=== PATIENT | male | born 1960 | race Caucasian/White ===

== ENCOUNTER → 2016-12-11 | Outpatient (CLI) | payer BC ==
[2013-12-02 11:20] VITALS: BP 122/79
[~2016-12-11] MED LIST: AMLO10TA2 PO; ASPI325T8 PO; CHOL100013 PO; CYCL10TA2 PO; DIAZ5TAB PO; FLUO20CA16 PO; FLUO40CA2 PO; LISI-334 PO; LISI40TA PO; MELO15TA23 PO; METO-239 PO; METO-269 PO; METO10TA PO; METO50TA29 PO; OMEP20CA5 PO; OMEP20TA63 PO; OXYC1TAB7 PO; SIMV40TA3 PO; TRIA1TAB5 PO
== END | disposition home or self-care (01) ==
LOC: ECHO 09:15
PROVIDERS: ATTEND Internal Medicine Cardiovascular Disease

== ENCOUNTER 2016-12-30 09:51 | Inpatient (IN) | payer BC ==
[~2016-12-30] VITALS: Ht 180.3 cm; Wt 164.7 kg
[~2016-12-30 09:51] MED LIST changes: -CHOL100013 PO; -CYCL10TA2 PO; -FLUO40CA2 PO; -LISI40TA PO; -MELO15TA23 PO; -METO10TA PO; -METO50TA29 PO; -OMEP20TA63 PO; -OXYC1TAB7 PO; -TRIA1TAB5 PO
[2016-12-30] MEDS ORDERED: ONDANSETRON PF 4 MG/2 ML VIAL. IV ONE (10:15)
--- NOTE | 2016-12-30 10:18 | EKG ---
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
--- NOTE | 2016-12-30 10:18 | RAD ---
Chest radiograph 12/30/2016 12:02 PM Indication: Chest pain Comparison: Chest radiograph 12/01/2013 Technique: Single portable upright frontal view of the chest is provided. Findings: Cardiomediastinal silhouette is within normal limits. No pleural effusions, pulmonary vascular congestion or pneumothorax. The lungs are clear. Osseous structures are normal. Impression: No acute cardiopulmonary process.
[2016-12-30] MEDS: fentaNYL PF VIAL 100 MCG/2 ML VIAL IV PRN ×4 (10:29→14:25)
[2016-12-30] MEDS: NITROGLYCERIN SUBLINGUAL 0.4 MG BOTTLE OF 25. SL PRN ×3 (10:30→10:53)
[2016-12-30 10:41] LABS: BASO # 0.1 x10^3/uL (0.0-0.2); BASO % 1 % (0-3); EOS % 4 % (0-3); HEMATOCRIT 45.9 % (39.0-53.0); HEMOGLOBIN 15.4 g/dL (13.0-17.5); LYMPH # 1.9 x10^3/uL (1.0-4.8); LYMPH % 16 % (24-48); MEAN CORPUSCULAR HEMOGLOBIN 30 pg (25-35); MEAN CORPUSCULAR HGB CONC 34 g/dL (31-37); MEAN CORPUSCULAR VOLUME 89 fL (79-100); MONO % 6 % (0-9); NEUT % 73 % (31-73); PLATELET COUNT 240 x10^3/uL (140-400); RED BLOOD COUNT 5.15 x10^6/uL (4.30-5.70); RED CELL DISTRIBUTION WIDTH 13.9 % (11.5-14.5); WHITE BLOOD COUNT 11.9 x10^3/uL (4.0-11.0)
[2016-12-30 10:45] LABS: CALCIUM 9.8 mg/dL (8.5-10.1); CREATININE 0.8 mg/dL (0.7-1.3); GFR 100.4; POTASSIUM 4.4 mmol/L (3.5-5.1)
[2016-12-30 10:53] LABS: ALBUMIN 3.7 g/dL (3.4-5.0); DIRECT BILIRUBIN 0.1 mg/dL (0.0-0.2); TOTAL BILIRUBIN 0.4 mg/dL (0.2-1.0); TOTAL PROTEIN 7.1 g/dL (6.4-8.2)
[2016-12-30] MEDS ORDERED: fentaNYL PF VIAL 100 MCG/2 ML VIAL IV PRN ×2 (11:30→21:45)
[2016-12-30 12:12] LABS: BILIRUBIN,URINE NEGATIVE (NEG); GLUCOSE,URINE NEGATIVE (NEG); NITRITE,URINE NEGATIVE (NEG); PROTEIN,URINE NEGATIVE (NEG-TRACE)
[2016-12-30 12:24] LABS: BARBITURATES NEG (NEG); BENZODIAZEPINES NEG (NEG); CANNABINOIDS POS (NEG); COCAINE NEG (NEG); METHADONE NEG (NEG); OPIATES NEG (NEG); PHENCYCLIDINE NEG (NEG)
[2016-12-30 12:41] LABS: INR 0.9 (0.8-1.1)
[2016-12-30 12:41] LABS: BACTERIA,URINE 0 /HPF (0-FEW); RBC,URINE 0 /HPF (0-2); SQUAMOUS EPITHELIAL CELL,UR FEW /LPF; WBC,URINE 0 /HPF (0-4)
[2016-12-30] MEDS ORDERED: IOHEXOL 300 MG/ML 75 ML VIAL IV ONE (13:00)
[2016-12-30] MEDS ORDERED: CONTRAST GIVEN MC PRN (13:15)
[2016-12-30] MEDS ORDERED: IOHEXOL 300 MG/ML 75 ML VIAL ONE (13:41)
--- NOTE | 2016-12-30 14:06 | RAD ---
CT angiography chest 12/30/2016 at 1322 hours Indication: Chest pain, shortness of breath with history of shoulder surgery. Comparison: CT chest 05/06/2010 Technique: Multiple axial CT images of the chest were obtained after the administration of 75 mL Omnipaque 300. Coronal and sagittal reformats are provided. Maximum intensity projection images are provided for evaluation the pulmonary arterial system. Findings: The thyroid gland is normal in appearance. There are no pathologically enlarged lymph nodes in the axillary, mediastinal or hilar regions. Heart size is within normal limits. Thoracic aorta is normal in course and caliber. There is no pericardial effusion. There is adequate preservation of the pulmonary arterial system. No filling defects are identified to suggest a pulmonary embolism. There are no suspicious pulmonary nodules. No pulmonary infiltrates. No pulmonary vascular congestion, pleural effusions or pneumothorax. Simple appearing right renal cyst is partially profiled. Otherwise, visualized portions of the upper abdomen are within normal limits. No suspicious osseous lesions are identified. Impression: 1. No acute pulmonary embolism is identified. 2. No pulmonary infiltrate or suspicious pulmonary nodule. PQRS Compliance Statement: One or more of the following individualized dose reduction techniques were utilized for this examination: 1. Automated exposure control 2. Adjustment of the mA and/or kV according to patient size 3. Use of iterative reconstruction technique
[2016-12-30] MEDS ORDERED: LIDO:MAALOX:DONNATAL 1:1:1 15 ML SINGLE DOSE SWSW ONE (14:15)
[2016-12-30] MEDS ORDERED: NITROGLYCERIN SUBLINGUAL 0.4 MG BOTTLE OF 25. SL PRN (15:00)
[2016-12-30] MEDS ORDERED: ONDANSETRON PF 4 MG/2 ML VIAL. IV PRN (15:00)
[2016-12-30] MEDS ORDERED: ACETAMINOPHEN 325 MG TABLET. PO PRN (15:00)
[2016-12-30 16:03] VITALS: BP 136/77
[2016-12-30] MEDS: MORPHINE SULFATE 4 MG/ML DISP.SYRIN. IV PRN ×3 (16:10→20:52)
--- NOTE | 2016-12-30 16:50 | ED.ADGEN ---
Past Medical History Past Medical History: Depression, High Cholesterol, Hypertension, Other Additional Past Medical Histor: HIGH CHOLESTEROL, Past Surgical History: Other Additional Past Surgical Histo: STENTS, LEFT SHOUDLER Additional Information: 1 CIGARETTE DAILY Alcohol Use: Occasionally Additional Information: 4 OR 5 MIXED DRINKS Drug Use: Marijuana Adult General Chief Complaint Chief Complaint: CHEST PAIN HPI HPI Patient is a 56 year old man, history of CAD status post CA, obesity, hypertension, hyperlipidemia, several weeks postop from left shoulder rotator cuff repair, who presents to the emergency department with complaint of chest pain. Patient states that he began experiencing chest pain across anterior portion of his chest that feels a pressure, and is an 8 out of 10, around 8:00 this morning. He states that he was already awake when experiencing the pain. States that it hurts to take a deep breath, and is have some shortness of breath with this pain. He states that it does feel something like the pain he experienced when he had an CA "this is worse". He denies any swelling of the extremities, any swelling of the upper extremity, where he had recent surgery, any nausea or vomiting, any focal weakness, numbness, tingling, headache, injuries. States he's been compliant with all medications. Patient's is at bedside. Review of Systems Review of Systems Constitutional: Denies fever or chills. [] Eyes: Denies change in visual acuity. [] HENT: Denies nasal congestion or sore throat. [] Respiratory: Denies cough, pain with deep inspiration, shortness breath, and anterior chest pain. Cardiovascular: Anterior chest pain. GI: Denies abdominal pain, nausea, vomiting, bloody stools or diarrhea. [] : Denies dysuria. [] Musculoskeletal: Denies back pain, pain in the left upper extremity status post rotator cuff repair surgery several weeks ago.] Integument: Denies rash. [] Neurologic: Denies headache, focal weakness or sensory changes. [] Endocrine: Denies polyuria or polydipsia. [] Lymphatic: Denies swollen glands. [] Psychiatric: Denies depression or anxiety. [] Current Medications Current Medications Current Medications Medications (Trade) Dose Ordered Sig/Allie Start Time Stop Time Status Last Admin Dose Admin Fentanyl Citrate (Fentanyl 2ml Vial) 50 mcg PRN Q15MIN PRN 12/30/16 11:30 12/31/16 11:29 Info (Do NOT chart on this entry -- for MONITORING) 1 each PRN DAILY PRN 12/30/16 13:15 01/01/17 13:14 Iohexol (Omnipaque 300 Mg/ml) 75 ml STK-MED ONCE 12/30/16 13:41 12/30/16 13:42 DC Multi-Ingredient Mouthwash/Gargle (Gi Cocktail Single Dose) 15 ml 1X ONCE 12/30/16 14:15 12/30/16 14:17 DC 12/30/16 14:28 15 ML Nitroglycerin (Nitrostat) 0.4 mg PRN Q5MIN PRN 12/30/16 10:15 12/31/16 10:14 12/30/16 10:53 0.4 MG Ondansetron HCl (Zofran) 4 mg 1X ONCE 12/30/16 10:15 12/30/16 10:16 DC 12/30/16 10:29 4 MG Allergies Allergies Allergies Coded Allergies Type Severity Reaction Last Updated Verified naproxen Allergy Unknown 12/01/13 No Physical Exam Physical Exam Constitutional: Well developed, well nourished, no acute distress, non-toxic appearance. [] HENT: Normocephalic, atraumatic, bilateral external ears normal, oropharynx moist, no oral exudates, nose normal. [] Eyes: PERRLA, EOMI, conjunctiva normal, no discharge. [] Neck: Normal range of motion, no tenderness, supple, no stridor. [] Cardiovascular:Heart rate regular rhythm, no murmur , S1, S2, rubs or gallops. Patient with chest wall tenderness across the anterior portion of his chest, but palpation does not reveal any symptoms. No lesions or other maladies identified. No crepitus.[] Lungs & Thorax: Bilateral breath sounds clear to auscultation , no wheezing, rhonchi, rales.[] Abdomen: Bowel sounds normal, obese, soft, no tenderness, no masses, no pulsatile masses. [] Skin: Warm, dry, no erythema, no rash. [] Back: No tenderness, no CVA tenderness. [] Extremities: No tenderness, no cyanosis, no clubbing, ROM intact, no edema. Patient with well-healed surgical incisions noted in the left shoulder consistent with patient's recent rotator cuff repair, patient with tenderness in this region and diminished range of motion, but no swelling other abnormalities identified, normal pulses bilaterally. Negative Homans sign.[] Neurologic: Alert and oriented X 3, normal motor function, normal sensory function, no focal deficits noted. [] Psychologic: Affect normal, judgement normal, mood normal. [] Current Patient Data Vital Signs Vital Signs Date Time Temp Pulse Resp B/P (MAP) Pulse Ox O2 Delivery O2 Flow Rate FiO2 12/30/16 14:30 82 140/80 (100) 93 Room Air 12/30/16 14:25 16 12/30/16 10:06 97.8 97.8 Lab Values Laboratory Tests Test 12/30/16 10:25 12/30/16 12:01 12/30/16 13:00 White Blood Count 11.9 x10^3/uL (4.0-11.0) H Red Blood Count 5.15 x10^6/uL (4.30-5.70) Hemoglobin 15.4 g/dL (13.0-17.5) Hematocrit 45.9 % (39.0-53.0) Mean Corpuscular Volume 89 fL (79-100) Mean Corpuscular Hemoglobin 30 pg (25-35) Mean Corpuscular Hemoglobin Concent 34 g/dL (31-37) Red Cell Distribution Width 13.9 % (11.5-14.5) Platelet Count 240 x10^3/uL (140-400) Neutrophils (%) (Auto) 73 % (31-73) Lymphocytes (%) (Auto) 16 % (24-48) L Monocytes (%) (Auto) 6 % (0-9) Eosinophils (%) (Auto) 4 % (0-3) H Basophils (%) (Auto) 1 % (0-3) Neutrophils # (Auto) 8.7 x10^3uL (1.8-7.7) H Lymphocytes # (Auto) 1.9 x10^3/uL (1.0-4.8) Monocytes # (Auto) 0.7 x10^3/uL (0.0-1.1) Eosinophils # (Auto) 0.5 x10^3/uL (0.0-0.7) Basophils # (Auto) 0.1 x10^3/uL (0.0-0.2) Prothrombin Time 12.0 SEC (11.7-14.0) Prothrombin Time INR 0.9 (0.8-1.1) PTT 33 SEC (24-38) Sodium Level 140 mmol/L (136-145) Potassium Level 4.4 mmol/L (3.5-5.1) Chloride Level 101 mmol/L (98-107) Carbon Dioxide Level 30 mmol/L (21-32) Anion Gap 9 (6-14) Blood Urea Nitrogen 14 mg/dL (8-26) Creatinine 0.8 mg/dL (0.7-1.3) Estimated GFR (Cockcroft-Gault) 100.4 Glucose Level 103 mg/dL (70-99) H Calcium Level 9.8 mg/dL (8.5-10.1) Total Bilirubin 0.4 mg/dL (0.2-1.0) Direct Bilirubin 0.1 mg/dL (0.0-0.2) Aspartate Amino Transferase (AST) 17 U/L (15-37) Alanine Aminotransferase (ALT) 18 U/L (16-63) Alkaline Phosphatase 105 U/L (46-116) Troponin I Quantitative < 0.017 ng/mL (0.000-0.055) < 0.017 ng/mL (0.000-0.055) Total Protein 7.1 g/dL (6.4-8.2) Albumin 3.7 g/dL (3.4-5.0) Lipase 171 U/L (73-393) Urine Collection Type Unknown Urine Color Yellow Urine Clarity Clear Urine pH 7.0 Urine Specific [place] 1.015 Urine Protein Negative mg/dL (NEG-TRACE) Urine Glucose (UA) Negative mg/dL (NEG) Urine Ketones (Stick) Negative mg/dL (NEG) Urine Blood Negative (NEG) Urine Nitrite Negative (NEG) Urine Bilirubin Negative (NEG) Urine Urobilinogen Dipstick 1.0 mg/dL (0.2 mg/dL) Urine Leukocyte Esterase Negative (NEG) Urine RBC 0 /HPF (0-2) Urine WBC 0 /HPF (0-4) Urine Squamous Epithelial Cells Few /LPF Urine Bacteria 0 /HPF (0-FEW) Urine Hyaline Casts Occasional /HPF Urine Mucus Slight /LPF Urine Opiates Screen Neg (NEG) Urine Methadone Screen Neg (NEG) Urine Barbiturates Neg (NEG) Urine Phencyclidine Screen Neg (NEG) Urine Amphetamine/Methamphetamine Neg (NEG) Urine Benzodiazepines Screen Neg (NEG) Urine Cocaine Screen Neg (NEG) Urine Cannabinoids Screen Pos (NEG) Urine Ethyl Alcohol Neg (NEG) Laboratory Tests 12/30/16 10:25 Laboratory Tests 12/30/16 10:25 EKG EKG EC: Sinus rhythm, heart rate 60 beats/minute, QTC of 426, QRS of 86, no ST elevations or depressions noted, moderate baseline artifact noted, patient with Q waves noted in lead 3, contour normality is noted in the anterior and septal leads, abnormal ECG, does not meet STEMI criteria. As interpreted by me.[ ] Radiology/Procedures Radiology/Procedures [][facility] [address] [place] [address] IMAGING REPORT Signed PATIENT: NADIA BARBER ACCOUNT: [id number] : 1960 LOCATION: ER AGE: 56 SEX: M EXAM STATUS: REG ER ORD. PHYSICIAN: CRISTÓBAL ARRIOLA DO REASON: CP/SOB/hx shoulder surgery PROCEDURE: CT ANGIOGRAPHY CHEST CT angiography chest 12/30/2016 at 1322 hours Indication: Chest pain, shortness of breath with history of shoulder surgery. Comparison: CT chest 05/06/2010 Technique: Multiple axial CT images of the chest were obtained after the administration of 75 mL Omnipaque 300. Coronal and sagittal reformats are provided. Maximum intensity projection images are provided for evaluation the pulmonary arterial system. Findings: The thyroid gland is normal in appearance. There are no pathologically enlarged lymph nodes in the axillary, mediastinal or hilar regions. Heart size is within normal limits. Thoracic aorta is normal in course and caliber. There is no pericardial effusion. There is adequate preservation of the pulmonary arterial system. No filling defects are identified to suggest a pulmonary embolism. There are no suspicious pulmonary nodules. No pulmonary infiltrates. No pulmonary vascular congestion, pleural effusions or pneumothorax. Simple appearing right renal cyst is partially profiled. Otherwise, visualized portions of the upper abdomen are within normal limits. No suspicious osseous lesions are identified. Impression: 1. No acute pulmonary embolism is identified. 2. No pulmonary infiltrate or suspicious pulmonary nodule. PQRS Compliance Statement: One or more of the following individualized dose reduction techniques were utilized for this examination: 1. Automated exposure control 2. Adjustment of the mA and/or kV according to patient size 3. Use of iterative reconstruction technique DICTATED and SIGNED BY: MEJIA BERGERON MD DATE: 12/30/16 1400 CC: DOROTA AGUIAR; CRISTÓBAL ARRIOLA DO ~ Course & Med Decision Making Course & Med Decision Making Pertinent Labs and Imaging studies reviewed. (See chart for details) Patient's evaluation in the ED today of the chest due to his recent surgery with chest pain, that was negative for PE, troponin was also unremarkable, ECG does not reveal evidence of acutely concerning findings. Patient received aspirin, multiple doses of nitroglycerin and fentanyl with improvement of symptoms. I did discuss findings as above with Dr. Welch, the patient's financial services intern, who requested the patient be admitted to the hospitalist service for continued monitoring, serial enzymes, and symptom management. Patient voiced understanding and agreement with this plan, concern for possible ACS with chest pain. Patient remained stable on the monitor, transfer to the floor without issue, bridge orders entered per discussion. Dragon Disclaimer Dragon Disclaimer This electronic medical record was generated, in whole or in part, using a voice recognition dictation system. Departure Impression: Primary Impression: Chest pain Disposition: ADMITTED INPATIENT Admitting Physician: Other Condition: IMPROVED CRISTÓBAL ARRIOLA DO Dec 30, 2016 16:50
--- NOTE | 2016-12-30 19:48 | EKG ---
[facility] [address] [place] [address] Test Date: 2016-12-30 Test Time: 19:38:02 Pat Name: NADIA BARBER Department: Room: 262 1 Gender: M Grey Inspector: SUZAN : 1960 Requested By: MERT HERNANDEZ Order Number: [id number] Reading MD: Marika Bernard Measurements Intervals [place] Rate: 77 P: -93 IN: 278 QRS: 14 QRSD: 74 T: 53 QT: 362 QTc: 411 Interpretive Statements SINUS RHYTHM PROLONGED IN INTERVAL ABNORMAL ECG Electronically Signed On 01-03-2017 10:56:18 CDT by Marika Bernard
[2016-12-30 19:50] VITALS: BP 125/74
[2016-12-30] MEDS ORDERED: MORPHINE SULFATE 4 MG/ML DISP.SYRIN. IV PRN (20:30)
[2016-12-30] MEDS ORDERED: LISI40TA PO (20:36)
[2016-12-30] MEDS ORDERED: FLUO40CA2 PO (20:36)
[2016-12-30] MEDS ORDERED: OMEP20TA63 PO (20:36)
[2016-12-30] MEDS ORDERED: TRIA1TAB5 PO (20:36)
[2016-12-30] MEDS ORDERED: METO50TA29 PO (20:36)
[2016-12-30] MEDS ORDERED: ASPI325T8 PO (20:36)
[2016-12-30] MEDS ORDERED: OXYC1TAB7 PO (20:36)
[2016-12-30] MEDS ORDERED: CYCL10TA2 PO (20:36)
[2016-12-30] MEDS ORDERED: METO10TA PO (20:36)
[2016-12-30] MEDS ORDERED: MELO15TA23 PO (20:36)
[2016-12-30] MEDS ORDERED: CHOL100013 PO (20:36)
[2016-12-30] MEDS ORDERED: DEXAMETHASONE SOD PHOS 4 MG/ML VIAL IV ONE (22:00)
[2016-12-30] MEDS ORDERED: SIMVASTATIN 40 MG TABLET. PO SCH (22:00)
[2016-12-30] MEDS: LISINOPRIL 40 MG TABLET. PO SCH (22:08)
[2016-12-30] MEDS: FLUoxetine HCL 20 MG CAPSULE PO SCH (22:08)
[2016-12-30] MEDS: METOPROLOL SUCC 24HR ER 50 MG TAB.ER.24H. PO SCH (22:09)
[2016-12-30] MEDS: PANTOPRAZOLE 40 MG TABLET.DR. PO SCH (22:10)
[2016-12-30] MEDS: CYCLOBENZAPRINE 10 MG TABLET. PO PRN (22:11)
[2016-12-30] MEDS: METOCLOPRAMIDE 10 MG TABLET. PO SCH (22:11)
[2016-12-30] MEDS: MELOXICAM 7.5 MG TABLET PO SCH (22:12)
--- NOTE | 2016-12-30 22:26 | HP ---
ADMIT DATE: 12/30/2016 CHIEF COMPLAINT: Chest pain. HISTORY OF PRESENT ILLNESS: The patient is a morbidly obese 56-year-old gentleman with past medical history of CAD status post cath with stents 6 years ago, who presented to the Emergency Room with complaint of chest pain upon awakening this morning. He relates that he had been sleeping in the recliner for the past 6 weeks due to rotator cuff repair. Last night was actually the first night that he went to his bed. He had difficulty sleeping all night long and was up and down from a chair to bed. He woke up this morning with severe chest pressure 8/10. It hurt him to take a deep breath and he stated it felt like he got hit with a fist in the middle of his chest. Denies any dizziness or diaphoresis. Feels like this is the same pain that he had when he had his MRI and it radiates all around in his chest and towards the back as well. Pain has been persistent ever since and currently is about 7/10, 14 hours later. In the Emergency Room CTA of the chest was obtained, did not show any pulmonary embolism, also did not see any pulmonary infiltrates or nodules. No mediastinal abnormality. Labs were essentially within normal limits and patient was admitted to the cardiac care unit for further workup and care. PAST MEDICAL HISTORY: CAD status post [place] and stent placement x 2, hypertension, hypercholesterolemia, left rotator cuff repair 6 weeks ago. SOCIAL HISTORY: He is , living with his , smokes socially about half a pack a week. Smokes pot as well, has 4-5 mixed drinks a week as well. ALLERGIES: NAPROXEN. MEDICATIONS: MAR reconciled with home meds. REVIEW OF SYSTEMS: As per HPI. He denies any stuffy or runny nose, sore throat, cough more than his baseline smoker's cough. Denies any fevers, chills, any nausea, vomiting or abdominal pain. Rest of organ system review is negative as well. PHYSICAL EXAMINATION: VITAL SIGNS: From today show a blood pressure of 125/74, heart rate of 82, respiratory rate of 20. He is afebrile. GENERAL: This is a morbidly obese 56-year-old gentleman, alert and oriented, very anxious, in no acute distress. HEENT: Shows no scleral icterus. NECK: Supple and thick, no palpable lymphadenopathy. LUNGS: Clear to auscultation anteriorly. HEART: Has regular rate and rhythm. ABDOMEN: Massively obese, positive bowel sounds. Organs could not be palpated. EXTREMITIES: Show no edema. SKIN: Warm, soft and dry without any rash. LABORATORY DATA: CBC with a WBC of 7.9, hemoglobin 15.4, platelets of 240. Chemistries with a BUN and creatinine of 14 and 0.8, normal electrolytes, normal LFTs. Troponins negative x 3. Tox screen positive for cannabinoids. Urine is negative. IMAGING: CTA shows no evidence of pulmonary embolism and no pulmonary infiltrates are suspicious pulmonary nodule. ASSESSMENT AND PLAN: The patient is a 56-year-old gentleman presenting with atypical chest pain. He is now admitted to the cardiac care unit for further evaluation. His cleaning porter, Dr. Welch will be notified of the admission. My suspicion, however, is that this is an esophageal in nature, possibly musculoskeletal. We will give him a single dose of Decadron as well as increased dose of fentanyl and a one-time dose of Ativan to help him break the pain. I reassured him that this was highly unlikely to be cardiac in etiology. He clearly was worried about that potential, will reevaluate in the morning. He may need further evaluation by GI. In the meantime, we will continue all his home medications, vital signs and labs are otherwise within normal limits. ABBEY CLARKE MD DR: RADHA/missy JOB#: [id number] / [id number] DOROTA Raymond
[2016-12-30 23:40] VITALS: BP 139/82
[2016-12-31] VITALS (8 sets, daily range): BP systolic 114–144; BP diastolic 67–100
[2016-12-31 05:02] LABS: BASO % 0 % (0-3); EOS % 0 % (0-3); HEMATOCRIT 44.8 % (39.0-53.0); LYMPH # 0.6 x10^3/uL (1.0-4.8); LYMPH % 5 % (24-48); MEAN CORPUSCULAR HEMOGLOBIN 30 pg (25-35); MEAN CORPUSCULAR HGB CONC 33 g/dL (31-37); MEAN CORPUSCULAR VOLUME 90 fL (79-100); MONO % 1 % (0-9); NEUT % 93 % (31-73); PLATELET COUNT 213 x10^3/uL (140-400); RED BLOOD COUNT 4.97 x10^6/uL (4.30-5.70); RED CELL DISTRIBUTION WIDTH 14.4 % (11.5-14.5)
[2016-12-31 05:23] LABS: CALCIUM 9.4 mg/dL (8.5-10.1); CREATININE 0.8 mg/dL (0.7-1.3); GFR 100.4
[2016-12-31 05:24] LABS: POTASSIUM 4.8 mmol/L (3.5-5.1)
[2016-12-31] MEDS: TRIAMTERENE/HCTZ 75/50MG TABLET. PO SCH (08:35)
[2016-12-31] MEDS: METOCLOPRAMIDE 10 MG TABLET. PO SCH ×4 (08:35→20:27)
[2016-12-31] MEDS: METOPROLOL SUCC 24HR ER 25 MG TAB.ER.24H. PO SCH (08:36)
[2016-12-31] MEDS: ASPIRIN 325 MG TABLET PO SCH (08:36)
[2016-12-31] MEDS: MORPHINE SULFATE 4 MG/ML DISP.SYRIN. IV PRN ×2 (08:37→14:07)
[2016-12-31 09:50] LABS: CHOLESTEROL/HDL RATIO 3.9
--- NOTE | 2016-12-31 09:58 | EKG ---
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
--- NOTE | 2016-12-31 10:12 | PDOC2 ---
CARDIAC CONSULT DATE OF CONSULT Date of Consult DATE: 12/31/16 TIME: 09:42 REASON FOR CONSULT Reason for Consult: Chest pain REFERRING PHYSICIAN Referring Physician: Viviana SOURCE Source: Chart review, Patient HISTORY OF PRESENT ILLNESS HISTORY OF PRESENT ILLNESS This is a pleasant 56 yo male admitted for complains of chest pain. Report that she had L shoulder RTC repair at [facility]. He did well with the procedure. He has not been moving around as much since then. His left arm was on a sling for the most part of his recovery weeks. His left shoulder pain has been controlled with percocet and actually has weaned himself at a lesser dose at this time. He takes ibuprofen as need and not daily. He also has been taking his cardiac meds routinely. In the last few weeks he has been feeling dizziness , nausea and sometimes vertigo. Reports that when he turns his head fast he gets vertigo. 2-3 weeks ago he fell after getting out of the bathtub. He said that he hurt his right side and knee but no traumatic injury. At that time he felt a little dizzy as well. His dizziness is intermittent and more so with positional changes. Yesterday he started having right chest pain like somebody was punching in the chest that radiated to between his shoulder blades. Also described he described at some point he felt like he was having a heart attack. Denies any jaw pain. This made him very anxious and actually it hurts even more with deep breathing. He received multiple doses of IV opioids last night and his pain is better now. In regards to his left shoulder the ice actually worked very well for him. PAST MEDICAL HISTORY Past Medical History Cardiovascular: CAD, HTN, Hyperlipidemia Pulmonary: Other (LOPEZ, intolerant to CPAP) GI: GERD Heme/Onc: No pertinent hx Hepatobiliary: No pertinent hx Psych: Depression Musculoskeletal: Osteoarthritis, Other (morbid obesity) Rheumatologic: No pertinent hx Infectious disease: No pertinent hx ENT: No pertinent hx Renal/: No pertinent hx Endocrine: No pertinent hx Dermatology: No pertinent hx PAST SURGICAL HISTORY Past Surgical History Cardiac cath withPCI/stents 3 years ago, LRTC repair 5 weeks ago FAMILY HISTORY Family History Father with massive PR in his 50s SOCIAL HISTORY Social History Smoke: <1 pack per day ALCOHOL: occasional Drugs: Marijuana Lives: with Family Domestic Violence: Neg CURRENT MEDICATIONS CURRENT MEDICATIONS Current Medications Medications (Trade) Dose Ordered Sig/Allie Route PRN Reason Start Time Stop Time Status Last Admin Dose Admin Nitroglycerin (Nitrostat) 0.4 mg PRN Q5MIN PRN SL CP RATING > 1/10 12/30/16 10:15 12/31/16 10:14 12/30/16 10:53 Fentanyl Citrate (Fentanyl 2ml Vial) 25 mcg PRN Q15MIN PRN IV PAIN GREATER THAN 3/10 12/30/16 10:15 12/30/16 21:44 DC 12/30/16 14:25 Ondansetron HCl (Zofran) 4 mg 1X ONCE IV 12/30/16 10:15 12/30/16 10:16 DC 12/30/16 10:29 Iohexol (Omnipaque 300 Mg/ml) 75 ml 1X ONCE IV 12/30/16 13:00 12/30/16 13:01 DC 12/30/16 13:21 Multi-Ingredient Mouthwash/Gargle (Gi Cocktail Single Dose) 15 ml 1X ONCE SWSW 12/30/16 14:15 12/30/16 14:17 DC 12/30/16 14:28 Morphine Sulfate 4 mg PRN Q2HR PRN IV PAIN 12/30/16 15:00 12/31/16 14:59 12/31/16 08:37 Aspirin (Rose Aspirin) 325 mg DAILY PO 12/31/16 09:00 12/31/16 08:36 Cyclobenzaprine HCl (Flexeril) 10 mg PRN TID PRN PO MUSCLE PAIN 12/30/16 21:30 12/30/16 22:11 Lisinopril (Prinivil) 40 mg HS PO 12/30/16 22:00 12/30/16 22:08 Metoclopramide HCl (Reglan) 10 mg QIDACHS PO 12/30/16 22:00 12/31/16 08:35 Metoprolol Succinate (Toprol Xl) 50 mg HS PO 12/30/16 22:00 12/30/16 22:09 Metoprolol Succinate (Toprol Xl) 25 mg DAILY PO 12/31/16 09:00 12/31/16 08:36 Simvastatin (Zocor) 40 mg QHS PO 12/30/16 22:00 12/30/16 22:09 Triamterene/HCTZ (Maxzide 75/50mg) 1 tab DAILY PO 12/31/16 09:00 12/31/16 08:35 Fluoxetine HCl (PROzac) 40 mg QHS PO 12/30/16 22:00 12/30/16 22:08 Meloxicam (Mobic) 15 mg QHS PO 12/30/16 22:00 12/30/16 22:12 Pantoprazole Sodium (Protonix) 40 mg QHS PO 12/30/16 22:00 12/30/16 22:10 Dexamethasone Sodium Phosphate (Decadron) 8 mg 1X ONCE IV 12/30/16 22:00 12/30/16 22:01 DC 12/30/16 22:13 Lorazepam (Ativan) 1 mg 1X ONCE IV 12/30/16 22:00 12/30/16 22:01 DC 12/30/16 22:12 ALLERGIES ALLERGIES: Coded Allergies: naproxen (Unverified Allergy, Intermediate, 12/30/16) ASA OK ROS Review of System 14 point ROS evaluated with pertinent positives noted per HPI PHYSICAL EXAM General: Alert, Oriented X3, Cooperative, No acute distress HEENT: Atraumatic, Mucous membr. moist/pink Lungs: Clear to auscultation, Normal air movement Heart: Regular rate (SR), Normal S1, Normal S2, Other (distant heart sounds) Abdomen: Soft, No tenderness Extremities: No cyanosis, No edema Skin: No breakdown Neuro: Normal speech, Sensation intact Psych/Mental Status: Mental status NL, Other MUSCULOSKELETAL: Osteoarthritic changes both hands VITALS VITALS Vital Signs Date Time Temp Pulse Resp B/P (MAP) Pulse Ox O2 Delivery O2 Flow Rate FiO2 12/31/16 08:37 92 Nasal Cannula 2.0 12/31/16 08:36 66 124/77 12/31/16 07:24 97.4 19 97.4 LABS Lab: Laboratory Tests Test 12/30/16 10:25 12/30/16 12:01 12/30/16 13:00 12/30/16 16:00 White Blood Count 11.9 x10^3/uL (4.0-11.0) Red Blood Count 5.15 x10^6/uL (4.30-5.70) Hemoglobin 15.4 g/dL (13.0-17.5) Hematocrit 45.9 % (39.0-53.0) Mean Corpuscular Volume 89 fL (79-100) Mean Corpuscular Hemoglobin 30 pg (25-35) Mean Corpuscular Hemoglobin Concent 34 g/dL (31-37) Red Cell Distribution Width 13.9 % (11.5-14.5) Platelet Count 240 x10^3/uL (140-400) Neutrophils (%) (Auto) 73 % (31-73) Lymphocytes (%) (Auto) 16 % (24-48) Monocytes (%) (Auto) 6 % (0-9) Eosinophils (%) (Auto) 4 % (0-3) Basophils (%) (Auto) 1 % (0-3) Neutrophils # (Auto) 8.7 x10^3uL (1.8-7.7) Lymphocytes # (Auto) 1.9 x10^3/uL (1.0-4.8) Monocytes # (Auto) 0.7 x10^3/uL (0.0-1.1) Eosinophils # (Auto) 0.5 x10^3/uL (0.0-0.7) Basophils # (Auto) 0.1 x10^3/uL (0.0-0.2) Prothrombin Time 12.0 SEC (11.7-14.0) Prothromb Time International Ratio 0.9 (0.8-1.1) Activated Partial Thromboplast Time 33 SEC (24-38) Sodium Level 140 mmol/L (136-145) Potassium Level 4.4 mmol/L (3.5-5.1) Chloride Level 101 mmol/L (98-107) Carbon Dioxide Level 30 mmol/L (21-32) Anion Gap 9 (6-14) Blood Urea Nitrogen 14 mg/dL (8-26) Creatinine 0.8 mg/dL (0.7-1.3) Estimated GFR (Cockcroft-Gault) 100.4 Glucose Level 103 mg/dL (70-99) Calcium Level 9.8 mg/dL (8.5-10.1) Total Bilirubin 0.4 mg/dL (0.2-1.0) Direct Bilirubin 0.1 mg/dL (0.0-0.2) Aspartate Amino Transf (AST/SGOT) 17 U/L (15-37) Alanine Aminotransferase (ALT/SGPT) 18 U/L (16-63) Alkaline Phosphatase 105 U/L (46-116) Troponin I Quantitative < 0.017 ng/mL (0.000-0.055) < 0.017 ng/mL (0.000-0.055) < 0.017 ng/mL (0.000-0.055) Total Protein 7.1 g/dL (6.4-8.2) Albumin 3.7 g/dL (3.4-5.0) Lipase 171 U/L (73-393) Urine Collection Type Unknown Urine Color Yellow Urine Clarity Clear Urine pH 7.0 Urine Specific [place] 1.015 Urine Protein Negative mg/dL (NEG-TRACE) Urine Glucose (UA) Negative mg/dL (NEG) Urine Ketones (Stick) Negative mg/dL (NEG) Urine Blood Negative (NEG) Urine Nitrite Negative (NEG) Urine Bilirubin Negative (NEG) Urine Urobilinogen Dipstick 1.0 mg/dL (0.2 mg/dL) Urine Leukocyte Esterase Negative (NEG) Urine RBC 0 /HPF (0-2) Urine WBC 0 /HPF (0-4) Urine Squamous Epithelial Cells Few /LPF Urine Bacteria 0 /HPF (0-FEW) Urine Hyaline Casts Occasional /HPF Urine Mucus Slight /LPF Urine Opiates Screen Neg (NEG) Urine Methadone Screen Neg (NEG) Urine Barbiturates Neg (NEG) Urine Phencyclidine Screen Neg (NEG) Urine Amphetamine/Methamphetamine Neg (NEG) Urine Benzodiazepines Screen Neg (NEG) Urine Cocaine Screen Neg (NEG) Urine Cannabinoids Screen Pos (NEG) Urine Ethyl Alcohol Neg (NEG) Test 12/31/16 03:43 White Blood Count 12.0 x10^3/uL (4.0-11.0) Red Blood Count 4.97 x10^6/uL (4.30-5.70) Hemoglobin 15.0 g/dL (13.0-17.5) Hematocrit 44.8 % (39.0-53.0) Mean Corpuscular Volume 90 fL (79-100) Mean Corpuscular Hemoglobin 30 pg (25-35) Mean Corpuscular Hemoglobin Concent 33 g/dL (31-37) Red Cell Distribution Width 14.4 % (11.5-14.5) Platelet Count 213 x10^3/uL (140-400) Neutrophils (%) (Auto) 93 % (31-73) Lymphocytes (%) (Auto) 5 % (24-48) Monocytes (%) (Auto) 1 % (0-9) Eosinophils (%) (Auto) 0 % (0-3) Basophils (%) (Auto) 0 % (0-3) Neutrophils # (Auto) 11.2 x10^3uL (1.8-7.7) Lymphocytes # (Auto) 0.6 x10^3/uL (1.0-4.8) Monocytes # (Auto) 0.2 x10^3/uL (0.0-1.1) Eosinophils # (Auto) 0.0 x10^3/uL (0.0-0.7) Basophils # (Auto) 0.0 x10^3/uL (0.0-0.2) Sodium Level 138 mmol/L (136-145) Potassium Level 4.8 mmol/L (3.5-5.1) Chloride Level 101 mmol/L (98-107) Carbon Dioxide Level 28 mmol/L (21-32) Anion Gap 9 (6-14) Blood Urea Nitrogen 17 mg/dL (8-26) Creatinine 0.8 mg/dL (0.7-1.3) Estimated GFR (Cockcroft-Gault) 100.4 Glucose Level 150 mg/dL (70-99) Calcium Level 9.4 mg/dL (8.5-10.1) Troponin I Quantitative < 0.017 ng/mL (0.000-0.055) ECHOCARDIOGRAM ECHOCARDIOGRAM <Conclusion> The left ventricle is normal size. Left ventricular systolic function is low normal. The Ejection Fraction is 50-55%. There is mild concentric left ventricular hypertrophy. There is no significant aortic valvular stenosis. Doppler and Color Flow revealed trace to mild aortic regurgitation. Doppler and Color-flow revealed mild mitral regurgitation. Doppler and Color Flow revealed trace to mild tricuspid regurgitation RVSP is 41 mmHg. There is no evidence of significant pericardial effusion. DATE: 03/16/15 1457 STRESS TEST STRESS TEST Conclusion 1. Technically difficult Lexiscan nuclear stress test. 2. No EKG evidence of stress-induced ischemia. 3. Nuclear images are suggestive but not diagnostic of inferior wall reversible ischemia on a technically difficult study. 4. Normal left ventricular systolic function with ejection fraction of 67%. 5. Borderline Lexiscan nuclear stress test suggestive but not diagnostic of inferior wall reversible ischemia. DATE: 12/02/13 1130 ASSESSMENT/PLAN ASSESSMENT/PLAN 1. Atypical CP: Troponin series normal. EKG SR with early repolarization. Doubt ACS Suspect GI with possible MSK with mechanical fall from 2 weeks ago. 2. S/P LRTC repair: 5 weeks ago at [facility] and tolerated procedure well. 3. CAD: PCI/KYLIE to RCA 2010. Last MPI 2013 4. GERD with likely exacerbation: Daily mobic with PRN ibuprofen. 5. BPPV 6. HTN 7. HLP: uncontrolled 8. Morbid obesity 9. LOPEZ: CPAP at home 10. Anxiety 11. Tobaccoism 12. Marijuana use Recommendations 1. Repeat troponin and EKG. TTE. 2. Resume PPI. 3. No recent cardiac testing will proceed with 2 day MPI given his significant risk factors. 4. Consider GI consult and GB US. 5. Continue secondary prevention. ASA, change to lipitor at high dose LDL 161. 6. Check Orthostatic readings. 7. Smoking and marijuana cessation Problems: MISAEL ESTRADA APRN Dec 31, 2016 10:12
[2016-12-31] MEDS ORDERED: REGADENOSON 0.4 MG/5 ML DISP.SYRIN. IV ONE ×2 (10:45→11:20)
--- NOTE | 2016-12-31 13:05 | CARD ---
APPROVED REPORT EXAM: Two-dimensional and M-mode echocardiogram with Doppler and color Doppler. Other Information Quality : FairHR: 70bpm Rhythm : NSR INDICATION Chest Pain RISK FACTORS Obesity 2D DIMENSIONS RVDd3.7 (2.9-3.5cm)Left Atrium(2D)4.3 (1.6-4.0cm) IVSd1.5 (0.7-1.1cm)Aortic Root(2D)2.7 (2.0-3.7cm) LVDd4.0 (3.9-5.9cm)LVOT Diameter2.4 (1.8-2.4cm) PWd1.3 (0.7-1.1cm)LVDs2.6 (2.5-4.0cm) FS (%) 34.1 %SV44.0 ml LVEF(%)63.6 (>50%) Aortic Valve AoV Peak Arsenio.193.1cm/sAoV VTI33.8cm AO Peak GR.14.9mmHgLVOT Peak Arsenio.108.0cm/s AO Mean GR.10mmHgAVA (VMAX)2.51cm2 Mitral Valve MV E Elyjjajc29.5cm/sMV E Peak Gr.3mmHg MV DECEL [id number] A Lzopzkza62.8cm/s MV E Mean Gr.1mmHgE/A Ratio0.7 MV A [id number] Pulmonary Valve PV Peak Moqxrikb484.5cm/s Pulmonary Vein S1 Gamzyepj99.7cm/sD2 Gbojxfpb51.8cm/s PVa [id number] LEFT VENTRICLE The left ventricle is normal size. There is mild to moderate asymmetric left ventricular hypertrophy. The left ventricular systolic function is normal and the ejection fraction is within normal range. T he Ejection Fraction is 60-65%. There is grossly normal LV segmental wall motion. Suboptimal images T ransmitral Doppler flow pattern is Grade I-abnormal relaxation pattern. RIGHT VENTRICLE The right ventricle is normal size. There is normal right ventricular wall thickness. The right ventr icular systolic function is normal. ATRIA The left atrium is mildly dilated. The right atrium size is normal. The interatrial septum is intact with no evidence for an atrial septal defect or patent foramen ovale as noted on 2-D or Doppler imagi ng. AORTIC VALVE The aortic valve is not well visualized but appears mildly calcified and opens adequately. Doppler an d Color Flow revealed no significant aortic regurgitation. There is no significant aortic valvular st enosis. MITRAL VALVE Mitral annular calcification is mild. The mitral valve leaflets are thickened. There is no evidence o f mitral valve prolapse. There is no mitral valve stenosis. Doppler and Color Flow revealed no mitral valve regurgitation noted. TRICUSPID VALVE Doppler and Color Flow revealed no tricuspid valve regurgitation noted. Unable to determine pulmonary artery pressure at exam time. PULMONIC VALVE Doppler and Color Flow revealed no pulmonic valvular regurgitation. There is no pulmonic valvular isatu nosis by spectral Doppler. GREAT VESSELS The aortic root is normal in size. The ascending aorta is normal in size. The pulmonary artery is nor mal. The IVC is normal in size and collapses >50% with inspiration. PERICARDIAL EFFUSION There is no evidence of significant pericardial effusion. Critical Notification Critical Value: No <Conclusion> The left ventricular systolic function is normal and the ejection fraction is within normal range. Th e Ejection Fraction is 60-65%. There is grossly normal LV segmental wall motion. Suboptimal images
[2016-12-31] MEDS: oxyCODONE/APAP 5/325 1 TAB TABLET PO PRN ×2 (14:07→21:59)
[2016-12-31 14:12] LABS: PLT ESTIMATE ADEQUATE (ADEQUATE)
[2016-12-31] MEDS ORDERED: MORPHINE SULFATE 2 MG/ML DISP.SYRIN. IV PRN (14:30)
[2016-12-31] MEDS ORDERED: DOCUSATE SODIUM 100 MG CAPSULE. PO PRN (14:30)
[2016-12-31] MEDS ORDERED: hydrALAZINE 20 MG/ML VIAL. IVP PRN (14:30)
[2016-12-31] MEDS ORDERED: ONDANSETRON PF 4 MG/2 ML VIAL. IV PRN (14:30)
--- NOTE | 2016-12-31 14:34 | PDOC ---
PROGRESS NOTES Chief Complaint Chief Complaint chest pain, atypical, 2/2 muscular chest pain vs, GERD, unstable angina less likely h/o CAD with PCI 2010 htn HLD morbid Obesity marijuana use leukocytosis, no SIRS depression recent left shoulder sx with pain recent fall with likely post concussion syndrome GERD plan: fu with Card, EKG ok, CE neg. Echo normal MPI as per Card cont home meds dvt ppx hopefully dc tmr in the AM so can see PCP in the office in the afternoon. History of Present Illness History of Present Illness ROS: no fever, chills, sob, chest pain chest pain gone today, wo tenderness Vitals Vitals Vital Signs Date Time Temp Pulse Resp B/P (MAP) Pulse Ox O2 Delivery O2 Flow Rate FiO2 12/31/16 14:07 92 Nasal Cannula 2.0 12/31/16 11:04 98.5 66 20 122/68 (86) 98.5 Physical Exam General: Alert, Oriented X3, Cooperative, No acute distress Heart: Regular rate (SR), Normal S1, Normal S2, Other (distant heart sounds) Lungs: Clear Abdomen: Soft, No tenderness Extremities: No cyanosis, No edema Skin: No breakdown Labs LABS Laboratory Tests Test 12/30/16 16:00 12/31/16 03:43 12/31/16 09:50 Troponin I Quantitative < 0.017 ng/mL (0.000-0.055) < 0.017 ng/mL (0.000-0.055) < 0.017 ng/mL (0.000-0.055) White Blood Count 12.0 x10^3/uL (4.0-11.0) Red Blood Count 4.97 x10^6/uL (4.30-5.70) Hemoglobin 15.0 g/dL (13.0-17.5) Hematocrit 44.8 % (39.0-53.0) Mean Corpuscular Volume 90 fL (79-100) Mean Corpuscular Hemoglobin 30 pg (25-35) Mean Corpuscular Hemoglobin Concent 33 g/dL (31-37) Red Cell Distribution Width 14.4 % (11.5-14.5) Platelet Count 213 x10^3/uL (140-400) Neutrophils (%) (Auto) 93 % (31-73) Lymphocytes (%) (Auto) 5 % (24-48) Monocytes (%) (Auto) 1 % (0-9) Eosinophils (%) (Auto) 0 % (0-3) Basophils (%) (Auto) 0 % (0-3) Neutrophils # (Auto) 11.2 x10^3uL (1.8-7.7) Lymphocytes # (Auto) 0.6 x10^3/uL (1.0-4.8) Monocytes # (Auto) 0.2 x10^3/uL (0.0-1.1) Eosinophils # (Auto) 0.0 x10^3/uL (0.0-0.7) Basophils # (Auto) 0.0 x10^3/uL (0.0-0.2) Segmented Neutrophils % 97 % (35-66) Lymphocytes % 2 % (24-48) Monocytes % 1 % (0-10) Platelet Estimate Adequate (ADEQUATE) Sodium Level 138 mmol/L (136-145) Potassium Level 4.8 mmol/L (3.5-5.1) Chloride Level 101 mmol/L (98-107) Carbon Dioxide Level 28 mmol/L (21-32) Anion Gap 9 (6-14) Blood Urea Nitrogen 17 mg/dL (8-26) Creatinine 0.8 mg/dL (0.7-1.3) Estimated GFR (Cockcroft-Gault) 100.4 Glucose Level 150 mg/dL (70-99) Calcium Level 9.4 mg/dL (8.5-10.1) Triglycerides Level 75 mg/dL (0-150) Cholesterol Level 236 mg/dL (0-200) LDL Cholesterol, Calculated 161 mg/dL (0-100) VLDL Cholesterol, Calculated 15 mg/dL (0-40) Non-HDL Cholesterol Calculated 176 mg/dL (0-129) HDL Cholesterol 60 mg/dL (40-60) Cholesterol/HDL Ratio 3.9 Assessment and Plan Assessmemt and Plan Problems Medical Problems: (1) Chest pain Status: Acute Problems: Comment Review of Relevant I have reviewed the following items josé (where applicable) has been applied. Labs Laboratory Tests Test 12/30/16 10:25 12/30/16 12:01 12/30/16 13:00 12/30/16 16:00 White Blood Count 11.9 x10^3/uL (4.0-11.0) Red Blood Count 5.15 x10^6/uL (4.30-5.70) Hemoglobin 15.4 g/dL (13.0-17.5) Hematocrit 45.9 % (39.0-53.0) Mean Corpuscular Volume 89 fL (79-100) Mean Corpuscular Hemoglobin 30 pg (25-35) Mean Corpuscular Hemoglobin Concent 34 g/dL (31-37) Red Cell Distribution Width 13.9 % (11.5-14.5) Platelet Count 240 x10^3/uL (140-400) Neutrophils (%) (Auto) 73 % (31-73) Lymphocytes (%) (Auto) 16 % (24-48) Monocytes (%) (Auto) 6 % (0-9) Eosinophils (%) (Auto) 4 % (0-3) Basophils (%) (Auto) 1 % (0-3) Neutrophils # (Auto) 8.7 x10^3uL (1.8-7.7) Lymphocytes # (Auto) 1.9 x10^3/uL (1.0-4.8) Monocytes # (Auto) 0.7 x10^3/uL (0.0-1.1) Eosinophils # (Auto) 0.5 x10^3/uL (0.0-0.7) Basophils # (Auto) 0.1 x10^3/uL (0.0-0.2) Prothrombin Time 12.0 SEC (11.7-14.0) Prothromb Time International Ratio 0.9 (0.8-1.1) Activated Partial Thromboplast Time 33 SEC (24-38) Sodium Level 140 mmol/L (136-145) Potassium Level 4.4 mmol/L (3.5-5.1) Chloride Level 101 mmol/L (98-107) Carbon Dioxide Level 30 mmol/L (21-32) Anion Gap 9 (6-14) Blood Urea Nitrogen 14 mg/dL (8-26) Creatinine 0.8 mg/dL (0.7-1.3) Estimated GFR (Cockcroft-Gault) 100.4 Glucose Level 103 mg/dL (70-99) Calcium Level 9.8 mg/dL (8.5-10.1) Total Bilirubin 0.4 mg/dL (0.2-1.0) Direct Bilirubin 0.1 mg/dL (0.0-0.2) Aspartate Amino Transf (AST/SGOT) 17 U/L (15-37) Alanine Aminotransferase (ALT/SGPT) 18 U/L (16-63) Alkaline Phosphatase 105 U/L (46-116) Troponin I Quantitative < 0.017 ng/mL (0.000-0.055) < 0.017 ng/mL (0.000-0.055) < 0.017 ng/mL (0.000-0.055) Total Protein 7.1 g/dL (6.4-8.2) Albumin 3.7 g/dL (3.4-5.0) Lipase 171 U/L (73-393) Urine Collection Type Unknown Urine Color Yellow Urine Clarity Clear Urine pH 7.0 Urine Specific Ceres 1.015 Urine Protein Negative mg/dL (NEG-TRACE) Urine Glucose (UA) Negative mg/dL (NEG) Urine Ketones (Stick) Negative mg/dL (NEG) Urine Blood Negative (NEG) Urine Nitrite Negative (NEG) Urine Bilirubin Negative (NEG) Urine Urobilinogen Dipstick 1.0 mg/dL (0.2 mg/dL) Urine Leukocyte Esterase Negative (NEG) Urine RBC 0 /HPF (0-2) Urine WBC 0 /HPF (0-4) Urine Squamous Epithelial Cells Few /LPF Urine Bacteria 0 /HPF (0-FEW) Urine Hyaline Casts Occasional /HPF Urine Mucus Slight /LPF Urine Opiates Screen Neg (NEG) Urine Methadone Screen Neg (NEG) Urine Barbiturates Neg (NEG) Urine Phencyclidine Screen Neg (NEG) Urine Amphetamine/Methamphetamine Neg (NEG) Urine Benzodiazepines Screen Neg (NEG) Urine Cocaine Screen Neg (NEG) Urine Cannabinoids Screen Pos (NEG) Urine Ethyl Alcohol Neg (NEG) Test 12/31/16 03:43 12/31/16 09:50 White Blood Count 12.0 x10^3/uL (4.0-11.0) Red Blood Count 4.97 x10^6/uL (4.30-5.70) Hemoglobin 15.0 g/dL (13.0-17.5) Hematocrit 44.8 % (39.0-53.0) Mean Corpuscular Volume 90 fL (79-100) Mean Corpuscular Hemoglobin 30 pg (25-35) Mean Corpuscular Hemoglobin Concent 33 g/dL (31-37) Red Cell Distribution Width 14.4 % (11.5-14.5) Platelet Count 213 x10^3/uL (140-400) Neutrophils (%) (Auto) 93 % (31-73) Lymphocytes (%) (Auto) 5 % (24-48) Monocytes (%) (Auto) 1 % (0-9) Eosinophils (%) (Auto) 0 % (0-3) Basophils (%) (Auto) 0 % (0-3) Neutrophils # (Auto) 11.2 x10^3uL (1.8-7.7) Lymphocytes # (Auto) 0.6 x10^3/uL (1.0-4.8) Monocytes # (Auto) 0.2 x10^3/uL (0.0-1.1) Eosinophils # (Auto) 0.0 x10^3/uL (0.0-0.7) Basophils # (Auto) 0.0 x10^3/uL (0.0-0.2) Segmented Neutrophils % 97 % (35-66) Lymphocytes % 2 % (24-48) Monocytes % 1 % (0-10) Platelet Estimate Adequate (ADEQUATE) Sodium Level 138 mmol/L (136-145) Potassium Level 4.8 mmol/L (3.5-5.1) Chloride Level 101 mmol/L (98-107) Carbon Dioxide Level 28 mmol/L (21-32) Anion Gap 9 (6-14) Blood Urea Nitrogen 17 mg/dL (8-26) Creatinine 0.8 mg/dL (0.7-1.3) Estimated GFR (Cockcroft-Gault) 100.4 Glucose Level 150 mg/dL (70-99) Calcium Level 9.4 mg/dL (8.5-10.1) Troponin I Quantitative < 0.017 ng/mL (0.000-0.055) < 0.017 ng/mL (0.000-0.055) Triglycerides Level 75 mg/dL (0-150) Cholesterol Level 236 mg/dL (0-200) LDL Cholesterol, Calculated 161 mg/dL (0-100) VLDL Cholesterol, Calculated 15 mg/dL (0-40) Non-HDL Cholesterol Calculated 176 mg/dL (0-129) HDL Cholesterol 60 mg/dL (40-60) Cholesterol/HDL Ratio 3.9 Laboratory Tests Test 12/30/16 16:00 12/31/16 03:43 12/31/16 09:50 Troponin I Quantitative < 0.017 ng/mL (0.000-0.055) < 0.017 ng/mL (0.000-0.055) < 0.017 ng/mL (0.000-0.055) White Blood Count 12.0 x10^3/uL (4.0-11.0) Red Blood Count 4.97 x10^6/uL (4.30-5.70) Hemoglobin 15.0 g/dL (13.0-17.5) Hematocrit 44.8 % (39.0-53.0) Mean Corpuscular Volume 90 fL (79-100) Mean Corpuscular Hemoglobin 30 pg (25-35) Mean Corpuscular Hemoglobin Concent 33 g/dL (31-37) Red Cell Distribution Width 14.4 % (11.5-14.5) Platelet Count 213 x10^3/uL (140-400) Neutrophils (%) (Auto) 93 % (31-73) Lymphocytes (%) (Auto) 5 % (24-48) Monocytes (%) (Auto) 1 % (0-9) Eosinophils (%) (Auto) 0 % (0-3) Basophils (%) (Auto) 0 % (0-3) Neutrophils # (Auto) 11.2 x10^3uL (1.8-7.7) Lymphocytes # (Auto) 0.6 x10^3/uL (1.0-4.8) Monocytes # (Auto) 0.2 x10^3/uL (0.0-1.1) Eosinophils # (Auto) 0.0 x10^3/uL (0.0-0.7) Basophils # (Auto) 0.0 x10^3/uL (0.0-0.2) Segmented Neutrophils % 97 % (35-66) Lymphocytes % 2 % (24-48) Monocytes % 1 % (0-10) Platelet Estimate Adequate (ADEQUATE) Sodium Level 138 mmol/L (136-145) Potassium Level 4.8 mmol/L (3.5-5.1) Chloride Level 101 mmol/L (98-107) Carbon Dioxide Level 28 mmol/L (21-32) Anion Gap 9 (6-14) Blood Urea Nitrogen 17 mg/dL (8-26) Creatinine 0.8 mg/dL (0.7-1.3) Estimated GFR (Cockcroft-Gault) 100.4 Glucose Level 150 mg/dL (70-99) Calcium Level 9.4 mg/dL (8.5-10.1) Triglycerides Level 75 mg/dL (0-150) Cholesterol Level 236 mg/dL (0-200) LDL Cholesterol, Calculated 161 mg/dL (0-100) VLDL Cholesterol, Calculated 15 mg/dL (0-40) Non-HDL Cholesterol Calculated 176 mg/dL (0-129) HDL Cholesterol 60 mg/dL (40-60) Cholesterol/HDL Ratio 3.9 Medications Current Medications Nitroglycerin (Nitrostat) 0.4 mg PRN Q5MIN PRN SL CP RATING > 1/10 Last administered on 12/30/16 10:53; Start 12/30/16 at 10:15; Stop 12/31/16 at 10:14 ; Status DC Fentanyl Citrate (Fentanyl 2ml Vial) 25 mcg PRN Q15MIN PRN IV PAIN GREATER THAN 3/10 Last administered on 12/30/16 14:25; Start 12/30/16 at 10:15; Stop at 21:44; Status DC Ondansetron HCl (Zofran) 4 mg 1X ONCE IV Last administered on 12/30/16 10:29 ; Start 12/30/16 at 10:15; Stop 12/30/16 at 10:16; Status DC Fentanyl Citrate (Fentanyl 2ml Vial) 50 mcg PRN Q15MIN PRN IV PAIN GREATER THAN 3/10; Start 12/30/16 at 11:30; Stop 12/30/16 at 21:44; Status DC Iohexol (Omnipaque 300 Mg/ml) 75 ml 1X ONCE IV Last administered on 12/30/16 13:21; Start 12/30/16 at 13:00; Stop 12/30/16 at 13:01; Status DC Info (Do NOT chart on this entry -- for MONITORING) 1 each PRN DAILY PRN MC SEE COMMENTS; Start 12/30/16 at 13:15; Stop 01/01/17 at 13:14 Iohexol (Omnipaque 300 Mg/ml) 75 ml STK-MED ONCE .ROUTE ; Start 12/30/16 at 13: 41; Stop 12/30/16 at 13:42; Status DC Multi-Ingredient Mouthwash/Gargle (Gi Cocktail Single Dose) 15 ml 1X ONCE SWSW Last administered on 12/30/16 14:28; Start 12/30/16 at 14:15; Stop 12/30/16 at 14:17; Status DC Ondansetron HCl (Zofran) 4 mg PRN Q8HRS PRN IV NAUSEA/VOMITING; Start 12/30/16 at 15:00; Stop 12/31/16 at 14:59 Morphine Sulfate 4 mg PRN Q2HR PRN IV PAIN Last administered on 12/31/16 14:07 ; Start 12/30/16 at 15:00; Stop 12/31/16 at 14:59 Acetaminophen (Tylenol) 650 mg PRN Q4HRS PRN PO FEVER; Start 12/30/16 at 15:00 ; Stop 12/31/16 at 14:59 Nitroglycerin (Nitrostat) 0.4 mg PRN Q5MIN PRN SL CHEST PAIN; Start 12/30/16 at 15:00; Stop 12/31/16 at 14:59 Morphine Sulfate 3 mg PRN Q3HRS PRN IV PAIN; Start 12/30/16 at 20:30 Aspirin (Rose Aspirin) 325 mg DAILY PO Last administered on 12/31/16 08:36; Start 12/31/16 at 09:00 Cyclobenzaprine HCl (Flexeril) 10 mg PRN TID PRN PO MUSCLE PAIN Last administered on 12/30/16 22:11; Start 12/30/16 at 21:30 Lisinopril (Prinivil) 40 mg HS PO Last administered on 12/30/16 22:08; Start 12/30/16 at 22:00 Metoclopramide HCl (Reglan) 10 mg QIDACHS PO Last administered on 12/31/16 08: 35; Start 12/30/16 at 22:00 Metoprolol Succinate (Toprol Xl) 50 mg HS PO Last administered on 12/30/16 22: 09; Start 12/30/16 at 22:00 Metoprolol Succinate (Toprol Xl) 25 mg DAILY PO Last administered on 12/31/16 08:36; Start 12/31/16 at 09:00 Oxycodone/ Acetaminophen (Percocet 5/325) 1 tab PRN Q6HRS PRN PO SEVERE PAIN Last administered on 12/31/16 14:07; Start 12/30/16 at 21:30 Simvastatin (Zocor) 40 mg QHS PO Last administered on 12/30/16 22:09; Start at 22:00; Stop 12/31/16 at 10:12; Status DC Triamterene/HCTZ (Maxzide 75/50mg) 1 tab DAILY PO Last administered on 08:35; Start 12/31/16 at 09:00 Fluoxetine HCl (PROzac) 40 mg QHS PO Last administered on 12/30/16 22:08; Start 12/30/16 at 22:00 Meloxicam (Mobic) 15 mg QHS PO Last administered on 12/30/16 22:12; Start at 22:00 Pantoprazole Sodium (Protonix) 40 mg QHS PO Last administered on 12/30/16 22: 10; Start 12/30/16 at 22:00 Dexamethasone Sodium Phosphate (Decadron) 8 mg 1X ONCE IV Last administered on 12/30/16 22:13; Start 12/30/16 at 22:00; Stop 12/30/16 at 22:01; Status DC Fentanyl Citrate (Fentanyl 2ml Vial) 100 mcg PRN Q2HR PRN IV SEVERE PAIN; Start 12/30/16 at 21:45 Lorazepam (Ativan) 1 mg 1X ONCE IV Last administered on 12/30/16 22:12; Start 12/30/16 at 22:00; Stop 12/30/16 at 22:01; Status DC Atorvastatin Calcium (Lipitor) 80 mg QHS PO ; Start 12/31/16 at 21:00 Regadenoson (Lexiscan) 0.4 mg 1X ONCE IV Last administered on 12/31/16 11:36 ; Start 12/31/16 at 10:45; Stop 12/31/16 at 10:47; Status DC Regadenoson (Lexiscan) 0.4 mg STK-MED ONCE IV ; Start 12/31/16 at 11:20; Stop at 11:21; Status DC Active Scripts Active Reported Aspirin 325 Mg Tablet 1 Tab PO DAILY Vitamin D (Cholecalciferol (Vitamin D3)) 1,000 Unit Capsule 2 Cap PO DAILY Prilosec Otc (Omeprazole Magnesium) 20 Mg Tablet.dr 1 Tab PO HS Lisinopril 40 Mg Tablet 40 Mg PO HS Cyclobenzaprine Hcl 10 Mg Tablet 10 Mg PO PRN TID PRN Triamterene-Hctz 75-50 Mg Tab (Triamterene/Hydrochlorothiazid) 1 Each Tablet 1 Tab PO DAILY Fluoxetine Hcl 40 Mg Capsule 40 Mg PO HS Meloxicam 15 Mg Tablet 1 Tab PO HS Metoclopramide Hcl 10 Mg Tablet 1 Tab PO QIDACHS Metoprolol Succinate 50 Mg Tab.er.24h 1 Tab PO HS Oxycodone-Acetaminophen 5-325 (Oxycodone Hcl/Acetaminophen) 1 Each Tablet 2 Tab PO PRN Q6HRS PRN Metoprolol Succinate ( Xl ) (Metoprolol Succinate) 25 Mg Tab.er.24h 1 Tab PO DAILY Simvastatin 40 Mg Tablet 1 Tab PO QHS Vitals/I & O Vital Sign - Last 24 Hours 12/30/16 12/30/16 12/30/16 12/30/16 16:03 16:10 16:41 18:44 Temp 98.4 98.4 Pulse 84 Resp 18 B/P (MAP) 136/77 (96) Pulse Ox 94 93 93 O2 Delivery Room Air Room Air Room Air 12/30/16 12/30/16 12/30/16 12/30/16 19:40 19:50 19:55 20:52 Temp 98.3 98.3 Pulse 82 Resp 20 20 B/P (MAP) 125/74 (91) Pulse Ox 90 95 95 O2 Delivery Nasal Cannula Room Air Nasal Cannula Room Air O2 Flow Rate 2.0 2.0 2.0 12/30/16 12/30/16 12/30/16 12/30/16 21:25 22:08 22:09 23:40 Temp 97.9 97.9 Pulse 82 82 79 Resp 20 20 B/P (MAP) 125/74 125/74 139/82 (101) Pulse Ox 94 O2 Delivery Nasal Cannula O2 Flow Rate 2.0 12/31/16 12/31/16 12/31/16 12/31/16 03:45 07:24 08:20 08:36 Temp 97.6 97.4 97.6 97.4 Pulse 68 66 66 Resp 20 19 B/P (MAP) 144/79 (100) 124/77 (93) 124/77 Pulse Ox 91 92 O2 Delivery Room Air Room Air Nasal Cannula O2 Flow Rate 2.0 12/31/16 12/31/16 12/31/16 12/31/16 08:37 09:42 11:04 14:07 Temp 98.5 98.5 Pulse 66 Resp 20 B/P (MAP) 122/68 (86) Pulse Ox 92 92 92 O2 Delivery Nasal Cannula Nasal Cannula Room Air Nasal Cannula O2 Flow Rate 2.0 2.0 2.0 12/31/16 14:07 Pulse Ox 92 O2 Delivery Nasal Cannula O2 Flow Rate 2.0 CAITY HERNÁNDEZ MD Dec 31, 2016 14:34
[2016-12-31] MEDS: ACETAMINOPHEN 325 MG TABLET. PO PRN ×2 (16:20→23:56)
[2016-12-31] MEDS: CYCLOBENZAPRINE 10 MG TABLET. PO PRN ×2 (16:20→21:59)
[2016-12-31] MEDS: FLUoxetine HCL 20 MG CAPSULE PO SCH (20:26)
[2016-12-31] MEDS: PANTOPRAZOLE 40 MG TABLET.DR. PO SCH (20:26)
[2016-12-31] MEDS: ATORVASTATIN CALCIUM 40 MG TABLET. PO SCH (20:26)
[2016-12-31] MEDS: LISINOPRIL 40 MG TABLET. PO SCH (20:27)
[2016-12-31] MEDS: MELOXICAM 7.5 MG TABLET PO SCH (20:28)
[2016-12-31] MEDS: METOPROLOL SUCC 24HR ER 50 MG TAB.ER.24H. PO SCH (20:29)
[2017-01-01] MEDS ORDERED: diphenhydrAMINE HCL 25 MG CAPSULE PO PRN
[2017-01-01 03:45] VITALS: BP 136/85
[2017-01-01 05:56] LABS: BASO % 0 % (0-3); EOS % 2 % (0-3); HEMATOCRIT 41.9 % (39.0-53.0); HEMOGLOBIN 14.2 g/dL (13.0-17.5); LYMPH # 2.1 x10^3/uL (1.0-4.8); LYMPH % 19 % (24-48); MEAN CORPUSCULAR HEMOGLOBIN 31 pg (25-35); MEAN CORPUSCULAR HGB CONC 34 g/dL (31-37); MEAN CORPUSCULAR VOLUME 90 fL (79-100); MONO % 7 % (0-9); NEUT % 71 % (31-73); PLATELET COUNT 207 x10^3/uL (140-400); RED BLOOD COUNT 4.64 x10^6/uL (4.30-5.70); RED CELL DISTRIBUTION WIDTH 14.2 % (11.5-14.5)
[2017-01-01 06:14] LABS: CALCIUM 9.3 mg/dL (8.5-10.1); CREATININE 0.9 mg/dL (0.7-1.3); GFR 87.6; POTASSIUM 3.9 mmol/L (3.5-5.1)
[2017-01-01 07:26] VITALS: BP 116/76
[2017-01-01] MEDS: METOCLOPRAMIDE 10 MG TABLET. PO SCH ×4 (08:57→20:40)
[2017-01-01] MEDS: ASPIRIN 325 MG TABLET PO SCH (08:57)
[2017-01-01] MEDS: oxyCODONE/APAP 5/325 1 TAB TABLET PO PRN ×2 (08:58→17:48)
[2017-01-01] MEDS: CYCLOBENZAPRINE 10 MG TABLET. PO PRN (08:58)
[2017-01-01] MEDS: TRIAMTERENE/HCTZ 75/50MG TABLET. PO SCH ×2 (08:59→11:59)
[2017-01-01 10:46] VITALS: BP 129/85
[2017-01-01] MEDS ORDERED: MORPHINE SULFATE 4 MG/ML DISP.SYRIN. IV PRN (10:48)
--- NOTE | 2017-01-01 11:44 | RAD ---
APPROVED REPORT Test Type: Pharmacological Stress Nurse/Tech: [place] Angeles R.N. Test Indications: chest pain Cardiac History: [place] 2011 with stents, htn, smoker Medications: see ehr Medical History: see ehr Resting ECG: SR withST seg changes in II, III, avf, V3, V4 Resting Heart Rate: 70 bpm Resting Blood Pressure: 137/80mmHg Pretest Chest Pain: No chest pain Nurse/Tech Notes lungs diminished, heart tones regular Consent: The procedure was explained to the patient in lay terms. Informed consent was witnessed. Gustavo eout was entered into [employer]. History and Stress Test performed by RT Galina (R) (N) Pharm. Details Pharmacologic stress testing was performed using 0.4mg per 5ml of regadenoson given intravenously ove r 7-10 seconds. Stress Symptoms No chest pain or symptoms. POST EXERCISE Reason for Termination: Infusion complete Target HR: No Max HR: 100 bpm Max Blood Pressure: 151/86mmHg Chest Pain: No. Arrhythmia: No. ST Change: No. No increase or change to ST from initial INTERPRETATION Stress EKG Conclusion: Baseline EKG showed sinus rhythm. No ischemic changes at peak stress. No arr hythmias. Imaging Protocol IMAGE PROTOCOL: Stress Tc-99m/rest Tc-99m 2 days Rest: Stress: Viability: Radiopharm.Tc99m [id number] Sestamibi Dose37.5mCi 34.5mCi Duration 15min. 15min. Img Date 01/01/2017 12/31/2016 Inj-Img [id number]. 90min. Rest Admin Site:IV - Right HandAdministrator:HUA Mujica, ARRT (R)(N) Stress Admin Site: IV - Right HandAdministrator: RT Benjamin MojicaR)(N) STRESS DATA End Diast. Vol.122.0mlAv. Heart Rate75.0bpm End Syst. Vol.19.0mlCO Index BSA0.0L/min Myocardial Xjui180.0gEject. Umzbukmn95.0% Stress Rates Pk. Fill Rate3.00EDV/secLVtime Pk. Fill 142.42msec Pk. Empty Rate4.39ESV/secLVtime Pk. Ygswn139.31msec 1/3 Pk. Fill1.57EDV/sec Stress Scores Regional WT0.00Summed WT0.00 Regional WM0.00Summed WM0.00 LV Perfusion Scintigraphic images showed small to moderate reversible defect involving the base to mid inferior wa ll consistent with ischemia. Wall Motion Normal left ventricle systolic function with ejection fraction calculated at 83%. LV Perf. Quant 17 Seg. SSS4.00 Stress Defect Extent (% LAD)0.00Rest Defect Extent (% LAD)Rev. Defect Extent (% LAD)0.00 Stress Defect Extent (% LCX) 2.50Rest Defect Extent (% LCX)Rev. Defect Extent (% LCX)0.00 Stress Defect Extent (% RCA)42.20Rest Defect Extent (% RCA)Rev. Defect Extent (% RCA)0.00 Stress Defect Extent (% NICOLAS)10.90Rest Defect Extent (% NICOLAS)Rev. Defect Extent (% NICOLAS)0.00 Conclusion 1. Regadenoson cardioisotope stress test showed byeaf-dx-fsdaxhyj amount of inferior wall ischemia. 2. Normal left ventricular systolic function with ejection fraction calculated at 83%. 3. Intermediate risk for cardiac events.
[2017-01-01] MEDS: traMADol 50 MG TABLET PO PRN (11:59)
[2017-01-01] MEDS: METOPROLOL SUCC 24HR ER 25 MG TAB.ER.24H. PO SCH (12:00)
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
--- NOTE | 2017-01-01 13:12 | PDOC ---
CARDIO Progress Notes Date and Time Date of Service 01/01/2017 Time of Evaluation 1140 Subjective Subjective: No Chest Pain, No shortness of breath, No Palpitations Vitals Vitals Vital Signs Date Time Temp Pulse Resp B/P (MAP) Pulse Ox O2 Delivery O2 Flow Rate FiO2 01/01/17 12:00 72 129/85 01/01/17 11:59 18 95 Nasal Cannula 2.0 01/01/17 10:46 97.9 97.9 Weight Weight [ ] Laboratory Labs Laboratory Tests Test 01/01/17 05:00 White Blood Count 11.0 x10^3/uL (4.0-11.0) Red Blood Count 4.64 x10^6/uL (4.30-5.70) Hemoglobin 14.2 g/dL (13.0-17.5) Hematocrit 41.9 % (39.0-53.0) Mean Corpuscular Volume 90 fL (79-100) Mean Corpuscular Hemoglobin 31 pg (25-35) Mean Corpuscular Hemoglobin Concent 34 g/dL (31-37) Red Cell Distribution Width 14.2 % (11.5-14.5) Platelet Count 207 x10^3/uL (140-400) Neutrophils (%) (Auto) 71 % (31-73) Lymphocytes (%) (Auto) 19 % (24-48) Monocytes (%) (Auto) 7 % (0-9) Eosinophils (%) (Auto) 2 % (0-3) Basophils (%) (Auto) 0 % (0-3) Neutrophils # (Auto) 7.9 x10^3uL (1.8-7.7) Lymphocytes # (Auto) 2.1 x10^3/uL (1.0-4.8) Monocytes # (Auto) 0.7 x10^3/uL (0.0-1.1) Eosinophils # (Auto) 0.2 x10^3/uL (0.0-0.7) Basophils # (Auto) 0.0 x10^3/uL (0.0-0.2) Sodium Level 139 mmol/L (136-145) Potassium Level 3.9 mmol/L (3.5-5.1) Chloride Level 102 mmol/L (98-107) Carbon Dioxide Level 28 mmol/L (21-32) Anion Gap 9 (6-14) Blood Urea Nitrogen 21 mg/dL (8-26) Creatinine 0.9 mg/dL (0.7-1.3) Estimated GFR (Cockcroft-Gault) 87.6 Glucose Level 105 mg/dL (70-99) Calcium Level 9.3 mg/dL (8.5-10.1) Physical Exam HEENT: Neck Supple W Full Motion Chest: Symmetric LUNGS: Clear to Auscultation Heart: S1S2, RRR (SR) Abdomen: Soft N/T Extremities: No Calf Tenderness Neurology: alert, oriented, follow commands Assessment Assessment 1. Atypical CP: Troponin series normal. EKG SR with early repolarization. Likely MSK (recent fall) with GI component 2. S/P LRTC repair: 5 weeks ago at [facility] and tolerated procedure well. 3. CAD: PCI/KYLIE to RCA 2010. Last MPI 2013. Per TTE EF and wall motion normal 4. GERD 5. BPPV 6. HTN: controlled 7. HLP: LDL 161 8. Morbid obesity 9. LOPEZ: CPAP at home 10. Anxiety 11. Tobaccoism 12. Marijuana use Recommendations 1. Awaiting MPI, if significantly abnormal then will plan for LHC 2. Continue with PPI and ASA, 3. Continue secondary prevention, optimize statin therapy 4. Smoking and marijuana cessation 5. Will consider for GI eval if MPI is unremarkable. Addendum 1. Abnormal stress test with ischemic changes to inferior wall, discussed with pt and spouse risks and benefits of LHC and agreeable to proceed tomorrow. MISAEL ESTRADA APRN Jan 01, 2017 13:11
[2017-01-01 14:49] VITALS: BP 119/76
[2017-01-01 19:40] VITALS: BP 130/84
[2017-01-01] MEDS: FLUoxetine HCL 20 MG CAPSULE PO SCH (20:38)
[2017-01-01] MEDS: PANTOPRAZOLE 40 MG TABLET.DR. PO SCH (20:38)
[2017-01-01] MEDS: ATORVASTATIN CALCIUM 40 MG TABLET. PO SCH (20:38)
[2017-01-01] MEDS: METOPROLOL SUCC 24HR ER 50 MG TAB.ER.24H. PO SCH (20:39)
[2017-01-01] MEDS: MELOXICAM 7.5 MG TABLET PO SCH (20:39)
[2017-01-01] MEDS: LISINOPRIL 40 MG TABLET. PO SCH (20:40)
[2017-01-01] MEDS: TEMAZEPAM 15 MG CAPSULE PO PRN (20:40)
[2017-01-01 23:45] VITALS: BP 108/70
[2017-01-01] MEDS ORDERED: IV NORMAL SALINE 1000ML BAG 1,000 ML IV ONE (23:45)
[2017-01-02] VITALS (13 sets, daily range): BP systolic 106–198; BP diastolic 62–92
[2017-01-02] MEDS: METOCLOPRAMIDE 10 MG TABLET. PO SCH ×4 (09:09→20:45)
[2017-01-02] MEDS: METOPROLOL SUCC 24HR ER 25 MG TAB.ER.24H. PO SCH (09:09)
[2017-01-02] MEDS: TRIAMTERENE/HCTZ 75/50MG TABLET. PO SCH (09:10)
[2017-01-02] MEDS ORDERED: LIDOCAINE 2% 20 ML VIAL. ONE (11:03)
[2017-01-02] MEDS ORDERED: HEPARIN for ARTERIAL LINE 1,500 ML ONE (11:03)
[2017-01-02] MEDS ORDERED: IOHEXOL 300 MG/ML 100ML VIAL. ONE (11:03)
[2017-01-02] MEDS ORDERED: HEPARIN for IV BOLUS 10,000 UNIT/10 ML VIAL. ONE (11:17)
[2017-01-02] MEDS ORDERED: MIDAZOLAM HCL/PF 5 MG/5 ML VIAL. ONE (11:17)
[2017-01-02] MEDS ORDERED: VERAPAMIL 5 MG/2 ML VIAL. ONE (11:17)
[2017-01-02] MEDS ORDERED: fentaNYL PF VIAL 100 MCG/2 ML VIAL ONE (11:17)
[2017-01-02] MEDS ORDERED: fentaNYL PF VIAL 100 MCG/2 ML VIAL IV ONE (11:45)
[2017-01-02] MEDS ORDERED: IOHEXOL 300 MG/ML 100ML VIAL. IART ONE (11:45)
[2017-01-02] MEDS ORDERED: LIDOCAINE 2% 20 ML VIAL. IJ ONE (11:45)
[2017-01-02] MEDS ORDERED: MIDAZOLAM HCL/PF 5 MG/5 ML VIAL. IV ONE (11:45)
[2017-01-02] MEDS ORDERED: VERAPAMIL 5 MG/2 ML VIAL. IART ONE (11:45)
[2017-01-02] MEDS ORDERED: NITROGLYCERIN 200 MCG/2 ML SYRINGE FOR CATH/VASC LAB. IART ONE (11:45)
[2017-01-02] MEDS ORDERED: HEPARIN for IV BOLUS 10,000 UNIT/10 ML VIAL. IART ONE (11:45)
[2017-01-02] MEDS ORDERED: CONTRAST GIVEN MC PRN (12:00)
[2017-01-02] MEDS ORDERED: BIVALIRUDIN 250 MG VIAL. IV ONE ×3 (12:03→12:45)
[2017-01-02] MEDS ORDERED: ONDANSETRON PF 4 MG/2 ML VIAL. ONE (12:22)
[2017-01-02] MEDS ORDERED: NITROGLYCERIN 200 MCG/2 ML SYRINGE FOR CATH/VASC LAB. ICAR ONE (12:45)
[2017-01-02] MEDS ORDERED: TICAGRELOR 90 MG TABLET. ONE (12:50)
[2017-01-02] MEDS ORDERED: MIDAZOLAM HCL/PF 2 MG/2 ML VIAL. ONE (12:57)
[2017-01-02] MEDS ORDERED: TICAGRELOR 90 MG TABLET. PO ONE (13:00)
[2017-01-02] MEDS ORDERED: MIDAZOLAM HCL/PF 2 MG/2 ML VIAL. IV ONE (13:00)
--- NOTE | 2017-01-02 13:59 | CARD ---
APPROVED REPORT Procedure(s) performed: Sedation Time: 112 min HISTORY The patient is a 56 year-old male with a history of : previous [place], coronary artery disease, previous PCI (The PCI date was ), hypertension, dyslipidemia. INDICATION The indication(s) include : positive stress test, atypical chest pain . PROCEDURE NARRATIVE The patient was brought electively to the cardiac catheterization lab. A timeout was performed confi rming the patient's name, date of , procedure, and site of procedure. All necessary personnel w ere wearing the appropriate protective equipment and radiation monitor devices. After explaining the risks and benefits of the procedure and alternatives, informed consent was obtained. (See nursing no percy for medications administered). The right wrist was sterilely prepped and draped in the usual fas hion. The right wrist was infiltrated with 1 mL of 2% lidocaine for subcutaneous anesthesia. A 6 Fr ench Terumo glide sheath was inserted into the right radial artery without difficulty. Initial attem pts to advanced a JR4 catheter and TIG catheter to the aortic root were unsuccessful due to arch tor tuosity. Patient had a recent L shoulder surgery, therefore, left radial approach was not feasible. U ltimately, right grion arterial access was obtained via the RCFA and a 6Fr sheath was placed under 2% lidocaine local anesthesia with a modified seldinger technique. Right and left coronary angiography was performed using a 6Fr JR4 and J4 catheter. HEMODYNAMICS: AO: 125/76 CORONARY ANGIOGRAPHY: LM is a moderate caliber vessel with normal angiographic appearance. LAD is a moderate caliber vessel with an ostial 30% stenosis and diffuse mid irregularities of up to 30%. D1 is a small to moderate caliber vessel with mild luminal irregularities. Ramus is a small caliber vessel with normal angiographic appearance. LCx is a small to moderate caliber non-dominant vessel with a mid 50% stenosis. OM1 is a small caliber vessel with proximal 50% stenosis. RCA is a large caliber dominant vessel with patent mid stents. The distal vessel has an eccentric 70% stenosis at the crux involving the ostium of the RPDA. RPDA is a moderate caliber vessel with an ostial 95% stenosis and an acute angle of take-off from the RCA. RPL is a moderate caliber vessel with proximal 30% stenosis. INTERVENTIONAL TECHNIQUE: PCI OF THE RCA Due to the stress test revealing inferior wall ischemia, an intervention was planned in the RCA. Biva lirudin was used for anticoagulation. Through a 6Fr JR4 guide catheter, a 0.014'' Prowater wire was i nitially placed in the RPL. There was extreme difficulty advancing a wire in the RPDA, likely due to acute angle and degree of ostial stenosis. Therefore, limited angioplasty of the distal RCA and proxi mal RPL was performed with a Trek 2.5/12 balloon at 14 zaria. Post-angioplasty, there was moderate reso lution of the stenosis with residual 50% at the crux and persistent ostial PDA disease. Multiple wire s including Choice PT, Fielder XT, High Torque Floppy wires were used with multiple attempts but coul d not cross into the RPDA. The patient due to his morbid obesity was unable to lay on the table (desp ite multiple doses of fentanyl and versed) for prolonged periods of time and due to contrast load and radiation dose(due to morbid obesity) further intervention was deferred given BAYRON 3 flow in the ves stanley. At case completion, the right radial sheath was removed and hemostasis was achieved with a Terum o radial band inflated to 12 ml of air and the groin sheath was removed with hemostasis achieved with an Angioseal device. The patient did not tolerate the procedure well and it had to be terminated pre maturely prior to further attempts at crossing of the RPDA ostial stenossi. No acute complications we re noted. The patient was given Prasugrel 60mg daily at case completion. Conclusion 1. Two vessel coronary disease. 2. Patent stents in the RCA 3. Unsuccessful PTCA of the distal RCA crux. Recommendations Consider staged intervention with anesthesia support for PCI of the distal RCA if there is recurrent chest pain despite medical therapy.
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
[2017-01-02] MEDS: ASPIRIN 325 MG TABLET PO SCH (14:16)
[2017-01-02] MEDS: oxyCODONE/APAP 5/325 1 TAB TABLET PO PRN (17:39)
[2017-01-02] MEDS: CYCLOBENZAPRINE 10 MG TABLET. PO PRN (19:47)
[2017-01-02] MEDS: traMADol 50 MG TABLET PO PRN (19:47)
[2017-01-02] MEDS: ATORVASTATIN CALCIUM 40 MG TABLET. PO SCH (20:41)
[2017-01-02] MEDS: TICAGRELOR 90 MG TABLET. PO SCH (20:41)
[2017-01-02] MEDS: METOPROLOL SUCC 24HR ER 50 MG TAB.ER.24H. PO SCH (20:41)
[2017-01-02] MEDS: LISINOPRIL 40 MG TABLET. PO SCH (20:42)
[2017-01-02] MEDS: TEMAZEPAM 15 MG CAPSULE PO PRN (20:42)
[2017-01-02] MEDS: MELOXICAM 7.5 MG TABLET PO SCH (20:42)
[2017-01-02] MEDS: FLUoxetine HCL 20 MG CAPSULE PO SCH (20:45)
[2017-01-02] MEDS: PANTOPRAZOLE 40 MG TABLET.DR. PO SCH (20:45)
[2017-01-03 03:31] VITALS: BP 152/74
[2017-01-03 07:00] VITALS: BP 144/69
[2017-01-03] MEDS ORDERED: ASPIRIN ENTERIC COATED 81 MG TABLET.DR. PO SCH (08:00)
[2017-01-03] MEDS: METOPROLOL SUCC 24HR ER 25 MG TAB.ER.24H. PO SCH (09:33)
[2017-01-03] MEDS: traMADol 50 MG TABLET PO PRN (09:34)
[2017-01-03] MEDS: TICAGRELOR 90 MG TABLET. PO SCH (09:34)
[2017-01-03] MEDS: METOCLOPRAMIDE 10 MG TABLET. PO SCH ×2 (09:34→11:41)
[2017-01-03] MEDS: CYCLOBENZAPRINE 10 MG TABLET. PO PRN (09:34)
[2017-01-03] MEDS: TRIAMTERENE/HCTZ 75/50MG TABLET. PO SCH (09:36)
--- NOTE | 2017-01-03 10:04 | PDOC ---
CARDIO Progress Notes Date and Time Date of Service 01/03/17 Time of Evaluation 0953 Subjective Subjective: No Chest Pain, No shortness of breath, No Palpitations Vitals Vitals Vital Signs Date Time Temp Pulse Resp B/P (MAP) Pulse Ox O2 Delivery O2 Flow Rate FiO2 01/03/17 09:34 Room Air 01/03/17 09:33 72 144/69 01/03/17 07:00 98.4 18 93 98.4 01/02/17 20:00 2.0 Weight Weight [ ] Physical Exam HEENT: Neck Supple W Full Motion Chest: Symmetric LUNGS: Clear to Auscultation Heart: S1S2, RRR (SR) Abdomen: Soft N/T Extremities: No Calf Tenderness, Other (right femoral and right radial arteriotomy sites soft, clean, and dry. No erythema, ecchymosis, or hematoma present. Neurovascualr status intact. ) Neurology: alert, oriented, follow commands Assessment Assessment 1. CAD: PCI/KYLIE to RCA 2010. Echo shows normal LV function. Cath revealed patent previously stents in the mid RCA. The distal vessel has an eccentric 70% stenosis at the crux involving the ostium of the RPDA; PTCA unsuccessful. Consider staged intervention with anesthesia support for PCI of the distal RCA if there is recurrent chest pain despite medical therapy. Continue secondary prevention measures including DAPT with ASA and Brilinta. Add Imdur. F/u in our office with Dr. Welch in 2-3 weeks. 2. HTN: controlled 3. HLP: LDL 161 continue statin therapy 4. Morbid obesity 5. LOPEZ: CPAP at home 6. Anxiety 7. Tobaccoism; discussed/encouraged cessation ROBERT SCHAFER APRN Jan 03, 2017 10:04
[2017-01-03] MEDS ORDERED: TICA90TA PO (10:16)
[2017-01-03] MEDS ORDERED: ISOS30TA4 PO (10:27)
[2017-01-03 11:00] VITALS: BP 148/70
[2017-01-03] MEDS ORDERED: ASPI-612 PO (11:00)
[2017-01-03] MEDS ORDERED: ISOSORBIDE MONONITRATE ER 30 MG TAB.ER.24H PO SCH (11:00)
[2017-01-03] MEDS ORDERED: ATOR40TA59 PO (11:00)
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
[2017-01-03 11:41] VITALS: BP 144/69
== END 2017-01-03 14:45 | disposition home or self-care (01) | DRG 251 ==
LOC: ER 10:20 → 2 SOUTH 14:43
PROVIDERS: ADMIT Internal Medicine Hematology & Oncology; ATTEND Internal Medicine Hematology & Oncology
PROC: 02703ZZ Dilation of Coronary Artery, One Artery, Percutaneous Approach (ICD-10-PCS; principal; 2016-12-30)
PROC: 4A023N7 Measurement of Cardiac Sampling and Pressure, Left Heart, Percutaneous Approach (ICD-10-PCS; 2016-12-30)
PROC: B2111ZZ Fluoroscopy of Multiple Coronary Arteries using Low Osmolar Contrast (ICD-10-PCS; 2016-12-30)
DX: I25.110 Atherosclerotic heart disease of native coronary artery with unstable angina pectoris (principal); Z68.43 Body mass index [BMI] 50.0-59.9, adult; I10 Essential (primary) hypertension; D72.829 Elevated white blood cell count, unspecified; E66.01 Morbid (severe) obesity due to excess calories; F07.81 Postconcussional syndrome; E78.00 Pure hypercholesterolemia, unspecified; E78.5 Hyperlipidemia, unspecified; F17.210 Nicotine dependence, cigarettes, uncomplicated; F12.90 Cannabis use, unspecified, uncomplicated; M19.90 Unspecified osteoarthritis, unspecified site; M25.512 Pain in left shoulder; F32.9 Major depressive disorder, single episode, unspecified; F41.9 Anxiety disorder, unspecified; G47.33 Obstructive sleep apnea (adult) (pediatric); K21.9 Gastro-esophageal reflux disease without esophagitis; Z95.5 Presence of coronary angioplasty implant and graft; Z82.49 Family history of ischemic heart disease and other diseases of the circulatory system; I25.2 Old myocardial infarction; Z99.89 Dependence on other enabling machines and devices; Z91.81 History of falling; Z88.8 Allergy status to other drugs, medicaments and biological substances
CPT/HCPCS: 36415; 71010; 71275; 78452; 80048; 80061; 80076; 80307; 81001; 83690; 84484; 85007; 85025; 85610; 85730; 92920; 93005; 93017; 93306; 93454; 96374; 96375; 96376; 99152; 99153; A9500; C1725; C1769; C1771; C1887; C1892; G0269; J0360; J0583; J1100; J1644; J2060; J2250; J2270; J2405; J2785; J3010; J3490; J7030; J8597; Q0163; Q9967; 99285-25; G0479; J2001

== ENCOUNTER 2017-01-11 10:11 | Inpatient (IN) | payer BC ==
[~2017-01-11] VITALS: Ht 180.3 cm; Wt 170.1 kg
[~2017-01-11 10:11] MED LIST changes: +ASPI-612 PO; +ATOR40TA59 PO; +CHOL100013 PO; +CYCL10TA2 PO; +FLUO40CA2 PO; +ISOS30TA4 PO; +LISI40TA PO; +MELO15TA23 PO; +METO10TA PO; +METO50TA29 PO; +OMEP20TA63 PO; +OXYC1TAB7 PO; +TICA90TA PO; +TRIA1TAB5 PO
[2017-01-11] MEDS ORDERED: FAMOTIDINE 20 MG/2 ML VIAL IVP ONE (10:45)
[2017-01-11] MEDS ORDERED: IV NORMAL SALINE 1000ML BAG 1,000 ML IV ONE (10:45)
[2017-01-11] MEDS ORDERED: ONDANSETRON PF 4 MG/2 ML VIAL. IV ONE (10:45)
[2017-01-11 11:00] LABS: BASO # 0.1 x10^3/uL (0.0-0.2); BASO % 1 % (0-3); EOS % 4 % (0-3); HEMOGLOBIN 14.8 g/dL (13.0-17.5); LYMPH # 1.6 x10^3/uL (1.0-4.8); LYMPH % 15 % (24-48); MEAN CORPUSCULAR HEMOGLOBIN 30 pg (25-35); MEAN CORPUSCULAR HGB CONC 33 g/dL (31-37); MEAN CORPUSCULAR VOLUME 92 fL (79-100); MONO % 7 % (0-9); NEUT % 74 % (31-73); PLATELET COUNT 318 x10^3/uL (140-400); RED BLOOD COUNT 4.92 x10^6/uL (4.30-5.70); RED CELL DISTRIBUTION WIDTH 14.1 % (11.5-14.5); WHITE BLOOD COUNT 10.8 x10^3/uL (4.0-11.0)
[2017-01-11] MEDS ORDERED: CONTRAST GIVEN MC PRN (11:00)
[2017-01-11] MEDS ORDERED: IOHEXOL 300 MG/ML 75 ML VIAL IV ONE (11:00)
[2017-01-11 11:10] LABS: NEG OBC FOB NEG; POS OBC FOB POS
[2017-01-11 11:32] LABS: CALCIUM 8.9 mg/dL (8.5-10.1); CREATININE 0.8 mg/dL (0.7-1.3); GFR 100.4; POTASSIUM 4.7 mmol/L (3.5-5.1)
[2017-01-11 11:38] LABS: ALBUMIN/GLOBULIN RATIO 0.8 (1.0-1.7); TOTAL BILIRUBIN 0.3 mg/dL (0.2-1.0); TOTAL PROTEIN 6.8 g/dL (6.4-8.2)
[2017-01-11] MEDS ORDERED: MORPHINE SULFATE 10 MG/ML VIAL. IV ONE (12:00)
--- NOTE | 2017-01-11 12:11 | RAD ---
EXAM: CT abdomen/pelvis with contrast. HISTORY: Bloody stools. TECHNIQUE: Computed tomography of the abdomen and pelvis was performed after the intravenous administration of 75 mL Omnipaque 300. COMPARISON: None. FINDINGS: Lung windows through the visualized portions of the bases reveal mild atelectasis. A right coronary stent is noted. Bone windows reveal no suspicious lesions. A dense nodule in the right kidney laterally measures 3.3 cm. It measures 66 after units. Another at the right upper pole measures 2.5 cm. This appears stable since 2010 and is likely benign. The left kidney is unremarkable. There is mild bladder wall thickening. The pancreas, adrenal glands, spleen, gallbladder and liver are unremarkable. There are no pathologically enlarged lymph nodes. The left colon is decompressed. Suggested mild sigmoid wall thickening is likely only minimal luminal decompression. There is mild sigmoid diverticulosis. The appendix is not inflamed. There is no obstruction or clear small bowel wall thickening. IMPRESSION: 1. Questionable mild sigmoid wall thickening is most likely only from luminal decompression. Correlate with symptoms to assess for mild colitis. 2. Dense nodules in the right kidney measured 3.3 cm. These most likely represent complicated cysts. Renal sonography could further differentiate cystic from solid lesions. *One or more of the following individualized dose reduction techniques were utilized for this examination: 1. Automated exposure control. 2. Adjustment of the mA and/or kV according to patient size. 3. Use of iterative reconstruction technique.
--- NOTE | 2017-01-11 13:44 | PDOC1 ---
History and Physical Date of Admission Date of Admission DATE: 01/11/17 TIME: 13:38 Identification/Chief Complaint Chief Complaint bloody stools x 3 days now Problems: Source Source: Caregiver, Chart review, Patient History of Present Illness History of Present Illness Very pleasant 56 y/o male, who was just dcd Dec for CP, has hx stents on ASA 81 and brilinta, coming in for 3 day hx bloody BM, some mild abd dc only,. NO emesis, no fevers, AT er hgb 14, VS stable, CT shows mild colitis, Never happened before, Admitted with cards and GI to talk about AC upon dc. He might just need to go on ASA 81 or something,- needs to be on AC given signif heart hx and indwelling stents, NO regular NSAIDs at home FOBT positive Past Medical History Cardiovascular: CAD, HTN, Hyperlipidemia Pulmonary: Other GI: GERD Heme/Onc: No pertinent hx Hepatobiliary: No pertinent hx Psych: Depression Musculoskeletal: Osteoarthritis, Other Rheumatologic: No pertinent hx Infectious disease: No pertinent hx Renal/: No pertinent hx Endocrine: No pertinent hx Past Surgical History Past Surgical History: Other (PCI, shoulder sx) Family History Family History: Hypertension Social History Smoke: No ALCOHOL: none Drugs: None Current Medications Current Medications Current Medications Sodium Chloride 1,000 ml @ 1,000 mls/hr 1X ONCE IV Last administered on 11:06; Start 01/11/17 at 10:45; Stop 01/11/17 at 11:44; Status DC Ondansetron HCl (Zofran) 4 mg 1X ONCE IV Last administered on 01/11/17 11:06 ; Start 01/11/17 at 10:45; Stop 01/11/17 at 10:48; Status DC Famotidine (Pepcid) 20 mg 1X ONCE IVP Last administered on 01/11/17 11:06; Start 01/11/17 at 10:45; Stop 01/11/17 at 10:48; Status DC Iohexol (Omnipaque 300 Mg/ml) 75 ml 1X ONCE IV Last administered on 01/11/17 11:25; Start 01/11/17 at 11:00; Stop 01/11/17 at 11:01; Status DC Info (Do NOT chart on this entry -- for MONITORING) 1 each PRN DAILY PRN MC SEE COMMENTS; Start 01/11/17 at 11:00; Stop 01/13/17 at 10:59 Morphine Sulfate 5 mg 1X ONCE IV Last administered on 01/11/17t 12:17; Start 01/11/17 at 12:00; Stop 01/11/17 at 12:01; Status DC Active Scripts Active Atorvastatin Calcium 40 Mg Tablet 80 Mg PO QHS 30 Days Aspirin Ec (Aspirin) 81 Mg Tablet.dr 81 Mg PO DAILYWBKFT 30 Days Isosorbide Mononitrate Er (Isosorbide Mononitrate) 30 Mg Tab.er.24h 1 Tab PO DAILY Brilinta (Ticagrelor) 90 Mg Tablet 90 Mg PO BID 30 Days Reported Vitamin D (Cholecalciferol (Vitamin D3)) 1,000 Unit Capsule 2 Cap PO DAILY Prilosec Otc (Omeprazole Magnesium) 20 Mg Tablet.dr 1 Tab PO HS Lisinopril 40 Mg Tablet 40 Mg PO HS Cyclobenzaprine Hcl 10 Mg Tablet 10 Mg PO PRN TID PRN Triamterene-Hctz 75-50 Mg Tab (Triamterene/Hydrochlorothiazid) 1 Each Tablet 1 Tab PO DAILY Fluoxetine Hcl 40 Mg Capsule 40 Mg PO HS Meloxicam 15 Mg Tablet 1 Tab PO HS Metoclopramide Hcl 10 Mg Tablet 1 Tab PO QIDACHS Metoprolol Succinate 50 Mg Tab.er.24h 1 Tab PO HS Oxycodone-Acetaminophen 5-325 (Oxycodone Hcl/Acetaminophen) 1 Each Tablet 2 Tab PO PRN Q6HRS PRN Metoprolol Succinate ( Xl ) (Metoprolol Succinate) 25 Mg Tab.er.24h 1 Tab PO DAILY Allergies Allergies: Coded Allergies: naproxen (Verified Allergy, Intermediate, 01/03/17) ASA OK ROS Review of System as per HPI, all else is neg, positive abd pain,no CP Physical Exam General: Alert, Oriented X3, Cooperative, No acute distress HEENT: Atraumatic, PERRLA, EOMI Lungs: Clear to auscultation, Normal air movement Heart: S1S2, RRR, no thrills, no rubs, no gallops, no murmurs Cardiovascular: S1, S2 Breasts: Normal, Rt breast nml w/o mass, Lt breast nml w/o mass, Nipples normal Abdomen: Normal bowel sounds, Soft, No tenderness, No hepatosplenomegaly, No masses Male Genitals Exam: normal genitalia, normal prostate PELVIC: Nml ext genitalia Extremities: No clubbing, No cyanosis, No edema, Normal pulses, No tenderness/ swelling Skin: No rashes, No breakdown, No significant lesion Neuro: Normal gait, Normal speech, Strength at 5/5 X4 ext, Normal tone, Sensation intact, Cranial nerves 3-12 NL, Reflexes 2+ Psych/Mental Status: Mental status NL, Mood NL Vitals Vitals Vital Signs Date Time Temp Pulse Resp B/P (MAP) Pulse Ox O2 Delivery O2 Flow Rate FiO2 01/11/17 12:19 64 16 140/71 (94) 95 01/11/17 10:31 98.0 Room Air 98.0 Labs Labs Laboratory Tests Test 01/11/17 10:38 01/11/17 10:50 01/11/17 11:05 Stool Occult Blood Positive (NEG) White Blood Count 10.8 x10^3/uL (4.0-11.0) Red Blood Count 4.92 x10^6/uL (4.30-5.70) Hemoglobin 14.8 g/dL (13.0-17.5) Hematocrit 45.0 % (39.0-53.0) Mean Corpuscular Volume 92 fL (79-100) Mean Corpuscular Hemoglobin 30 pg (25-35) Mean Corpuscular Hemoglobin Concent 33 g/dL (31-37) Red Cell Distribution Width 14.1 % (11.5-14.5) Platelet Count 318 x10^3/uL (140-400) Neutrophils (%) (Auto) 74 % (31-73) Lymphocytes (%) (Auto) 15 % (24-48) Monocytes (%) (Auto) 7 % (0-9) Eosinophils (%) (Auto) 4 % (0-3) Basophils (%) (Auto) 1 % (0-3) Neutrophils # (Auto) 8.0 x10^3uL (1.8-7.7) Lymphocytes # (Auto) 1.6 x10^3/uL (1.0-4.8) Monocytes # (Auto) 0.7 x10^3/uL (0.0-1.1) Eosinophils # (Auto) 0.4 x10^3/uL (0.0-0.7) Basophils # (Auto) 0.1 x10^3/uL (0.0-0.2) Sodium Level 139 mmol/L (136-145) Potassium Level 4.7 mmol/L (3.5-5.1) Chloride Level 104 mmol/L (98-107) Carbon Dioxide Level 28 mmol/L (21-32) Anion Gap 7 (6-14) Blood Urea Nitrogen 14 mg/dL (8-26) Creatinine 0.8 mg/dL (0.7-1.3) Estimated GFR (Cockcroft-Gault) 100.4 BUN/Creatinine Ratio 18 (6-20) Glucose Level 109 mg/dL (70-99) Calcium Level 8.9 mg/dL (8.5-10.1) Total Bilirubin 0.3 mg/dL (0.2-1.0) Aspartate Amino Transf (AST/SGOT) 16 U/L (15-37) Alanine Aminotransferase (ALT/SGPT) 21 U/L (16-63) Alkaline Phosphatase 83 U/L (46-116) Total Protein 6.8 g/dL (6.4-8.2) Albumin 3.0 g/dL (3.4-5.0) Albumin/Globulin Ratio 0.8 (1.0-1.7) Lipase 200 U/L (73-393) Laboratory Tests Test 01/11/17 10:38 01/11/17 10:50 01/11/17 11:05 Stool Occult Blood Positive (NEG) White Blood Count 10.8 x10^3/uL (4.0-11.0) Red Blood Count 4.92 x10^6/uL (4.30-5.70) Hemoglobin 14.8 g/dL (13.0-17.5) Hematocrit 45.0 % (39.0-53.0) Mean Corpuscular Volume 92 fL (79-100) Mean Corpuscular Hemoglobin 30 pg (25-35) Mean Corpuscular Hemoglobin Concent 33 g/dL (31-37) Red Cell Distribution Width 14.1 % (11.5-14.5) Platelet Count 318 x10^3/uL (140-400) Neutrophils (%) (Auto) 74 % (31-73) Lymphocytes (%) (Auto) 15 % (24-48) Monocytes (%) (Auto) 7 % (0-9) Eosinophils (%) (Auto) 4 % (0-3) Basophils (%) (Auto) 1 % (0-3) Neutrophils # (Auto) 8.0 x10^3uL (1.8-7.7) Lymphocytes # (Auto) 1.6 x10^3/uL (1.0-4.8) Monocytes # (Auto) 0.7 x10^3/uL (0.0-1.1) Eosinophils # (Auto) 0.4 x10^3/uL (0.0-0.7) Basophils # (Auto) 0.1 x10^3/uL (0.0-0.2) Sodium Level 139 mmol/L (136-145) Potassium Level 4.7 mmol/L (3.5-5.1) Chloride Level 104 mmol/L (98-107) Carbon Dioxide Level 28 mmol/L (21-32) Anion Gap 7 (6-14) Blood Urea Nitrogen 14 mg/dL (8-26) Creatinine 0.8 mg/dL (0.7-1.3) Estimated GFR (Cockcroft-Gault) 100.4 BUN/Creatinine Ratio 18 (6-20) Glucose Level 109 mg/dL (70-99) Calcium Level 8.9 mg/dL (8.5-10.1) Total Bilirubin 0.3 mg/dL (0.2-1.0) Aspartate Amino Transf (AST/SGOT) 16 U/L (15-37) Alanine Aminotransferase (ALT/SGPT) 21 U/L (16-63) Alkaline Phosphatase 83 U/L (46-116) Total Protein 6.8 g/dL (6.4-8.2) Albumin 3.0 g/dL (3.4-5.0) Albumin/Globulin Ratio 0.8 (1.0-1.7) Lipase 200 U/L (73-393) VTE Prophylaxis Ordered VTE Prophylaxis Devices: Contraindicated VTE Pharmacological Prophylaxi: Contraindicated Assessment/Plan Assessment/Plan 1. Colitis with bloody stools 2. CAD: PCI/KYLIE to RCA 2010. 3. HTN: controlled 4. HLP: continue statin therapy 5. Morbid obesity 6. LOPEZ: CPAP at home 7. Anxiety NOS 8. Tobaccoism; discussed/encouraged cessation PLAn: Admit MN HOld ASa and brilinta COnt rest of home meds OK for CArdiac diet, no abd pain no emesis MAy check ESR for prognostication zack So far hemodynamically stable GI and cards consults Seen at ER KASSI ARAUJO MD Jan 11, 2017 13:44
[2017-01-11] MEDS ORDERED: PROCHLORPERAZINE 10 MG/2 ML VIAL. IV PRN (13:45)
[2017-01-11] MEDS ORDERED: PROCHLORPERAZINE 25 MG SUPP.RECT. PR PRN (13:45)
[2017-01-11] MEDS ORDERED: ACETAMINOPHEN 325 MG TABLET. PO PRN (13:45)
[2017-01-11] MEDS ORDERED: ONDANSETRON PF 4 MG/2 ML VIAL. IV PRN ×2 (13:45→14:30)
[2017-01-11] MEDS ORDERED: oxyCODONE IR 5 MG TABLET PO PRN (13:45)
[2017-01-11] MEDS ORDERED: MAG HYDROX/ALUMINUM HYD/SIMETH 30 ML ORAL.SUSP PO PRN (13:45)
[2017-01-11] MEDS ORDERED: CALCIUM CARBONATE 500 MG TAB.CHEW PO PRN (13:45)
[2017-01-11] MEDS ORDERED: MORPHINE SULFATE 4 MG/ML DISP.SYRIN. IV PRN (13:45)
[2017-01-11] MEDS ORDERED: ZOLPIDEM 5 MG TABLET. PO PRN (13:45)
[2017-01-11 13:59] LABS: BILIRUBIN,URINE NEGATIVE (NEG); GLUCOSE,URINE NEGATIVE (NEG); NITRITE,URINE NEGATIVE (NEG); PH,URINE 6.5; PROTEIN,URINE NEGATIVE (NEG-TRACE); UROBILINOGEN,URINE 0.2 mg/dL (0.2 mg/dL)
[2017-01-11] MEDS ORDERED: CYCLOBENZAPRINE 10 MG TABLET. PO PRN (14:00)
[2017-01-11 14:16] LABS: RBC,URINE 0 /HPF (0-2)
[2017-01-11 14:17] LABS: BACTERIA,URINE 0 /HPF (0-FEW); SQUAMOUS EPITHELIAL CELL,UR OCC /LPF; WBC,URINE OCC /HPF (0-4)
[2017-01-11] MEDS ORDERED: MORPHINE SULFATE 2 MG/ML DISP.SYRIN. IV PRN (14:30)
--- NOTE | 2017-01-11 14:32 | PHYS DOC ---
Past Medical History Past Medical History: CAD, Depression, High Cholesterol, Hypertension, Other Additional Past Medical Histor: HIGH CHOLESTEROL, Past Surgical History: Other Additional Past Surgical Histo: STENTS, LEFT SHOUDLER, Lt knee, Lt ankle Alcohol Use: Occasionally Drug Use: Marijuana Adult General Chief Complaint Chief Complaint: RECTAL BLEED HPI HPI Patient is a 56 year old male with history of hypertension, high cholesterol, CAD, who presented discharged from the hospital January 03 and was started on Brilinta who presents to the ED today complaining of bloody stools for 3 days. Patient's also complaining of a generalized abdominal pain and not feeling well. Patient denies any nausea vomiting. Denies any previous history of rectal bleeding. Denies any fever. Review of Systems Review of Systems Constitutional: Denies fever or chills [] Eyes: Denies change in visual acuity, redness, or eye pain [] HENT: Denies nasal congestion or sore throat [] Respiratory: Denies cough or shortness of breath [] Cardiovascular: No additional information not addressed in HPI [] GI: Rectal bleeding and abdominal pain : Denies dysuria or hematuria [] Musculoskeletal: Denies back pain or joint pain [] Integument: Denies rash or skin lesions [] Neurologic: Denies headache, focal weakness or sensory changes [] Endocrine: Denies polyuria or polydipsia [] Current Medications Current Medications Current Medications Medications (Trade) Dose Ordered Sig/Allie Start Time Stop Time Status Last Admin Dose Admin Famotidine (Pepcid) 20 mg 1X ONCE 01/11/17 10:45 01/11/17 10:48 DC 01/11/17 11:06 20 MG Info (Do NOT chart on this entry -- for MONITORING) 1 each PRN DAILY PRN 01/11/17 11:00 01/13/17 10:59 Iohexol (Omnipaque 300 Mg/ml) 75 ml 1X ONCE 01/11/17 11:00 01/11/17 11:01 DC 01/11/17 11:25 75 ML Morphine Sulfate 5 mg 1X ONCE 01/11/17 12:00 01/11/17 12:01 DC 01/11/17 12:17 5 MG Ondansetron HCl (Zofran) 4 mg 1X ONCE 01/11/17 10:45 01/11/17 10:48 DC 01/11/17 11:06 4 MG Sodium Chloride 1,000 ml @ 1,000 mls/hr 1X ONCE 01/11/17 10:45 01/11/17 11:44 DC 01/11/17 11:06 1,000 MLS/HR Allergies Allergies Allergies Coded Allergies Type Severity Reaction Last Updated Verified naproxen Allergy Intermediate 01/03/17 Yes Physical Exam Physical Exam Constitutional: Well developed, well nourished, no acute distress, non-toxic appearance. [] HENT: Normocephalic, atraumatic, bilateral external ears normal, oropharynx moist, no oral exudates, nose normal. [] Eyes: PERRLA, EOMI, conjunctiva normal, no discharge. [] Neck: Normal range of motion, no tenderness, supple, no stridor. [] Cardiovascular:Heart rate regular rhythm, no murmur [] Lungs & Thorax: Bilateral breath sounds clear to auscultation [] Abdomen: Rounded abdomen. Bowel sounds normal, soft, no tenderness, no masses, no pulsatile masses. [] Rectal exam External rectal area is normal. Bright red blood noted on the glans during rectal exam. No rectal masses. Skin: Warm, dry, no erythema, no rash. [] Back: No tenderness, no CVA tenderness. [] Extremities: No tenderness, no cyanosis, no clubbing, ROM intact, no edema. [] Neurologic: Alert and oriented X 3, normal motor function, normal sensory function, no focal deficits noted. [] Psychologic: Affect normal, judgement normal, mood normal. [] Current Patient Data Vital Signs Vital Signs Date Time Temp Pulse Resp B/P (MAP) Pulse Ox O2 Delivery O2 Flow Rate FiO2 01/11/17 12:19 64 16 140/71 (94) 95 01/11/17 10:31 98.0 Room Air 98.0 Lab Values Laboratory Tests Test 01/11/17 10:38 01/11/17 10:50 01/11/17 11:05 Stool Occult Blood Positive (NEG) White Blood Count 10.8 x10^3/uL (4.0-11.0) Red Blood Count 4.92 x10^6/uL (4.30-5.70) Hemoglobin 14.8 g/dL (13.0-17.5) Hematocrit 45.0 % (39.0-53.0) Mean Corpuscular Volume 92 fL (79-100) Mean Corpuscular Hemoglobin 30 pg (25-35) Mean Corpuscular Hemoglobin Concent 33 g/dL (31-37) Red Cell Distribution Width 14.1 % (11.5-14.5) Platelet Count 318 x10^3/uL (140-400) Neutrophils (%) (Auto) 74 % (31-73) H Lymphocytes (%) (Auto) 15 % (24-48) L Monocytes (%) (Auto) 7 % (0-9) Eosinophils (%) (Auto) 4 % (0-3) H Basophils (%) (Auto) 1 % (0-3) Neutrophils # (Auto) 8.0 x10^3uL (1.8-7.7) H Lymphocytes # (Auto) 1.6 x10^3/uL (1.0-4.8) Monocytes # (Auto) 0.7 x10^3/uL (0.0-1.1) Eosinophils # (Auto) 0.4 x10^3/uL (0.0-0.7) Basophils # (Auto) 0.1 x10^3/uL (0.0-0.2) Sodium Level 139 mmol/L (136-145) Potassium Level 4.7 mmol/L (3.5-5.1) Chloride Level 104 mmol/L (98-107) Carbon Dioxide Level 28 mmol/L (21-32) Anion Gap 7 (6-14) Blood Urea Nitrogen 14 mg/dL (8-26) Creatinine 0.8 mg/dL (0.7-1.3) Estimated GFR (Cockcroft-Gault) 100.4 BUN/Creatinine Ratio 18 (6-20) Glucose Level 109 mg/dL (70-99) H Calcium Level 8.9 mg/dL (8.5-10.1) Total Bilirubin 0.3 mg/dL (0.2-1.0) Aspartate Amino Transferase (AST) 16 U/L (15-37) Alanine Aminotransferase (ALT) 21 U/L (16-63) Alkaline Phosphatase 83 U/L (46-116) Total Protein 6.8 g/dL (6.4-8.2) Albumin 3.0 g/dL (3.4-5.0) L Albumin/Globulin Ratio 0.8 (1.0-1.7) L Lipase 200 U/L (73-393) Laboratory Tests 01/11/17 10:50 Laboratory Tests 01/11/17 11:05 EKG EKG [] Radiology/Procedures Radiology/Procedures [] Course & Med Decision Making Course & Med Decision Making Pertinent Labs and Imaging studies reviewed. (See chart for details) Patient is in the ED with rectal bleeding for 3 days. He also has generalized abdominal pain. He is currently on Brilinta. Hemoglobin 14.8, hematocrit 45. CT of the abdomen and pelvic was noted for colitis. Consulted with Ivon SAN for cardiology, who f/u with patient. GI consult was placed in the computer Dr. Camarena accepted patient for admission Patient is stable. Dragon Disclaimer Dragon Disclaimer This electronic medical record was generated, in whole or in part, using a voice recognition dictation system. Departure Departure Impression: Primary Impression: Colitis Additional Impression: Rectal bleeding Disposition: ADMITTED INPATIENT Condition: STABLE Referrals: DOROTA AGUIAR (PCP) Problem Qualifiers VIKASH GOYAL APRN Jan 11, 2017 14:32
--- NOTE | 2017-01-11 15:04 | PDOC2 ---
GI CONSULT Reason For Consult: Colitis w/ bloody stools HPI: HPI: 56 y/o seen in the ER. H/o CAD w/ stents in the past, recent cath here at [facility] w / balloon, discharged on Brilinta and ASA. Additionally had recent left rotator cuff repair, has been on Percocet and a muscle relaxer but unsure re: NSAIDs. Used to take ibuprofen, not anymore; summary lists Meloxicam, he's not sure. For 3 days has had soft/loose stools w/ bright red blood once daily. Never had rectal bleeding before. Vague mid abdominal discomfort ("like hunger pains or sick pains"), also relates some dizziness and lightheadedness w/ nausea awhile ago at shoulder therapy. Has been eating well although thinks appetite is decreased some - currently hungry and really wants to eat. H/o GERD on omeprazole QHS for years, has decreased this to every 3rd day or so or even PRN for heartburn. No vomiting. No chronic issues w/ diarrhea or constipation. EGD years ago w/ "bleeding esophagus." Colonoscopy @ [facility] 3-4 months ago w/ benign polyp, told to return for screening in 10 years. No gallbladder, liver, or pancreas history. Hgb is 14.8 (compared to 14.2 on 01/03), normal BUN/Cr and plt, hemoccult positive. ER notes bright red blood during rectal exam. CT A/P shows left colon decompression - suggestion of mild sigmoid wall thickening is likely only from luminal decompression. Was given IV H2 kodi x 1, orders for NPO. PMH: PMH: CAD w/ stents, HTN, HLD, LOPEZ, GERD, OA, depression, left rotator cuff repair FH: Family History: Cancer (breast - twin sister) Social History: Smoke: Quit ALCOHOL: social Drugs: None ROS: GEN: Denies fevers, chills, sweats HEENT: Denies blurred vision, sore throat CV: Denies chest pain RESP: Denies shortness of air, cough GI: Per HPI : Denies hematuria, dysuria ENDO: Denies weight changes NEURO: Denies confusion, dizziness MSK: left shoulder pain SKIN: Denies jaundice, pruritus Vitals: Vitals: Vital Signs Date Time Temp Pulse Resp B/P (MAP) Pulse Ox O2 Delivery O2 Flow Rate FiO2 01/11/17 12:19 64 16 140/71 (94) 95 01/11/17 10:31 98.0 Room Air 98.0 Labs: Labs: Laboratory Tests Test 01/11/17 10:38 01/11/17 10:50 01/11/17 11:05 01/11/17 13:40 Stool Occult Blood Positive (NEG) White Blood Count 10.8 x10^3/uL (4.0-11.0) Red Blood Count 4.92 x10^6/uL (4.30-5.70) Hemoglobin 14.8 g/dL (13.0-17.5) Hematocrit 45.0 % (39.0-53.0) Mean Corpuscular Volume 92 fL (79-100) Mean Corpuscular Hemoglobin 30 pg (25-35) Mean Corpuscular Hemoglobin Concent 33 g/dL (31-37) Red Cell Distribution Width 14.1 % (11.5-14.5) Platelet Count 318 x10^3/uL (140-400) Neutrophils (%) (Auto) 74 % (31-73) Lymphocytes (%) (Auto) 15 % (24-48) Monocytes (%) (Auto) 7 % (0-9) Eosinophils (%) (Auto) 4 % (0-3) Basophils (%) (Auto) 1 % (0-3) Neutrophils # (Auto) 8.0 x10^3uL (1.8-7.7) Lymphocytes # (Auto) 1.6 x10^3/uL (1.0-4.8) Monocytes # (Auto) 0.7 x10^3/uL (0.0-1.1) Eosinophils # (Auto) 0.4 x10^3/uL (0.0-0.7) Basophils # (Auto) 0.1 x10^3/uL (0.0-0.2) Sodium Level 139 mmol/L (136-145) Potassium Level 4.7 mmol/L (3.5-5.1) Chloride Level 104 mmol/L (98-107) Carbon Dioxide Level 28 mmol/L (21-32) Anion Gap 7 (6-14) Blood Urea Nitrogen 14 mg/dL (8-26) Creatinine 0.8 mg/dL (0.7-1.3) Estimated GFR (Cockcroft-Gault) 100.4 BUN/Creatinine Ratio 18 (6-20) Glucose Level 109 mg/dL (70-99) Calcium Level 8.9 mg/dL (8.5-10.1) Total Bilirubin 0.3 mg/dL (0.2-1.0) Aspartate Amino Transf (AST/SGOT) 16 U/L (15-37) Alanine Aminotransferase (ALT/SGPT) 21 U/L (16-63) Alkaline Phosphatase 83 U/L (46-116) Total Protein 6.8 g/dL (6.4-8.2) Albumin 3.0 g/dL (3.4-5.0) Albumin/Globulin Ratio 0.8 (1.0-1.7) Lipase 200 U/L (73-393) Urine Color Yellow Urine Clarity Clear Urine pH 6.5 Urine Specific [place] >=1.030 Urine Protein Negative mg/dL (NEG-TRACE) Urine Glucose (UA) Negative mg/dL (NEG) Urine Ketones (Stick) Negative mg/dL (NEG) Urine Blood Negative (NEG) Urine Nitrite Negative (NEG) Urine Bilirubin Negative (NEG) Urine Urobilinogen Dipstick 0.2 mg/dL (0.2 mg/dL) Urine Leukocyte Esterase Negative (NEG) Urine RBC 0 /HPF (0-2) Urine WBC Occ /HPF (0-4) Urine Squamous Epithelial Cells Occ /LPF Urine Bacteria 0 /HPF (0-FEW) Urine Mucus Slight /LPF Allergies: Coded Allergies: naproxen (Verified Allergy, Intermediate, 01/03/17) ASA OK Medications: Current Medications Medications (Trade) Dose Ordered Sig/Allie Route PRN Reason Start Time Stop Time Status Last Admin Dose Admin Sodium Chloride 1,000 ml @ 1,000 mls/hr 1X ONCE IV 01/11/17 10:45 01/11/17 11:44 DC 01/11/17 11:06 Ondansetron HCl (Zofran) 4 mg 1X ONCE IV 01/11/17 10:45 01/11/17 10:48 DC 01/11/17 11:06 Famotidine (Pepcid) 20 mg 1X ONCE IVP 01/11/17 10:45 01/11/17 10:48 DC 01/11/17 11:06 Iohexol (Omnipaque 300 Mg/ml) 75 ml 1X ONCE IV 01/11/17 11:00 01/11/17 11:01 DC 01/11/17 11:25 Morphine Sulfate 5 mg 1X ONCE IV 01/11/17 12:00 01/11/17 12:01 DC 01/11/17 12:17 Imaging: Imaging: CT A/P w/ IV contrast 01/11/17 FINDINGS: Lung windows through the visualized portions of the bases reveal mild atelectasis. A right coronary stent is noted. Bone windows reveal no suspicious lesions. A dense nodule in the right kidney laterally measures 3.3 cm. It measures 66 after units. Another at the right upper pole measures 2.5 cm. This appears stable since 2010 and is likely benign. The left kidney is unremarkable. There is mild bladder wall thickening. The pancreas, adrenal glands, spleen, gallbladder and liver are unremarkable. There are no pathologically enlarged lymph nodes. The left colon is decompressed. Suggested mild sigmoid wall thickening is likely only minimal luminal decompression. There is mild sigmoid diverticulosis. The appendix is not inflamed. There is no obstruction or clear small bowel wall thickening. IMPRESSION: 1. Questionable mild sigmoid wall thickening is most likely only from luminal decompression. Correlate with symptoms to assess for mild colitis. 2. Dense nodules in the right kidney measured 3.3 cm. These most likely represent complicated cysts. Renal sonography could further differentiate cystic from solid lesions. PE: GEN: NAD HEENT: Atraumatic, PERRL LUNGS: CTAB anteriorly HEART: RRR ABD: NABS, soft, vague discomfort periumbilical area, obese EXTREMITY: No edema SKIN: No rashes, no jaundice NEURO/PSYCH: A & O 3 A/P: A/P: Rectal bleeding -once daily x 3 days w/ soft/loose brown stools -CT shows left colon decompression (suggestion of mild sigmoid wall thickening is from decompression) GERD -on PPI for many years, more recently has been taking on PRN basis QHS CAD on ASA and Brilinta Recent left RTC repair, ?NSAID use -reports use of Percocet and muscle relaxer, summary lists Meloxicam CRC screen -reports normal colonoscopy @ [facility] 3-4 months ago -- Reviewed w/ Dr. Mancilla. The patient would like to eat and is anxious about NOT eating - ADAT and observe for bleeding, monitor labs. D/w Ivon/cardiology - plans to hold Brilinta. Ideally would avoid NSAIDs. Continue PPI QD. Not clearly colitis on CT - ?need for IV atbx. AGATHA ALCANTAR Jan 11, 2017 15:03
[2017-01-11 15:15] VITALS: BP 138/90
--- NOTE | 2017-01-11 15:26 | PDOC2 ---
CARDIAC CONSULT DATE OF CONSULT Date of Consult DATE: 01/11/17 TIME: 14:55 REASON FOR CONSULT Reason for Consult: rectal bleed on blood thinner REFERRING PHYSICIAN Referring Physician: Elis Allen APRN SOURCE Source: Chart review, Patient HISTORY OF PRESENT ILLNESS HISTORY OF PRESENT ILLNESS This is a 56 yo male, with a history of CAD s/p PCI/stent placement on Brilinta and ASA, who presented secondary to bloody stools. Patient reports noticing blood in the stool following BM for the last 3 days. Stool is soft and brown in color. Denies any dizziness, fatigue, chest pain, palpitations, SOA, or nausea/ vomiting. Cardiac cath 01/02/17 revealed patent previously placed stents in the mid RCA. The distal vessel has an eccentric 70% stenosis at the crux involving the ostium of the RPDA; PTCA unsuccessful. Consider staged intervention with anesthesia support for PCI of the distal RCA if there is recurrent chest pain despite medical therapy. Continue secondary prevention measures including DAPT with ASA and Brilinta. Presently has 10 day event monitor on due to palpations. Will complete on Saturday. PAST MEDICAL HISTORY Past Medical History Cardiovascular: CAD, HTN, Hyperlipidemia Pulmonary: Other (LOPEZ, intolerant to CPAP) GI: GERD Heme/Onc: No pertinent hx Hepatobiliary: No pertinent hx Psych: Depression Musculoskeletal: Osteoarthritis, Other (morbid obesity) Rheumatologic: No pertinent hx Infectious disease: No pertinent hx ENT: No pertinent hx Renal/: No pertinent hx Endocrine: No pertinent hx Dermatology: No pertinent hx PAST SURGICAL HISTORY Past Surgical History Cardiac cath with PCI/stents, recent LRTC repair FAMILY HISTORY Family History: Coronary Artery Disease SOCIAL HISTORY Social History Smoke: <1 pack per day ALCOHOL: occasional Drugs: Marijuana Lives: with Family Domestic Violence: Neg CURRENT MEDICATIONS CURRENT MEDICATIONS Current Medications Medications (Trade) Dose Ordered Sig/Allie Route PRN Reason Start Time Stop Time Status Last Admin Dose Admin Sodium Chloride 1,000 ml @ 1,000 mls/hr 1X ONCE IV 01/11/17 10:45 01/11/17 11:44 DC 01/11/17 11:06 Ondansetron HCl (Zofran) 4 mg 1X ONCE IV 01/11/17 10:45 01/11/17 10:48 DC 01/11/17 11:06 Famotidine (Pepcid) 20 mg 1X ONCE IVP 01/11/17 10:45 01/11/17 10:48 DC 01/11/17 11:06 Iohexol (Omnipaque 300 Mg/ml) 75 ml 1X ONCE IV 01/11/17 11:00 01/11/17 11:01 DC 01/11/17 11:25 Morphine Sulfate 5 mg 1X ONCE IV 01/11/17 12:00 01/11/17 12:01 DC 01/11/17 12:17 ALLERGIES ALLERGIES: Coded Allergies: naproxen (Verified Allergy, Intermediate, 01/03/17) ASA OK ROS Review of System 14 point ROS conducted with pertinent positives noted above in HPI. PHYSICAL EXAM PHYSICAL EXAM General: Alert, Oriented X3, Cooperative, No acute distress HEENT: Atraumatic, Mucous membr. moist/pink Lungs: Clear to auscultation, Normal air movement Heart: Regular rate (SR), Normal S1, Normal S2, no murmur Abdomen: Soft, No tenderness Extremities: No cyanosis, No edema Skin: No breakdown Neuro: Normal speech, Sensation intact Psych/Mental Status: Mental status NL, Other MUSCULOSKELETAL: Osteoarthritic changes both hands VITALS VITALS Vital Signs Date Time Temp Pulse Resp B/P (MAP) Pulse Ox O2 Delivery O2 Flow Rate FiO2 01/11/17 14:46 54 20 150/86 (107) 95 01/11/17 10:31 98.0 Room Air 98.0 LABS Lab: Laboratory Tests Test 01/11/17 10:38 01/11/17 10:50 01/11/17 11:05 01/11/17 13:40 Stool Occult Blood Positive (NEG) White Blood Count 10.8 x10^3/uL (4.0-11.0) Red Blood Count 4.92 x10^6/uL (4.30-5.70) Hemoglobin 14.8 g/dL (13.0-17.5) Hematocrit 45.0 % (39.0-53.0) Mean Corpuscular Volume 92 fL (79-100) Mean Corpuscular Hemoglobin 30 pg (25-35) Mean Corpuscular Hemoglobin Concent 33 g/dL (31-37) Red Cell Distribution Width 14.1 % (11.5-14.5) Platelet Count 318 x10^3/uL (140-400) Neutrophils (%) (Auto) 74 % (31-73) Lymphocytes (%) (Auto) 15 % (24-48) Monocytes (%) (Auto) 7 % (0-9) Eosinophils (%) (Auto) 4 % (0-3) Basophils (%) (Auto) 1 % (0-3) Neutrophils # (Auto) 8.0 x10^3uL (1.8-7.7) Lymphocytes # (Auto) 1.6 x10^3/uL (1.0-4.8) Monocytes # (Auto) 0.7 x10^3/uL (0.0-1.1) Eosinophils # (Auto) 0.4 x10^3/uL (0.0-0.7) Basophils # (Auto) 0.1 x10^3/uL (0.0-0.2) Sodium Level 139 mmol/L (136-145) Potassium Level 4.7 mmol/L (3.5-5.1) Chloride Level 104 mmol/L (98-107) Carbon Dioxide Level 28 mmol/L (21-32) Anion Gap 7 (6-14) Blood Urea Nitrogen 14 mg/dL (8-26) Creatinine 0.8 mg/dL (0.7-1.3) Estimated GFR (Cockcroft-Gault) 100.4 BUN/Creatinine Ratio 18 (6-20) Glucose Level 109 mg/dL (70-99) Calcium Level 8.9 mg/dL (8.5-10.1) Total Bilirubin 0.3 mg/dL (0.2-1.0) Aspartate Amino Transf (AST/SGOT) 16 U/L (15-37) Alanine Aminotransferase (ALT/SGPT) 21 U/L (16-63) Alkaline Phosphatase 83 U/L (46-116) Total Protein 6.8 g/dL (6.4-8.2) Albumin 3.0 g/dL (3.4-5.0) Albumin/Globulin Ratio 0.8 (1.0-1.7) Lipase 200 U/L (73-393) Urine Color Yellow Urine Clarity Clear Urine pH 6.5 Urine Specific [place] >=1.030 Urine Protein Negative mg/dL (NEG-TRACE) Urine Glucose (UA) Negative mg/dL (NEG) Urine Ketones (Stick) Negative mg/dL (NEG) Urine Blood Negative (NEG) Urine Nitrite Negative (NEG) Urine Bilirubin Negative (NEG) Urine Urobilinogen Dipstick 0.2 mg/dL (0.2 mg/dL) Urine Leukocyte Esterase Negative (NEG) Urine RBC 0 /HPF (0-2) Urine WBC Occ /HPF (0-4) Urine Squamous Epithelial Cells Occ /LPF Urine Bacteria 0 /HPF (0-FEW) Urine Mucus Slight /LPF ECHOCARDIOGRAM ECHOCARDIOGRAM <Conclusion> The left ventricular systolic function is normal and the ejection fraction is within normal range. The Ejection Fraction is 60-65%. There is grossly normal LV segmental wall motion. Suboptimal images DATE: 12/31/16 1304 STRESS TEST STRESS TEST Conclusion 1. Regadenoson cardioisotope stress test showed [id number] amount of inferior wall ischemia. 2. Normal left ventricular systolic function with ejection fraction calculated at 83%. 3. Intermediate risk for cardiac events. DATE: 01/01/17 1143 HEART CATH HEART CATH CORONARY ANGIOGRAPHY: LM is a moderate caliber vessel with normal angiographic appearance. LAD is a moderate caliber vessel with an ostial 30% stenosis and diffuse mid irregularities of up to 30%. D1 is a small to moderate caliber vessel with mild luminal irregularities. Ramus is a small caliber vessel with normal angiographic appearance. LCx is a small to moderate caliber non-dominant vessel with a mid 50% stenosis. OM1 is a small caliber vessel with proximal 50% stenosis. RCA is a large caliber dominant vessel with patent mid stents. The distal vessel has an eccentric 70% stenosis at the crux involving the ostium of the RPDA. RPDA is a moderate caliber vessel with an ostial 95% stenosis and an acute angle of take-off from the RCA. RPL is a moderate caliber vessel with proximal 30% stenosis. Conclusion 1. Two vessel coronary disease. 2. Patent stents in the RCA 3. Unsuccessful PTCA of the distal RCA crux. Recommendations Consider staged intervention with anesthesia support for PCI of the distal RCA if there is recurrent chest pain despite medical therapy. DATE: 01/02/17 1359 ASSESSMENT/PLAN ASSESSMENT/PLAN 1. GI bleed; hgb stable. ? hemorrhoids. 2. CAD: PCI/KYLIE to RCA 2010. LVEF preserved. Cath last week with unsuccessful PTCA of the distal RCA crux. RCA stent patent. 3. HTN: controlled 4. HLP: statin 5. Morbid obesity 6. LOPEZ with CPAP 7. Palpitations; event monitor pending 8. Tobaccoism; recently quit Recommendations Continue secondary prevention measures including BB, ACEi, Imdur, and statin. D/w primary manager emergency department. May hold Brilinta for now. Continue ASA. Continue event monitor for palpitations Supportive care. Further workup of hematochezia as per GI. Problems: ROBERT SCHAFER APRN Jan 11, 2017 15:26
[2017-01-11] MEDS: METOCLOPRAMIDE 10 MG TABLET. PO SCH ×2 (15:47→21:00)
[2017-01-11] MEDS: TRIAMTERENE/HCTZ 75/50MG TABLET. PO SCH (15:48)
[2017-01-11] MEDS: FLUoxetine HCL 20 MG CAPSULE PO SCH (15:48)
[2017-01-11] MEDS: CHOLECALCIFEROL (VITAMIN D3) 1,000 UNIT TABLET PO SCH (15:48)
[2017-01-11] MEDS: ISOSORBIDE MONONITRATE ER 30 MG TAB.ER.24H PO SCH (15:48)
[2017-01-11] MEDS: CIPROFLOXACIN 400MG PREMIX 200 ML IV SCH ×2 (15:49→23:19)
[2017-01-11] MEDS: oxyCODONE/APAP 5/325 1 TAB TABLET PO PRN ×2 (17:08→23:21)
[2017-01-11 19:00] VITALS: BP 122/79
[2017-01-11] MEDS ORDERED: FLU VACC QS2017-18 (36MOS+)/PF 0.5 ML SYRINGE. VAX IM ONE (20:00)
[2017-01-11] MEDS ORDERED: ATORVASTATIN CALCIUM 40 MG TABLET. PO SCH (21:00)
[2017-01-11] MEDS ORDERED: METOPROLOL SUCC 24HR ER 50 MG TAB.ER.24H. PO SCH (21:00)
[2017-01-11] MEDS ORDERED: LISINOPRIL 40 MG TABLET. PO SCH (21:00)
[2017-01-11] MEDS ORDERED: PANTOPRAZOLE 40 MG TABLET.DR. PO SCH (21:00)
[2017-01-11 23:00] VITALS: BP 105/70
[2017-01-12 03:00] VITALS: BP 119/71
[2017-01-12 05:21] LABS: BASO # 0.1 x10^3/uL (0.0-0.2); BASO % 1 % (0-3); EOS % 4 % (0-3); HEMOGLOBIN 14.2 g/dL (13.0-17.5); LYMPH # 1.8 x10^3/uL (1.0-4.8); LYMPH % 14 % (24-48); MEAN CORPUSCULAR HEMOGLOBIN 30 pg (25-35); MEAN CORPUSCULAR HGB CONC 33 g/dL (31-37); MEAN CORPUSCULAR VOLUME 92 fL (79-100); MONO % 6 % (0-9); NEUT % 75 % (31-73); PLATELET COUNT 267 x10^3/uL (140-400); RED CELL DISTRIBUTION WIDTH 14.1 % (11.5-14.5); WHITE BLOOD COUNT 13.2 x10^3/uL (4.0-11.0)
[2017-01-12 07:00] VITALS: BP 136/68
[2017-01-12] MEDS ORDERED: ASPIRIN ENTERIC COATED 81 MG TABLET.DR. PO SCH (08:00)
[2017-01-12] MEDS: METOCLOPRAMIDE 10 MG TABLET. PO SCH ×2 (08:14→12:10)
[2017-01-12] MEDS: ISOSORBIDE MONONITRATE ER 30 MG TAB.ER.24H PO SCH (08:15)
[2017-01-12] MEDS: TRIAMTERENE/HCTZ 75/50MG TABLET. PO SCH (08:16)
[2017-01-12] MEDS: FLUoxetine HCL 20 MG CAPSULE PO SCH (08:16)
[2017-01-12] MEDS: CHOLECALCIFEROL (VITAMIN D3) 1,000 UNIT TABLET PO SCH (08:16)
[2017-01-12] MEDS: CIPROFLOXACIN 400MG PREMIX 200 ML IV SCH (08:17)
[2017-01-12 08:58] LABS: ALBUMIN 3.3 g/dL (3.4-5.0); ALBUMIN/GLOBULIN RATIO 0.8 (1.0-1.7); CALCIUM 9.1 mg/dL (8.5-10.1); GFR 77.6; POTASSIUM 4.4 mmol/L (3.5-5.1); TOTAL BILIRUBIN 0.4 mg/dL (0.2-1.0); TOTAL PROTEIN 7.2 g/dL (6.4-8.2)
[2017-01-12] MEDS ORDERED: METOPROLOL SUCC 24HR ER 25 MG TAB.ER.24H. PO SCH (09:00)
--- NOTE | 2017-01-12 10:22 | PDOC ---
MARYAMMILEY J MOVIE MACHINE OPERATOR 01/12/17 1022: PROGRESS NOTES Subjective Subjective Denies complaints, wants to go home Objective Objective Vital Signs Date Time Temp Pulse Resp B/P (MAP) Pulse Ox O2 Delivery O2 Flow Rate FiO2 01/12/17 08:15 63 136/68 01/12/17 07:20 Room Air 01/12/17 07:00 97.7 18 93 97.7 Intake and Output 01/13/17 07:00 Intake Total 220 ml Output Total 550 ml Balance -330 ml Intake Oral 220 ml Output Urine Total 550 ml Physical Exam Abdomen: Normal bowel sounds, Soft, No tenderness, Other (obese) Heart: Regular rate, Normal S1, Normal S2 Extremities: No edema, Normal pulses General: Alert, Oriented X3, Cooperative, No acute distress Lungs: Clear to auscultation, Normal air movement Neuro: Normal speech Psych/Mental Status: Mental status NL, Mood NL Assessment Assessment Problems Medical Problems: (1) Rectal bleeding Status: Acute 1. GI bleed; hgb remains stable. Off Brilinta for now. GI following, await their recommendations. 2. CAD: PCI/KYLIE to RCA 2010. LVEF preserved. Cath last week with unsuccessful PTCA of the distal RCA crux. RCA stent patent. Remains angina free, continue medical therapy. 3. HTN: controlled 4. HLP: statin 5. Palpitations; event monitor pending Comment Review of Relevant I have reviewed the following items josé (where applicable) has been applied. Labs Laboratory Tests Test 01/11/17 10:38 01/11/17 10:50 01/11/17 11:05 01/11/17 13:40 Stool Occult Blood Positive (NEG) White Blood Count 10.8 x10^3/uL (4.0-11.0) Red Blood Count 4.92 x10^6/uL (4.30-5.70) Hemoglobin 14.8 g/dL (13.0-17.5) Hematocrit 45.0 % (39.0-53.0) Mean Corpuscular Volume 92 fL (79-100) Mean Corpuscular Hemoglobin 30 pg (25-35) Mean Corpuscular Hemoglobin Concent 33 g/dL (31-37) Red Cell Distribution Width 14.1 % (11.5-14.5) Platelet Count 318 x10^3/uL (140-400) Neutrophils (%) (Auto) 74 % (31-73) Lymphocytes (%) (Auto) 15 % (24-48) Monocytes (%) (Auto) 7 % (0-9) Eosinophils (%) (Auto) 4 % (0-3) Basophils (%) (Auto) 1 % (0-3) Neutrophils # (Auto) 8.0 x10^3uL (1.8-7.7) Lymphocytes # (Auto) 1.6 x10^3/uL (1.0-4.8) Monocytes # (Auto) 0.7 x10^3/uL (0.0-1.1) Eosinophils # (Auto) 0.4 x10^3/uL (0.0-0.7) Basophils # (Auto) 0.1 x10^3/uL (0.0-0.2) Sodium Level 139 mmol/L (136-145) Potassium Level 4.7 mmol/L (3.5-5.1) Chloride Level 104 mmol/L (98-107) Carbon Dioxide Level 28 mmol/L (21-32) Anion Gap 7 (6-14) Blood Urea Nitrogen 14 mg/dL (8-26) Creatinine 0.8 mg/dL (0.7-1.3) Estimated GFR (Cockcroft-Gault) 100.4 BUN/Creatinine Ratio 18 (6-20) Glucose Level 109 mg/dL (70-99) Calcium Level 8.9 mg/dL (8.5-10.1) Total Bilirubin 0.3 mg/dL (0.2-1.0) Aspartate Amino Transf (AST/SGOT) 16 U/L (15-37) Alanine Aminotransferase (ALT/SGPT) 21 U/L (16-63) Alkaline Phosphatase 83 U/L (46-116) Total Protein 6.8 g/dL (6.4-8.2) Albumin 3.0 g/dL (3.4-5.0) Albumin/Globulin Ratio 0.8 (1.0-1.7) Lipase 200 U/L (73-393) Urine Color Yellow Urine Clarity Clear Urine pH 6.5 Urine Specific [place] >=1.030 Urine Protein Negative mg/dL (NEG-TRACE) Urine Glucose (UA) Negative mg/dL (NEG) Urine Ketones (Stick) Negative mg/dL (NEG) Urine Blood Negative (NEG) Urine Nitrite Negative (NEG) Urine Bilirubin Negative (NEG) Urine Urobilinogen Dipstick 0.2 mg/dL (0.2 mg/dL) Urine Leukocyte Esterase Negative (NEG) Urine RBC 0 /HPF (0-2) Urine WBC Occ /HPF (0-4) Urine Squamous Epithelial Cells Occ /LPF Urine Bacteria 0 /HPF (0-FEW) Urine Mucus Slight /LPF Test 01/12/17 04:30 01/12/17 08:20 White Blood Count 13.2 x10^3/uL (4.0-11.0) Red Blood Count 4.70 x10^6/uL (4.30-5.70) Hemoglobin 14.2 g/dL (13.0-17.5) Hematocrit 43.0 % (39.0-53.0) Mean Corpuscular Volume 92 fL (79-100) Mean Corpuscular Hemoglobin 30 pg (25-35) Mean Corpuscular Hemoglobin Concent 33 g/dL (31-37) Red Cell Distribution Width 14.1 % (11.5-14.5) Platelet Count 267 x10^3/uL (140-400) Neutrophils (%) (Auto) 75 % (31-73) Lymphocytes (%) (Auto) 14 % (24-48) Monocytes (%) (Auto) 6 % (0-9) Eosinophils (%) (Auto) 4 % (0-3) Basophils (%) (Auto) 1 % (0-3) Neutrophils # (Auto) 9.9 x10^3uL (1.8-7.7) Lymphocytes # (Auto) 1.8 x10^3/uL (1.0-4.8) Monocytes # (Auto) 0.8 x10^3/uL (0.0-1.1) Eosinophils # (Auto) 0.5 x10^3/uL (0.0-0.7) Basophils # (Auto) 0.1 x10^3/uL (0.0-0.2) Sodium Level 135 mmol/L (136-145) Potassium Level 4.4 mmol/L (3.5-5.1) Chloride Level 100 mmol/L (98-107) Carbon Dioxide Level 26 mmol/L (21-32) Anion Gap 9 (6-14) Blood Urea Nitrogen 12 mg/dL (8-26) Creatinine 1.0 mg/dL (0.7-1.3) Estimated GFR (Cockcroft-Gault) 77.6 BUN/Creatinine Ratio 12 (6-20) Glucose Level 149 mg/dL (70-99) Calcium Level 9.1 mg/dL (8.5-10.1) Total Bilirubin 0.4 mg/dL (0.2-1.0) Aspartate Amino Transf (AST/SGOT) 16 U/L (15-37) Alanine Aminotransferase (ALT/SGPT) 22 U/L (16-63) Alkaline Phosphatase 93 U/L (46-116) Total Protein 7.2 g/dL (6.4-8.2) Albumin 3.3 g/dL (3.4-5.0) Albumin/Globulin Ratio 0.8 (1.0-1.7) Laboratory Tests Test 01/11/17 10:38 01/11/17 10:50 01/11/17 11:05 01/11/17 13:40 Stool Occult Blood Positive (NEG) White Blood Count 10.8 x10^3/uL (4.0-11.0) Red Blood Count 4.92 x10^6/uL (4.30-5.70) Hemoglobin 14.8 g/dL (13.0-17.5) Hematocrit 45.0 % (39.0-53.0) Mean Corpuscular Volume 92 fL (79-100) Mean Corpuscular Hemoglobin 30 pg (25-35) Mean Corpuscular Hemoglobin Concent 33 g/dL (31-37) Red Cell Distribution Width 14.1 % (11.5-14.5) Platelet Count 318 x10^3/uL (140-400) Neutrophils (%) (Auto) 74 % (31-73) Lymphocytes (%) (Auto) 15 % (24-48) Monocytes (%) (Auto) 7 % (0-9) Eosinophils (%) (Auto) 4 % (0-3) Basophils (%) (Auto) 1 % (0-3) Neutrophils # (Auto) 8.0 x10^3uL (1.8-7.7) Lymphocytes # (Auto) 1.6 x10^3/uL (1.0-4.8) Monocytes # (Auto) 0.7 x10^3/uL (0.0-1.1) Eosinophils # (Auto) 0.4 x10^3/uL (0.0-0.7) Basophils # (Auto) 0.1 x10^3/uL (0.0-0.2) Sodium Level 139 mmol/L (136-145) Potassium Level 4.7 mmol/L (3.5-5.1) Chloride Level 104 mmol/L (98-107) Carbon Dioxide Level 28 mmol/L (21-32) Anion Gap 7 (6-14) Blood Urea Nitrogen 14 mg/dL (8-26) Creatinine 0.8 mg/dL (0.7-1.3) Estimated GFR (Cockcroft-Gault) 100.4 BUN/Creatinine Ratio 18 (6-20) Glucose Level 109 mg/dL (70-99) Calcium Level 8.9 mg/dL (8.5-10.1) Total Bilirubin 0.3 mg/dL (0.2-1.0) Aspartate Amino Transf (AST/SGOT) 16 U/L (15-37) Alanine Aminotransferase (ALT/SGPT) 21 U/L (16-63) Alkaline Phosphatase 83 U/L (46-116) Total Protein 6.8 g/dL (6.4-8.2) Albumin 3.0 g/dL (3.4-5.0) Albumin/Globulin Ratio 0.8 (1.0-1.7) Lipase 200 U/L (73-393) Urine Color Yellow Urine Clarity Clear Urine pH 6.5 Urine Specific [place] >=1.030 Urine Protein Negative mg/dL (NEG-TRACE) Urine Glucose (UA) Negative mg/dL (NEG) Urine Ketones (Stick) Negative mg/dL (NEG) Urine Blood Negative (NEG) Urine Nitrite Negative (NEG) Urine Bilirubin Negative (NEG) Urine Urobilinogen Dipstick 0.2 mg/dL (0.2 mg/dL) Urine Leukocyte Esterase Negative (NEG) Urine RBC 0 /HPF (0-2) Urine WBC Occ /HPF (0-4) Urine Squamous Epithelial Cells Occ /LPF Urine Bacteria 0 /HPF (0-FEW) Urine Mucus Slight /LPF Test 01/12/17 04:30 01/12/17 08:20 White Blood Count 13.2 x10^3/uL (4.0-11.0) Red Blood Count 4.70 x10^6/uL (4.30-5.70) Hemoglobin 14.2 g/dL (13.0-17.5) Hematocrit 43.0 % (39.0-53.0) Mean Corpuscular Volume 92 fL (79-100) Mean Corpuscular Hemoglobin 30 pg (25-35) Mean Corpuscular Hemoglobin Concent 33 g/dL (31-37) Red Cell Distribution Width 14.1 % (11.5-14.5) Platelet Count 267 x10^3/uL (140-400) Neutrophils (%) (Auto) 75 % (31-73) Lymphocytes (%) (Auto) 14 % (24-48) Monocytes (%) (Auto) 6 % (0-9) Eosinophils (%) (Auto) 4 % (0-3) Basophils (%) (Auto) 1 % (0-3) Neutrophils # (Auto) 9.9 x10^3uL (1.8-7.7) Lymphocytes # (Auto) 1.8 x10^3/uL (1.0-4.8) Monocytes # (Auto) 0.8 x10^3/uL (0.0-1.1) Eosinophils # (Auto) 0.5 x10^3/uL (0.0-0.7) Basophils # (Auto) 0.1 x10^3/uL (0.0-0.2) Sodium Level 135 mmol/L (136-145) Potassium Level 4.4 mmol/L (3.5-5.1) Chloride Level 100 mmol/L (98-107) Carbon Dioxide Level 26 mmol/L (21-32) Anion Gap 9 (6-14) Blood Urea Nitrogen 12 mg/dL (8-26) Creatinine 1.0 mg/dL (0.7-1.3) Estimated GFR (Cockcroft-Gault) 77.6 BUN/Creatinine Ratio 12 (6-20) Glucose Level 149 mg/dL (70-99) Calcium Level 9.1 mg/dL (8.5-10.1) Total Bilirubin 0.4 mg/dL (0.2-1.0) Aspartate Amino Transf (AST/SGOT) 16 U/L (15-37) Alanine Aminotransferase (ALT/SGPT) 22 U/L (16-63) Alkaline Phosphatase 93 U/L (46-116) Total Protein 7.2 g/dL (6.4-8.2) Albumin 3.3 g/dL (3.4-5.0) Albumin/Globulin Ratio 0.8 (1.0-1.7) Medications Current Medications Sodium Chloride 1,000 ml @ 1,000 mls/hr 1X ONCE IV Last administered on 11:06; Start 01/11/17 at 10:45; Stop 01/11/17 at 11:44; Status DC Ondansetron HCl (Zofran) 4 mg 1X ONCE IV Last administered on 01/11/17 11:06 ; Start 01/11/17 at 10:45; Stop 01/11/17 at 10:48; Status DC Famotidine (Pepcid) 20 mg 1X ONCE IVP Last administered on 01/11/17 11:06; Start 01/11/17 at 10:45; Stop 01/11/17 at 10:48; Status DC Iohexol (Omnipaque 300 Mg/ml) 75 ml 1X ONCE IV Last administered on 01/11/17 11:25; Start 01/11/17 at 11:00; Stop 01/11/17 at 11:01; Status DC Info (Do NOT chart on this entry -- for MONITORING) 1 each PRN DAILY PRN MC SEE COMMENTS; Start 01/11/17 at 11:00; Stop 01/13/17 at 10:59 Morphine Sulfate 5 mg 1X ONCE IV Last administered on 01/11/17 12:17; Start 01/11/17 at 12:00; Stop 01/11/17 at 12:01; Status DC Ondansetron HCl (Zofran) 4 mg PRN Q6HRS PRN IV NAUSEA/VOMITING 1ST CHOICE; Start 01/11/17 at 13:45 Prochlorperazine Edisylate (Compazine) 10 mg PRN Q6HRS PRN IV NAUSEA/VOMITING; Start 01/11/17 at 13:45 Prochlorperazine (Compazine) 25 mg PRN Q12HR PRN MI NAUSEA/VOMITING; Start at 13:45 Al Hydroxide/Mg Hydroxide (Mylanta Plus Xs) 30 ml PRN Q3HRS PRN PO HEARTBURN / GAS; Start 01/11/17 at 13:45 Calcium Carbonate/ Glycine (Tums) 500 mg PRN Q3HRS PRN PO UPSET STOMACH; Start 01/11/17 at 13:45 Zolpidem Tartrate (Ambien) 5 mg PRN QHS PRN PO INSOMNIA, MAY REPEAT IN 1HR; Start 01/11/17 at 13:45 Oxycodone HCl (Roxicodone) 5 mg PRN Q3HRS PRN PO BREAKTHROUGH PAIN Last administered on 01/11/17 19:58; Start 01/11/17 at 13:45 Morphine Sulfate 1 mg PRN Q1HR PRN IV PAIN; Start 01/11/17 at 13:45 Acetaminophen (Tylenol) 650 mg PRN Q6HRS PRN PO Headaches, Temp > 101.5F; Start 01/11/17 at 13:45 Atorvastatin Calcium (Lipitor) 80 mg QHS PO Last administered on 01/11/17 21: 36; Start 01/11/17 at 21:00 Cyclobenzaprine HCl (Flexeril) 10 mg PRN TID PRN PO PAIN; Start 01/11/17 at 14: 00 Isosorbide Mononitrate (Imdur) 30 mg DAILY PO Last administered on 01/12/17 08 :15; Start 01/11/17 at 15:00 Lisinopril (Prinivil) 40 mg HS PO Last administered on 01/11/17 21:36; Start 01/11/17 at 21:00 Metoclopramide HCl (Reglan) 10 mg QIDACHS PO Last administered on 01/12/17 08: 14; Start 01/11/17 at 16:30 Metoprolol Succinate (Toprol Xl) 50 mg HS PO Last administered on 01/11/17 21: 36; Start 01/11/17 at 21:00 Metoprolol Succinate (Toprol Xl) 25 mg DAILY PO Last administered on 01/12/17 08:15; Start 01/12/17 at 09:00 Oxycodone/ Acetaminophen (Percocet 5/325) 2 tab PRN Q6HRS PRN PO PAIN Last administered on 01/11/17 23:21; Start 01/11/17 at 14:00 Triamterene/HCTZ (Maxzide 75/50mg) 1 tab DAILY PO Last administered on 08:16; Start 01/11/17 at 15:00 Vitamin D (Vitamin D3) 2,000 unit DAILY PO Last administered on 01/12/17 08:16 ; Start 01/11/17 at 15:00 Fluoxetine HCl (PROzac) 40 mg DAILY PO Last administered on 01/12/17 08:16; Start 01/11/17 at 15:00 Pantoprazole Sodium (Protonix) 40 mg QHS PO Last administered on 01/11/17 21: 36; Start 01/11/17 at 21:00 Ondansetron HCl (Zofran) 4 mg PRN Q8HRS PRN IV NAUSEA/VOMITING; Start 01/11/17 at 14:30; Stop 01/11/17 at 14:40; Status DC Morphine Sulfate 2 mg PRN Q2HR PRN IV PAIN; Start 01/11/17 at 14:30; Stop 01/11 at 14:42; Status DC Metronidazole 100 ml @ 100 mls/hr Q8HRS IV Last administered on 01/12/17 06: 20; Start 01/11/17 at 15:00 Ciprofloxacin/ Dextrose 200 ml @ 200 mls/hr Q12HR IV Last administered on 01/12 08:17; Start 01/11/17 at 15:00 Aspirin (Ecotrin) 81 mg DAILYWBKFT PO Last administered on 01/12/17 08:14; Start 01/12/17 at 08:00 Influenza Virus Vaccine Quadrival (Fluarix Quad [id number] Syringe) 0.5 ml ONCE ONCE VAX IM Last administered on 01/11/17 21:44; Start 01/11/17 at 20:00; Stop 01/11/17 at 20:01; Status DC Active Scripts Active Atorvastatin Calcium 40 Mg Tablet 80 Mg PO QHS 30 Days Aspirin Ec (Aspirin) 81 Mg Tablet.dr 81 Mg PO DAILYWBKFT 30 Days Isosorbide Mononitrate Er (Isosorbide Mononitrate) 30 Mg Tab.er.24h 1 Tab PO DAILY Brilinta (Ticagrelor) 90 Mg Tablet 90 Mg PO BID 30 Days Reported Vitamin D (Cholecalciferol (Vitamin D3)) 1,000 Unit Capsule 2 Cap PO DAILY Prilosec Otc (Omeprazole Magnesium) 20 Mg Tablet.dr 1 Tab PO HS Lisinopril 40 Mg Tablet 40 Mg PO HS Cyclobenzaprine Hcl 10 Mg Tablet 10 Mg PO PRN TID PRN Triamterene-Hctz 75-50 Mg Tab (Triamterene/Hydrochlorothiazid) 1 Each Tablet 1 Tab PO DAILY Fluoxetine Hcl 40 Mg Capsule 40 Mg PO HS Meloxicam 15 Mg Tablet 1 Tab PO HS Metoclopramide Hcl 10 Mg Tablet 1 Tab PO QIDACHS Metoprolol Succinate 50 Mg Tab.er.24h 1 Tab PO HS Oxycodone-Acetaminophen 5-325 (Oxycodone Hcl/Acetaminophen) 1 Each Tablet 2 Tab PO PRN Q6HRS PRN Metoprolol Succinate ( Xl ) (Metoprolol Succinate) 25 Mg Tab.er.24h 1 Tab PO DAILY Vitals/I & O Vital Sign - Last 24 Hours 01/11/17 01/11/17 01/11/17 01/11/17 10:31 11:08 12:19 13:38 Temp 98.0 98.0 Pulse 56 56 64 54 Resp 20 20 16 20 B/P (MAP) 153/84 (107) 145/78 (100) 140/71 (94) 157/72 (100) Pulse Ox 97 98 95 98 O2 Delivery Room Air 01/11/17 01/11/17 01/11/17 01/11/17 14:46 15:00 15:15 15:15 Temp 98.0 98.0 98.0 98.0 Pulse 54 61 61 Resp 20 18 18 B/P (MAP) 150/86 (107) 138/90 (106) 138/90 (106) Pulse Ox 95 95 95 O2 Delivery Room Air Room Air Room Air 01/11/17 01/11/17 01/11/17 01/11/17 15:48 19:00 19:58 20:00 Temp 97.3 97.3 Pulse 61 74 Resp 19 20 B/P (MAP) 138/90 122/79 (93) Pulse Ox 97 O2 Delivery Room Air Room Air Room Air 01/11/17 01/11/17 01/11/17 01/11/17 20:58 21:36 21:36 23:00 Temp 98.3 98.3 Pulse 74 74 60 Resp 20 18 B/P (MAP) 122/79 122/79 105/70 (82) Pulse Ox 96 O2 Delivery Room Air Room Air 01/11/17 01/12/17 01/12/17 01/12/17 23:21 00:21 03:00 07:00 Temp 98.1 97.7 98.1 97.7 Pulse 78 63 Resp 20 20 18 18 B/P (MAP) 119/71 (87) 136/68 (90) Pulse Ox 96 93 O2 Delivery Room Air Room Air Room Air Room Air 01/12/17 01/12/17 01/12/17 07:20 08:15 08:15 Pulse 63 63 B/P (MAP) 136/68 136/68 O2 Delivery Room Air Intake and Output 01/12/17 01/12/17 01/13/17 15:00 23:00 07:00 Intake Total 220 ml Output Total 550 ml Balance -330 ml CLIF NÚÑEZ MD 01/12/17 1340: PROGRESS NOTES Plan Plan of Care Patient seen and examined. Agree with above nurse practitioner note. No further hematochezia. Denies any chest pain or dyspnea. Supportive care from a cardiac standpoint. We will discontinue ticagrelor. MILEY FRANCISCO APRN Jan 12, 2017 10:22 CLIF NÚÑEZ MD Jan 12, 2017 13:40
[2017-01-12 11:48] VITALS: BP 137/75
--- NOTE | 2017-01-12 12:00 | PDOC ---
G I PROGRESS NOTE Reason for Follow-up Rectal bleeding Subjective No further bleeding Physical Exam Lungs clear CV S1 S2 ABD +BS, soft, nontender Review of Relevant I have reviewed the following items josé (where applicable) has been applied. Labs Laboratory Tests Test 01/11/17 10:38 01/11/17 10:50 01/11/17 11:05 01/11/17 13:40 Stool Occult Blood Positive (NEG) White Blood Count 10.8 x10^3/uL (4.0-11.0) Red Blood Count 4.92 x10^6/uL (4.30-5.70) Hemoglobin 14.8 g/dL (13.0-17.5) Hematocrit 45.0 % (39.0-53.0) Mean Corpuscular Volume 92 fL (79-100) Mean Corpuscular Hemoglobin 30 pg (25-35) Mean Corpuscular Hemoglobin Concent 33 g/dL (31-37) Red Cell Distribution Width 14.1 % (11.5-14.5) Platelet Count 318 x10^3/uL (140-400) Neutrophils (%) (Auto) 74 % (31-73) Lymphocytes (%) (Auto) 15 % (24-48) Monocytes (%) (Auto) 7 % (0-9) Eosinophils (%) (Auto) 4 % (0-3) Basophils (%) (Auto) 1 % (0-3) Neutrophils # (Auto) 8.0 x10^3uL (1.8-7.7) Lymphocytes # (Auto) 1.6 x10^3/uL (1.0-4.8) Monocytes # (Auto) 0.7 x10^3/uL (0.0-1.1) Eosinophils # (Auto) 0.4 x10^3/uL (0.0-0.7) Basophils # (Auto) 0.1 x10^3/uL (0.0-0.2) Sodium Level 139 mmol/L (136-145) Potassium Level 4.7 mmol/L (3.5-5.1) Chloride Level 104 mmol/L (98-107) Carbon Dioxide Level 28 mmol/L (21-32) Anion Gap 7 (6-14) Blood Urea Nitrogen 14 mg/dL (8-26) Creatinine 0.8 mg/dL (0.7-1.3) Estimated GFR (Cockcroft-Gault) 100.4 BUN/Creatinine Ratio 18 (6-20) Glucose Level 109 mg/dL (70-99) Calcium Level 8.9 mg/dL (8.5-10.1) Total Bilirubin 0.3 mg/dL (0.2-1.0) Aspartate Amino Transf (AST/SGOT) 16 U/L (15-37) Alanine Aminotransferase (ALT/SGPT) 21 U/L (16-63) Alkaline Phosphatase 83 U/L (46-116) Total Protein 6.8 g/dL (6.4-8.2) Albumin 3.0 g/dL (3.4-5.0) Albumin/Globulin Ratio 0.8 (1.0-1.7) Lipase 200 U/L (73-393) Urine Color Yellow Urine Clarity Clear Urine pH 6.5 Urine Specific [place] >=1.030 Urine Protein Negative mg/dL (NEG-TRACE) Urine Glucose (UA) Negative mg/dL (NEG) Urine Ketones (Stick) Negative mg/dL (NEG) Urine Blood Negative (NEG) Urine Nitrite Negative (NEG) Urine Bilirubin Negative (NEG) Urine Urobilinogen Dipstick 0.2 mg/dL (0.2 mg/dL) Urine Leukocyte Esterase Negative (NEG) Urine RBC 0 /HPF (0-2) Urine WBC Occ /HPF (0-4) Urine Squamous Epithelial Cells Occ /LPF Urine Bacteria 0 /HPF (0-FEW) Urine Mucus Slight /LPF Test 01/12/17 04:30 01/12/17 08:20 White Blood Count 13.2 x10^3/uL (4.0-11.0) Red Blood Count 4.70 x10^6/uL (4.30-5.70) Hemoglobin 14.2 g/dL (13.0-17.5) Hematocrit 43.0 % (39.0-53.0) Mean Corpuscular Volume 92 fL (79-100) Mean Corpuscular Hemoglobin 30 pg (25-35) Mean Corpuscular Hemoglobin Concent 33 g/dL (31-37) Red Cell Distribution Width 14.1 % (11.5-14.5) Platelet Count 267 x10^3/uL (140-400) Neutrophils (%) (Auto) 75 % (31-73) Lymphocytes (%) (Auto) 14 % (24-48) Monocytes (%) (Auto) 6 % (0-9) Eosinophils (%) (Auto) 4 % (0-3) Basophils (%) (Auto) 1 % (0-3) Neutrophils # (Auto) 9.9 x10^3uL (1.8-7.7) Lymphocytes # (Auto) 1.8 x10^3/uL (1.0-4.8) Monocytes # (Auto) 0.8 x10^3/uL (0.0-1.1) Eosinophils # (Auto) 0.5 x10^3/uL (0.0-0.7) Basophils # (Auto) 0.1 x10^3/uL (0.0-0.2) Sodium Level 135 mmol/L (136-145) Potassium Level 4.4 mmol/L (3.5-5.1) Chloride Level 100 mmol/L (98-107) Carbon Dioxide Level 26 mmol/L (21-32) Anion Gap 9 (6-14) Blood Urea Nitrogen 12 mg/dL (8-26) Creatinine 1.0 mg/dL (0.7-1.3) Estimated GFR (Cockcroft-Gault) 77.6 BUN/Creatinine Ratio 12 (6-20) Glucose Level 149 mg/dL (70-99) Calcium Level 9.1 mg/dL (8.5-10.1) Total Bilirubin 0.4 mg/dL (0.2-1.0) Aspartate Amino Transf (AST/SGOT) 16 U/L (15-37) Alanine Aminotransferase (ALT/SGPT) 22 U/L (16-63) Alkaline Phosphatase 93 U/L (46-116) Total Protein 7.2 g/dL (6.4-8.2) Albumin 3.3 g/dL (3.4-5.0) Albumin/Globulin Ratio 0.8 (1.0-1.7) Laboratory Tests Test 01/11/17 13:40 01/12/17 04:30 01/12/17 08:20 Urine Color Yellow Urine Clarity Clear Urine pH 6.5 Urine Specific [place] >=1.030 Urine Protein Negative mg/dL (NEG-TRACE) Urine Glucose (UA) Negative mg/dL (NEG) Urine Ketones (Stick) Negative mg/dL (NEG) Urine Blood Negative (NEG) Urine Nitrite Negative (NEG) Urine Bilirubin Negative (NEG) Urine Urobilinogen Dipstick 0.2 mg/dL (0.2 mg/dL) Urine Leukocyte Esterase Negative (NEG) Urine RBC 0 /HPF (0-2) Urine WBC Occ /HPF (0-4) Urine Squamous Epithelial Cells Occ /LPF Urine Bacteria 0 /HPF (0-FEW) Urine Mucus Slight /LPF White Blood Count 13.2 x10^3/uL (4.0-11.0) Red Blood Count 4.70 x10^6/uL (4.30-5.70) Hemoglobin 14.2 g/dL (13.0-17.5) Hematocrit 43.0 % (39.0-53.0) Mean Corpuscular Volume 92 fL (79-100) Mean Corpuscular Hemoglobin 30 pg (25-35) Mean Corpuscular Hemoglobin Concent 33 g/dL (31-37) Red Cell Distribution Width 14.1 % (11.5-14.5) Platelet Count 267 x10^3/uL (140-400) Neutrophils (%) (Auto) 75 % (31-73) Lymphocytes (%) (Auto) 14 % (24-48) Monocytes (%) (Auto) 6 % (0-9) Eosinophils (%) (Auto) 4 % (0-3) Basophils (%) (Auto) 1 % (0-3) Neutrophils # (Auto) 9.9 x10^3uL (1.8-7.7) Lymphocytes # (Auto) 1.8 x10^3/uL (1.0-4.8) Monocytes # (Auto) 0.8 x10^3/uL (0.0-1.1) Eosinophils # (Auto) 0.5 x10^3/uL (0.0-0.7) Basophils # (Auto) 0.1 x10^3/uL (0.0-0.2) Sodium Level 135 mmol/L (136-145) Potassium Level 4.4 mmol/L (3.5-5.1) Chloride Level 100 mmol/L (98-107) Carbon Dioxide Level 26 mmol/L (21-32) Anion Gap 9 (6-14) Blood Urea Nitrogen 12 mg/dL (8-26) Creatinine 1.0 mg/dL (0.7-1.3) Estimated GFR (Cockcroft-Gault) 77.6 BUN/Creatinine Ratio 12 (6-20) Glucose Level 149 mg/dL (70-99) Calcium Level 9.1 mg/dL (8.5-10.1) Total Bilirubin 0.4 mg/dL (0.2-1.0) Aspartate Amino Transf (AST/SGOT) 16 U/L (15-37) Alanine Aminotransferase (ALT/SGPT) 22 U/L (16-63) Alkaline Phosphatase 93 U/L (46-116) Total Protein 7.2 g/dL (6.4-8.2) Albumin 3.3 g/dL (3.4-5.0) Albumin/Globulin Ratio 0.8 (1.0-1.7) Medications Current Medications Sodium Chloride 1,000 ml @ 1,000 mls/hr 1X ONCE IV Last administered on 11:06; Start 01/11/17 at 10:45; Stop 01/11/17 at 11:44; Status DC Ondansetron HCl (Zofran) 4 mg 1X ONCE IV Last administered on 01/11/17 11:06 ; Start 01/11/17 at 10:45; Stop 01/11/17 at 10:48; Status DC Famotidine (Pepcid) 20 mg 1X ONCE IVP Last administered on 01/11/17 11:06; Start 01/11/17 at 10:45; Stop 01/11/17 at 10:48; Status DC Iohexol (Omnipaque 300 Mg/ml) 75 ml 1X ONCE IV Last administered on 01/11/17 11:25; Start 01/11/17 at 11:00; Stop 01/11/17 at 11:01; Status DC Info (Do NOT chart on this entry -- for MONITORING) 1 each PRN DAILY PRN MC SEE COMMENTS; Start 01/11/17 at 11:00; Stop 01/13/17 at 10:59 Morphine Sulfate 5 mg 1X ONCE IV Last administered on 01/11/17 12:17; Start 01/11/17 at 12:00; Stop 01/11/17 at 12:01; Status DC Ondansetron HCl (Zofran) 4 mg PRN Q6HRS PRN IV NAUSEA/VOMITING 1ST CHOICE; Start 01/11/17 at 13:45 Prochlorperazine Edisylate (Compazine) 10 mg PRN Q6HRS PRN IV NAUSEA/VOMITING; Start 01/11/17 at 13:45 Prochlorperazine (Compazine) 25 mg PRN Q12HR PRN ID NAUSEA/VOMITING; Start at 13:45 Al Hydroxide/Mg Hydroxide (Mylanta Plus Xs) 30 ml PRN Q3HRS PRN PO HEARTBURN / GAS; Start 01/11/17 at 13:45 Calcium Carbonate/ Glycine (Tums) 500 mg PRN Q3HRS PRN PO UPSET STOMACH; Start 01/11/17 at 13:45 Zolpidem Tartrate (Ambien) 5 mg PRN QHS PRN PO INSOMNIA, MAY REPEAT IN 1HR; Start 01/11/17 at 13:45 Oxycodone HCl (Roxicodone) 5 mg PRN Q3HRS PRN PO BREAKTHROUGH PAIN Last administered on 01/11/17 19:58; Start 01/11/17 at 13:45 Morphine Sulfate 1 mg PRN Q1HR PRN IV PAIN; Start 01/11/17 at 13:45 Acetaminophen (Tylenol) 650 mg PRN Q6HRS PRN PO Headaches, Temp > 101.5F; Start 01/11/17 at 13:45 Atorvastatin Calcium (Lipitor) 80 mg QHS PO Last administered on 01/11/17 21: 36; Start 01/11/17 at 21:00 Cyclobenzaprine HCl (Flexeril) 10 mg PRN TID PRN PO PAIN; Start 01/11/17 at 14: 00 Isosorbide Mononitrate (Imdur) 30 mg DAILY PO Last administered on 01/12/17 08 :15; Start 01/11/17 at 15:00 Lisinopril (Prinivil) 40 mg HS PO Last administered on 01/11/17 21:36; Start 01/11/17 at 21:00 Metoclopramide HCl (Reglan) 10 mg QIDACHS PO Last administered on 01/12/17 08: 14; Start 01/11/17 at 16:30 Metoprolol Succinate (Toprol Xl) 50 mg HS PO Last administered on 01/11/17 21: 36; Start 01/11/17 at 21:00 Metoprolol Succinate (Toprol Xl) 25 mg DAILY PO Last administered on 01/12/17 08:15; Start 01/12/17 at 09:00 Oxycodone/ Acetaminophen (Percocet 5/325) 2 tab PRN Q6HRS PRN PO PAIN Last administered on 01/11/17 23:21; Start 01/11/17 at 14:00 Triamterene/HCTZ (Maxzide 75/50mg) 1 tab DAILY PO Last administered on 08:16; Start 01/11/17 at 15:00 Vitamin D (Vitamin D3) 2,000 unit DAILY PO Last administered on 01/12/17 08:16 ; Start 01/11/17 at 15:00 Fluoxetine HCl (PROzac) 40 mg DAILY PO Last administered on 01/12/17 08:16; Start 01/11/17 at 15:00 Pantoprazole Sodium (Protonix) 40 mg QHS PO Last administered on 01/11/17 21: 36; Start 01/11/17 at 21:00 Ondansetron HCl (Zofran) 4 mg PRN Q8HRS PRN IV NAUSEA/VOMITING; Start 01/11/17 at 14:30; Stop 01/11/17 at 14:40; Status DC Morphine Sulfate 2 mg PRN Q2HR PRN IV PAIN; Start 01/11/17 at 14:30; Stop 01/11 at 14:42; Status DC Metronidazole 100 ml @ 100 mls/hr Q8HRS IV Last administered on 01/12/17 06: 20; Start 01/11/17 at 15:00 Ciprofloxacin/ Dextrose 200 ml @ 200 mls/hr Q12HR IV Last administered on 01/12 08:17; Start 01/11/17 at 15:00 Aspirin (Ecotrin) 81 mg [id number] PO Last administered on 01/12/17 08:14; Start 01/12/17 at 08:00 Influenza Virus Vaccine Quadrival (Fluarix Quad [id number] Syringe) 0.5 ml ONCE ONCE VAX IM Last administered on 01/11/17 21:44; Start 01/11/17 at 20:00; Stop 01/11/17 at 20:01; Status DC Active Scripts Active Atorvastatin Calcium 40 Mg Tablet 80 Mg PO QHS 30 Days Aspirin Ec (Aspirin) 81 Mg Tablet. 81 Mg PO [id number] 30 Days Isosorbide Mononitrate Er (Isosorbide Mononitrate) 30 Mg Tab.er.24h 1 Tab PO DAILY Brilinta (Ticagrelor) 90 Mg Tablet 90 Mg PO BID 30 Days Reported Vitamin D (Cholecalciferol (Vitamin D3)) 1,000 Unit Capsule 2 Cap PO DAILY Prilosec Otc (Omeprazole Magnesium) 20 Mg Tablet.dr 1 Tab PO HS Lisinopril 40 Mg Tablet 40 Mg PO HS Cyclobenzaprine Hcl 10 Mg Tablet 10 Mg PO PRN TID PRN Triamterene-Hctz 75-50 Mg Tab (Triamterene/Hydrochlorothiazid) 1 Each Tablet 1 Tab PO DAILY Fluoxetine Hcl 40 Mg Capsule 40 Mg PO HS Meloxicam 15 Mg Tablet 1 Tab PO HS Metoclopramide Hcl 10 Mg Tablet 1 Tab PO QIDACHS Metoprolol Succinate 50 Mg Tab.er.24h 1 Tab PO HS Oxycodone-Acetaminophen 5-325 (Oxycodone Hcl/Acetaminophen) 1 Each Tablet 2 Tab PO PRN Q6HRS PRN Metoprolol Succinate ( Xl ) (Metoprolol Succinate) 25 Mg Tab.er.24h 1 Tab PO DAILY Vitals/I & O Vital Sign - Last 24 Hours 01/11/17 01/11/17 01/11/17 01/11/17 12:19 13:38 14:46 15:00 Pulse 64 54 54 Resp 16 20 20 B/P (MAP) 140/71 (94) 157/72 (100) 150/86 (107) Pulse Ox 95 98 95 O2 Delivery Room Air 01/11/17 01/11/17 01/11/17 01/11/17 15:15 15:15 15:48 19:00 Temp 98.0 98.0 97.3 98.0 98.0 97.3 Pulse 61 61 61 74 Resp 18 18 19 B/P (MAP) 138/90 (106) 138/90 (106) 138/90 122/79 (93) Pulse Ox 95 95 97 O2 Delivery Room Air Room Air Room Air 01/11/17 01/11/17 01/11/17 01/11/17 19:58 20:00 20:58 21:36 Pulse 74 Resp 20 20 B/P (MAP) 122/79 O2 Delivery Room Air Room Air Room Air 01/11/17 01/11/17 01/11/17 01/12/17 21:36 23:00 23:21 00:21 Temp 98.3 98.3 Pulse 74 60 Resp 18 20 20 B/P (MAP) 122/79 105/70 (82) Pulse Ox 96 O2 Delivery Room Air Room Air Room Air 01/12/17 01/12/17 01/12/17 01/12/17 03:00 07:00 07:20 08:15 Temp 98.1 97.7 98.1 97.7 Pulse 78 63 63 Resp 18 18 B/P (MAP) 119/71 (87) 136/68 (90) 136/68 Pulse Ox 96 93 O2 Delivery Room Air Room Air Room Air 01/12/17 01/12/17 08:15 11:48 Temp 97.5 97.5 Pulse 63 66 Resp 18 B/P (MAP) 136/68 137/75 (95) Pulse Ox 94 O2 Delivery Room Air Intake and Output 01/12/17 01/12/17 01/13/17 15:00 23:00 07:00 Intake Total 220 ml Output Total 550 ml Balance -330 ml Problem List Problems Medical Problems: (1) Rectal bleeding Status: Acute Assessment Rectal bleed- most likely secondary to hemorrhoids, Hg stable, may release home from GI standpoint LINDA LYNN MD Jan 12, 2017 12:00
[2017-01-12] MEDS: oxyCODONE/APAP 5/325 1 TAB TABLET PO PRN (12:14)
--- NOTE | 2017-01-12 13:29 | PDOC ---
PROGRESS NOTES Chief Complaint Chief Complaint Hematochezia x3 days History of Present Illness History of Present Illness Very pleasant 56 y/o male, who was just dcd Dec for CP, has hx stents on ASA 81 and brilinta, coming in for 3 day hx bloody BM, some mild abd dc only,. NO emesis, no fevers, AT er hgb 14, VS stable, CT shows mild colitis, Never happened before, Admitted with cards and GI to talk about AC upon dc. He might just need to go on ASA 81 or something,- needs to be on AC given signif heart hx and indwelling stents, NO regular NSAIDs at home. FOBT positive. pt seen at bedside. He is feeling well and in no acute distress. discussed with patient nurse. Patient would like to be d/c to home. No acute complaints at this time. Vitals Vitals Vital Signs Date Time Temp Pulse Resp B/P (MAP) Pulse Ox O2 Delivery O2 Flow Rate FiO2 01/12/17 12:14 Room Air 01/12/17 11:48 97.5 66 18 137/75 (95) 94 97.5 Physical Exam General: Alert, Oriented X3, Cooperative, No acute distress Heart: Regular rate, Normal S1, Normal S2 Lungs: Clear Abdomen: Normal bowel sounds, Soft, No tenderness, Other (obese) Extremities: No edema, Normal pulses Skin: No rashes, No breakdown, No significant lesion Labs LABS Laboratory Tests Test 01/11/17 13:40 01/12/17 04:30 01/12/17 08:20 Urine Color Yellow Urine Clarity Clear Urine pH 6.5 Urine Specific Garfield >=1.030 Urine Protein Negative mg/dL (NEG-TRACE) Urine Glucose (UA) Negative mg/dL (NEG) Urine Ketones (Stick) Negative mg/dL (NEG) Urine Blood Negative (NEG) Urine Nitrite Negative (NEG) Urine Bilirubin Negative (NEG) Urine Urobilinogen Dipstick 0.2 mg/dL (0.2 mg/dL) Urine Leukocyte Esterase Negative (NEG) Urine RBC 0 /HPF (0-2) Urine WBC Occ /HPF (0-4) Urine Squamous Epithelial Cells Occ /LPF Urine Bacteria 0 /HPF (0-FEW) Urine Mucus Slight /LPF White Blood Count 13.2 x10^3/uL (4.0-11.0) Red Blood Count 4.70 x10^6/uL (4.30-5.70) Hemoglobin 14.2 g/dL (13.0-17.5) Hematocrit 43.0 % (39.0-53.0) Mean Corpuscular Volume 92 fL (79-100) Mean Corpuscular Hemoglobin 30 pg (25-35) Mean Corpuscular Hemoglobin Concent 33 g/dL (31-37) Red Cell Distribution Width 14.1 % (11.5-14.5) Platelet Count 267 x10^3/uL (140-400) Neutrophils (%) (Auto) 75 % (31-73) Lymphocytes (%) (Auto) 14 % (24-48) Monocytes (%) (Auto) 6 % (0-9) Eosinophils (%) (Auto) 4 % (0-3) Basophils (%) (Auto) 1 % (0-3) Neutrophils # (Auto) 9.9 x10^3uL (1.8-7.7) Lymphocytes # (Auto) 1.8 x10^3/uL (1.0-4.8) Monocytes # (Auto) 0.8 x10^3/uL (0.0-1.1) Eosinophils # (Auto) 0.5 x10^3/uL (0.0-0.7) Basophils # (Auto) 0.1 x10^3/uL (0.0-0.2) Sodium Level 135 mmol/L (136-145) Potassium Level 4.4 mmol/L (3.5-5.1) Chloride Level 100 mmol/L (98-107) Carbon Dioxide Level 26 mmol/L (21-32) Anion Gap 9 (6-14) Blood Urea Nitrogen 12 mg/dL (8-26) Creatinine 1.0 mg/dL (0.7-1.3) Estimated GFR (Cockcroft-Gault) 77.6 BUN/Creatinine Ratio 12 (6-20) Glucose Level 149 mg/dL (70-99) Calcium Level 9.1 mg/dL (8.5-10.1) Total Bilirubin 0.4 mg/dL (0.2-1.0) Aspartate Amino Transf (AST/SGOT) 16 U/L (15-37) Alanine Aminotransferase (ALT/SGPT) 22 U/L (16-63) Alkaline Phosphatase 93 U/L (46-116) Total Protein 7.2 g/dL (6.4-8.2) Albumin 3.3 g/dL (3.4-5.0) Albumin/Globulin Ratio 0.8 (1.0-1.7) Review of Systems Review of Systems General: + fatigue, + hunger CV: no cp or palpitations resp: no SOB or wheezing GI: + blood in stool, no abd pain Assessment and Plan Assessmemt and Plan Problems Medical Problems: (1) Rectal bleeding Status: Acute Assessment/Plan 1. Colitis with bloody stools 2. CAD: PCI/KYLIE to RCA 2010. 3. HTN: controlled 4. HLP: continue statin therapy 5. Morbid obesity 6. LOPEZ: CPAP at home 7. Anxiety NOS 8. Tobaccoism; discussed/encouraged cessation PLAn: HOld ASa and brilinta COnt rest of home meds OK for CArdiac diet, no abd pain no emesis GI and cardiology following H&H normal today probable d/c to home with 5 days of Cipro 500 mg BID Problems: Comment Review of Relevant I have reviewed the following items josé (where applicable) has been applied. Labs Laboratory Tests Test 01/11/17 10:38 01/11/17 10:50 01/11/17 11:05 01/11/17 13:40 Stool Occult Blood Positive (NEG) White Blood Count 10.8 x10^3/uL (4.0-11.0) Red Blood Count 4.92 x10^6/uL (4.30-5.70) Hemoglobin 14.8 g/dL (13.0-17.5) Hematocrit 45.0 % (39.0-53.0) Mean Corpuscular Volume 92 fL (79-100) Mean Corpuscular Hemoglobin 30 pg (25-35) Mean Corpuscular Hemoglobin Concent 33 g/dL (31-37) Red Cell Distribution Width 14.1 % (11.5-14.5) Platelet Count 318 x10^3/uL (140-400) Neutrophils (%) (Auto) 74 % (31-73) Lymphocytes (%) (Auto) 15 % (24-48) Monocytes (%) (Auto) 7 % (0-9) Eosinophils (%) (Auto) 4 % (0-3) Basophils (%) (Auto) 1 % (0-3) Neutrophils # (Auto) 8.0 x10^3uL (1.8-7.7) Lymphocytes # (Auto) 1.6 x10^3/uL (1.0-4.8) Monocytes # (Auto) 0.7 x10^3/uL (0.0-1.1) Eosinophils # (Auto) 0.4 x10^3/uL (0.0-0.7) Basophils # (Auto) 0.1 x10^3/uL (0.0-0.2) Sodium Level 139 mmol/L (136-145) Potassium Level 4.7 mmol/L (3.5-5.1) Chloride Level 104 mmol/L (98-107) Carbon Dioxide Level 28 mmol/L (21-32) Anion Gap 7 (6-14) Blood Urea Nitrogen 14 mg/dL (8-26) Creatinine 0.8 mg/dL (0.7-1.3) Estimated GFR (Cockcroft-Gault) 100.4 BUN/Creatinine Ratio 18 (6-20) Glucose Level 109 mg/dL (70-99) Calcium Level 8.9 mg/dL (8.5-10.1) Total Bilirubin 0.3 mg/dL (0.2-1.0) Aspartate Amino Transf (AST/SGOT) 16 U/L (15-37) Alanine Aminotransferase (ALT/SGPT) 21 U/L (16-63) Alkaline Phosphatase 83 U/L (46-116) Total Protein 6.8 g/dL (6.4-8.2) Albumin 3.0 g/dL (3.4-5.0) Albumin/Globulin Ratio 0.8 (1.0-1.7) Lipase 200 U/L (73-393) Urine Color Yellow Urine Clarity Clear Urine pH 6.5 Urine Specific Garfield >=1.030 Urine Protein Negative mg/dL (NEG-TRACE) Urine Glucose (UA) Negative mg/dL (NEG) Urine Ketones (Stick) Negative mg/dL (NEG) Urine Blood Negative (NEG) Urine Nitrite Negative (NEG) Urine Bilirubin Negative (NEG) Urine Urobilinogen Dipstick 0.2 mg/dL (0.2 mg/dL) Urine Leukocyte Esterase Negative (NEG) Urine RBC 0 /HPF (0-2) Urine WBC Occ /HPF (0-4) Urine Squamous Epithelial Cells Occ /LPF Urine Bacteria 0 /HPF (0-FEW) Urine Mucus Slight /LPF Test 01/12/17 04:30 01/12/17 08:20 White Blood Count 13.2 x10^3/uL (4.0-11.0) Red Blood Count 4.70 x10^6/uL (4.30-5.70) Hemoglobin 14.2 g/dL (13.0-17.5) Hematocrit 43.0 % (39.0-53.0) Mean Corpuscular Volume 92 fL (79-100) Mean Corpuscular Hemoglobin 30 pg (25-35) Mean Corpuscular Hemoglobin Concent 33 g/dL (31-37) Red Cell Distribution Width 14.1 % (11.5-14.5) Platelet Count 267 x10^3/uL (140-400) Neutrophils (%) (Auto) 75 % (31-73) Lymphocytes (%) (Auto) 14 % (24-48) Monocytes (%) (Auto) 6 % (0-9) Eosinophils (%) (Auto) 4 % (0-3) Basophils (%) (Auto) 1 % (0-3) Neutrophils # (Auto) 9.9 x10^3uL (1.8-7.7) Lymphocytes # (Auto) 1.8 x10^3/uL (1.0-4.8) Monocytes # (Auto) 0.8 x10^3/uL (0.0-1.1) Eosinophils # (Auto) 0.5 x10^3/uL (0.0-0.7) Basophils # (Auto) 0.1 x10^3/uL (0.0-0.2) Sodium Level 135 mmol/L (136-145) Potassium Level 4.4 mmol/L (3.5-5.1) Chloride Level 100 mmol/L (98-107) Carbon Dioxide Level 26 mmol/L (21-32) Anion Gap 9 (6-14) Blood Urea Nitrogen 12 mg/dL (8-26) Creatinine 1.0 mg/dL (0.7-1.3) Estimated GFR (Cockcroft-Gault) 77.6 BUN/Creatinine Ratio 12 (6-20) Glucose Level 149 mg/dL (70-99) Calcium Level 9.1 mg/dL (8.5-10.1) Total Bilirubin 0.4 mg/dL (0.2-1.0) Aspartate Amino Transf (AST/SGOT) 16 U/L (15-37) Alanine Aminotransferase (ALT/SGPT) 22 U/L (16-63) Alkaline Phosphatase 93 U/L (46-116) Total Protein 7.2 g/dL (6.4-8.2) Albumin 3.3 g/dL (3.4-5.0) Albumin/Globulin Ratio 0.8 (1.0-1.7) Laboratory Tests Test 01/11/17 13:40 01/12/17 04:30 01/12/17 08:20 Urine Color Yellow Urine Clarity Clear Urine pH 6.5 Urine Specific Garfield >=1.030 Urine Protein Negative mg/dL (NEG-TRACE) Urine Glucose (UA) Negative mg/dL (NEG) Urine Ketones (Stick) Negative mg/dL (NEG) Urine Blood Negative (NEG) Urine Nitrite Negative (NEG) Urine Bilirubin Negative (NEG) Urine Urobilinogen Dipstick 0.2 mg/dL (0.2 mg/dL) Urine Leukocyte Esterase Negative (NEG) Urine RBC 0 /HPF (0-2) Urine WBC Occ /HPF (0-4) Urine Squamous Epithelial Cells Occ /LPF Urine Bacteria 0 /HPF (0-FEW) Urine Mucus Slight /LPF White Blood Count 13.2 x10^3/uL (4.0-11.0) Red Blood Count 4.70 x10^6/uL (4.30-5.70) Hemoglobin 14.2 g/dL (13.0-17.5) Hematocrit 43.0 % (39.0-53.0) Mean Corpuscular Volume 92 fL (79-100) Mean Corpuscular Hemoglobin 30 pg (25-35) Mean Corpuscular Hemoglobin Concent 33 g/dL (31-37) Red Cell Distribution Width 14.1 % (11.5-14.5) Platelet Count 267 x10^3/uL (140-400) Neutrophils (%) (Auto) 75 % (31-73) Lymphocytes (%) (Auto) 14 % (24-48) Monocytes (%) (Auto) 6 % (0-9) Eosinophils (%) (Auto) 4 % (0-3) Basophils (%) (Auto) 1 % (0-3) Neutrophils # (Auto) 9.9 x10^3uL (1.8-7.7) Lymphocytes # (Auto) 1.8 x10^3/uL (1.0-4.8) Monocytes # (Auto) 0.8 x10^3/uL (0.0-1.1) Eosinophils # (Auto) 0.5 x10^3/uL (0.0-0.7) Basophils # (Auto) 0.1 x10^3/uL (0.0-0.2) Sodium Level 135 mmol/L (136-145) Potassium Level 4.4 mmol/L (3.5-5.1) Chloride Level 100 mmol/L (98-107) Carbon Dioxide Level 26 mmol/L (21-32) Anion Gap 9 (6-14) Blood Urea Nitrogen 12 mg/dL (8-26) Creatinine 1.0 mg/dL (0.7-1.3) Estimated GFR (Cockcroft-Gault) 77.6 BUN/Creatinine Ratio 12 (6-20) Glucose Level 149 mg/dL (70-99) Calcium Level 9.1 mg/dL (8.5-10.1) Total Bilirubin 0.4 mg/dL (0.2-1.0) Aspartate Amino Transf (AST/SGOT) 16 U/L (15-37) Alanine Aminotransferase (ALT/SGPT) 22 U/L (16-63) Alkaline Phosphatase 93 U/L (46-116) Total Protein 7.2 g/dL (6.4-8.2) Albumin 3.3 g/dL (3.4-5.0) Albumin/Globulin Ratio 0.8 (1.0-1.7) Medications Current Medications Sodium Chloride 1,000 ml @ 1,000 mls/hr 1X ONCE IV Last administered on 11:06; Start 01/11/17 at 10:45; Stop 01/11/17 at 11:44; Status DC Ondansetron HCl (Zofran) 4 mg 1X ONCE IV Last administered on 01/11/17 11:06 ; Start 01/11/17 at 10:45; Stop 01/11/17 at 10:48; Status DC Famotidine (Pepcid) 20 mg 1X ONCE IVP Last administered on 01/11/17 11:06; Start 01/11/17 at 10:45; Stop 01/11/17 at 10:48; Status DC Iohexol (Omnipaque 300 Mg/ml) 75 ml 1X ONCE IV Last administered on 01/11/17 11:25; Start 01/11/17 at 11:00; Stop 01/11/17 at 11:01; Status DC Info (Do NOT chart on this entry -- for MONITORING) 1 each PRN DAILY PRN MC SEE COMMENTS; Start 01/11/17 at 11:00; Stop 01/13/17 at 10:59 Morphine Sulfate 5 mg 1X ONCE IV Last administered on 01/11/17 12:17; Start 01/11/17 at 12:00; Stop 01/11/17 at 12:01; Status DC Ondansetron HCl (Zofran) 4 mg PRN Q6HRS PRN IV NAUSEA/VOMITING 1ST CHOICE; Start 01/11/17 at 13:45 Prochlorperazine Edisylate (Compazine) 10 mg PRN Q6HRS PRN IV NAUSEA/VOMITING; Start 01/11/17 at 13:45 Prochlorperazine (Compazine) 25 mg PRN Q12HR PRN MA NAUSEA/VOMITING; Start at 13:45 Al Hydroxide/Mg Hydroxide (Mylanta Plus Xs) 30 ml PRN Q3HRS PRN PO HEARTBURN / GAS; Start 01/11/17 at 13:45 Calcium Carbonate/ Glycine (Tums) 500 mg PRN Q3HRS PRN PO UPSET STOMACH; Start 01/11/17 at 13:45 Zolpidem Tartrate (Ambien) 5 mg PRN QHS PRN PO INSOMNIA, MAY REPEAT IN 1HR; Start 01/11/17 at 13:45 Oxycodone HCl (Roxicodone) 5 mg PRN Q3HRS PRN PO BREAKTHROUGH PAIN Last administered on 01/11/17 19:58; Start 01/11/17 at 13:45 Morphine Sulfate 1 mg PRN Q1HR PRN IV PAIN; Start 01/11/17 at 13:45 Acetaminophen (Tylenol) 650 mg PRN Q6HRS PRN PO Headaches, Temp > 101.5F; Start 01/11/17 at 13:45 Atorvastatin Calcium (Lipitor) 80 mg QHS PO Last administered on 01/11/17 21: 36; Start 01/11/17 at 21:00 Cyclobenzaprine HCl (Flexeril) 10 mg PRN TID PRN PO PAIN; Start 01/11/17 at 14: 00 Isosorbide Mononitrate (Imdur) 30 mg DAILY PO Last administered on 01/12/17 08 :15; Start 01/11/17 at 15:00 Lisinopril (Prinivil) 40 mg HS PO Last administered on 01/11/17 21:36; Start 01/11/17 at 21:00 Metoclopramide HCl (Reglan) 10 mg QIDACHS PO Last administered on 01/12/17 12: 10; Start 01/11/17 at 16:30 Metoprolol Succinate (Toprol Xl) 50 mg HS PO Last administered on 01/11/17 21: 36; Start 01/11/17 at 21:00 Metoprolol Succinate (Toprol Xl) 25 mg DAILY PO Last administered on 01/12/17 08:15; Start 01/12/17 at 09:00 Oxycodone/ Acetaminophen (Percocet 5/325) 2 tab PRN Q6HRS PRN PO PAIN Last administered on 01/12/17 12:14; Start 01/11/17 at 14:00 Triamterene/HCTZ (Maxzide 75/50mg) 1 tab DAILY PO Last administered on 08:16; Start 01/11/17 at 15:00 Vitamin D (Vitamin D3) 2,000 unit DAILY PO Last administered on 01/12/17 08:16 ; Start 01/11/17 at 15:00 Fluoxetine HCl (PROzac) 40 mg DAILY PO Last administered on 01/12/17 08:16; Start 01/11/17 at 15:00 Pantoprazole Sodium (Protonix) 40 mg QHS PO Last administered on 01/11/17 21: 36; Start 01/11/17 at 21:00 Ondansetron HCl (Zofran) 4 mg PRN Q8HRS PRN IV NAUSEA/VOMITING; Start 01/11/17 at 14:30; Stop 01/11/17 at 14:40; Status DC Morphine Sulfate 2 mg PRN Q2HR PRN IV PAIN; Start 01/11/17 at 14:30; Stop 01/11 at 14:42; Status DC Metronidazole 100 ml @ 100 mls/hr Q8HRS IV Last administered on 01/12/17 06: 20; Start 01/11/17 at 15:00; Stop 01/12/17 at 13:17; Status DC Ciprofloxacin/ Dextrose 200 ml @ 200 mls/hr Q12HR IV Last administered on 01/12 08:17; Start 01/11/17 at 15:00 Aspirin (Ecotrin) 81 mg DAILYWBKFT PO Last administered on 01/12/17 08:14; Start 01/12/17 at 08:00 Influenza Virus Vaccine Quadrival (Fluarix Quad 0738-9737 Syringe) 0.5 ml ONCE ONCE VAX IM Last administered on 01/11/17 21:44; Start 01/11/17 at 20:00; Stop 01/11/17 at 20:01; Status DC Metronidazole (Flagyl) 500 mg Q8HRS PO ; Start 01/12/17 at 14:00 Ciprofloxacin (Cipro) 500 mg BID PO ; Start 01/12/17 at 21:00 Active Scripts Active Atorvastatin Calcium 40 Mg Tablet 80 Mg PO QHS 30 Days Aspirin Ec (Aspirin) 81 Mg Tablet. 81 Mg PO DAILYWBKFT 30 Days Isosorbide Mononitrate Er (Isosorbide Mononitrate) 30 Mg Tab.er.24h 1 Tab PO DAILY Brilinta (Ticagrelor) 90 Mg Tablet 90 Mg PO BID 30 Days Reported Vitamin D (Cholecalciferol (Vitamin D3)) 1,000 Unit Capsule 2 Cap PO DAILY Prilosec Otc (Omeprazole Magnesium) 20 Mg Tablet. 1 Tab PO HS Lisinopril 40 Mg Tablet 40 Mg PO HS Cyclobenzaprine Hcl 10 Mg Tablet 10 Mg PO PRN TID PRN Triamterene-Hctz 75-50 Mg Tab (Triamterene/Hydrochlorothiazid) 1 Each Tablet 1 Tab PO DAILY Fluoxetine Hcl 40 Mg Capsule 40 Mg PO HS Meloxicam 15 Mg Tablet 1 Tab PO HS Metoclopramide Hcl 10 Mg Tablet 1 Tab PO QIDACHS Metoprolol Succinate 50 Mg Tab.er.24h 1 Tab PO HS Oxycodone-Acetaminophen 5-325 (Oxycodone Hcl/Acetaminophen) 1 Each Tablet 2 Tab PO PRN Q6HRS PRN Metoprolol Succinate ( Xl ) (Metoprolol Succinate) 25 Mg Tab.er.24h 1 Tab PO DAILY Vitals/I & O Vital Sign - Last 24 Hours 01/11/17 01/11/17 01/11/17 01/11/17 13:38 14:46 15:00 15:15 Temp 98.0 98.0 Pulse 54 54 61 Resp 20 20 18 B/P (MAP) 157/72 (100) 150/86 (107) 138/90 (106) Pulse Ox 98 95 95 O2 Delivery Room Air Room Air 01/11/17 01/11/17 01/11/17 01/11/17 15:15 15:48 19:00 19:58 Temp 98.0 97.3 98.0 97.3 Pulse 61 61 74 Resp 18 19 20 B/P (MAP) 138/90 (106) 138/90 122/79 (93) Pulse Ox 95 97 O2 Delivery Room Air Room Air Room Air 01/11/17 01/11/17 01/11/17 01/11/17 20:00 20:58 21:36 21:36 Pulse 74 74 Resp 20 B/P (MAP) 122/79 122/79 O2 Delivery Room Air Room Air 01/11/17 01/11/17 01/12/17 01/12/17 23:00 23:21 00:21 03:00 Temp 98.3 98.1 98.3 98.1 Pulse 60 78 Resp 18 20 20 18 B/P (MAP) 105/70 (82) 119/71 (87) Pulse Ox 96 96 O2 Delivery Room Air Room Air Room Air Room Air 01/12/17 01/12/17 01/12/17 01/12/17 07:00 07:20 08:15 08:15 Temp 97.7 97.7 Pulse 63 63 63 Resp 18 B/P (MAP) 136/68 (90) 136/68 136/68 Pulse Ox 93 O2 Delivery Room Air Room Air 01/12/17 01/12/17 11:48 12:14 Temp 97.5 97.5 Pulse 66 Resp 18 B/P (MAP) 137/75 (95) Pulse Ox 94 O2 Delivery Room Air Room Air Intake and Output 9/3001/12/17 01/13/17 15:00 23:00 07:00 Intake Total 220 ml Output Total 550 ml Balance -330 ml BRINA SUAREZ III, DO Jan 12, 2017 13:29
[2017-01-12] MEDS ORDERED: metroNIDAZOLE 500 MG TABLET PO SCH (14:00)
[2017-01-12] MEDS ORDERED: CIPROFLOXACIN HCL 250 MG TABLET. PO SCH (21:00)
== END 2017-01-12 14:35 | disposition home or self-care (01) | DRG 392 ==
LOC: ER 10:11 → 4 NORTH 13:25
PROVIDERS: ADMIT Internal Medicine; ATTEND Internal Medicine
DX: K52.9 Noninfective gastroenteritis and colitis, unspecified (principal); Z68.43 Body mass index [BMI] 50.0-59.9, adult; I10 Essential (primary) hypertension; E66.01 Morbid (severe) obesity due to excess calories; F32.9 Major depressive disorder, single episode, unspecified; E78.5 Hyperlipidemia, unspecified; E78.00 Pure hypercholesterolemia, unspecified; F17.210 Nicotine dependence, cigarettes, uncomplicated; F41.9 Anxiety disorder, unspecified; G47.33 Obstructive sleep apnea (adult) (pediatric); I25.10 Atherosclerotic heart disease of native coronary artery without angina pectoris; K21.9 Gastro-esophageal reflux disease without esophagitis; Z80.3 Family history of malignant neoplasm of breast; Z82.49 Family history of ischemic heart disease and other diseases of the circulatory system; Z95.5 Presence of coronary angioplasty implant and graft; F12.90 Cannabis use, unspecified, uncomplicated; M19.90 Unspecified osteoarthritis, unspecified site; Z88.8 Allergy status to other drugs, medicaments and biological substances
CPT/HCPCS: 36415; 74177; 80053; 81001; 82274; 83690; 85025; 86850; 86900; 86901; 90686; 96361; 96374; 96375; J0744; J2270; J2405; J3490; J7030; J8597; Q9967; S0028; 99285-25

== ENCOUNTER 2017-04-02 15:48 | Inpatient (IN) | payer BC ==
[~2017-04-02] VITALS: Ht 180.3 cm; Wt 155.2 kg
--- NOTE | 2017-04-02 16:20 | EKG ---
[facility] [address] [place] [id number] Test Date: 2017-04-02 Test Time: 15:55:27 Pat Name: NADIA BARBER Department: Room: Gender: M [employer]: : 1960 Requested By: RAFIA HOBBS Order Number: [id number] Reading MD: Measurements Intervals [place] Rate: 58 P: 0 [place]: 324 QRS: 14 QRSD: 74 T: 31 QT: 424 QTc: 419 Interpretive Statements SINUS RHYTHM PROLONGED [place] INTERVAL ABNORMAL ECG No previous ECG available for comparison
[2017-04-02 16:21] LABS: BASO # 0.1 x10^3/uL (0.0-0.2); BASO % 1 % (0-3); EOS % 3 % (0-3); HEMATOCRIT 45.5 % (39.0-53.0); LYMPH % 16 % (24-48); MEAN CORPUSCULAR HEMOGLOBIN 30 pg (25-35); MEAN CORPUSCULAR HGB CONC 33 g/dL (31-37); MEAN CORPUSCULAR VOLUME 91 fL (79-100); MONO % 5 % (0-9); NEUT % 75 % (31-73); PLATELET COUNT 241 x10^3/uL (140-400); RED BLOOD COUNT 4.98 x10^6/uL (4.30-5.70); WHITE BLOOD COUNT 12.4 x10^3/uL (4.0-11.0)
[2017-04-02 16:29] LABS: PROTHROMBIN TIME PATIENT 12.6 SEC (11.7-14.0)
--- NOTE | 2017-04-02 16:41 | PHYS DOC ---
Past Medical History Past Medical History: CAD, Depression, High Cholesterol, Hypertension, Other Additional Past Medical Histor: morbid obesity Past Surgical History: Other Additional Past Surgical Histo: STENTS, LEFT SHOUDLER, Lt knee, Lt ankle Additional Information: quit smoking September 2016 Alcohol Use: Occasionally Drug Use: Marijuana Social History Narrative: last used 2-3 days ago Adult General Chief Complaint Chief Complaint: CHEST PAIN HPI HPI Patient is a 56 year old male who presents with chest pain radiating around his chest. He states it's a bandlike fashion. He states this comes and goes. Currently he is pain-free. He states that when the pain comes on he does feel lightheaded and dizzy. He states his been going on for several days and he saw Dr. Haney recommended that he have a cardiac catheter. He states this morning the pain became constant which is different than when he's been having last several days. He states it feels like the same pain he had when he had a heart attack in the past. He states he's had multiple stents. He denies any fevers chills nausea or vomiting. States nothing makes the pain better or worse. Review of Systems Review of Systems Constitutional: Denies fever or chills [] Eyes: Denies change in visual acuity, redness, or eye pain [] HENT: Denies nasal congestion or sore throat [] Respiratory: Denies cough or shortness of breath [] Cardiovascular: No additional information not addressed in HPI [] GI: Denies abdominal pain, nausea, vomiting, bloody stools or diarrhea [] : Denies dysuria or hematuria [] Musculoskeletal: Denies back pain or joint pain [] Integument: Denies rash or skin lesions [] Neurologic: Denies headache, focal weakness or sensory changes [] Endocrine: Denies polyuria or polydipsia [] All other systems were reviewed and found to be within normal limits, except as documented in this note. Current Medications Current Medications Current Medications Medications (Trade) Dose Ordered Sig/Allie Start Time Stop Time Status Last Admin Dose Admin Acetaminophen (Tylenol) 650 mg PRN Q6HRS PRN 04/02/17 17:45 UNV Aspirin (Ecotrin) 81 mg DAILYWBKFT 04/03/17 08:00 UNV Atorvastatin Calcium (Lipitor) 80 mg QHS 04/02/17 21:00 UNV Clopidogrel Bisulfate (Plavix) 75 mg DAILY 04/03/17 09:00 UNV Dextrose (Dextrose 50%-Water Syringe) 12.5 gm PRN Q15MIN PRN 04/02/17 17:45 UNV Diphenhydramine HCl (Benadryl) 25 mg PRN QHS PRN 04/02/17 17:45 UNV Heparin Sodium (Porcine) (Heparin Sodium) 4,000 unit PRN Q6HRS PRN 04/02/17 17:45 UNV Heparin Sodium/ Dextrose 500 ml @ 20 mls/hr CONT PRN 04/02/17 17:45 Insulin Aspart (NovoLOG) 0-9 UNITS TIDWMEALS 04/03/17 08:00 UNV Isosorbide Mononitrate (Imdur) 30 mg DAILY 04/03/17 09:00 UNV Lisinopril (Prinivil) 40 mg HS 04/02/17 21:00 UNV Metoprolol Succinate (Toprol Xl) 25 mg DAILY 04/03/17 09:00 UNV Morphine Sulfate 2 mg PRN Q2HR PRN 04/02/17 17:45 04/03/17 17:44 UNV Non-Formulary Medication 1 tab HS 04/02/17 21:00 UNV Ondansetron HCl (Zofran) 4 mg PRN Q8HRS PRN 04/02/17 17:45 04/03/17 17:44 UNV Oxycodone/ Acetaminophen (Percocet 5/325) 2 tab PRN Q6HRS PRN 04/02/17 17:45 UNV Ticagrelor (Brilinta) 90 mg BID 04/02/17 21:00 UNV Allergies Allergies Allergies Coded Allergies Type Severity Reaction Last Updated Verified naproxen Allergy Intermediate 01/03/17 Yes Physical Exam Physical Exam Constitutional: Well developed, well nourished, no acute distress, non-toxic appearance. [] HENT: Normocephalic, atraumatic, bilateral external ears normal, oropharynx moist, no oral exudates, nose normal. [] Eyes: PERRLA, EOMI, conjunctiva normal, no discharge. [] Neck: Normal range of motion, no tenderness, supple, no stridor. [] Cardiovascular:Heart rate regular rhythm, no murmur [] Lungs & Thorax: Bilateral breath sounds clear to auscultation [] Abdomen: Bowel sounds normal, soft, no tenderness, no masses, no pulsatile masses. [] Skin: Warm, dry, no erythema, no rash. [] Back: No tenderness, no CVA tenderness. [] Extremities: No tenderness, no cyanosis, no clubbing, ROM intact, no edema. [] Neurologic: Alert and oriented X 3, normal motor function, normal sensory function, no focal deficits noted. [] Psychologic: Affect normal, judgement normal, mood normal. [] Current Patient Data Vital Signs Vital Signs Date Time Temp Pulse Resp B/P (MAP) Pulse Ox O2 Delivery O2 Flow Rate FiO2 04/02/17 17:15 68 20 130/64 (86) 95 Room Air 04/02/17 15:51 97.9 97.9 Lab Values Laboratory Tests Test 04/02/17 16:10 04/02/17 16:35 White Blood Count 12.4 x10^3/uL (4.0-11.0) H Red Blood Count 4.98 x10^6/uL (4.30-5.70) Hemoglobin 15.0 g/dL (13.0-17.5) Hematocrit 45.5 % (39.0-53.0) Mean Corpuscular Volume 91 fL (79-100) Mean Corpuscular Hemoglobin 30 pg (25-35) Mean Corpuscular Hemoglobin Concent 33 g/dL (31-37) Red Cell Distribution Width 15.0 % (11.5-14.5) H Platelet Count 241 x10^3/uL (140-400) Neutrophils (%) (Auto) 75 % (31-73) H Lymphocytes (%) (Auto) 16 % (24-48) L Monocytes (%) (Auto) 5 % (0-9) Eosinophils (%) (Auto) 3 % (0-3) Basophils (%) (Auto) 1 % (0-3) Neutrophils # (Auto) 9.2 x10^3uL (1.8-7.7) H Lymphocytes # (Auto) 2.0 x10^3/uL (1.0-4.8) Monocytes # (Auto) 0.7 x10^3/uL (0.0-1.1) Eosinophils # (Auto) 0.4 x10^3/uL (0.0-0.7) Basophils # (Auto) 0.1 x10^3/uL (0.0-0.2) Prothrombin Time 12.6 SEC (11.7-14.0) Prothrombin Time INR 1.0 (0.8-1.1) Troponin I Quantitative < 0.017 ng/mL (0.000-0.055) [id number]-I-Type Natriuretic Peptide 299 pg/mL (0-124) H Sodium Level 141 mmol/L (136-145) Potassium Level 4.4 mmol/L (3.5-5.1) Chloride Level 104 mmol/L (98-107) Carbon Dioxide Level 26 mmol/L (21-32) Anion Gap 11 (6-14) Blood Urea Nitrogen 18 mg/dL (8-26) Creatinine 0.8 mg/dL (0.7-1.3) Estimated GFR (Cockcroft-Gault) 100.4 Glucose Level 122 mg/dL (70-99) H Calcium Level 9.0 mg/dL (8.5-10.1) Magnesium Level 1.9 mg/dL (1.8-2.4) Total Bilirubin 0.4 mg/dL (0.2-1.0) Direct Bilirubin 0.1 mg/dL (0.0-0.2) Aspartate Amino Transferase (AST) 17 U/L (15-37) Alanine Aminotransferase (ALT) 16 U/L (16-63) Alkaline Phosphatase 97 U/L (46-116) Creatine Kinase 35 U/L (39-308) L Creatine Kinase MB (Mass) < 0.5 ng/mL (0.0-3.6) Creatine Kinase MB Relative Index % (0-4) Total Protein 7.1 g/dL (6.4-8.2) Albumin 3.5 g/dL (3.4-5.0) Lipase 168 U/L (73-393) Laboratory Tests 04/02/17 16:10 Laboratory Tests 04/02/17 16:35 EKG EKG EKG shows sinus rhythm with rate of [address] elevations or concerning T-wave inversions, normal axis, QTC 420 ms, as interpreted by me. Radiology/Procedures Radiology/Procedures [facility] [address] [place] [address] IMAGING REPORT Signed PATIENT: NADIA BARBER ACCOUNT: [id number] : 1960 LOCATION: ER AGE: 56 SEX: M EXAM STATUS: REG ER ORD. PHYSICIAN: RAFIA HOBBS MD REASON: chest pain PROCEDURE: PORTABLE CHEST 1V Indication: Chest pain. Time of exam 1659 hours. Correlation is made with prior chest from 12/30/2016. FINDINGS: The heart size is normal. The lungs are clear. No pleural effusion or pneumothorax is identified. The pulmonary vascularity is normal. IMPRESSION: No acute abnormality detected. DICTATED and SIGNED BY: ERNESTO BAEZA MD DATE: 04/02/17 1503 CC: RAFIA HOBBS MD; DOROTA AGUIAR ~ Impressions: Chest pain Coronary artery disease Dyslipidemia Obesity Course & Med Decision Making Course & Med Decision Making Pertinent Labs and Imaging studies reviewed. (See chart for details) Patient is taken a full dose aspirin today. Chest x-ray EKG non-concerning. Troponins negative. We will admit to hospitalist and provide cardiology consultation. Cardiology is requesting the patient be made nothing by mouth after midnight and started on heparin drip. Dragon Disclaimer Dragon Disclaimer This electronic medical record was generated, in whole or in part, using a voice recognition dictation system. Departure Departure Impression: Primary Impression: Chest pain Disposition: ADMITTED INPATIENT Admitting Physician: Armida Camarena Condition: STABLE Referrals: DOROTA AGUIAR (PCP) Problem Qualifiers Primary Impression: Chest pain Chest pain type: other chest pain Qualified Codes: R07.89 - Other chest pain RAFIA HOBBS MD Apr 02, 2017 16:41
[2017-04-02 16:52] LABS: CREATININE 0.8 mg/dL (0.7-1.3); GFR 100.4; POTASSIUM 4.4 mmol/L (3.5-5.1)
[2017-04-02 16:58] LABS: ALBUMIN 3.5 g/dL (3.4-5.0); DIRECT BILIRUBIN 0.1 mg/dL (0.0-0.2); MAGNESIUM 1.9 mg/dL (1.8-2.4); TOTAL BILIRUBIN 0.4 mg/dL (0.2-1.0); TOTAL PROTEIN 7.1 g/dL (6.4-8.2)
--- NOTE | 2017-04-02 17:06 | RAD ---
Indication: Chest pain. Time of exam 1659 hours. Correlation is made with prior chest from 12/30/2016. FINDINGS: The heart size is normal. The lungs are clear. No pleural effusion or pneumothorax is identified. The pulmonary vascularity is normal. IMPRESSION: No acute abnormality detected.
[2017-04-02 17:07] LABS: CKMB MASS < 0.5 ng/mL (0.0-3.6); CREATINE KINASE 35 U/L (39-308)
[2017-04-02] MEDS ORDERED: CLOP75TA PO (17:18)
[2017-04-02] MEDS ORDERED: CHOL400C2 PO (17:18)
[2017-04-02] MEDS ORDERED: ACETAMINOPHEN 325 MG TABLET. PO PRN (17:45)
[2017-04-02] MEDS ORDERED: HEPARIN for IV BOLUS 10,000 UNIT/10 ML VIAL. IV PRN (17:45)
[2017-04-02] MEDS ORDERED: ONDANSETRON PF 4 MG/2 ML VIAL. IV PRN (17:45)
[2017-04-02] MEDS ORDERED: DEXTROSE 50% 25 GM / 50ML DISP.SYRIN. IV PRN (17:45)
[2017-04-02] MEDS ORDERED: diphenhydrAMINE HCL 25 MG CAPSULE PO PRN (17:45)
--- NOTE | 2017-04-02 17:58 | PDOC1 ---
History and Physical Date of Admission Date of Admission DATE: 04/02/17 TIME: 17:50 Identification/Chief Complaint Chief Complaint Chest pains that would not quit Problems: Source Source: Caregiver, Chart review, Patient History of Present Illness History of Present Illness Very pleasant 56-year-old male, morbidly obese with a BMI of 49.4, known patient of Dr. almanzar, has 2 indwelling stents, last placed December 2016. He is on aspirin and Plavix. His Brilintat was stopped because he had colitis and rectal bleed in December 2016 causing his admission that time. He claims compliance with his medications. For the past few days has have been having intermittent chest pains left-sided sometimes moves to the back lasted for minutes, happen at rest. No identifiable precipitating or alleviating factors. He would have some shortness of breath, no diaphoresis, no presyncopal sxs. He describes the cp as punching. He thought he was having another another heart attack. It was similar to the chest pain he had when he had 2 stents placed. LHC was to the groin the last time. There Was another clogged vessel however they could not access that time because he could not lay flat sec to a rotator cuff tear he was recovering from at that time. He was managed medically. Now he is admitted. He was initially planned on what sounds like an outpatient LHC but because of persistent pain was advised to come to the emergency room and here we are. Patient will be started on heparin drip, cardiology has been consulted and aware of the admission. We'll make nothing by mouth post midnight for LHC tomorrow. Past Medical History Cardiovascular: CAD, HTN, Hyperlipidemia Pulmonary: Other GI: GERD Heme/Onc: No pertinent hx Hepatobiliary: No pertinent hx Psych: Depression Musculoskeletal: Osteoarthritis, Other Rheumatologic: No pertinent hx Infectious disease: No pertinent hx Renal/: No pertinent hx Endocrine: No pertinent hx Past Surgical History Past Surgical History: Other (PCI, 2 stents) Family History Family History: Coronary Artery Disease Social History Smoke: Quit ALCOHOL: occassional Drugs: None Current Problem List Problem List Problems Medical Problems: (1) Chest pain Status: Acute Problems: Current Medications Current Medications Current Medications Ondansetron HCl (Zofran) 4 mg PRN Q8HRS PRN IV NAUSEA/VOMITING; Start at 17:45; Stop 04/03/17 at 17:44; Status UNV Morphine Sulfate 2 mg PRN Q2HR PRN IV PAIN; Start 04/02/17 at 17:45; Stop at 17:44; Status UNV Acetaminophen (Tylenol) 650 mg PRN Q6HRS PRN PO pain; Start 04/02/17 at 17:45 ; Status UNV Diphenhydramine HCl (Benadryl) 25 mg PRN QHS PRN PO INSOMNIA; Start 04/02/17 at 17:45; Status UNV Insulin Aspart (NovoLOG) 0-9 UNITS TIDWMEALS SQ ; Start 04/03/17 at 08:00; Status UNV Dextrose (Dextrose 50%-Water Syringe) 12.5 gm PRN Q15MIN PRN IV SEE COMMENTS; Start 04/02/17 at 17:45; Status UNV Aspirin (Ecotrin) 81 mg DAILYWBKFT PO ; Start 04/03/17 at 08:00; Status UNV Atorvastatin Calcium (Lipitor) 80 mg QHS PO ; Start 04/02/17 at 21:00; Status UNV Clopidogrel Bisulfate (Plavix) 75 mg DAILY PO ; Start 04/03/17 at 09:00; Status UNV Isosorbide Mononitrate (Imdur) 30 mg DAILY PO ; Start 04/03/17 at 09:00; Status UNV Lisinopril (Prinivil) 40 mg HS PO ; Start 04/02/17 at 21:00; Status UNV Metoprolol Succinate (Toprol Xl) 50 mg HS PO ; Start 04/02/17 at 21:00; Status UNV Metoprolol Succinate (Toprol Xl) 25 mg DAILY PO ; Start 04/03/17 at 09:00; Status UNV Oxycodone/ Acetaminophen (Percocet 5/325) 2 tab PRN Q6HRS PRN PO PAIN; Start 04/02/17 at 17:45; Status UNV Ticagrelor (Brilinta) 90 mg BID PO ; Start 04/02/17 at 21:00; Status UNV Non-Formulary Medication 800 unit DAILY PO ; Start 04/03/17 at 09:00; Status UNV Non-Formulary Medication 40 mg HS PO ; Start 04/02/17 at 21:00; Status UNV Non-Formulary Medication 1 tab HS PO ; Start 04/02/17 at 21:00; Status UNV Non-Formulary Medication 1 tab HS PO ; Start 04/02/17 at 21:00; Status UNV Heparin Sodium/ Dextrose 500 ml @ 0 mls/hr CONT PRN IV SEE I/O RECORD; Start 04/02/17 at 17:45; Status UNV Heparin Sodium (Porcine) (Heparin Sodium) 4,000 unit PRN Q6HRS PRN IV FOR UFH LEVEL LESS THAN 0.2; Start 04/02/17 at 17:45; Status UNV Active Scripts Active Atorvastatin Calcium 40 Mg Tablet 80 Mg PO QHS 30 Days Aspirin Ec (Aspirin) 81 Mg Tablet.dr 81 Mg PO DAILYWBKFT 30 Days Isosorbide Mononitrate Er (Isosorbide Mononitrate) 30 Mg Tab.er.24h 1 Tab PO DAILY Brilinta (Ticagrelor) 90 Mg Tablet 90 Mg PO BID 30 Days Reported Clopidogrel (Clopidogrel Bisulfate) 75 Mg Tablet 1 Tab PO DAILY Vitamin D (Cholecalciferol (Vitamin D3)) 400 Unit Capsule 800 Unit PO DAILY Prilosec Otc (Omeprazole Magnesium) 20 Mg Tablet. 1 Tab PO HS Lisinopril 40 Mg Tablet 40 Mg PO HS Fluoxetine Hcl 40 Mg Capsule 40 Mg PO HS Meloxicam 15 Mg Tablet 1 Tab PO HS Metoprolol Succinate 50 Mg Tab.er.24h 1 Tab PO HS Oxycodone-Acetaminophen 5-325 (Oxycodone Hcl/Acetaminophen) 1 Each Tablet 2 Tab PO PRN Q6HRS PRN Metoprolol Succinate ( Xl ) (Metoprolol Succinate) 25 Mg Tab.er.24h 1 Tab PO DAILY Allergies Allergies: Coded Allergies: naproxen (Verified Allergy, Intermediate, 01/03/17) ASA OK ROS Review of System As per history of present illness, the rest of the ROS is negative. He does admit to some URI symptoms, no myalgias or arthralgias. WBC is 12.4 and admit Physical Exam General: Alert, Oriented X3, Cooperative, No acute distress HEENT: Atraumatic, PERRLA, EOMI Lungs: Clear to auscultation, Normal air movement Heart: S1S2, RRR, no thrills, no rubs, no gallops, no murmurs Cardiovascular: S1, S2 Abdomen: Normal bowel sounds, Soft, No tenderness, No hepatosplenomegaly, No masses Male Genitals Exam: normal genitalia, normal prostate Rectal Exam: not examined PELVIC: Nml ext genitalia Extremities: No clubbing, No cyanosis, No edema, Normal pulses, No tenderness/ swelling Skin: No rashes, No breakdown, No significant lesion Neuro: Normal gait, Normal speech, Strength at 5/5 X4 ext, Normal tone, Sensation intact, Cranial nerves 3-12 NL, Reflexes 2+ Psych/Mental Status: Mental status NL, Mood NL Vitals Vitals Vital Signs Date Time Temp Pulse Resp B/P (MAP) Pulse Ox O2 Delivery O2 Flow Rate FiO2 04/02/17 17:15 68 20 130/64 (86) 95 Room Air 04/02/17 15:51 97.9 97.9 Labs Labs Laboratory Tests Test 04/02/17 16:10 04/02/17 16:35 White Blood Count 12.4 x10^3/uL (4.0-11.0) Red Blood Count 4.98 x10^6/uL (4.30-5.70) Hemoglobin 15.0 g/dL (13.0-17.5) Hematocrit 45.5 % (39.0-53.0) Mean Corpuscular Volume 91 fL (79-100) Mean Corpuscular Hemoglobin 30 pg (25-35) Mean Corpuscular Hemoglobin Concent 33 g/dL (31-37) Red Cell Distribution Width 15.0 % (11.5-14.5) Platelet Count 241 x10^3/uL (140-400) Neutrophils (%) (Auto) 75 % (31-73) Lymphocytes (%) (Auto) 16 % (24-48) Monocytes (%) (Auto) 5 % (0-9) Eosinophils (%) (Auto) 3 % (0-3) Basophils (%) (Auto) 1 % (0-3) Neutrophils # (Auto) 9.2 x10^3uL (1.8-7.7) Lymphocytes # (Auto) 2.0 x10^3/uL (1.0-4.8) Monocytes # (Auto) 0.7 x10^3/uL (0.0-1.1) Eosinophils # (Auto) 0.4 x10^3/uL (0.0-0.7) Basophils # (Auto) 0.1 x10^3/uL (0.0-0.2) Prothrombin Time 12.6 SEC (11.7-14.0) Prothromb Time International Ratio 1.0 (0.8-1.1) Troponin I Quantitative < 0.017 ng/mL (0.000-0.055) VT-Edd-F-Type Natriuretic Peptide 299 pg/mL (0-124) Sodium Level 141 mmol/L (136-145) Potassium Level 4.4 mmol/L (3.5-5.1) Chloride Level 104 mmol/L (98-107) Carbon Dioxide Level 26 mmol/L (21-32) Anion Gap 11 (6-14) Blood Urea Nitrogen 18 mg/dL (8-26) Creatinine 0.8 mg/dL (0.7-1.3) Estimated GFR (Cockcroft-Gault) 100.4 Glucose Level 122 mg/dL (70-99) Calcium Level 9.0 mg/dL (8.5-10.1) Magnesium Level 1.9 mg/dL (1.8-2.4) Total Bilirubin 0.4 mg/dL (0.2-1.0) Direct Bilirubin 0.1 mg/dL (0.0-0.2) Aspartate Amino Transf (AST/SGOT) 17 U/L (15-37) Alanine Aminotransferase (ALT/SGPT) 16 U/L (16-63) Alkaline Phosphatase 97 U/L (46-116) Creatine Kinase 35 U/L (39-308) Creatine Kinase MB (Mass) < 0.5 ng/mL (0.0-3.6) Creatine Kinase MB Relative Index % (0-4) Total Protein 7.1 g/dL (6.4-8.2) Albumin 3.5 g/dL (3.4-5.0) Lipase 168 U/L (73-393) Laboratory Tests Test 04/02/17 16:10 04/02/17 16:35 White Blood Count 12.4 x10^3/uL (4.0-11.0) Red Blood Count 4.98 x10^6/uL (4.30-5.70) Hemoglobin 15.0 g/dL (13.0-17.5) Hematocrit 45.5 % (39.0-53.0) Mean Corpuscular Volume 91 fL (79-100) Mean Corpuscular Hemoglobin 30 pg (25-35) Mean Corpuscular Hemoglobin Concent 33 g/dL (31-37) Red Cell Distribution Width 15.0 % (11.5-14.5) Platelet Count 241 x10^3/uL (140-400) Neutrophils (%) (Auto) 75 % (31-73) Lymphocytes (%) (Auto) 16 % (24-48) Monocytes (%) (Auto) 5 % (0-9) Eosinophils (%) (Auto) 3 % (0-3) Basophils (%) (Auto) 1 % (0-3) Neutrophils # (Auto) 9.2 x10^3uL (1.8-7.7) Lymphocytes # (Auto) 2.0 x10^3/uL (1.0-4.8) Monocytes # (Auto) 0.7 x10^3/uL (0.0-1.1) Eosinophils # (Auto) 0.4 x10^3/uL (0.0-0.7) Basophils # (Auto) 0.1 x10^3/uL (0.0-0.2) Prothrombin Time 12.6 SEC (11.7-14.0) Prothromb Time International Ratio 1.0 (0.8-1.1) Troponin I Quantitative < 0.017 ng/mL (0.000-0.055) RX-Zvu-T-Type Natriuretic Peptide 299 pg/mL (0-124) Sodium Level 141 mmol/L (136-145) Potassium Level 4.4 mmol/L (3.5-5.1) Chloride Level 104 mmol/L (98-107) Carbon Dioxide Level 26 mmol/L (21-32) Anion Gap 11 (6-14) Blood Urea Nitrogen 18 mg/dL (8-26) Creatinine 0.8 mg/dL (0.7-1.3) Estimated GFR (Cockcroft-Gault) 100.4 Glucose Level 122 mg/dL (70-99) Calcium Level 9.0 mg/dL (8.5-10.1) Magnesium Level 1.9 mg/dL (1.8-2.4) Total Bilirubin 0.4 mg/dL (0.2-1.0) Direct Bilirubin 0.1 mg/dL (0.0-0.2) Aspartate Amino Transf (AST/SGOT) 17 U/L (15-37) Alanine Aminotransferase (ALT/SGPT) 16 U/L (16-63) Alkaline Phosphatase 97 U/L (46-116) Creatine Kinase 35 U/L (39-308) Creatine Kinase MB (Mass) < 0.5 ng/mL (0.0-3.6) Creatine Kinase MB Relative Index % (0-4) Total Protein 7.1 g/dL (6.4-8.2) Albumin 3.5 g/dL (3.4-5.0) Lipase 168 U/L (73-393) VTE Prophylaxis Ordered VTE Prophylaxis Devices: Yes VTE Pharmacological Prophylaxi: Yes Assessment/Plan Assessment/Plan Assessment: Chest pain in a known cardiac patient, indwelling 2 stents Morbid obesity BMI 49.4 Hypertension controlled and dyslipidemia controlled Occasional alcohol drinker Rotator cuff injury left shoulder is tender 2016 Cytosis, viral URI likely Plan: admit 2 MN to [facility] Cardiac consult Cardiac diet tonight, nothing by mouth post midnight Heparin drip Trend cardiac enzymes Awaiting home meds to continue them Needs to lose weight Further conditions pending above check For flu given the leukocytocytosis Watch out for alcohol withdrawal, though unlikely to happen Seen at the emergency room discussed with and ER KASSI MUSTAFA MD Apr 02, 2017 17:58
[2017-04-02] MEDS: HEPARIN 25,000UTS/500ML PREMIX 500 ML IV PRN (18:40)
[2017-04-02 19:11] LABS: OBC FLU VALID
[2017-04-02] MEDS: MORPHINE SULFATE 2 MG/ML DISP.SYRIN. IV PRN (19:12)
[2017-04-02 19:16] LABS: BILIRUBIN,URINE NEGATIVE (NEG); GLUCOSE,URINE NEGATIVE (NEG); NITRITE,URINE NEGATIVE (NEG); PH,URINE 5.5; PROTEIN,URINE NEGATIVE (NEG-TRACE); UROBILINOGEN,URINE 0.2 mg/dL (0.2 mg/dL)
[2017-04-02 19:20] VITALS: BP 120/75
[2017-04-02 19:20] LABS: BARBITURATES NEG (NEG); BENZODIAZEPINES NEG (NEG); CANNABINOIDS POS (NEG); COCAINE NEG (NEG); METHADONE NEG (NEG); OPIATES NEG (NEG); PHENCYCLIDINE NEG (NEG)
[2017-04-02 19:27] LABS: BACTERIA,URINE 0 /HPF (0-FEW); RBC,URINE 0 /HPF (0-2); SQUAMOUS EPITHELIAL CELL,UR OCC /LPF; WBC,URINE 0 /HPF (0-4)
[2017-04-02] MEDS ORDERED: METOPROLOL SUCC 24HR ER 50 MG TAB.ER.24H. PO SCH (21:00)
[2017-04-02] MEDS ORDERED: PNEUMOC CONJ VACC 23-VALENT 0.5 ML VIAL. VAX IM ONE (21:00)
[2017-04-02] MEDS ORDERED: TICAGRELOR 90 MG TABLET. PO SCH (21:00)
[2017-04-02] MEDS: ATORVASTATIN CALCIUM 40 MG TABLET. PO SCH ×2 (22:23→22:30)
[2017-04-02] MEDS: LISINOPRIL 40 MG TABLET. PO SCH (22:24)
[2017-04-02] MEDS: MELOXICAM 7.5 MG TABLET PO SCH (22:24)
[2017-04-02] MEDS: PANTOPRAZOLE 40 MG TABLET.DR. PO SCH (22:24)
[2017-04-02] MEDS: FLUoxetine HCL 20 MG CAPSULE PO SCH (22:25)
[2017-04-02 22:29] VITALS: BP 129/77
[2017-04-02] MEDS: oxyCODONE/APAP 5/325 1 TAB TABLET PO PRN (23:54)
[2017-04-03 03:19] VITALS: BP 117/71
[2017-04-03 06:11] LABS: BASO # 0.1 x10^3/uL (0.0-0.2); BASO % 1 % (0-3); EOS % 4 % (0-3); HEMOGLOBIN 14.1 g/dL (13.0-17.5); LYMPH # 2.8 x10^3/uL (1.0-4.8); LYMPH % 27 % (24-48); MEAN CORPUSCULAR HEMOGLOBIN 30 pg (25-35); MEAN CORPUSCULAR HGB CONC 33 g/dL (31-37); MEAN CORPUSCULAR VOLUME 92 fL (79-100); MONO % 5 % (0-9); NEUT % 62 % (31-73); PLATELET COUNT 197 x10^3/uL (140-400); RED BLOOD COUNT 4.67 x10^6/uL (4.30-5.70); RED CELL DISTRIBUTION WIDTH 15.1 % (11.5-14.5); WHITE BLOOD COUNT 10.1 x10^3/uL (4.0-11.0)
[2017-04-03 06:36] LABS: CALCIUM 8.1 mg/dL (8.5-10.1); CREATININE 0.9 mg/dL (0.7-1.3); GFR 87.6; POTASSIUM 4.2 mmol/L (3.5-5.1)
[2017-04-03] MEDS: MORPHINE SULFATE 2 MG/ML DISP.SYRIN. IV PRN ×2 (06:40→11:58)
[2017-04-03] MEDS ORDERED: NITROGLYCERIN SUBLINGUAL 0.4 MG BOTTLE OF 25. SL ONE ×2 (06:42→07:00)
[2017-04-03 07:00] VITALS: BP 136/77
[2017-04-03] MEDS ORDERED: NITROGLYCERIN SUBLINGUAL 0.4 MG BOTTLE OF 25. SL PRN (07:00)
[2017-04-03] MEDS: INSULIN ASPART 300 UNITS/3 ML INSULN.PEN SQ SCH ×3 (08:00→17:00)
[2017-04-03] MEDS: HEPARIN 25,000UTS/500ML PREMIX 500 ML IV PRN ×2 (08:57→23:35)
[2017-04-03] MEDS ORDERED: PNEUMOCOCCAL VAX SCREEN BY RX. MC ONE (09:00)
[2017-04-03] MEDS ORDERED: METOPROLOL SUCC 24HR ER 25 MG TAB.ER.24H. PO SCH (09:00)
[2017-04-03] MEDS: CHOLECALCIFEROL (VITAMIN D3) 1,000 UNIT TABLET PO SCH (09:23)
[2017-04-03] MEDS: ASPIRIN ENTERIC COATED 81 MG TABLET.DR. PO SCH (09:23)
[2017-04-03] MEDS: CLOPIDOGREL BISULFATE 75 MG TABLET PO SCH (09:23)
--- NOTE | 2017-04-03 09:59 | PDOC ---
CARDIO Progress Notes Date and Time Date of Service 04/03/17 Time of Evaluation 0916 Subjective Subjective: No shortness of breath, No Palpitations, Other (2/10 chest pressure ) Vitals Vitals Vital Signs Date Time Temp Pulse Resp B/P (MAP) Pulse Ox O2 Delivery O2 Flow Rate FiO2 04/03/17 07:49 16 Nasal Cannula 2.0 04/03/17 07:00 97.3 54 136/77 (96) 98 97.3 Weight Weight [ ] Input and Output Intake and Output Intake and Output 04/03/17 07:00 Intake Total 480 ml Output Total 400 ml Balance 80 ml Intake Oral 480 ml Output Urine Total 400 ml Laboratory Labs Laboratory Tests Test 04/02/17 16:10 04/02/17 16:35 04/02/17 18:07 04/02/17 18:45 White Blood Count 12.4 x10^3/uL (4.0-11.0) Red Blood Count 4.98 x10^6/uL (4.30-5.70) Hemoglobin 15.0 g/dL (13.0-17.5) Hematocrit 45.5 % (39.0-53.0) Mean Corpuscular Volume 91 fL (79-100) Mean Corpuscular Hemoglobin 30 pg (25-35) Mean Corpuscular Hemoglobin Concent 33 g/dL (31-37) Red Cell Distribution Width 15.0 % (11.5-14.5) Platelet Count 241 x10^3/uL (140-400) Neutrophils (%) (Auto) 75 % (31-73) Lymphocytes (%) (Auto) 16 % (24-48) Monocytes (%) (Auto) 5 % (0-9) Eosinophils (%) (Auto) 3 % (0-3) Basophils (%) (Auto) 1 % (0-3) Neutrophils # (Auto) 9.2 x10^3uL (1.8-7.7) Lymphocytes # (Auto) 2.0 x10^3/uL (1.0-4.8) Monocytes # (Auto) 0.7 x10^3/uL (0.0-1.1) Eosinophils # (Auto) 0.4 x10^3/uL (0.0-0.7) Basophils # (Auto) 0.1 x10^3/uL (0.0-0.2) Prothrombin Time 12.6 SEC (11.7-14.0) Prothromb Time International Ratio 1.0 (0.8-1.1) Troponin I Quantitative < 0.017 ng/mL (0.000-0.055) LV-Oxp-B-Type Natriuretic Peptide 299 pg/mL (0-124) Sodium Level 141 mmol/L (136-145) Potassium Level 4.4 mmol/L (3.5-5.1) Chloride Level 104 mmol/L (98-107) Carbon Dioxide Level 26 mmol/L (21-32) Anion Gap 11 (6-14) Blood Urea Nitrogen 18 mg/dL (8-26) Creatinine 0.8 mg/dL (0.7-1.3) Estimated GFR (Cockcroft-Gault) 100.4 Glucose Level 122 mg/dL (70-99) Calcium Level 9.0 mg/dL (8.5-10.1) Magnesium Level 1.9 mg/dL (1.8-2.4) Total Bilirubin 0.4 mg/dL (0.2-1.0) Direct Bilirubin 0.1 mg/dL (0.0-0.2) Aspartate Amino Transf (AST/SGOT) 17 U/L (15-37) Alanine Aminotransferase (ALT/SGPT) 16 U/L (16-63) Alkaline Phosphatase 97 U/L (46-116) Creatine Kinase 35 U/L (39-308) Creatine Kinase MB (Mass) < 0.5 ng/mL (0.0-3.6) Creatine Kinase MB Relative Index % (0-4) Total Protein 7.1 g/dL (6.4-8.2) Albumin 3.5 g/dL (3.4-5.0) Lipase 168 U/L (73-393) Urine Collection Type Unknown Urine Color Yellow Urine Clarity Turbid Urine pH 5.5 Urine Specific [place] >=1.030 Urine Protein Negative mg/dL (NEG-TRACE) Urine Glucose (UA) Negative mg/dL (NEG) Urine Ketones (Stick) Negative mg/dL (NEG) Urine Blood Negative (NEG) Urine Nitrite Negative (NEG) Urine Bilirubin Negative (NEG) Urine Urobilinogen Dipstick 0.2 mg/dL (0.2 mg/dL) Urine Leukocyte Esterase Negative (NEG) Urine RBC 0 /HPF (0-2) Urine WBC 0 /HPF (0-4) Urine Squamous Epithelial Cells Occ /LPF Urine Bacteria 0 /HPF (0-FEW) Urine Mucus Mod /LPF Urine Opiates Screen Neg (NEG) Urine Methadone Screen Neg (NEG) Urine Barbiturates Neg (NEG) Urine Phencyclidine Screen Neg (NEG) Urine Amphetamine/Methamphetamine Neg (NEG) Urine Benzodiazepines Screen Neg (NEG) Urine Cocaine Screen Neg (NEG) Urine Cannabinoids Screen Pos (NEG) Urine Ethyl Alcohol Neg (NEG) Influenza Type A Antigen Negative (NEGATIVE) Influenza Type B Antigen Negative (NEGATIVE) Test 04/02/17 21:01 04/02/17 23:55 04/03/17 00:05 04/03/17 05:50 Glucose (Fingerstick) 130 mg/dL (70-99) Troponin I Quantitative < 0.017 ng/mL (0.000-0.055) < 0.017 ng/mL (0.000-0.055) Heparin Anti-Xa Act, Unfractionated 0.40 IU/mL (0.30-0.70) 0.67 IU/mL (0.30-0.70) White Blood Count 10.1 x10^3/uL (4.0-11.0) Red Blood Count 4.67 x10^6/uL (4.30-5.70) Hemoglobin 14.1 g/dL (13.0-17.5) Hematocrit 43.0 % (39.0-53.0) Mean Corpuscular Volume 92 fL (79-100) Mean Corpuscular Hemoglobin 30 pg (25-35) Mean Corpuscular Hemoglobin Concent 33 g/dL (31-37) Red Cell Distribution Width 15.1 % (11.5-14.5) Platelet Count 197 x10^3/uL (140-400) Neutrophils (%) (Auto) 62 % (31-73) Lymphocytes (%) (Auto) 27 % (24-48) Monocytes (%) (Auto) 5 % (0-9) Eosinophils (%) (Auto) 4 % (0-3) Basophils (%) (Auto) 1 % (0-3) Neutrophils # (Auto) 6.3 x10^3uL (1.8-7.7) Lymphocytes # (Auto) 2.8 x10^3/uL (1.0-4.8) Monocytes # (Auto) 0.5 x10^3/uL (0.0-1.1) Eosinophils # (Auto) 0.4 x10^3/uL (0.0-0.7) Basophils # (Auto) 0.1 x10^3/uL (0.0-0.2) Sodium Level 139 mmol/L (136-145) Potassium Level 4.2 mmol/L (3.5-5.1) Chloride Level 104 mmol/L (98-107) Carbon Dioxide Level 27 mmol/L (21-32) Anion Gap 8 (6-14) Blood Urea Nitrogen 20 mg/dL (8-26) Creatinine 0.9 mg/dL (0.7-1.3) Estimated GFR (Cockcroft-Gault) 87.6 Glucose Level 91 mg/dL (70-99) Calcium Level 8.1 mg/dL (8.5-10.1) Test 04/03/17 07:58 Glucose (Fingerstick) 88 mg/dL (70-99) Physical Exam HEENT: Neck Supple W Full Motion Chest: Symmetric LUNGS: Clear to Auscultation, Other (diminished bases ) Heart: S1S2, other (tele SR) Abdomen: No Hepatosplenomegaly Extremities: 2+ Femoral, No Edema, No Calf Tenderness Neurology: alert, oriented, follow commands Assessment Assessment Consult reason; Chest Pain Referring Physician: Dr. Cotton Please see office H & P dated 03/28/17 in physical chart for further details HPI: This is a 56 yo male, with a history of CAD s/p KYLIE x2 to RCA, HTN, and HLP , who presented with complaints of chest pain. Patient reports pain has been intermittent for the last week. Describes as pressure and bandlike around his central chest. Associated with shortness of breath and fatigue. No dizziness, diaphoresis, palpitations, nausea/vomiting, or LE edema. No specific precipitating or relieving factors, although it does seem to occur more so in the morning. Ranexa was initiated, but no significant relief was obtain. Reports compliance with medications. Recent cath an echo as noted below. Due to continued chest pain despite initiation of Ranexa, cardiac cath with repeat attempt at intervention was considered. Anesthesia would need to assist as patient is unable to lay flat for a long period of time. Echocardiogram DATE: 12/31/16 1304 CORONARY ANGIOGRAPHY: LM is a moderate caliber vessel with normal angiographic appearance. LAD is a moderate caliber vessel with an ostial 30% stenosis and diffuse mid irregularities of up to 30%. D1 is a small to moderate caliber vessel with mild luminal irregularities. Ramus is a small caliber vessel with normal angiographic appearance. LCx is a small to moderate caliber non-dominant vessel with a mid 50% stenosis. OM1 is a small caliber vessel with proximal 50% stenosis. RCA is a large caliber dominant vessel with patent mid stents. The distal vessel has an eccentric 70% stenosis at the crux involving the ostium of the RPDA. RPDA is a moderate caliber vessel with an ostial 95% stenosis and an acute angle of take-off from the RCA. RPL is a moderate caliber vessel with proximal 30% stenosis. <Conclusion> The left ventricular systolic function is normal and the ejection fraction is within normal range. The Ejection Fraction is 60-65%. There is grossly normal LV segmental wall motion. Suboptimal images Coronary Angiogram DATE: 01/02/17 1359 Conclusion 1. Two vessel coronary disease. 2. Patent stents in the RCA 3. Unsuccessful PTCA of the distal RCA crux. Recommendations Consider staged intervention with anesthesia support for PCI of the distal RCA if there is recurrent chest pain despite medical therapy. Assessment 1. Chest pain; troponin series normal- AMI ruled out. 2. CAD s/p PCI/KYLIE to the RCA, along with a 90% lesion in the ostium of the right PDA and mild to moderate disease in the LAD and left Circ 3. Hypertension; controlled 4. Hyperlipidemia; LDL 161 (12/30) 5. Probable LOPEZ 6. Bradyarrhythmia; having intermittent heart block this morning 7. Substance abuse; UDS + marijuana. Discussed/encourage session Recommendations Discontinue metoprolol. Monitor telemetry Continue secondary prevention measures. Continue heparin gtt overnight. Discontinue at 0500. NPO p MN. Will schedule LHC with anesthesia in the am. Distal RCA vessel CAD likely not primary cause of fatigue/dyspnea. Recommend lifestyle modification. D/w patient Consult pulmonary for pulmonary optimization/evaluation of LOPEZ ROBERT SCHAFER APRN Apr 03, 2017 09:59
[2017-04-03 11:00] VITALS: BP 136/66
--- NOTE | 2017-04-03 11:32 | PDOC ---
PROGRESS NOTES Chief Complaint Chief Complaint Chest pain in a known cardiac patient, indwelling 2 stents Morbid obesity BMI 49.4 Hypertension controlled and dyslipidemia controlled Occasional alcohol drinker Rotator cuff injury left shoulder is tender 2017 leukocytosis, viral URI likely - resolved History of Present Illness History of Present Illness WBC down to normal from 12 on admission. Patient having dialysis Needed the BiPAP overnight and also at this morning Would desaturate off the BiPAP and going to the bathroom Patient very well known to us history of a volume overload, ESRD with sometimes missing dialysis causing admission, also known to cardiology quite well. Plan: Patient is not wanting to go to any SNU as she had that before. Patient remains a full code. I did discuss with her yesterday the nature of her disease, her overall poor prognosis and the possible inc in frequency of further admissions. I did emphasize compliance to low salt intake, following dialysis schedules, not missing any sessions. Continue to follow cards recs Dialysis per renal PT OT RN Zeeshan concerned about social issues of the patient- We have consulted child welfare social worker Prognosis guarded Vitals Vitals Vital Signs Date Time Temp Pulse Resp B/P (MAP) Pulse Ox O2 Delivery O2 Flow Rate FiO2 04/03/17 08:00 Nasal Cannula 2.0 04/03/17 07:49 16 04/03/17 07:00 97.3 54 136/77 (96) 98 97.3 Physical Exam General: Alert, Oriented X3, Cooperative, No acute distress Lungs: Clear Abdomen: Normal bowel sounds, Soft, No tenderness, No hepatosplenomegaly, No masses Extremities: No clubbing, No cyanosis, No edema, Normal pulses, No tenderness/ swelling Skin: No rashes, No breakdown, No significant lesion Labs LABS Laboratory Tests Test 04/02/17 16:10 04/02/17 16:35 04/02/17 18:07 04/02/17 18:45 White Blood Count 12.4 x10^3/uL (4.0-11.0) Red Blood Count 4.98 x10^6/uL (4.30-5.70) Hemoglobin 15.0 g/dL (13.0-17.5) Hematocrit 45.5 % (39.0-53.0) Mean Corpuscular Volume 91 fL (79-100) Mean Corpuscular Hemoglobin 30 pg (25-35) Mean Corpuscular Hemoglobin Concent 33 g/dL (31-37) Red Cell Distribution Width 15.0 % (11.5-14.5) Platelet Count 241 x10^3/uL (140-400) Neutrophils (%) (Auto) 75 % (31-73) Lymphocytes (%) (Auto) 16 % (24-48) Monocytes (%) (Auto) 5 % (0-9) Eosinophils (%) (Auto) 3 % (0-3) Basophils (%) (Auto) 1 % (0-3) Neutrophils # (Auto) 9.2 x10^3uL (1.8-7.7) Lymphocytes # (Auto) 2.0 x10^3/uL (1.0-4.8) Monocytes # (Auto) 0.7 x10^3/uL (0.0-1.1) Eosinophils # (Auto) 0.4 x10^3/uL (0.0-0.7) Basophils # (Auto) 0.1 x10^3/uL (0.0-0.2) Prothrombin Time 12.6 SEC (11.7-14.0) Prothromb Time International Ratio 1.0 (0.8-1.1) Troponin I Quantitative < 0.017 ng/mL (0.000-0.055) NN-Rsz-W-Type Natriuretic Peptide 299 pg/mL (0-124) Sodium Level 141 mmol/L (136-145) Potassium Level 4.4 mmol/L (3.5-5.1) Chloride Level 104 mmol/L (98-107) Carbon Dioxide Level 26 mmol/L (21-32) Anion Gap 11 (6-14) Blood Urea Nitrogen 18 mg/dL (8-26) Creatinine 0.8 mg/dL (0.7-1.3) Estimated GFR (Cockcroft-Gault) 100.4 Glucose Level 122 mg/dL (70-99) Calcium Level 9.0 mg/dL (8.5-10.1) Magnesium Level 1.9 mg/dL (1.8-2.4) Total Bilirubin 0.4 mg/dL (0.2-1.0) Direct Bilirubin 0.1 mg/dL (0.0-0.2) Aspartate Amino Transf (AST/SGOT) 17 U/L (15-37) Alanine Aminotransferase (ALT/SGPT) 16 U/L (16-63) Alkaline Phosphatase 97 U/L (46-116) Creatine Kinase 35 U/L (39-308) Creatine Kinase MB (Mass) < 0.5 ng/mL (0.0-3.6) Creatine Kinase MB Relative Index % (0-4) Total Protein 7.1 g/dL (6.4-8.2) Albumin 3.5 g/dL (3.4-5.0) Lipase 168 U/L (73-393) Urine Collection Type Unknown Urine Color Yellow Urine Clarity Turbid Urine pH 5.5 Urine Specific [place] >=1.030 Urine Protein Negative mg/dL (NEG-TRACE) Urine Glucose (UA) Negative mg/dL (NEG) Urine Ketones (Stick) Negative mg/dL (NEG) Urine Blood Negative (NEG) Urine Nitrite Negative (NEG) Urine Bilirubin Negative (NEG) Urine Urobilinogen Dipstick 0.2 mg/dL (0.2 mg/dL) Urine Leukocyte Esterase Negative (NEG) Urine RBC 0 /HPF (0-2) Urine WBC 0 /HPF (0-4) Urine Squamous Epithelial Cells Occ /LPF Urine Bacteria 0 /HPF (0-FEW) Urine Mucus Mod /LPF Urine Opiates Screen Neg (NEG) Urine Methadone Screen Neg (NEG) Urine Barbiturates Neg (NEG) Urine Phencyclidine Screen Neg (NEG) Urine Amphetamine/Methamphetamine Neg (NEG) Urine Benzodiazepines Screen Neg (NEG) Urine Cocaine Screen Neg (NEG) Urine Cannabinoids Screen Pos (NEG) Urine Ethyl Alcohol Neg (NEG) Influenza Type A Antigen Negative (NEGATIVE) Influenza Type B Antigen Negative (NEGATIVE) Test 04/02/17 21:01 04/02/17 23:55 04/03/17 00:05 04/03/17 05:50 Glucose (Fingerstick) 130 mg/dL (70-99) Troponin I Quantitative < 0.017 ng/mL (0.000-0.055) < 0.017 ng/mL (0.000-0.055) Heparin Anti-Xa Act, Unfractionated 0.40 IU/mL (0.30-0.70) 0.67 IU/mL (0.30-0.70) White Blood Count 10.1 x10^3/uL (4.0-11.0) Red Blood Count 4.67 x10^6/uL (4.30-5.70) Hemoglobin 14.1 g/dL (13.0-17.5) Hematocrit 43.0 % (39.0-53.0) Mean Corpuscular Volume 92 fL (79-100) Mean Corpuscular Hemoglobin 30 pg (25-35) Mean Corpuscular Hemoglobin Concent 33 g/dL (31-37) Red Cell Distribution Width 15.1 % (11.5-14.5) Platelet Count 197 x10^3/uL (140-400) Neutrophils (%) (Auto) 62 % (31-73) Lymphocytes (%) (Auto) 27 % (24-48) Monocytes (%) (Auto) 5 % (0-9) Eosinophils (%) (Auto) 4 % (0-3) Basophils (%) (Auto) 1 % (0-3) Neutrophils # (Auto) 6.3 x10^3uL (1.8-7.7) Lymphocytes # (Auto) 2.8 x10^3/uL (1.0-4.8) Monocytes # (Auto) 0.5 x10^3/uL (0.0-1.1) Eosinophils # (Auto) 0.4 x10^3/uL (0.0-0.7) Basophils # (Auto) 0.1 x10^3/uL (0.0-0.2) Sodium Level 139 mmol/L (136-145) Potassium Level 4.2 mmol/L (3.5-5.1) Chloride Level 104 mmol/L (98-107) Carbon Dioxide Level 27 mmol/L (21-32) Anion Gap 8 (6-14) Blood Urea Nitrogen 20 mg/dL (8-26) Creatinine 0.9 mg/dL (0.7-1.3) Estimated GFR (Cockcroft-Gault) 87.6 Glucose Level 91 mg/dL (70-99) Calcium Level 8.1 mg/dL (8.5-10.1) Test 04/03/17 07:58 Glucose (Fingerstick) 88 mg/dL (70-99) Review of Systems Review of Systems SOA, no chest pain, no abdominal issues, no musculoskeletal issues Assessment and Plan Assessmemt and Plan Problems Medical Problems: (1) Chest pain Status: Acute Problems: Comment Review of Relevant I have reviewed the following items josé (where applicable) has been applied. Labs Laboratory Tests Test 04/02/17 16:10 04/02/17 16:35 04/02/17 18:07 04/02/17 18:45 White Blood Count 12.4 x10^3/uL (4.0-11.0) Red Blood Count 4.98 x10^6/uL (4.30-5.70) Hemoglobin 15.0 g/dL (13.0-17.5) Hematocrit 45.5 % (39.0-53.0) Mean Corpuscular Volume 91 fL (79-100) Mean Corpuscular Hemoglobin 30 pg (25-35) Mean Corpuscular Hemoglobin Concent 33 g/dL (31-37) Red Cell Distribution Width 15.0 % (11.5-14.5) Platelet Count 241 x10^3/uL (140-400) Neutrophils (%) (Auto) 75 % (31-73) Lymphocytes (%) (Auto) 16 % (24-48) Monocytes (%) (Auto) 5 % (0-9) Eosinophils (%) (Auto) 3 % (0-3) Basophils (%) (Auto) 1 % (0-3) Neutrophils # (Auto) 9.2 x10^3uL (1.8-7.7) Lymphocytes # (Auto) 2.0 x10^3/uL (1.0-4.8) Monocytes # (Auto) 0.7 x10^3/uL (0.0-1.1) Eosinophils # (Auto) 0.4 x10^3/uL (0.0-0.7) Basophils # (Auto) 0.1 x10^3/uL (0.0-0.2) Prothrombin Time 12.6 SEC (11.7-14.0) Prothromb Time International Ratio 1.0 (0.8-1.1) Troponin I Quantitative < 0.017 ng/mL (0.000-0.055) UL-Gay-B-Type Natriuretic Peptide 299 pg/mL (0-124) Sodium Level 141 mmol/L (136-145) Potassium Level 4.4 mmol/L (3.5-5.1) Chloride Level 104 mmol/L (98-107) Carbon Dioxide Level 26 mmol/L (21-32) Anion Gap 11 (6-14) Blood Urea Nitrogen 18 mg/dL (8-26) Creatinine 0.8 mg/dL (0.7-1.3) Estimated GFR (Cockcroft-Gault) 100.4 Glucose Level 122 mg/dL (70-99) Calcium Level 9.0 mg/dL (8.5-10.1) Magnesium Level 1.9 mg/dL (1.8-2.4) Total Bilirubin 0.4 mg/dL (0.2-1.0) Direct Bilirubin 0.1 mg/dL (0.0-0.2) Aspartate Amino Transf (AST/SGOT) 17 U/L (15-37) Alanine Aminotransferase (ALT/SGPT) 16 U/L (16-63) Alkaline Phosphatase 97 U/L (46-116) Creatine Kinase 35 U/L (39-308) Creatine Kinase MB (Mass) < 0.5 ng/mL (0.0-3.6) Creatine Kinase MB Relative Index % (0-4) Total Protein 7.1 g/dL (6.4-8.2) Albumin 3.5 g/dL (3.4-5.0) Lipase 168 U/L (73-393) Urine Collection Type Unknown Urine Color Yellow Urine Clarity Turbid Urine pH 5.5 Urine Specific [place] >=1.030 Urine Protein Negative mg/dL (NEG-TRACE) Urine Glucose (UA) Negative mg/dL (NEG) Urine Ketones (Stick) Negative mg/dL (NEG) Urine Blood Negative (NEG) Urine Nitrite Negative (NEG) Urine Bilirubin Negative (NEG) Urine Urobilinogen Dipstick 0.2 mg/dL (0.2 mg/dL) Urine Leukocyte Esterase Negative (NEG) Urine RBC 0 /HPF (0-2) Urine WBC 0 /HPF (0-4) Urine Squamous Epithelial Cells Occ /LPF Urine Bacteria 0 /HPF (0-FEW) Urine Mucus Mod /LPF Urine Opiates Screen Neg (NEG) Urine Methadone Screen Neg (NEG) Urine Barbiturates Neg (NEG) Urine Phencyclidine Screen Neg (NEG) Urine Amphetamine/Methamphetamine Neg (NEG) Urine Benzodiazepines Screen Neg (NEG) Urine Cocaine Screen Neg (NEG) Urine Cannabinoids Screen Pos (NEG) Urine Ethyl Alcohol Neg (NEG) Influenza Type A Antigen Negative (NEGATIVE) Influenza Type B Antigen Negative (NEGATIVE) Test 04/02/17 21:01 04/02/17 23:55 04/03/17 00:05 04/03/17 05:50 Glucose (Fingerstick) 130 mg/dL (70-99) Troponin I Quantitative < 0.017 ng/mL (0.000-0.055) < 0.017 ng/mL (0.000-0.055) Heparin Anti-Xa Act, Unfractionated 0.40 IU/mL (0.30-0.70) 0.67 IU/mL (0.30-0.70) White Blood Count 10.1 x10^3/uL (4.0-11.0) Red Blood Count 4.67 x10^6/uL (4.30-5.70) Hemoglobin 14.1 g/dL (13.0-17.5) Hematocrit 43.0 % (39.0-53.0) Mean Corpuscular Volume 92 fL (79-100) Mean Corpuscular Hemoglobin 30 pg (25-35) Mean Corpuscular Hemoglobin Concent 33 g/dL (31-37) Red Cell Distribution Width 15.1 % (11.5-14.5) Platelet Count 197 x10^3/uL (140-400) Neutrophils (%) (Auto) 62 % (31-73) Lymphocytes (%) (Auto) 27 % (24-48) Monocytes (%) (Auto) 5 % (0-9) Eosinophils (%) (Auto) 4 % (0-3) Basophils (%) (Auto) 1 % (0-3) Neutrophils # (Auto) 6.3 x10^3uL (1.8-7.7) Lymphocytes # (Auto) 2.8 x10^3/uL (1.0-4.8) Monocytes # (Auto) 0.5 x10^3/uL (0.0-1.1) Eosinophils # (Auto) 0.4 x10^3/uL (0.0-0.7) Basophils # (Auto) 0.1 x10^3/uL (0.0-0.2) Sodium Level 139 mmol/L (136-145) Potassium Level 4.2 mmol/L (3.5-5.1) Chloride Level 104 mmol/L (98-107) Carbon Dioxide Level 27 mmol/L (21-32) Anion Gap 8 (6-14) Blood Urea Nitrogen 20 mg/dL (8-26) Creatinine 0.9 mg/dL (0.7-1.3) Estimated GFR (Cockcroft-Gault) 87.6 Glucose Level 91 mg/dL (70-99) Calcium Level 8.1 mg/dL (8.5-10.1) Test 04/03/17 07:58 Glucose (Fingerstick) 88 mg/dL (70-99) Laboratory Tests Test 04/02/17 16:10 04/02/17 16:35 04/02/17 18:07 04/02/17 18:45 White Blood Count 12.4 x10^3/uL (4.0-11.0) Red Blood Count 4.98 x10^6/uL (4.30-5.70) Hemoglobin 15.0 g/dL (13.0-17.5) Hematocrit 45.5 % (39.0-53.0) Mean Corpuscular Volume 91 fL (79-100) Mean Corpuscular Hemoglobin 30 pg (25-35) Mean Corpuscular Hemoglobin Concent 33 g/dL (31-37) Red Cell Distribution Width 15.0 % (11.5-14.5) Platelet Count 241 x10^3/uL (140-400) Neutrophils (%) (Auto) 75 % (31-73) Lymphocytes (%) (Auto) 16 % (24-48) Monocytes (%) (Auto) 5 % (0-9) Eosinophils (%) (Auto) 3 % (0-3) Basophils (%) (Auto) 1 % (0-3) Neutrophils # (Auto) 9.2 x10^3uL (1.8-7.7) Lymphocytes # (Auto) 2.0 x10^3/uL (1.0-4.8) Monocytes # (Auto) 0.7 x10^3/uL (0.0-1.1) Eosinophils # (Auto) 0.4 x10^3/uL (0.0-0.7) Basophils # (Auto) 0.1 x10^3/uL (0.0-0.2) Prothrombin Time 12.6 SEC (11.7-14.0) Prothromb Time International Ratio 1.0 (0.8-1.1) Troponin I Quantitative < 0.017 ng/mL (0.000-0.055) WU-Yzm-L-Type Natriuretic Peptide 299 pg/mL (0-124) Sodium Level 141 mmol/L (136-145) Potassium Level 4.4 mmol/L (3.5-5.1) Chloride Level 104 mmol/L (98-107) Carbon Dioxide Level 26 mmol/L (21-32) Anion Gap 11 (6-14) Blood Urea Nitrogen 18 mg/dL (8-26) Creatinine 0.8 mg/dL (0.7-1.3) Estimated GFR (Cockcroft-Gault) 100.4 Glucose Level 122 mg/dL (70-99) Calcium Level 9.0 mg/dL (8.5-10.1) Magnesium Level 1.9 mg/dL (1.8-2.4) Total Bilirubin 0.4 mg/dL (0.2-1.0) Direct Bilirubin 0.1 mg/dL (0.0-0.2) Aspartate Amino Transf (AST/SGOT) 17 U/L (15-37) Alanine Aminotransferase (ALT/SGPT) 16 U/L (16-63) Alkaline Phosphatase 97 U/L (46-116) Creatine Kinase 35 U/L (39-308) Creatine Kinase MB (Mass) < 0.5 ng/mL (0.0-3.6) Creatine Kinase MB Relative Index % (0-4) Total Protein 7.1 g/dL (6.4-8.2) Albumin 3.5 g/dL (3.4-5.0) Lipase 168 U/L (73-393) Urine Collection Type Unknown Urine Color Yellow Urine Clarity Turbid Urine pH 5.5 Urine Specific [place] >=1.030 Urine Protein Negative mg/dL (NEG-TRACE) Urine Glucose (UA) Negative mg/dL (NEG) Urine Ketones (Stick) Negative mg/dL (NEG) Urine Blood Negative (NEG) Urine Nitrite Negative (NEG) Urine Bilirubin Negative (NEG) Urine Urobilinogen Dipstick 0.2 mg/dL (0.2 mg/dL) Urine Leukocyte Esterase Negative (NEG) Urine RBC 0 /HPF (0-2) Urine WBC 0 /HPF (0-4) Urine Squamous Epithelial Cells Occ /LPF Urine Bacteria 0 /HPF (0-FEW) Urine Mucus Mod /LPF Urine Opiates Screen Neg (NEG) Urine Methadone Screen Neg (NEG) Urine Barbiturates Neg (NEG) Urine Phencyclidine Screen Neg (NEG) Urine Amphetamine/Methamphetamine Neg (NEG) Urine Benzodiazepines Screen Neg (NEG) Urine Cocaine Screen Neg (NEG) Urine Cannabinoids Screen Pos (NEG) Urine Ethyl Alcohol Neg (NEG) Influenza Type A Antigen Negative (NEGATIVE) Influenza Type B Antigen Negative (NEGATIVE) Test 04/02/17 21:01 04/02/17 23:55 04/03/17 00:05 04/03/17 05:50 Glucose (Fingerstick) 130 mg/dL (70-99) Troponin I Quantitative < 0.017 ng/mL (0.000-0.055) < 0.017 ng/mL (0.000-0.055) Heparin Anti-Xa Act, Unfractionated 0.40 IU/mL (0.30-0.70) 0.67 IU/mL (0.30-0.70) White Blood Count 10.1 x10^3/uL (4.0-11.0) Red Blood Count 4.67 x10^6/uL (4.30-5.70) Hemoglobin 14.1 g/dL (13.0-17.5) Hematocrit 43.0 % (39.0-53.0) Mean Corpuscular Volume 92 fL (79-100) Mean Corpuscular Hemoglobin 30 pg (25-35) Mean Corpuscular Hemoglobin Concent 33 g/dL (31-37) Red Cell Distribution Width 15.1 % (11.5-14.5) Platelet Count 197 x10^3/uL (140-400) Neutrophils (%) (Auto) 62 % (31-73) Lymphocytes (%) (Auto) 27 % (24-48) Monocytes (%) (Auto) 5 % (0-9) Eosinophils (%) (Auto) 4 % (0-3) Basophils (%) (Auto) 1 % (0-3) Neutrophils # (Auto) 6.3 x10^3uL (1.8-7.7) Lymphocytes # (Auto) 2.8 x10^3/uL (1.0-4.8) Monocytes # (Auto) 0.5 x10^3/uL (0.0-1.1) Eosinophils # (Auto) 0.4 x10^3/uL (0.0-0.7) Basophils # (Auto) 0.1 x10^3/uL (0.0-0.2) Sodium Level 139 mmol/L (136-145) Potassium Level 4.2 mmol/L (3.5-5.1) Chloride Level 104 mmol/L (98-107) Carbon Dioxide Level 27 mmol/L (21-32) Anion Gap 8 (6-14) Blood Urea Nitrogen 20 mg/dL (8-26) Creatinine 0.9 mg/dL (0.7-1.3) Estimated GFR (Cockcroft-Gault) 87.6 Glucose Level 91 mg/dL (70-99) Calcium Level 8.1 mg/dL (8.5-10.1) Test 04/03/17 07:58 Glucose (Fingerstick) 88 mg/dL (70-99) Medications Current Medications Ondansetron HCl (Zofran) 4 mg PRN Q8HRS PRN IV NAUSEA/VOMITING; Start at 17:45; Stop 04/03/17 at 17:44 Morphine Sulfate 2 mg PRN Q2HR PRN IV PAIN Last administered on 04/03/17 06: 40; Start 04/02/17 at 17:45; Stop 04/03/17 at 17:44 Acetaminophen (Tylenol) 650 mg PRN Q6HRS PRN PO pain; Start 04/02/17 at 17:45 Diphenhydramine HCl (Benadryl) 25 mg PRN QHS PRN PO INSOMNIA; Start 04/02/17 at 17:45 Insulin Aspart (NovoLOG) 0-9 UNITS TIDWMEALS SQ ; Start 04/03/17 at 08:00 Dextrose (Dextrose 50%-Water Syringe) 12.5 gm PRN Q15MIN PRN IV SEE COMMENTS; Start 04/02/17 at 17:45 Aspirin (Ecotrin) 81 mg DAILYWBKFT PO Last administered on 04/03/17 09:23; Start 04/03/17 at 08:00 Atorvastatin Calcium (Lipitor) 80 mg QHS PO Last administered on 04/02/17 22: 30; Start 04/02/17 at 21:00 Clopidogrel Bisulfate (Plavix) 75 mg DAILY PO Last administered on 04/03/17 09:23; Start 04/03/17 at 09:00 Isosorbide Mononitrate (Imdur) 30 mg DAILY PO ; Start 04/03/17 at 09:00 Lisinopril (Prinivil) 40 mg HS PO Last administered on 04/02/17 22:24; Start 04/02/17 at 21:00 Metoprolol Succinate (Toprol Xl) 50 mg HS PO Last administered on 04/02/17 22 :26; Start 04/02/17 at 21:00; Stop 04/03/17 at 10:59; Status DC Metoprolol Succinate (Toprol Xl) 25 mg DAILY PO ; Start 04/03/17 at 09:00; Stop 04/03/17 at 10:59; Status DC Oxycodone/ Acetaminophen (Percocet 5/325) 2 tab PRN Q6HRS PRN PO PAIN Last administered on 04/02/17 23:54; Start 04/02/17 at 17:45 Ticagrelor (Brilinta) 90 mg BID PO ; Start 04/02/17 at 21:00; Stop 04/02/17 at 21:03; Status DC Vitamin D (Vitamin D3) 1,000 unit DAILY PO Last administered on 04/03/17 09: 23; Start 04/03/17 at 09:00 Fluoxetine HCl (PROzac) 40 mg QHS PO Last administered on 04/02/17 22:25; Start 04/02/17 at 21:00 Meloxicam (Mobic) 15 mg QHS PO Last administered on 04/02/17 22:24; Start at 21:00 Pantoprazole Sodium (Protonix) 40 mg QHS PO Last administered on 04/02/17 22: 24; Start 04/02/17 at 21:00 Heparin Sodium/ Dextrose 500 ml @ 20 mls/hr CONT PRN IV SEE I/O RECORD Last administered on 04/03/17 08:57; Start 04/02/17 at 17:45 Heparin Sodium (Porcine) (Heparin Sodium) 4,000 unit PRN Q6HRS PRN IV FOR UFH LEVEL LESS THAN 0.2; Start 04/02/17 at 17:45 Pneumococcal Polyvalent Vaccine (Do NOT chart on this placeholder) 0.5 each 1X ONCE MC ; Start 04/03/17 at 09:00; Stop 04/03/17 at 09:01; Status UNV Pneumococcal Polyvalent Vaccine (Pneumovax 23) 0.5 ml ONCE ONCE VAX IM ; Start 04/02/17 at 21:00; Stop 04/02/17 at 21:01; Status DC Nitroglycerin (Nitrostat) 0.4 mg STK-MED ONCE SL ; Start 04/03/17 at 06:42; Stop 04/03/17 at 06:43; Status DC Nitroglycerin (Nitrostat) 0.4 mg PRN Q5MIN PRN SL CHEST PAIN Last administered on 04/03/17t 06:59; Start 04/03/17 at 07:00 Active Scripts Active Atorvastatin Calcium 40 Mg Tablet 80 Mg PO QHS 30 Days Aspirin Ec (Aspirin) 81 Mg Tablet.dr 81 Mg PO DAILYWBKFT 30 Days Isosorbide Mononitrate Er (Isosorbide Mononitrate) 30 Mg Tab.er.24h 1 Tab PO DAILY Brilinta (Ticagrelor) 90 Mg Tablet 90 Mg PO BID 30 Days Reported Clopidogrel (Clopidogrel Bisulfate) 75 Mg Tablet 1 Tab PO DAILY Vitamin D (Cholecalciferol (Vitamin D3)) 400 Unit Capsule 800 Unit PO DAILY Prilosec Otc (Omeprazole Magnesium) 20 Mg Tablet. 1 Tab PO HS Lisinopril 40 Mg Tablet 40 Mg PO HS Fluoxetine Hcl 40 Mg Capsule 40 Mg PO HS Meloxicam 15 Mg Tablet 1 Tab PO HS Metoprolol Succinate 50 Mg Tab.er.24h 1 Tab PO HS Oxycodone-Acetaminophen 5-325 (Oxycodone Hcl/Acetaminophen) 1 Each Tablet 2 Tab PO PRN Q6HRS PRN Metoprolol Succinate ( Xl ) (Metoprolol Succinate) 25 Mg Tab.er.24h 1 Tab PO DAILY Vitals/I & O Vital Sign - Last 24 Hours 04/02/17 04/02/17 04/02/17 04/02/17 15:51 17:15 18:23 19:12 Temp 97.9 97.9 Pulse 61 68 62 Resp 20 20 20 20 B/P (MAP) 157/92 (113) 130/64 (86) 120/75 (90) Pulse Ox 95 95 94 96 O2 Delivery Room Air Room Air Room Air Room Air 04/02/17 04/02/17 04/02/17 04/02/17 19:20 19:50 19:55 22:24 Temp 98.8 98.8 Pulse 65 65 Resp 18 B/P (MAP) 120/75 (90) 120/75 Pulse Ox 96 O2 Delivery Room Air Room Air Room Air 04/02/17 04/02/17 04/02/17 04/03/17 22:26 22:29 23:54 00:54 Temp 98.3 98.3 Pulse 65 62 Resp 18 B/P (MAP) 120/75 129/77 (94) Pulse Ox 98 O2 Delivery Room Air Room Air Room Air 04/03/17 04/03/17 04/03/17 04/03/17 03:19 06:40 06:59 07:00 Temp 97.6 97.3 97.6 97.3 Pulse 47 50 54 Resp 18 20 B/P (MAP) 117/71 (86) 189/98 136/77 (96) Pulse Ox 95 98 O2 Delivery Room Air Nasal Cannula Room Air O2 Flow Rate 2.0 04/03/17 04/03/17 07:49 08:00 Resp 16 O2 Delivery Nasal Cannula Nasal Cannula O2 Flow Rate 2.0 2.0 Intake and Output 04/02/17 04/02/17 04/03/17 15:00 23:00 07:00 Intake Total 480 ml 0 ml Output Total 400 ml Balance 480 ml -400 ml KASSI ARAUJO MD Apr 03, 2017 11:32
--- NOTE | 2017-04-03 11:36 | PDOC ---
PROGRESS NOTES Chief Complaint Chief Complaint Chest pain in a known cardiac patient, indwelling 2 stents Morbid obesity BMI 49.4 Hypertension controlled and dyslipidemia controlled Occasional alcohol drinker Rotator cuff injury left shoulder is tender 2017 leukocytosis, viral URI likely - resolved History of Present Illness History of Present Illness WBC down to normal from 12 on admission. No recurrence of chest pain overnight Troponin 2 is negative No arrhythmias overnight No overnight calls Hemodynamically stable Plan: Plan on [facility] tomorrow Nothing by mouth post midnight Continue heparin drip Watch out for further for bleeding, he did have history of rectal bleed in December when he was on still and Brilinta, now off of it taken off by cardiology Vitals Vitals Vital Signs Date Time Temp Pulse Resp B/P (MAP) Pulse Ox O2 Delivery O2 Flow Rate FiO2 04/03/17 08:00 Nasal Cannula 2.0 04/03/17 07:49 16 04/03/17 07:00 97.3 54 136/77 (96) 98 97.3 Physical Exam General: Alert, Oriented X3, Cooperative, No acute distress Heart: Regular rate Lungs: Clear Abdomen: Normal bowel sounds, Soft, No tenderness, No hepatosplenomegaly, No masses Extremities: No clubbing, No cyanosis, No edema, Normal pulses, No tenderness/ swelling Skin: No rashes, No breakdown, No significant lesion Labs LABS Laboratory Tests Test 04/02/17 16:10 04/02/17 16:35 04/02/17 18:07 04/02/17 18:45 White Blood Count 12.4 x10^3/uL (4.0-11.0) Red Blood Count 4.98 x10^6/uL (4.30-5.70) Hemoglobin 15.0 g/dL (13.0-17.5) Hematocrit 45.5 % (39.0-53.0) Mean Corpuscular Volume 91 fL (79-100) Mean Corpuscular Hemoglobin 30 pg (25-35) Mean Corpuscular Hemoglobin Concent 33 g/dL (31-37) Red Cell Distribution Width 15.0 % (11.5-14.5) Platelet Count 241 x10^3/uL (140-400) Neutrophils (%) (Auto) 75 % (31-73) Lymphocytes (%) (Auto) 16 % (24-48) Monocytes (%) (Auto) 5 % (0-9) Eosinophils (%) (Auto) 3 % (0-3) Basophils (%) (Auto) 1 % (0-3) Neutrophils # (Auto) 9.2 x10^3uL (1.8-7.7) Lymphocytes # (Auto) 2.0 x10^3/uL (1.0-4.8) Monocytes # (Auto) 0.7 x10^3/uL (0.0-1.1) Eosinophils # (Auto) 0.4 x10^3/uL (0.0-0.7) Basophils # (Auto) 0.1 x10^3/uL (0.0-0.2) Prothrombin Time 12.6 SEC (11.7-14.0) Prothromb Time International Ratio 1.0 (0.8-1.1) Troponin I Quantitative < 0.017 ng/mL (0.000-0.055) PE-Vom-Y-Type Natriuretic Peptide 299 pg/mL (0-124) Sodium Level 141 mmol/L (136-145) Potassium Level 4.4 mmol/L (3.5-5.1) Chloride Level 104 mmol/L (98-107) Carbon Dioxide Level 26 mmol/L (21-32) Anion Gap 11 (6-14) Blood Urea Nitrogen 18 mg/dL (8-26) Creatinine 0.8 mg/dL (0.7-1.3) Estimated GFR (Cockcroft-Gault) 100.4 Glucose Level 122 mg/dL (70-99) Calcium Level 9.0 mg/dL (8.5-10.1) Magnesium Level 1.9 mg/dL (1.8-2.4) Total Bilirubin 0.4 mg/dL (0.2-1.0) Direct Bilirubin 0.1 mg/dL (0.0-0.2) Aspartate Amino Transf (AST/SGOT) 17 U/L (15-37) Alanine Aminotransferase (ALT/SGPT) 16 U/L (16-63) Alkaline Phosphatase 97 U/L (46-116) Creatine Kinase 35 U/L (39-308) Creatine Kinase MB (Mass) < 0.5 ng/mL (0.0-3.6) Creatine Kinase MB Relative Index % (0-4) Total Protein 7.1 g/dL (6.4-8.2) Albumin 3.5 g/dL (3.4-5.0) Lipase 168 U/L (73-393) Urine Collection Type Unknown Urine Color Yellow Urine Clarity Turbid Urine pH 5.5 Urine Specific [place] >=1.030 Urine Protein Negative mg/dL (NEG-TRACE) Urine Glucose (UA) Negative mg/dL (NEG) Urine Ketones (Stick) Negative mg/dL (NEG) Urine Blood Negative (NEG) Urine Nitrite Negative (NEG) Urine Bilirubin Negative (NEG) Urine Urobilinogen Dipstick 0.2 mg/dL (0.2 mg/dL) Urine Leukocyte Esterase Negative (NEG) Urine RBC 0 /HPF (0-2) Urine WBC 0 /HPF (0-4) Urine Squamous Epithelial Cells Occ /LPF Urine Bacteria 0 /HPF (0-FEW) Urine Mucus Mod /LPF Urine Opiates Screen Neg (NEG) Urine Methadone Screen Neg (NEG) Urine Barbiturates Neg (NEG) Urine Phencyclidine Screen Neg (NEG) Urine Amphetamine/Methamphetamine Neg (NEG) Urine Benzodiazepines Screen Neg (NEG) Urine Cocaine Screen Neg (NEG) Urine Cannabinoids Screen Pos (NEG) Urine Ethyl Alcohol Neg (NEG) Influenza Type A Antigen Negative (NEGATIVE) Influenza Type B Antigen Negative (NEGATIVE) Test 04/02/17 21:01 04/02/17 23:55 04/03/17 00:05 04/03/17 05:50 Glucose (Fingerstick) 130 mg/dL (70-99) Troponin I Quantitative < 0.017 ng/mL (0.000-0.055) < 0.017 ng/mL (0.000-0.055) Heparin Anti-Xa Act, Unfractionated 0.40 IU/mL (0.30-0.70) 0.67 IU/mL (0.30-0.70) White Blood Count 10.1 x10^3/uL (4.0-11.0) Red Blood Count 4.67 x10^6/uL (4.30-5.70) Hemoglobin 14.1 g/dL (13.0-17.5) Hematocrit 43.0 % (39.0-53.0) Mean Corpuscular Volume 92 fL (79-100) Mean Corpuscular Hemoglobin 30 pg (25-35) Mean Corpuscular Hemoglobin Concent 33 g/dL (31-37) Red Cell Distribution Width 15.1 % (11.5-14.5) Platelet Count 197 x10^3/uL (140-400) Neutrophils (%) (Auto) 62 % (31-73) Lymphocytes (%) (Auto) 27 % (24-48) Monocytes (%) (Auto) 5 % (0-9) Eosinophils (%) (Auto) 4 % (0-3) Basophils (%) (Auto) 1 % (0-3) Neutrophils # (Auto) 6.3 x10^3uL (1.8-7.7) Lymphocytes # (Auto) 2.8 x10^3/uL (1.0-4.8) Monocytes # (Auto) 0.5 x10^3/uL (0.0-1.1) Eosinophils # (Auto) 0.4 x10^3/uL (0.0-0.7) Basophils # (Auto) 0.1 x10^3/uL (0.0-0.2) Sodium Level 139 mmol/L (136-145) Potassium Level 4.2 mmol/L (3.5-5.1) Chloride Level 104 mmol/L (98-107) Carbon Dioxide Level 27 mmol/L (21-32) Anion Gap 8 (6-14) Blood Urea Nitrogen 20 mg/dL (8-26) Creatinine 0.9 mg/dL (0.7-1.3) Estimated GFR (Cockcroft-Gault) 87.6 Glucose Level 91 mg/dL (70-99) Calcium Level 8.1 mg/dL (8.5-10.1) Test 04/03/17 07:58 Glucose (Fingerstick) 88 mg/dL (70-99) Review of Systems Review of Systems A 14 point ROS was completed with the following noted as positive: Other systems reviewed and negative. \CONSTITUTIONAL: No fever or chills EYES: No recent changes SKIN: No rash or itching CARDIOVASCULAR: No chest pain, syncope, palpitations, or edema RESPIRATORY: No SOB or cough GASTROINTESTINAL: No nausea, vomiting or abdominal pain NEUROLOGICAL: No headaches or weakness ENDOCRINE: No cold or heat intolerance GENITOURINARY: No urgency or frequency of urination MUSCULOSKELETAL: No back pain or joint pain LYMPHATICS: No enlarged lymph nodes PSYCHIATRIC: No anxiety or depression Assessment and Plan Assessmemt and Plan Problems Medical Problems: (1) Chest pain Status: Acute Problems: Comment Review of Relevant I have reviewed the following items josé (where applicable) has been applied. Labs Laboratory Tests Test 04/02/17 16:10 04/02/17 16:35 04/02/17 18:07 04/02/17 18:45 White Blood Count 12.4 x10^3/uL (4.0-11.0) Red Blood Count 4.98 x10^6/uL (4.30-5.70) Hemoglobin 15.0 g/dL (13.0-17.5) Hematocrit 45.5 % (39.0-53.0) Mean Corpuscular Volume 91 fL (79-100) Mean Corpuscular Hemoglobin 30 pg (25-35) Mean Corpuscular Hemoglobin Concent 33 g/dL (31-37) Red Cell Distribution Width 15.0 % (11.5-14.5) Platelet Count 241 x10^3/uL (140-400) Neutrophils (%) (Auto) 75 % (31-73) Lymphocytes (%) (Auto) 16 % (24-48) Monocytes (%) (Auto) 5 % (0-9) Eosinophils (%) (Auto) 3 % (0-3) Basophils (%) (Auto) 1 % (0-3) Neutrophils # (Auto) 9.2 x10^3uL (1.8-7.7) Lymphocytes # (Auto) 2.0 x10^3/uL (1.0-4.8) Monocytes # (Auto) 0.7 x10^3/uL (0.0-1.1) Eosinophils # (Auto) 0.4 x10^3/uL (0.0-0.7) Basophils # (Auto) 0.1 x10^3/uL (0.0-0.2) Prothrombin Time 12.6 SEC (11.7-14.0) Prothromb Time International Ratio 1.0 (0.8-1.1) Troponin I Quantitative < 0.017 ng/mL (0.000-0.055) ZG-Zxs-I-Type Natriuretic Peptide 299 pg/mL (0-124) Sodium Level 141 mmol/L (136-145) Potassium Level 4.4 mmol/L (3.5-5.1) Chloride Level 104 mmol/L (98-107) Carbon Dioxide Level 26 mmol/L (21-32) Anion Gap 11 (6-14) Blood Urea Nitrogen 18 mg/dL (8-26) Creatinine 0.8 mg/dL (0.7-1.3) Estimated GFR (Cockcroft-Gault) 100.4 Glucose Level 122 mg/dL (70-99) Calcium Level 9.0 mg/dL (8.5-10.1) Magnesium Level 1.9 mg/dL (1.8-2.4) Total Bilirubin 0.4 mg/dL (0.2-1.0) Direct Bilirubin 0.1 mg/dL (0.0-0.2) Aspartate Amino Transf (AST/SGOT) 17 U/L (15-37) Alanine Aminotransferase (ALT/SGPT) 16 U/L (16-63) Alkaline Phosphatase 97 U/L (46-116) Creatine Kinase 35 U/L (39-308) Creatine Kinase MB (Mass) < 0.5 ng/mL (0.0-3.6) Creatine Kinase MB Relative Index % (0-4) Total Protein 7.1 g/dL (6.4-8.2) Albumin 3.5 g/dL (3.4-5.0) Lipase 168 U/L (73-393) Urine Collection Type Unknown Urine Color Yellow Urine Clarity Turbid Urine pH 5.5 Urine Specific [place] >=1.030 Urine Protein Negative mg/dL (NEG-TRACE) Urine Glucose (UA) Negative mg/dL (NEG) Urine Ketones (Stick) Negative mg/dL (NEG) Urine Blood Negative (NEG) Urine Nitrite Negative (NEG) Urine Bilirubin Negative (NEG) Urine Urobilinogen Dipstick 0.2 mg/dL (0.2 mg/dL) Urine Leukocyte Esterase Negative (NEG) Urine RBC 0 /HPF (0-2) Urine WBC 0 /HPF (0-4) Urine Squamous Epithelial Cells Occ /LPF Urine Bacteria 0 /HPF (0-FEW) Urine Mucus Mod /LPF Urine Opiates Screen Neg (NEG) Urine Methadone Screen Neg (NEG) Urine Barbiturates Neg (NEG) Urine Phencyclidine Screen Neg (NEG) Urine Amphetamine/Methamphetamine Neg (NEG) Urine Benzodiazepines Screen Neg (NEG) Urine Cocaine Screen Neg (NEG) Urine Cannabinoids Screen Pos (NEG) Urine Ethyl Alcohol Neg (NEG) Influenza Type A Antigen Negative (NEGATIVE) Influenza Type B Antigen Negative (NEGATIVE) Test 04/02/17 21:01 04/02/17 23:55 04/03/17 00:05 04/03/17 05:50 Glucose (Fingerstick) 130 mg/dL (70-99) Troponin I Quantitative < 0.017 ng/mL (0.000-0.055) < 0.017 ng/mL (0.000-0.055) Heparin Anti-Xa Act, Unfractionated 0.40 IU/mL (0.30-0.70) 0.67 IU/mL (0.30-0.70) White Blood Count 10.1 x10^3/uL (4.0-11.0) Red Blood Count 4.67 x10^6/uL (4.30-5.70) Hemoglobin 14.1 g/dL (13.0-17.5) Hematocrit 43.0 % (39.0-53.0) Mean Corpuscular Volume 92 fL (79-100) Mean Corpuscular Hemoglobin 30 pg (25-35) Mean Corpuscular Hemoglobin Concent 33 g/dL (31-37) Red Cell Distribution Width 15.1 % (11.5-14.5) Platelet Count 197 x10^3/uL (140-400) Neutrophils (%) (Auto) 62 % (31-73) Lymphocytes (%) (Auto) 27 % (24-48) Monocytes (%) (Auto) 5 % (0-9) Eosinophils (%) (Auto) 4 % (0-3) Basophils (%) (Auto) 1 % (0-3) Neutrophils # (Auto) 6.3 x10^3uL (1.8-7.7) Lymphocytes # (Auto) 2.8 x10^3/uL (1.0-4.8) Monocytes # (Auto) 0.5 x10^3/uL (0.0-1.1) Eosinophils # (Auto) 0.4 x10^3/uL (0.0-0.7) Basophils # (Auto) 0.1 x10^3/uL (0.0-0.2) Sodium Level 139 mmol/L (136-145) Potassium Level 4.2 mmol/L (3.5-5.1) Chloride Level 104 mmol/L (98-107) Carbon Dioxide Level 27 mmol/L (21-32) Anion Gap 8 (6-14) Blood Urea Nitrogen 20 mg/dL (8-26) Creatinine 0.9 mg/dL (0.7-1.3) Estimated GFR (Cockcroft-Gault) 87.6 Glucose Level 91 mg/dL (70-99) Calcium Level 8.1 mg/dL (8.5-10.1) Test 04/03/17 07:58 Glucose (Fingerstick) 88 mg/dL (70-99) Laboratory Tests Test 04/02/17 16:10 04/02/17 16:35 04/02/17 18:07 04/02/17 18:45 White Blood Count 12.4 x10^3/uL (4.0-11.0) Red Blood Count 4.98 x10^6/uL (4.30-5.70) Hemoglobin 15.0 g/dL (13.0-17.5) Hematocrit 45.5 % (39.0-53.0) Mean Corpuscular Volume 91 fL (79-100) Mean Corpuscular Hemoglobin 30 pg (25-35) Mean Corpuscular Hemoglobin Concent 33 g/dL (31-37) Red Cell Distribution Width 15.0 % (11.5-14.5) Platelet Count 241 x10^3/uL (140-400) Neutrophils (%) (Auto) 75 % (31-73) Lymphocytes (%) (Auto) 16 % (24-48) Monocytes (%) (Auto) 5 % (0-9) Eosinophils (%) (Auto) 3 % (0-3) Basophils (%) (Auto) 1 % (0-3) Neutrophils # (Auto) 9.2 x10^3uL (1.8-7.7) Lymphocytes # (Auto) 2.0 x10^3/uL (1.0-4.8) Monocytes # (Auto) 0.7 x10^3/uL (0.0-1.1) Eosinophils # (Auto) 0.4 x10^3/uL (0.0-0.7) Basophils # (Auto) 0.1 x10^3/uL (0.0-0.2) Prothrombin Time 12.6 SEC (11.7-14.0) Prothromb Time International Ratio 1.0 (0.8-1.1) Troponin I Quantitative < 0.017 ng/mL (0.000-0.055) GZ-Ofo-M-Type Natriuretic Peptide 299 pg/mL (0-124) Sodium Level 141 mmol/L (136-145) Potassium Level 4.4 mmol/L (3.5-5.1) Chloride Level 104 mmol/L (98-107) Carbon Dioxide Level 26 mmol/L (21-32) Anion Gap 11 (6-14) Blood Urea Nitrogen 18 mg/dL (8-26) Creatinine 0.8 mg/dL (0.7-1.3) Estimated GFR (Cockcroft-Gault) 100.4 Glucose Level 122 mg/dL (70-99) Calcium Level 9.0 mg/dL (8.5-10.1) Magnesium Level 1.9 mg/dL (1.8-2.4) Total Bilirubin 0.4 mg/dL (0.2-1.0) Direct Bilirubin 0.1 mg/dL (0.0-0.2) Aspartate Amino Transf (AST/SGOT) 17 U/L (15-37) Alanine Aminotransferase (ALT/SGPT) 16 U/L (16-63) Alkaline Phosphatase 97 U/L (46-116) Creatine Kinase 35 U/L (39-308) Creatine Kinase MB (Mass) < 0.5 ng/mL (0.0-3.6) Creatine Kinase MB Relative Index % (0-4) Total Protein 7.1 g/dL (6.4-8.2) Albumin 3.5 g/dL (3.4-5.0) Lipase 168 U/L (73-393) Urine Collection Type Unknown Urine Color Yellow Urine Clarity Turbid Urine pH 5.5 Urine Specific [place] >=1.030 Urine Protein Negative mg/dL (NEG-TRACE) Urine Glucose (UA) Negative mg/dL (NEG) Urine Ketones (Stick) Negative mg/dL (NEG) Urine Blood Negative (NEG) Urine Nitrite Negative (NEG) Urine Bilirubin Negative (NEG) Urine Urobilinogen Dipstick 0.2 mg/dL (0.2 mg/dL) Urine Leukocyte Esterase Negative (NEG) Urine RBC 0 /HPF (0-2) Urine WBC 0 /HPF (0-4) Urine Squamous Epithelial Cells Occ /LPF Urine Bacteria 0 /HPF (0-FEW) Urine Mucus Mod /LPF Urine Opiates Screen Neg (NEG) Urine Methadone Screen Neg (NEG) Urine Barbiturates Neg (NEG) Urine Phencyclidine Screen Neg (NEG) Urine Amphetamine/Methamphetamine Neg (NEG) Urine Benzodiazepines Screen Neg (NEG) Urine Cocaine Screen Neg (NEG) Urine Cannabinoids Screen Pos (NEG) Urine Ethyl Alcohol Neg (NEG) Influenza Type A Antigen Negative (NEGATIVE) Influenza Type B Antigen Negative (NEGATIVE) Test 04/02/17 21:01 04/02/17 23:55 04/03/17 00:05 04/03/17 05:50 Glucose (Fingerstick) 130 mg/dL (70-99) Troponin I Quantitative < 0.017 ng/mL (0.000-0.055) < 0.017 ng/mL (0.000-0.055) Heparin Anti-Xa Act, Unfractionated 0.40 IU/mL (0.30-0.70) 0.67 IU/mL (0.30-0.70) White Blood Count 10.1 x10^3/uL (4.0-11.0) Red Blood Count 4.67 x10^6/uL (4.30-5.70) Hemoglobin 14.1 g/dL (13.0-17.5) Hematocrit 43.0 % (39.0-53.0) Mean Corpuscular Volume 92 fL (79-100) Mean Corpuscular Hemoglobin 30 pg (25-35) Mean Corpuscular Hemoglobin Concent 33 g/dL (31-37) Red Cell Distribution Width 15.1 % (11.5-14.5) Platelet Count 197 x10^3/uL (140-400) Neutrophils (%) (Auto) 62 % (31-73) Lymphocytes (%) (Auto) 27 % (24-48) Monocytes (%) (Auto) 5 % (0-9) Eosinophils (%) (Auto) 4 % (0-3) Basophils (%) (Auto) 1 % (0-3) Neutrophils # (Auto) 6.3 x10^3uL (1.8-7.7) Lymphocytes # (Auto) 2.8 x10^3/uL (1.0-4.8) Monocytes # (Auto) 0.5 x10^3/uL (0.0-1.1) Eosinophils # (Auto) 0.4 x10^3/uL (0.0-0.7) Basophils # (Auto) 0.1 x10^3/uL (0.0-0.2) Sodium Level 139 mmol/L (136-145) Potassium Level 4.2 mmol/L (3.5-5.1) Chloride Level 104 mmol/L (98-107) Carbon Dioxide Level 27 mmol/L (21-32) Anion Gap 8 (6-14) Blood Urea Nitrogen 20 mg/dL (8-26) Creatinine 0.9 mg/dL (0.7-1.3) Estimated GFR (Cockcroft-Gault) 87.6 Glucose Level 91 mg/dL (70-99) Calcium Level 8.1 mg/dL (8.5-10.1) Test 04/03/17 07:58 Glucose (Fingerstick) 88 mg/dL (70-99) Medications Current Medications Ondansetron HCl (Zofran) 4 mg PRN Q8HRS PRN IV NAUSEA/VOMITING; Start at 17:45; Stop 04/03/17 at 17:44 Morphine Sulfate 2 mg PRN Q2HR PRN IV PAIN Last administered on 04/03/17 06: 40; Start 04/02/17 at 17:45; Stop 04/03/17 at 17:44 Acetaminophen (Tylenol) 650 mg PRN Q6HRS PRN PO pain; Start 04/02/17 at 17:45 Diphenhydramine HCl (Benadryl) 25 mg PRN QHS PRN PO INSOMNIA; Start 04/02/17 at 17:45 Insulin Aspart (NovoLOG) 0-9 UNITS TIDWMEALS SQ ; Start 04/03/17 at 08:00 Dextrose (Dextrose 50%-Water Syringe) 12.5 gm PRN Q15MIN PRN IV SEE COMMENTS; Start 04/02/17 at 17:45 Aspirin (Ecotrin) 81 mg DAILYWBKFT PO Last administered on 04/03/17 09:23; Start 04/03/17 at 08:00 Atorvastatin Calcium (Lipitor) 80 mg QHS PO Last administered on 04/02/17 22: 30; Start 04/02/17 at 21:00 Clopidogrel Bisulfate (Plavix) 75 mg DAILY PO Last administered on 04/03/17 09:23; Start 04/03/17 at 09:00 Isosorbide Mononitrate (Imdur) 30 mg DAILY PO ; Start 04/03/17 at 09:00 Lisinopril (Prinivil) 40 mg HS PO Last administered on 04/02/17 22:24; Start 04/02/17 at 21:00 Metoprolol Succinate (Toprol Xl) 50 mg HS PO Last administered on 04/02/17 22 :26; Start 04/02/17 at 21:00; Stop 04/03/17 at 10:59; Status DC Metoprolol Succinate (Toprol Xl) 25 mg DAILY PO ; Start 04/03/17 at 09:00; Stop 04/03/17 at 10:59; Status DC Oxycodone/ Acetaminophen (Percocet 5/325) 2 tab PRN Q6HRS PRN PO PAIN Last administered on 04/02/17 23:54; Start 04/02/17 at 17:45 Ticagrelor (Brilinta) 90 mg BID PO ; Start 04/02/17 at 21:00; Stop 04/02/17 at 21:03; Status DC Vitamin D (Vitamin D3) 1,000 unit DAILY PO Last administered on 04/03/17 09: 23; Start 04/03/17 at 09:00 Fluoxetine HCl (PROzac) 40 mg QHS PO Last administered on 04/02/17 22:25; Start 04/02/17 at 21:00 Meloxicam (Mobic) 15 mg QHS PO Last administered on 04/02/17 22:24; Start at 21:00 Pantoprazole Sodium (Protonix) 40 mg QHS PO Last administered on 04/02/17 22: 24; Start 04/02/17 at 21:00 Heparin Sodium/ Dextrose 500 ml @ 20 mls/hr CONT PRN IV SEE I/O RECORD Last administered on 04/03/17 08:57; Start 04/02/17 at 17:45 Heparin Sodium (Porcine) (Heparin Sodium) 4,000 unit PRN Q6HRS PRN IV FOR UFH LEVEL LESS THAN 0.2; Start 04/02/17 at 17:45 Pneumococcal Polyvalent Vaccine (Do NOT chart on this placeholder) 0.5 each 1X ONCE MC ; Start 04/03/17 at 09:00; Stop 04/03/17 at 09:01; Status UNV Pneumococcal Polyvalent Vaccine (Pneumovax 23) 0.5 ml ONCE ONCE VAX IM ; Start 04/02/17 at 21:00; Stop 04/02/17 at 21:01; Status DC Nitroglycerin (Nitrostat) 0.4 mg STK-MED ONCE SL ; Start 04/03/17 at 06:42; Stop 04/03/17 at 06:43; Status DC Nitroglycerin (Nitrostat) 0.4 mg PRN Q5MIN PRN SL CHEST PAIN Last administered on 04/03/17t 06:59; Start 04/03/17 at 07:00 Active Scripts Active Atorvastatin Calcium 40 Mg Tablet 80 Mg PO QHS 30 Days Aspirin Ec (Aspirin) 81 Mg Tablet. 81 Mg PO DAILYWBKFT 30 Days Isosorbide Mononitrate Er (Isosorbide Mononitrate) 30 Mg Tab.er.24h 1 Tab PO DAILY Brilinta (Ticagrelor) 90 Mg Tablet 90 Mg PO BID 30 Days Reported Clopidogrel (Clopidogrel Bisulfate) 75 Mg Tablet 1 Tab PO DAILY Vitamin D (Cholecalciferol (Vitamin D3)) 400 Unit Capsule 800 Unit PO DAILY Prilosec Otc (Omeprazole Magnesium) 20 Mg Tablet. 1 Tab PO HS Lisinopril 40 Mg Tablet 40 Mg PO HS Fluoxetine Hcl 40 Mg Capsule 40 Mg PO HS Meloxicam 15 Mg Tablet 1 Tab PO HS Metoprolol Succinate 50 Mg Tab.er.24h 1 Tab PO HS Oxycodone-Acetaminophen 5-325 (Oxycodone Hcl/Acetaminophen) 1 Each Tablet 2 Tab PO PRN Q6HRS PRN Metoprolol Succinate ( Xl ) (Metoprolol Succinate) 25 Mg Tab.er.24h 1 Tab PO DAILY Vitals/I & O Vital Sign - Last 24 Hours 04/02/17 04/02/17 04/02/17 04/02/17 15:51 17:15 18:23 19:12 Temp 97.9 97.9 Pulse 61 68 62 Resp 20 20 20 20 B/P (MAP) 157/92 (113) 130/64 (86) 120/75 (90) Pulse Ox 95 95 94 96 O2 Delivery Room Air Room Air Room Air Room Air 04/02/17 04/02/17 04/02/17 04/02/17 19:20 19:50 19:55 22:24 Temp 98.8 98.8 Pulse 65 65 Resp 18 B/P (MAP) 120/75 (90) 120/75 Pulse Ox 96 O2 Delivery Room Air Room Air Room Air 04/02/17 04/02/17 04/02/17 04/03/17 22:26 22:29 23:54 00:54 Temp 98.3 98.3 Pulse 65 62 Resp 18 B/P (MAP) 120/75 129/77 (94) Pulse Ox 98 O2 Delivery Room Air Room Air Room Air 04/03/17 04/03/17 04/03/17 04/03/17 03:19 06:40 06:59 07:00 Temp 97.6 97.3 97.6 97.3 Pulse 47 50 54 Resp 18 20 B/P (MAP) 117/71 (86) 189/98 136/77 (96) Pulse Ox 95 98 O2 Delivery Room Air Nasal Cannula Room Air O2 Flow Rate 2.0 04/03/17 04/03/17 07:49 08:00 Resp 16 O2 Delivery Nasal Cannula Nasal Cannula O2 Flow Rate 2.0 2.0 Intake and Output 04/02/17 04/02/17 04/03/17 15:00 23:00 07:00 Intake Total 480 ml 0 ml Output Total 400 ml Balance 480 ml -400 ml KASSI ARAUJO MD Apr 03, 2017 11:36
[2017-04-03] MEDS: ISOSORBIDE MONONITRATE ER 30 MG TAB.ER.24H PO SCH (12:08)
[2017-04-03 15:00] VITALS: BP_SYST 108; BP_SYST 111; BP_DIAS 61; BP_DIAS 62
[2017-04-03] MEDS: oxyCODONE/APAP 5/325 1 TAB TABLET PO PRN (18:08)
[2017-04-03 19:25] VITALS: BP 126/62
[2017-04-03] MEDS: ATORVASTATIN CALCIUM 40 MG TABLET. PO SCH (20:28)
[2017-04-03] MEDS: PANTOPRAZOLE 40 MG TABLET.DR. PO SCH (20:28)
[2017-04-03] MEDS: LISINOPRIL 40 MG TABLET. PO SCH (20:28)
[2017-04-03] MEDS: FLUoxetine HCL 20 MG CAPSULE PO SCH (20:28)
[2017-04-03] MEDS: MELOXICAM 7.5 MG TABLET PO SCH (20:29)
[2017-04-03 23:25] VITALS: BP 125/65
[2017-04-04] VITALS (10 sets, daily range): BP systolic 117–174; BP diastolic 63–93
[2017-04-04] MEDS ORDERED: MORPHINE SULFATE 2 MG/ML DISP.SYRIN. IV PRN (07:00)
[2017-04-04] MEDS ORDERED: LIDOCAINE 1% PF 2 ML VIAL. ID PRN (07:00)
[2017-04-04] MEDS ORDERED: IV RINGERS,LACTATED 1000ML 1,000 ML IV SCH (07:00)
[2017-04-04] MEDS ORDERED: fentaNYL PF VIAL 100 MCG/2 ML VIAL IV PRN ×3 (07:00→16:30)
[2017-04-04] MEDS ORDERED: ONDANSETRON PF 4 MG/2 ML VIAL. IV PRN (07:00)
[2017-04-04] MEDS ORDERED: HYDROmorphone 2 MG/ML VIAL IV PRN (07:00)
[2017-04-04] MEDS ORDERED: PROCHLORPERAZINE 10 MG/2 ML VIAL. IV PRN (07:00)
[2017-04-04] MEDS: INSULIN ASPART 300 UNITS/3 ML INSULN.PEN SQ SCH ×3 (08:00→17:00)
[2017-04-04] MEDS ORDERED: ANTI-COAG MONITOR BY PHARMACY. MC PRN (08:00)
[2017-04-04] MEDS: ASPIRIN ENTERIC COATED 81 MG TABLET.DR. PO SCH (08:00)
[2017-04-04] MEDS: ISOSORBIDE MONONITRATE ER 30 MG TAB.ER.24H PO SCH (08:44)
[2017-04-04] MEDS: CHOLECALCIFEROL (VITAMIN D3) 1,000 UNIT TABLET PO SCH (08:44)
[2017-04-04] MEDS: oxyCODONE/APAP 5/325 1 TAB TABLET PO PRN ×2 (09:46→18:32)
[2017-04-04] MEDS: CLOPIDOGREL BISULFATE 75 MG TABLET PO SCH (09:46)
--- NOTE | 2017-04-04 10:27 | PDOC ---
PROGRESS NOTES Chief Complaint Chief Complaint Chest pain in a known cardiac patient, indwelling 2 stents Morbid obesity BMI 49.4 Hypertension controlled and dyslipidemia controlled Occasional alcohol drinker Rotator cuff injury left shoulder is tender 2017 leukocytosis, viral URI likely - resolved History of Present Illness History of Present Illness WBC down to normal from 12 on admission. Didn't used to have chest pain today I walked in there and he looked uncomfortable Heparin drip running Vital signs stable Troponins have been negative 2 or 3 Pattern LHC later at 2:30 PM He describes the chest pain is midsternal to left, radiating to the back, "coming from the inside" sharp and is, squeezing Plan: Check a CAT scan of the chest just given the persistent nature of this chest pain with negative CE and is currently on heparin drip with reassuring vital signs and EKG LHC later per cardiology Has been nothing by mouth Discussed with RASHEL kuo Vitals Vitals Vital Signs Date Time Temp Pulse Resp B/P (MAP) Pulse Ox O2 Delivery O2 Flow Rate FiO2 04/04/17 09:46 Room Air 04/04/17 07:00 97.7 56 20 135/66 (89) 96 2.0 97.7 Physical Exam General: Alert, Oriented X3, Cooperative, No acute distress Heart: Regular rate Lungs: Clear Abdomen: Normal bowel sounds, Soft, No tenderness, No hepatosplenomegaly, No masses Extremities: No clubbing, No cyanosis, No edema, Normal pulses, No tenderness/ swelling Skin: No rashes, No breakdown, No significant lesion Labs LABS Laboratory Tests Test 04/03/17 10:35 04/03/17 11:55 04/03/17 16:35 04/03/17 20:00 Glucose (Fingerstick) 88 mg/dL (70-99) 117 mg/dL (70-99) Heparin Anti-Xa Act, Unfractionated 0.63 IU/mL (0.30-0.70) 0.29 IU/mL (0.30-0.70) Test 04/03/17 20:38 04/04/17 01:50 04/04/17 07:39 04/04/17 08:15 Glucose (Fingerstick) 120 mg/dL (70-99) 86 mg/dL (70-99) Heparin Anti-Xa Act, Unfractionated 0.58 IU/mL (0.30-0.70) 0.63 IU/mL (0.30-0.70) Review of Systems Review of Systems Positive for chest pain, back pain no SOA A 14 point ROS was completed with the following noted as positive: Other systems reviewed and negative. \\CONSTITUTIONAL: No fever or chills EYES: No recent changes SKIN: No rash or itching CARDIOVASCULAR: No chest pain, syncope, palpitations, or edema RESPIRATORY: No SOB or cough GASTROINTESTINAL: No nausea, vomiting or abdominal pain NEUROLOGICAL: No headaches or weakness ENDOCRINE: No cold or heat intolerance GENITOURINARY: No urgency or frequency of urination MUSCULOSKELETAL: No back pain or joint pain LYMPHATICS: No enlarged lymph nodes PSYCHIATRIC: No anxiety or depression Assessment and Plan Assessmemt and Plan Problems Medical Problems: (1) Chest pain Status: Acute Problems: Comment Review of Relevant I have reviewed the following items josé (where applicable) has been applied. Labs Laboratory Tests Test 04/02/17 16:10 04/02/17 16:35 04/02/17 18:07 04/02/17 18:45 White Blood Count 12.4 x10^3/uL (4.0-11.0) Red Blood Count 4.98 x10^6/uL (4.30-5.70) Hemoglobin 15.0 g/dL (13.0-17.5) Hematocrit 45.5 % (39.0-53.0) Mean Corpuscular Volume 91 fL (79-100) Mean Corpuscular Hemoglobin 30 pg (25-35) Mean Corpuscular Hemoglobin Concent 33 g/dL (31-37) Red Cell Distribution Width 15.0 % (11.5-14.5) Platelet Count 241 x10^3/uL (140-400) Neutrophils (%) (Auto) 75 % (31-73) Lymphocytes (%) (Auto) 16 % (24-48) Monocytes (%) (Auto) 5 % (0-9) Eosinophils (%) (Auto) 3 % (0-3) Basophils (%) (Auto) 1 % (0-3) Neutrophils # (Auto) 9.2 x10^3uL (1.8-7.7) Lymphocytes # (Auto) 2.0 x10^3/uL (1.0-4.8) Monocytes # (Auto) 0.7 x10^3/uL (0.0-1.1) Eosinophils # (Auto) 0.4 x10^3/uL (0.0-0.7) Basophils # (Auto) 0.1 x10^3/uL (0.0-0.2) Prothrombin Time 12.6 SEC (11.7-14.0) Prothromb Time International Ratio 1.0 (0.8-1.1) Troponin I Quantitative < 0.017 ng/mL (0.000-0.055) QS-Lpp-T-Type Natriuretic Peptide 299 pg/mL (0-124) Sodium Level 141 mmol/L (136-145) Potassium Level 4.4 mmol/L (3.5-5.1) Chloride Level 104 mmol/L (98-107) Carbon Dioxide Level 26 mmol/L (21-32) Anion Gap 11 (6-14) Blood Urea Nitrogen 18 mg/dL (8-26) Creatinine 0.8 mg/dL (0.7-1.3) Estimated GFR (Cockcroft-Gault) 100.4 Glucose Level 122 mg/dL (70-99) Calcium Level 9.0 mg/dL (8.5-10.1) Magnesium Level 1.9 mg/dL (1.8-2.4) Total Bilirubin 0.4 mg/dL (0.2-1.0) Direct Bilirubin 0.1 mg/dL (0.0-0.2) Aspartate Amino Transf (AST/SGOT) 17 U/L (15-37) Alanine Aminotransferase (ALT/SGPT) 16 U/L (16-63) Alkaline Phosphatase 97 U/L (46-116) Creatine Kinase 35 U/L (39-308) Creatine Kinase MB (Mass) < 0.5 ng/mL (0.0-3.6) Creatine Kinase MB Relative Index % (0-4) Total Protein 7.1 g/dL (6.4-8.2) Albumin 3.5 g/dL (3.4-5.0) Lipase 168 U/L (73-393) Urine Collection Type Unknown Urine Color Yellow Urine Clarity Turbid Urine pH 5.5 Urine Specific [place] >=1.030 Urine Protein Negative mg/dL (NEG-TRACE) Urine Glucose (UA) Negative mg/dL (NEG) Urine Ketones (Stick) Negative mg/dL (NEG) Urine Blood Negative (NEG) Urine Nitrite Negative (NEG) Urine Bilirubin Negative (NEG) Urine Urobilinogen Dipstick 0.2 mg/dL (0.2 mg/dL) Urine Leukocyte Esterase Negative (NEG) Urine RBC 0 /HPF (0-2) Urine WBC 0 /HPF (0-4) Urine Squamous Epithelial Cells Occ /LPF Urine Bacteria 0 /HPF (0-FEW) Urine Mucus Mod /LPF Urine Opiates Screen Neg (NEG) Urine Methadone Screen Neg (NEG) Urine Barbiturates Neg (NEG) Urine Phencyclidine Screen Neg (NEG) Urine Amphetamine/Methamphetamine Neg (NEG) Urine Benzodiazepines Screen Neg (NEG) Urine Cocaine Screen Neg (NEG) Urine Cannabinoids Screen Pos (NEG) Urine Ethyl Alcohol Neg (NEG) Influenza Type A Antigen Negative (NEGATIVE) Influenza Type B Antigen Negative (NEGATIVE) Test 04/02/17 21:01 04/02/17 23:55 04/03/17 00:05 04/03/17 05:50 Glucose (Fingerstick) 130 mg/dL (70-99) Troponin I Quantitative < 0.017 ng/mL (0.000-0.055) < 0.017 ng/mL (0.000-0.055) Heparin Anti-Xa Act, Unfractionated 0.40 IU/mL (0.30-0.70) 0.67 IU/mL (0.30-0.70) White Blood Count 10.1 x10^3/uL (4.0-11.0) Red Blood Count 4.67 x10^6/uL (4.30-5.70) Hemoglobin 14.1 g/dL (13.0-17.5) Hematocrit 43.0 % (39.0-53.0) Mean Corpuscular Volume 92 fL (79-100) Mean Corpuscular Hemoglobin 30 pg (25-35) Mean Corpuscular Hemoglobin Concent 33 g/dL (31-37) Red Cell Distribution Width 15.1 % (11.5-14.5) Platelet Count 197 x10^3/uL (140-400) Neutrophils (%) (Auto) 62 % (31-73) Lymphocytes (%) (Auto) 27 % (24-48) Monocytes (%) (Auto) 5 % (0-9) Eosinophils (%) (Auto) 4 % (0-3) Basophils (%) (Auto) 1 % (0-3) Neutrophils # (Auto) 6.3 x10^3uL (1.8-7.7) Lymphocytes # (Auto) 2.8 x10^3/uL (1.0-4.8) Monocytes # (Auto) 0.5 x10^3/uL (0.0-1.1) Eosinophils # (Auto) 0.4 x10^3/uL (0.0-0.7) Basophils # (Auto) 0.1 x10^3/uL (0.0-0.2) Sodium Level 139 mmol/L (136-145) Potassium Level 4.2 mmol/L (3.5-5.1) Chloride Level 104 mmol/L (98-107) Carbon Dioxide Level 27 mmol/L (21-32) Anion Gap 8 (6-14) Blood Urea Nitrogen 20 mg/dL (8-26) Creatinine 0.9 mg/dL (0.7-1.3) Estimated GFR (Cockcroft-Gault) 87.6 Glucose Level 91 mg/dL (70-99) Calcium Level 8.1 mg/dL (8.5-10.1) Test 04/03/17 07:58 04/03/17 10:35 04/03/17 11:55 04/03/17 16:35 Glucose (Fingerstick) 88 mg/dL (70-99) 88 mg/dL (70-99) 117 mg/dL (70-99) Heparin Anti-Xa Act, Unfractionated 0.63 IU/mL (0.30-0.70) Test 04/03/17 20:00 04/03/17 20:38 04/04/17 01:50 04/04/17 07:39 Heparin Anti-Xa Act, Unfractionated 0.29 IU/mL (0.30-0.70) 0.58 IU/mL (0.30-0.70) Glucose (Fingerstick) 120 mg/dL (70-99) 86 mg/dL (70-99) Test 04/04/17 08:15 Heparin Anti-Xa Act, Unfractionated 0.63 IU/mL (0.30-0.70) Laboratory Tests Test 04/03/17 10:35 04/03/17 11:55 04/03/17 16:35 04/03/17 20:00 Glucose (Fingerstick) 88 mg/dL (70-99) 117 mg/dL (70-99) Heparin Anti-Xa Act, Unfractionated 0.63 IU/mL (0.30-0.70) 0.29 IU/mL (0.30-0.70) Test 04/03/17 20:38 04/04/17 01:50 04/04/17 07:39 04/04/17 08:15 Glucose (Fingerstick) 120 mg/dL (70-99) 86 mg/dL (70-99) Heparin Anti-Xa Act, Unfractionated 0.58 IU/mL (0.30-0.70) 0.63 IU/mL (0.30-0.70) Medications Current Medications Ondansetron HCl (Zofran) 4 mg PRN Q8HRS PRN IV NAUSEA/VOMITING; Start at 17:45; Stop 04/03/17 at 17:44; Status DC Morphine Sulfate 2 mg PRN Q2HR PRN IV PAIN Last administered on 04/03/17 11: 58; Start 04/02/17 at 17:45; Stop 04/03/17 at 17:44; Status DC Acetaminophen (Tylenol) 650 mg PRN Q6HRS PRN PO pain Last administered on 04/03 20:28; Start 04/02/17 at 17:45 Diphenhydramine HCl (Benadryl) 25 mg PRN QHS PRN PO INSOMNIA; Start 04/02/17 at 17:45 Insulin Aspart (NovoLOG) 0-9 UNITS TIDWMEALS SQ ; Start 04/03/17 at 08:00 Dextrose (Dextrose 50%-Water Syringe) 12.5 gm PRN Q15MIN PRN IV SEE COMMENTS; Start 04/02/17 at 17:45 Aspirin (Ecotrin) 81 mg DAILYWBKFT PO Last administered on 04/03/17 09:23; Start 04/03/17 at 08:00 Atorvastatin Calcium (Lipitor) 80 mg QHS PO Last administered on 04/03/17 20: 28; Start 04/02/17 at 21:00 Clopidogrel Bisulfate (Plavix) 75 mg DAILY PO Last administered on 04/04/17 09:46; Start 04/03/17 at 09:00 Isosorbide Mononitrate (Imdur) 30 mg DAILY PO Last administered on 04/03/17 12:08; Start 04/03/17 at 09:00 Lisinopril (Prinivil) 40 mg HS PO Last administered on 04/03/17 20:28; Start 04/02/17 at 21:00 Metoprolol Succinate (Toprol Xl) 50 mg HS PO Last administered on 04/02/17 22 :26; Start 04/02/17 at 21:00; Stop 04/03/17 at 10:59; Status DC Metoprolol Succinate (Toprol Xl) 25 mg DAILY PO ; Start 04/03/17 at 09:00; Stop 04/03/17 at 10:59; Status DC Oxycodone/ Acetaminophen (Percocet 5/325) 2 tab PRN Q6HRS PRN PO PAIN Last administered on 04/04/17 09:46; Start 04/02/17 at 17:45 Ticagrelor (Brilinta) 90 mg BID PO ; Start 04/02/17 at 21:00; Stop 04/02/17 at 21:03; Status DC Vitamin D (Vitamin D3) 1,000 unit DAILY PO Last administered on 04/03/17 09: 23; Start 04/03/17 at 09:00 Fluoxetine HCl (PROzac) 40 mg QHS PO Last administered on 04/03/17 20:28; Start 04/02/17 at 21:00 Meloxicam (Mobic) 15 mg QHS PO Last administered on 04/03/17 20:29; Start at 21:00 Pantoprazole Sodium (Protonix) 40 mg QHS PO Last administered on 04/03/17 20: 28; Start 04/02/17 at 21:00 Heparin Sodium/ Dextrose 500 ml @ 20 mls/hr CONT PRN IV SEE I/O RECORD Last administered on 04/03/17 23:35; Start 04/02/17 at 17:45 Heparin Sodium (Porcine) (Heparin Sodium) 4,000 unit PRN Q6HRS PRN IV FOR UFH LEVEL LESS THAN 0.2; Start 04/02/17 at 17:45 Pneumococcal Polyvalent Vaccine (Do NOT chart on this placeholder) 0.5 each 1X ONCE MC ; Start 04/03/17 at 09:00; Stop 04/03/17 at 09:01; Status UNV Pneumococcal Polyvalent Vaccine (Pneumovax 23) 0.5 ml ONCE ONCE VAX IM ; Start 04/02/17 at 21:00; Stop 04/02/17 at 21:01; Status DC Nitroglycerin (Nitrostat) 0.4 mg STK-MED ONCE SL ; Start 04/03/17 at 06:42; Stop 04/03/17 at 06:43; Status DC Nitroglycerin (Nitrostat) 0.4 mg PRN Q5MIN PRN SL CHEST PAIN Last administered on 04/03/17t 06:59; Start 04/03/17 at 07:00 Ondansetron HCl (Zofran) 4 mg PRN Q6HRS PRN IV NAUSEA/VOMITING; Start at 07:00; Stop 04/05/17 at 06:59 Fentanyl Citrate (Fentanyl 2ml Vial) 25 mcg PRN Q5MIN PRN IV MILD PAIN; Start 04/04/17 at 07:00; Stop 04/05/17 at 06:59 Fentanyl Citrate (Fentanyl 2ml Vial) 50 mcg PRN Q5MIN PRN IV MODERATE TO SEVERE PAIN; Start 04/04/17 at 07:00; Stop 04/05/17 at 06:59 Morphine Sulfate 1 mg PRN Q10MIN PRN IV SEVERE PAIN; Start 04/04/17 at 07:00; Stop 04/05/17 at 06:59 Ringer's Solution 1,000 ml @ 30 mls/hr Q24H IV ; Start 04/04/17 at 07:00; Stop 04/04/17 at 18:59 Lidocaine HCl (Xylocaine-Mpf 1% Vial) 2 ml PRN 1X PRN ID IV START; Start 04/04 at 07:00; Stop 04/05/17 at 06:59 Hydromorphone HCl (Dilaudid) 0.5 mg PRN Q10MIN PRN IV SEV PAIN, Second choice; Start 04/04/17 at 07:00; Stop 04/05/17 at 06:59 Prochlorperazine Edisylate (Compazine) 5 mg PACU PRN PRN IV NAUSEA, MRX1; Start 04/04/17 at 07:00; Stop 04/05/17 at 06:59 Info (Anti-Coagulation Monitoring By Pharmacy) 1 each PRN DAILY PRN MC SEE COMMENTS; Start 04/04/17 at 08:00 Active Scripts Active Atorvastatin Calcium 40 Mg Tablet 80 Mg PO QHS 30 Days Aspirin Ec (Aspirin) 81 Mg Tablet. 81 Mg PO DAILYWBKFT 30 Days Isosorbide Mononitrate Er (Isosorbide Mononitrate) 30 Mg Tab.er.24h 1 Tab PO DAILY Brilinta (Ticagrelor) 90 Mg Tablet 90 Mg PO BID 30 Days Reported Clopidogrel (Clopidogrel Bisulfate) 75 Mg Tablet 1 Tab PO DAILY Vitamin D (Cholecalciferol (Vitamin D3)) 400 Unit Capsule 800 Unit PO DAILY Prilosec Otc (Omeprazole Magnesium) 20 Mg Tablet.dr 1 Tab PO HS Lisinopril 40 Mg Tablet 40 Mg PO HS Fluoxetine Hcl 40 Mg Capsule 40 Mg PO HS Meloxicam 15 Mg Tablet 1 Tab PO HS Metoprolol Succinate 50 Mg Tab.er.24h 1 Tab PO HS Oxycodone-Acetaminophen 5-325 (Oxycodone Hcl/Acetaminophen) 1 Each Tablet 2 Tab PO PRN Q6HRS PRN Metoprolol Succinate ( Xl ) (Metoprolol Succinate) 25 Mg Tab.er.24h 1 Tab PO DAILY Vitals/I & O Vital Sign - Last 24 Hours 04/03/17 04/03/17 04/03/17 04/03/17 11:00 11:58 12:08 12:28 Temp 97.5 97.5 Pulse 52 53 Resp 20 18 16 B/P (MAP) 136/66 (89) 166/85 Pulse Ox 97 O2 Delivery Room Air Nasal Cannula Room Air O2 Flow Rate 2.0 04/03/17 04/03/17 04/03/17 04/03/17 15:00 15:00 18:08 19:19 Temp 98.4 98.4 Pulse 62 Resp 19 16 16 B/P (MAP) 111/61 (78) 108/62 (77) Pulse Ox 99 O2 Delivery Room Air Nasal Cannula Room Air O2 Flow Rate 2.0 04/03/17 04/03/17 04/03/17 04/03/17 19:25 20:02 20:28 23:25 Temp 98.0 98.1 98.0 98.1 Pulse 58 62 56 Resp 18 18 B/P (MAP) 126/62 (83) 126/62 125/65 (85) Pulse Ox 95 96 O2 Delivery Room Air Nasal Cannula Nasal Cannula O2 Flow Rate 2.0 2.0 2.0 04/04/17 04/04/17 04/04/17 03:30 07:00 09:46 Temp 97.9 97.7 97.9 97.7 Pulse 52 56 Resp 18 20 B/P (MAP) 122/63 (82) 135/66 (89) Pulse Ox 99 96 O2 Delivery Nasal Cannula Nasal Cannula Room Air O2 Flow Rate 2.0 2.0 Intake and Output 04/03/17 04/03/17 04/04/17 15:00 23:00 07:00 Intake Total 250 ml 2500 ml 400 ml Output Total 0 ml 950 ml 350 ml Balance 250 ml 1550 ml 50 ml KASSI ARAUJO MD Apr 04, 2017 10:27
[2017-04-04] MEDS: MORPHINE SULFATE 2 MG/ML DISP.SYRIN. IV PRN ×2 (11:21→20:24)
--- NOTE | 2017-04-04 11:45 | RAD ---
CT scan of the chest without contrast 04/04/2017 Clinical history: Chest pain and shortness of breath. Technique: Unenhanced, contiguous, 5 mm axial sections were obtained through the chest and upper abdomen. One or more of the following individualized dose reduction techniques were utilized for this study: 1. Automated exposure control. 2. Adjustment of the mA and/or kV according to patient size. 3. Use of iterative reconstruction technique. Findings: Comparison study is dated 12/30/2016. Mild scattered atherosclerotic plaque formation is seen involving the thoracic aorta arch and its branches. The thoracic aorta tapers normally. Coronary artery calcifications are seen. The heart is normal in size. No hilar, mediastinal or axillary lymphadenopathy is noted. No acute pulmonary infiltrate is seen. No pleural effusion or pneumothorax is noted. Degenerative changes are seen involving the thoracic spine. Mild S-shaped curvature of the thoracolumbar spine is seen. Images through the upper abdomen demonstrate a 2.5 cm rounded low-attenuation lesion involving the superior pole of the right kidney. This likely represents a cyst. It is unchanged. Impression: No acute abnormality is seen.
[2017-04-04] MEDS ORDERED: LIDOCAINE 2% 20 ML VIAL. ONE (12:56)
[2017-04-04] MEDS ORDERED: PROPOFOL 60 ML IV ONE (13:21)
[2017-04-04] MEDS ORDERED: MIDAZOLAM HCL/PF 2 MG/2 ML VIAL. ONE ×2 (13:22)
--- NOTE | 2017-04-04 13:33 | PDOC ---
MODERATE SEDATION ASSESSMENT RISKS/ALTERNATIVES Risks/Alternatives Risks and alternatives of this type of sedation and procedure discussed with: RISK/ALTERNATIVES: Patient H & P ON CHART H & P H & P on chart and reviewed for co-morbid conditions and appropriate labs. H&P ON CHART: Yes STATUS PREG STATUS ASSESSED: N/A MEDS/ALLERGIES REVIEWED Meds/Allergies Reviewed Medications and Allergies including time and route of recently administered narcotics and sedatives. MEDS/ALLERGIES REVIEWED: Yes ASA RATING ASA RATING: III AIRWAY ASSESSMENT Airway Assessment Airway patency, oral function limitations, presence of caps, crowns, dentures, partials, and ability to extend neck assessed. AIRWAY ASSESSMENT: Yes MALLAMPATI SCORE MALLAMPATI SCORE: III PRE-SEDATION ASSESSMENT PRE-SEDATION ASSESSMENT: Yes CLIF NÚÑEZ MD Apr 04, 2017 13:33
[2017-04-04] MEDS ORDERED: HEPARIN for IV BOLUS 10,000 UNIT/10 ML VIAL. ONE ×2 (14:01→14:34)
[2017-04-04] MEDS ORDERED: PROPOFOL 40 ML IV ONE (14:16)
[2017-04-04] MEDS ORDERED: NITROGLYCERIN PREMIX 250 ML IV ONE ×2 (14:43→16:15)
[2017-04-04] MEDS ORDERED: fentaNYL PF VIAL 100 MCG/2 ML VIAL ONE (15:36)
[2017-04-04] MEDS ORDERED: IODIXANOL 320 MG/ML 100 ML VIAL. ONE (15:50)
[2017-04-04] MEDS ORDERED: fentaNYL PF VIAL 100 MCG/2 ML VIAL IV ONE (16:15)
[2017-04-04] MEDS ORDERED: IOHEXOL 300 MG/ML 100ML VIAL. IART ONE (16:15)
[2017-04-04] MEDS ORDERED: LIDOCAINE 2% 20 ML VIAL. IJ ONE (16:15)
[2017-04-04] MEDS ORDERED: HEPARIN for IV BOLUS 10,000 UNIT/10 ML VIAL. IV ONE (16:15)
[2017-04-04] MEDS ORDERED: NITROGLYCERIN 200 MCG/2 ML SYRINGE FOR CATH/VASC LAB. ICAR ONE (16:15)
[2017-04-04] MEDS ORDERED: CONTRAST GIVEN MC PRN (16:15)
[2017-04-04] MEDS ORDERED: ATROPINE 0.5 MG/5 ML DISP.SYRIN. IV PRN (16:30)
[2017-04-04] MEDS ORDERED: LIDOCAINE 2% 100 MG/5 ML SYRINGE. IV PRN (16:30)
[2017-04-04] MEDS ORDERED: NITROGLYCERIN SUBLINGUAL 0.4 MG BOTTLE OF 25. SL PRN (16:30)
[2017-04-04] MEDS ORDERED: AMIODARONE 150 MG in IV DEXTROSE 5% 100 ML IV PRN (16:30)
[2017-04-04] MEDS ORDERED: ACETAMINOPHEN 325 MG TABLET. PO PRN (16:30)
[2017-04-04] MEDS ORDERED: 0.9 % SODIUM CHLORIDE 10 ML DISP.SYRIN. IV PRN (16:30)
[2017-04-04] MEDS ORDERED: PROPOFOL 100 ML IV ONE (16:31)
--- NOTE | 2017-04-04 16:42 | CARD ---
MR#: [id number] Date of Study: 04/04/2017 Ordering Physician: ROBERT SCHAFER, Referring Physician: KASSI ARAUJO Tech: RT Eric (R) APPROVED REPORT Technologist: RT Eric (R) JENNIFER Nurse: Trisha Cordova R.N. Procedure(s) performed: ANESTHESIA PROVIDED SEDATION CORONARY ANGIOGRAPHY PCI OF THE RCA HISTORY The patient is a 56 year-old male with a history of : coronary artery disease, hypertension, dyslipid emia. INDICATION The indication(s) include : unstable angina . PROCEDURE NARRATIVE After appropriate informed consent the patient was brought to the catheterization laboratory for diag nostic coronary angiogram. The patient was prepped and draped in usual sterile fashion. Anesthesia pr ovided sedation as previously the patient had significant back pain due to his obesity and musculoske letal issues. After appropriate sedation with propofol, 2% lidocaine anesthesia was administered to the right groin . An 18-gauge needle was used to enter the right common femoral artery and a J-tipped guidewire was a dvanced without difficulty. A 6 [place] sheath was then placed successfully. Next, diagnostic and salomón ry was performed with a JL4 and a JR4 catheter. Findings: Left main has no significant obstructive disease and is moderate in caliber. Left circumflex is a small caliber nondominant vessel with a mid 50% stenosis. First OM is a small caliber vessel with a ostial 30% stenosis. LAD is a moderate caliber vessel without any significant disease. D1 and D2 are small to moderate caliber vessels without any significant obstructive disease. RCA is a large caliber vessel with patent mid stents and a distal bifurcation stenosis involving the PDA ostium of approximately 90%. Interventional technique: Based upon the injury graphic findings with restenosis after previous balloon angioplasty 4 months ag o and chest pain and intervention was then planned. Heparin only was used for an to regulation to cuate ntain an ACT above 250. Through a 6 [place] JR4 guide catheter initial attempts to wire past the ostiu m of the PDA were unsuccessful using a pro-water, [employer] pilot 200 wires. Despite the support of a 2.0 by 15 mm balloon the lesion could not be traversed. Next, a wire was placed in the mid RPL and the ostium of the RPL was then occluded with a balloon that was not inflated and a corporation pilot 200 wire wa s then used in conjunction with the balloon at the level of the ostium of the RPL and was ultimately able to traverse the ostial PDA stenosis. Balloon angioplasty was then performed with a 2.0 trek ball oon. The distal RCA extending into the proximal PDA was then stented with a 2.5 x 18 mm drug-eluting stent. Next, the distal RCA was stented with a 3.0 x 12 mm Xience KYLIE. Post-PCI angiography demonstra sandra excellent stent expansion with BAYRON 3 flow in the vessel. The patient was given Plavix 300mg at c ase completion. The femoral sheath was removed and an Angioseal device was placed for hemostasis. Conclusion 1. One vessel CAD involving the distal RCA 2. Successful PCI of the distal RCA extending into the proximal PDA with implantation of overlapping Xience 3.0/12 and 2.5/12 KYLIE. Recommendations ASA 81mg daily indefinitely Plavix 75mg daily indefinitely if tolerated Cardiac rehab referral Risk factor modification. Signed by : Archie Leyva, Electronically Approved : 04/04/2017 16:42:29
[2017-04-04] MEDS ORDERED: CLOPIDOGREL BISULFATE 75 MG TABLET PO ONE (16:45)
--- NOTE | 2017-04-04 17:05 | PDOC ---
PULMONARY PROGRESS NOTES Vitals Vital Signs Date Time Temp Pulse Resp B/P (MAP) Pulse Ox O2 Delivery O2 Flow Rate FiO2 04/04/17 16:09 27 04/04/17 11:54 Room Air 04/04/17 11:01 97.6 52 117/72 (87) 96 2.0 97.6 Labs Laboratory Tests Test 04/02/17 18:07 04/02/17 18:45 04/02/17 21:01 04/02/17 23:55 Urine Collection Type Unknown Urine Color Yellow Urine Clarity Turbid Urine pH 5.5 Urine Specific [place] >=1.030 Urine Protein Negative mg/dL (NEG-TRACE) Urine Glucose (UA) Negative mg/dL (NEG) Urine Ketones (Stick) Negative mg/dL (NEG) Urine Blood Negative (NEG) Urine Nitrite Negative (NEG) Urine Bilirubin Negative (NEG) Urine Urobilinogen Dipstick 0.2 mg/dL (0.2 mg/dL) Urine Leukocyte Esterase Negative (NEG) Urine RBC 0 /HPF (0-2) Urine WBC 0 /HPF (0-4) Urine Squamous Epithelial Cells Occ /LPF Urine Bacteria 0 /HPF (0-FEW) Urine Mucus Mod /LPF Urine Opiates Screen Neg (NEG) Urine Methadone Screen Neg (NEG) Urine Barbiturates Neg (NEG) Urine Phencyclidine Screen Neg (NEG) Urine Amphetamine/Methamphetamine Neg (NEG) Urine Benzodiazepines Screen Neg (NEG) Urine Cocaine Screen Neg (NEG) Urine Cannabinoids Screen Pos (NEG) Urine Ethyl Alcohol Neg (NEG) Influenza Type A Antigen Negative (NEGATIVE) Influenza Type B Antigen Negative (NEGATIVE) Glucose (Fingerstick) 130 mg/dL (70-99) Troponin I Quantitative < 0.017 ng/mL (0.000-0.055) Test 04/03/17 00:05 04/03/17 05:50 04/03/17 07:58 04/03/17 10:35 Heparin Anti-Xa Act, Unfractionated 0.40 IU/mL (0.30-0.70) 0.67 IU/mL (0.30-0.70) White Blood Count 10.1 x10^3/uL (4.0-11.0) Red Blood Count 4.67 x10^6/uL (4.30-5.70) Hemoglobin 14.1 g/dL (13.0-17.5) Hematocrit 43.0 % (39.0-53.0) Mean Corpuscular Volume 92 fL (79-100) Mean Corpuscular Hemoglobin 30 pg (25-35) Mean Corpuscular Hemoglobin Concent 33 g/dL (31-37) Red Cell Distribution Width 15.1 % (11.5-14.5) Platelet Count 197 x10^3/uL (140-400) Neutrophils (%) (Auto) 62 % (31-73) Lymphocytes (%) (Auto) 27 % (24-48) Monocytes (%) (Auto) 5 % (0-9) Eosinophils (%) (Auto) 4 % (0-3) Basophils (%) (Auto) 1 % (0-3) Neutrophils # (Auto) 6.3 x10^3uL (1.8-7.7) Lymphocytes # (Auto) 2.8 x10^3/uL (1.0-4.8) Monocytes # (Auto) 0.5 x10^3/uL (0.0-1.1) Eosinophils # (Auto) 0.4 x10^3/uL (0.0-0.7) Basophils # (Auto) 0.1 x10^3/uL (0.0-0.2) Sodium Level 139 mmol/L (136-145) Potassium Level 4.2 mmol/L (3.5-5.1) Chloride Level 104 mmol/L (98-107) Carbon Dioxide Level 27 mmol/L (21-32) Anion Gap 8 (6-14) Blood Urea Nitrogen 20 mg/dL (8-26) Creatinine 0.9 mg/dL (0.7-1.3) Estimated GFR (Cockcroft-Gault) 87.6 Glucose Level 91 mg/dL (70-99) Calcium Level 8.1 mg/dL (8.5-10.1) Troponin I Quantitative < 0.017 ng/mL (0.000-0.055) Glucose (Fingerstick) 88 mg/dL (70-99) 88 mg/dL (70-99) Test 04/03/17 11:55 04/03/17 16:35 04/03/17 20:00 04/03/17 20:38 Heparin Anti-Xa Act, Unfractionated 0.63 IU/mL (0.30-0.70) 0.29 IU/mL (0.30-0.70) Glucose (Fingerstick) 117 mg/dL (70-99) 120 mg/dL (70-99) Test 04/04/17 01:50 04/04/17 07:39 04/04/17 08:15 04/04/17 11:37 Heparin Anti-Xa Act, Unfractionated 0.58 IU/mL (0.30-0.70) 0.63 IU/mL (0.30-0.70) Glucose (Fingerstick) 86 mg/dL (70-99) 101 mg/dL (70-99) Laboratory Tests Test 04/03/17 20:00 04/03/17 20:38 04/04/17 01:50 04/04/17 07:39 Heparin Anti-Xa Act, Unfractionated 0.29 IU/mL (0.30-0.70) 0.58 IU/mL (0.30-0.70) Glucose (Fingerstick) 120 mg/dL (70-99) 86 mg/dL (70-99) Test 04/04/17 08:15 04/04/17 11:37 Heparin Anti-Xa Act, Unfractionated 0.63 IU/mL (0.30-0.70) Glucose (Fingerstick) 101 mg/dL (70-99) Medications Active Scripts Medications Dose Route/Sig Max Daily Dose Days Date Category Clopidogrel (Clopidogrel Bisulfate) 75 Mg Tablet 1 Tab PO DAILY 04/02/17 Reported Vitamin D (Cholecalciferol (Vitamin D3)) 400 Unit Capsule 800 Unit PO DAILY 04/02/17 Reported Atorvastatin Calcium 40 Mg Tablet 80 Mg PO QHS 30 01/03/17 Rx Aspirin Ec (Aspirin) 81 Mg Tablet. 81 Mg PO DAILYWBKFT 30 01/03/17 Rx Isosorbide Mononitrate Er (Isosorbide Mononitrate) 30 Mg Tab.er.24h 1 Tab PO DAILY 01/03/17 Rx Brilinta (Ticagrelor) 90 Mg Tablet 90 Mg PO BID 30 01/03/17 Rx Prilosec Otc (Omeprazole Magnesium) 20 Mg Tablet. 1 Tab PO HS 12/30/16 Reported Lisinopril 40 Mg Tablet 40 Mg PO HS 12/30/16 Reported Fluoxetine Hcl 40 Mg Capsule 40 Mg PO HS 12/30/16 Reported Meloxicam 15 Mg Tablet 1 Tab PO HS 12/30/16 Reported Metoprolol Succinate 50 Mg Tab.er.24h 1 Tab PO HS 12/30/16 Reported Oxycodone-Acetaminophen 5-325 (Oxycodone Hcl/Acetaminophen) 1 Each Tablet 2 Tab PO PRN Q6HRS PRN 12/30/16 Reported Metoprolol Succinate ( Xl ) (Metoprolol Succinate) 25 Mg Tab.er.24h 1 Tab PO DAILY 12/01/13 Reported Impression . LOPEZ CAD S/P PCI OBESITY MORBID OUTPT SLEEP STUDY MICHEAL RODRIGUEZ MD Apr 04, 2017 17:05
[2017-04-04] MEDS: MELOXICAM 7.5 MG TABLET PO SCH (20:24)
[2017-04-04] MEDS: ATORVASTATIN CALCIUM 40 MG TABLET. PO SCH (20:25)
[2017-04-04] MEDS: LISINOPRIL 40 MG TABLET. PO SCH (20:25)
[2017-04-04] MEDS: FLUoxetine HCL 20 MG CAPSULE PO SCH (20:45)
[2017-04-04] MEDS: PANTOPRAZOLE 40 MG TABLET.DR. PO SCH (20:45)
--- NOTE | 2017-04-04 23:37 | CONS ---
DATE OF CONSULTATION: 04/04/2017 ATTENDING PHYSICIAN: Dr. Camarena. REASON FOR CONSULTATION: The patient is seen in pulmonary consultation at the request of Dr. Haney for obstructive sleep apnea. HISTORY OF PRESENT ILLNESS: The patient is a 56-year-old with a body mass index of 49, presented with intermittent chest discomfort. He has a prior history of obstructive sleep apnea, nontolerant to CPAP. He apparently had a sleep study approximately 10 years ago. The patient has clinical symptoms of LOPEZ, snoring, waking up multiple times throughout the night and not refreshed from his sleep. He has had previous coronary artery disease with previous stent placement. I was asked to see him in consultation. PAST MEDICAL HISTORY: 1. Coronary artery disease with previous PCI. 2. Hypertension. 3. Hyperlipidemia. 4. Gastroesophageal reflux. 5. Osteoarthritis. PAST SURGICAL HISTORY: Status post PCI. FAMILY HISTORY: Coronary artery disease. SOCIAL HISTORY: He quit tobacco several years ago. Occasional use of alcohol. REVIEW OF SYSTEMS: As indicated above, otherwise, a 10-point system was reviewed and negative. ALLERGIES: NAPROSYN. CURRENT MEDICATIONS: List was reviewed. FAMILY HISTORY: Noncontributory. PHYSICAL EXAMINATION: GENERAL: Morbid obese individual recently returned from cardiac catheterization lab, had a PCI. NECK: Jugular venous distention could not be assessed secondary to body habitus. CHEST: Full expansion. LUNGS: Coarse breath sounds, no wheezes. CARDIOVASCULAR: Regular rate and rhythm with S1, S2, no S3. ABDOMEN: Soft, obese. EXTREMITIES: No clubbing, cyanosis. Minimal edema. NEUROLOGIC: The patient was awake, alert, following commands. A detailed neuro exam was not performed. LABORATORY DATA: Reviewed. White count was normal. Hemoglobin and hematocrit noted. Influenza screen was negative. Electrolytes were normal. Troponin level was not elevated. IMPRESSION: 1. Clinical symptoms and signs of obstructive sleep apnea. 2. Coronary artery disease with recurrent thrombosis requiring PCI. 3. Morbid obesity, body mass index of 49. 4. History of tobacco use, undiagnosed chronic obstructive pulmonary disease. 5. Hypertension. 6. Hyperlipidemia. 7. Osteoarthritis. PLAN: 1. The patient has been intolerant to CPAP in the past, his last study was approximately 10 years ago, we will proceed with repeating sleep study as an outpatient with CPAP titration. 2. Follow cardiology input. 3. Outpatient PFTs. 4. Apparently, the patient now has oxygen at home. We will check nocturnal desaturation study prior to discharge. I do appreciate the privilege in sharing this patient's care. MICHEAL RODRIGUEZ MD DR: YESENIA/missy JOB#: [id number] / [id number]
[2017-04-05 03:20] VITALS: BP 130/74
[2017-04-05 07:00] VITALS: BP 139/90
[2017-04-05] MEDS: INSULIN ASPART 300 UNITS/3 ML INSULN.PEN SQ SCH (08:00)
[2017-04-05] MEDS: CHOLECALCIFEROL (VITAMIN D3) 1,000 UNIT TABLET PO SCH (08:54)
[2017-04-05] MEDS: ISOSORBIDE MONONITRATE ER 30 MG TAB.ER.24H PO SCH (08:55)
[2017-04-05] MEDS: ASPIRIN ENTERIC COATED 81 MG TABLET.DR. PO SCH (08:55)
[2017-04-05] MEDS: CLOPIDOGREL BISULFATE 75 MG TABLET PO SCH (08:55)
[2017-04-05] MEDS ORDERED: DOCUSATE SODIUM 100 MG CAPSULE. PO SCH (09:00)
[2017-04-05] MEDS ORDERED: PROPOFOL 10 MG/ML (20ML) VIAL. IV ONE (10:00)
[2017-04-05] MEDS ORDERED: ePHEDrine PF IN SALINE 50 MG/5 ML DISP.SYRIN IV ONE (10:00)
--- NOTE | 2017-04-05 10:17 | PDOC3 ---
Discharge Summary Visit Information Date of Admission: Apr 02, 2017 Date of Discharge: Apr 05, 2017 Admitting Diagnosis Comment: CAD s/p 2 stents distal RCA by [facility] (04/04) in a known CAD with indwelling stents Morbid obesity BMI 49.4 Hypertension controlled and dyslipidemia controlled Occasional alcohol drinker Rotator cuff injury left shoulder is tender 2017 leukocytosis, viral URI - resolved Final Diagnosis Problems Medical Problems: (1) Chest pain Status: Acute Brief Hospital Course Allergies Allergies Coded Allergies Type Severity Reaction Last Updated Verified naproxen Allergy Intermediate 04/04/17 Yes Vital Signs Vital Signs Date Time Temp Pulse Resp B/P (MAP) Pulse Ox O2 Delivery O2 Flow Rate FiO2 04/05/17 08:55 73 139/90 04/05/17 07:00 98.2 19 97 Nasal Cannula 2.0 98.2 Lab Results Laboratory Tests Test 04/03/17 10:35 04/03/17 11:55 04/03/17 16:35 04/03/17 20:00 Glucose (Fingerstick) 88 mg/dL (70-99) 117 mg/dL (70-99) Heparin Anti-Xa Act, Unfractionated 0.63 IU/mL (0.30-0.70) 0.29 IU/mL (0.30-0.70) Test 04/03/17 20:38 04/04/17 01:50 04/04/17 07:39 04/04/17 08:15 Glucose (Fingerstick) 120 mg/dL (70-99) 86 mg/dL (70-99) Heparin Anti-Xa Act, Unfractionated 0.58 IU/mL (0.30-0.70) 0.63 IU/mL (0.30-0.70) Test 04/04/17 11:37 04/04/17 17:02 04/05/17 07:45 Glucose (Fingerstick) 101 mg/dL (70-99) 134 mg/dL (70-99) 97 mg/dL (70-99) Laboratory Tests Test 04/04/17 11:37 04/04/17 17:02 04/05/17 07:45 Glucose (Fingerstick) 101 mg/dL (70-99) 134 mg/dL (70-99) 97 mg/dL (70-99) Brief Hospital Course Mr. Schneider is a 56 old obese male with history of CAD with indwelling stents comes in because of chest pain. It was bothersome to him. Troponin was negative 3 but given his history, claims compliance with meds, was started on heparin drip. HE did have an LHC maybe on day 2 of admission and needs to be stented twice- 2 stents on the same area -distal RCA. He went to tachybradycardia syndrome. medication change is to stop his metoprolol 50 and cut down to 25 extended release once a day which I provided prescription for. He already has an appointment with cardiology on May 02, 2016. The rest of his medications to continue at home. Discussed with cardiology, and RASHEL Helm . Discharge medications: new med: metoprolol 25 extended release once a day. Stop her metoprolol 50 mg once a day extended release Procedures performed [facility] by Dr. Leyva on 04/04/17 Discharge Information Condition at Discharge: Improved, Stable Disposition/Orders: D/C to Home Scheduled Aspirin (Aspirin Ec), 81 MG PO DAILYWBKFT Atorvastatin Calcium (Atorvastatin Calcium), 80 MG PO QHS Cholecalciferol (Vitamin D3) (Vitamin D), 800 UNIT PO DAILY, (Reported) Clopidogrel Bisulfate (Clopidogrel), 1 TAB PO DAILY, (Reported) Fluoxetine Hcl (Fluoxetine Hcl), 40 MG PO HS, (Reported) Isosorbide Mononitrate (Isosorbide Mononitrate Er), 1 TAB PO DAILY Lisinopril (Lisinopril), 40 MG PO HS, (Reported) Meloxicam (Meloxicam), 1 TAB PO HS, (Reported) Metoprolol Succinate (Metoprolol Succinate ( Xl )), 1 TAB PO DAILY, (Reported) Metoprolol Succinate (Metoprolol Succinate), 1 TAB PO HS, (Reported) Omeprazole Magnesium (Prilosec Otc), 1 TAB PO HS, (Reported) Ticagrelor (Brilinta), 90 MG PO BID Scheduled PRN Oxycodone Hcl/Acetaminophen (Oxycodone-Acetaminophen 5-325), 2 TAB PO PRN Q6HRS PRN for PAIN, (Reported) Discontinued Medications Cyclobenzaprine Hcl (Cyclobenzaprine Hcl), 10 MG PO PRN TID PRN for PAIN, ( Reported) Discontinued Reason: not taking Metoclopramide Hcl (Metoclopramide Hcl), 1 TAB PO QIDACHS, (Reported) Discontinued Reason: not taking Triamterene/Hydrochlorothiazid (Triamterene-Hctz 75-50 Mg Tab), 1 TAB PO DAILY, (Reported) Discontinued Reason: not taking KASSI ARAUJO MD Apr 05, 2017 10:17
--- NOTE | 2017-04-05 10:29 | PDOC ---
CARDIO Progress Notes Date and Time Date of Service 04/05/17 Time of Evaluation 0945 Subjective Subjective: No Chest Pain, No shortness of breath, No Palpitations Vitals Vitals Vital Signs Date Time Temp Pulse Resp B/P (MAP) Pulse Ox O2 Delivery O2 Flow Rate FiO2 04/05/17 08:55 73 139/90 04/05/17 07:00 98.2 19 97 Nasal Cannula 2.0 98.2 Weight Weight [ ] Input and Output Intake and Output Intake and Output 04/05/17 07:00 Intake Total 1040 ml Output Total 451 ml Balance 589 ml Intake Oral 1040 ml Output Urine Total 451 ml # Voids 1 Laboratory Labs Laboratory Tests Test 04/04/17 11:37 04/04/17 17:02 04/05/17 07:45 Glucose (Fingerstick) 101 mg/dL (70-99) 134 mg/dL (70-99) 97 mg/dL (70-99) Physical Exam HEENT: Neck Supple W Full Motion Chest: Symmetric LUNGS: Clear to Auscultation, Other (diminished bases ) Heart: S1S2, RRR Abdomen: No Hepatosplenomegaly Extremities: 2+ Femoral, No Edema, No Calf Tenderness, Other (right femoral arteriotomy site soft, clean, and dry. No erythem, ecchymosis, or hematoma present. Neurovascular status intact.) Neurology: alert, oriented, follow commands Assessment Assessment 1. Chest pain; troponin series normal- AMI ruled out. Now resolved. 2. CAD with previous PCI/KYLIE to the RCA. S/p successful PCI/KYLIE to distal RCA into the proximal PDA. No acute events overnight. 3. Hypertension; controlled 4. Hyperlipidemia; LDL 161 (12/30) 5. Probable LOPEZ; pulmonary following. 6. Bradyarrhythmia; ? tachy/lazaro. Recent event monitor showed HR range from 33 -127 and 3 second pause. Recommendations Resume Toprol at 25mg daily Continue secondary prevention measures including DAPT with ASA and Plavix Risk stratification modification. Cardiac rehab referral May discharge from a CV standpoint and f/u in our office with Dr. Welch in 3 weeks as scheduled. Outpatient LOPEZ workup as per pulm. ROBERT SCHAFER APRN Apr 05, 2017 10:28
[2017-04-05] MEDS ORDERED: METOPROLOL SUCC 24HR ER 25 MG TAB.ER.24H. PO SCH (10:30)
[2017-04-05 10:51] VITALS: BP 138/88
== END 2017-04-05 12:34 | disposition home or self-care (01) | DRG 246 ==
LOC: ER 15:48 → 2 NORTH 17:30
PROVIDERS: ADMIT Internal Medicine; ATTEND Internal Medicine
PROC: 4A023N7 Measurement of Cardiac Sampling and Pressure, Left Heart, Percutaneous Approach (ICD-10-PCS; 2017-04-04)
PROC: B2111ZZ Fluoroscopy of Multiple Coronary Arteries using Low Osmolar Contrast (ICD-10-PCS; 2017-04-04)
PROC: 027035Z Dilation of Coronary Artery, One Artery with Two Drug-eluting Intraluminal Devices, Percutaneous Approach (ICD-10-PCS; principal; 2017-04-04 14:30)
DX: I25.10 Atherosclerotic heart disease of native coronary artery without angina pectoris (principal); N18.6 End stage renal disease; I12.0 Hypertensive chronic kidney disease with stage 5 chronic kidney disease or end stage renal disease; I49.5 Sick sinus syndrome; E66.01 Morbid (severe) obesity due to excess calories; Z68.42 Body mass index [BMI] 45.0-49.9, adult; E78.00 Pure hypercholesterolemia, unspecified; E78.5 Hyperlipidemia, unspecified; G47.33 Obstructive sleep apnea (adult) (pediatric); F12.90 Cannabis use, unspecified, uncomplicated; I49.8 Other specified cardiac arrhythmias; K21.9 Gastro-esophageal reflux disease without esophagitis; M19.90 Unspecified osteoarthritis, unspecified site; D72.829 Elevated white blood cell count, unspecified; F32.9 Major depressive disorder, single episode, unspecified; Z79.02 Long term (current) use of antithrombotics/antiplatelets; Z79.82 Long term (current) use of aspirin; Z95.5 Presence of coronary angioplasty implant and graft; Z91.15 Patient's noncompliance with renal dialysis; Z87.891 Personal history of nicotine dependence; Z88.8 Allergy status to other drugs, medicaments and biological substances; Z99.2 Dependence on renal dialysis; Z23 Encounter for immunization; Z82.49 Family history of ischemic heart disease and other diseases of the circulatory system
CPT/HCPCS: 36415; 71010; 71250; 80048; 80076; 80307; 81001; 82553; 82962; 83690; 83735; 83880; 84484; 85025; 85520; 85610; 87804; 90732; 92928; 93005; 93454; 96365; C1713; C1725; C1769; C1771; C1892; J1644; J1815; J2250; J2270; J2704; J3010; J3490; Q0163; Q9967; 99285-25; G0479; J2001

== ENCOUNTER → 2017-09-30 | Outpatient (CLI) | payer BC | END | disposition home or self-care (01) | LOC: NM 07:37 | DX: M47.894 Other spondylosis, thoracic region (principal) | CPT/HCPCS: 71046; 78582; 96374; A9540; A9558 ==

== ENCOUNTER → 2017-10-21 | Outpatient (CLI) | payer BC | END | disposition home or self-care (01) | LOC: SLPLAB 18:56 | DX: G47.33 Obstructive sleep apnea (adult) (pediatric) (principal); G47.61 Periodic limb movement disorder; G47.34 Idiopathic sleep related nonobstructive alveolar hypoventilation; I10 Essential (primary) hypertension; E78.5 Hyperlipidemia, unspecified; E78.00 Pure hypercholesterolemia, unspecified; K21.9 Gastro-esophageal reflux disease without esophagitis | CPT/HCPCS: 95810 ==

== ENCOUNTER 2018-08-26 09:44 | Observation (INO) | payer BC ==
[~2018-08-26] VITALS: Ht 177.8 cm; Wt 147.5 kg
[2018-08-26] VITALS (15 sets, daily range): BP systolic 119–158; BP diastolic 55–91
[~2018-08-26 09:44] MED LIST changes: -AMLO10TA2 PO; +AMLO10TA8 PO; +CHOL400C2 PO; +CLOP75TA PO; +LISI-130 PO; -LISI40TA PO
[2018-08-26] MEDS ORDERED: BACITRACIN 50,000 UNIT in IV NORMAL SALINE 250ML 250 ML IRR ONE (10:00)
[2018-08-26] MEDS ORDERED: BUPR150T15 PO (10:08)
[2018-08-26] MEDS ORDERED: ceFAZolin SODIUM 3 GM in IV DEXTROSE 5% 100ML 100 ML IV ONE ×2 (10:15→16:00)
--- NOTE | 2018-08-26 10:16 | EKG ---
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
[2018-08-26 10:17] LABS: BASO # 0.1 x10^3/uL (0.0-0.2); BASO % 1 % (0-3); EOS # 0.4 x10^3/uL (0.0-0.7); EOS % 4 % (0-3); HEMATOCRIT 46.2 % (39.0-53.0); HEMOGLOBIN 15.1 g/dL (13.0-17.5); LYMPH # 1.7 x10^3/uL (1.0-4.8); LYMPH % 19 % (24-48); MEAN CORPUSCULAR HEMOGLOBIN 30 pg (25-35); MEAN CORPUSCULAR HGB CONC 33 g/dL (31-37); MEAN CORPUSCULAR VOLUME 93 fL (79-100); MONO # 0.5 x10^3/uL (0.0-1.1); MONO % 6 % (0-9); NEUT # 6.4 x10^3uL (1.8-7.7); NEUT % 70 % (31-73); PLATELET COUNT 238 x10^3/uL (140-400); RED BLOOD COUNT 4.99 x10^6/uL (4.30-5.70); RED CELL DISTRIBUTION WIDTH 14.5 % (11.5-14.5); WHITE BLOOD COUNT 9.1 x10^3/uL (4.0-11.0)
[2018-08-26 10:23] LABS: CALCIUM 9.4 mg/dL (8.5-10.1); POTASSIUM 4.6 mmol/L (3.5-5.1)
[2018-08-26 10:25] LABS: PROTHROMBIN TIME PATIENT 11.5 SEC (11.7-14.0)
[2018-08-26] MEDS ORDERED: LIDOCAINE 2%/EPI 1:100,000 20 ML VIAL. ONE (10:55)
[2018-08-26] MEDS ORDERED: fentaNYL PF VIAL 100 MCG/2 ML VIAL ONE ×2 (11:10→12:34)
[2018-08-26] MEDS ORDERED: MIDAZOLAM HCL/PF 2 MG/2 ML VIAL. ONE ×2 (11:10→11:40)
[2018-08-26] MEDS ORDERED: diphenhydrAMINE 50 MG/ML VIAL ONE (11:31)
[2018-08-26] MEDS ORDERED: diphenhydrAMINE 50 MG/ML VIAL IVP ONE (12:00)
[2018-08-26] MEDS ORDERED: LIDOCAINE 2%/EPI 1:100,000 20 ML VIAL. IJ ONE (12:00)
[2018-08-26] MEDS ORDERED: MIDAZOLAM HCL/PF 2 MG/2 ML VIAL. IV ONE (12:00)
[2018-08-26] MEDS ORDERED: fentaNYL PF VIAL 100 MCG/2 ML VIAL IV ONE (12:00)
[2018-08-26] MEDS ORDERED: NO ANTICOAGULANT THERAPY. MC PRN (13:30)
--- NOTE | 2018-08-26 13:30 | NUR ---
Pt arrived to unit at approximately 1330 post pacemaker procedure to right chest via bed. Pt A/Ox4, at bedside. No complaints of pain at this time. VS stable. Pacemaker dressing clean, dry, and intact. Immobilizer in place. Patient oriented to room and unit procedures. Call light within reach. Will continue to monitor.
--- NOTE | 2018-08-26 13:30 | PDOC ---
MODERATE SEDATION ASSESSMENT RISKS/ALTERNATIVES Risks/Alternatives Risks and alternatives of this type of sedation and procedure discussed with: RISK/ALTERNATIVES: Patient H & P ON CHART H & P H & P on chart and reviewed for co-morbid conditions and appropriate labs. H&P ON CHART: Yes STATUS PREG STATUS ASSESSED: N/A MEDS/ALLERGIES REVIEWED Meds/Allergies Reviewed Medications and Allergies including time and route of recently administered narcotics and sedatives. MEDS/ALLERGIES REVIEWED: Yes ASA RATING ASA RATING: II AIRWAY ASSESSMENT Airway Assessment Airway patency, oral function limitations, presence of caps, crowns, dentures, partials, and ability to extend neck assessed. AIRWAY ASSESSMENT: Yes MALLAMPATI SCORE MALLAMPATI SCORE: II PRE-SEDATION ASSESSMENT PRE-SEDATION ASSESSMENT: Yes CLIF NÚÑEZ MD August 26, 2018 13:29
--- NOTE | 2018-08-26 13:54 | RAD ---
Single view chest dated 08/26/2018: Comparison made to September 30, 2017. Clinical Indication: Pacemaker placement.. Findings: Single upright portable exam of the chest was performed. Heart and mediastinal contours are stable. Interval placement of dual lead right subclavian pacer with leads projected to the right atrium and right ventricle. Lungs are clear. No consolidation or pleural effusion. No pneumothorax. Impression:: Right subclavian pacer with no evidence of pneumothorax. Electronically signed by: Elian Boothe MD (08/26/2018 1:51 PM) [facility]
--- NOTE | 2018-08-26 13:58 | NUR ---
SS following for discharge planning. SS reviewed pt chart. Pt is from home and is currently on room air. No discharge needs noted at this time. SS will continue to follow for discharge planning.
[2018-08-26] MEDS: oxyCODONE/APAP 5/325 1 TAB TABLET PO PRN ×3 (14:19→20:19)
--- NOTE | 2018-08-26 16:50 | CARD ---
MR#: [id number] Date of Study: 08/26/2018 Ordering Physician: CLIF NÚÑEZ, Referring Physician: CLIF NÚÑEZ, Tech: APPROVED REPORT HISTORY The Patient is a 58 year-old male with a history of Tachybrady syndrome Moderate sedation 83 minutes PROCEDURES Insertion Dual Chamber Pacemaker 30 mL of 2% lidocaine was infiltrated into the skin and subcutaneous tissues for local anesthesia. A n incision was made over the right infraclavicular fossa and using blunt dissection and cautery a poc ket was created. Venous access was obtained in the right subclavian vein and 6 Occitan sheaths were i nserted. Subsequently, a Biotronik bipolar active fixation right ventricular lead modelSolia S 53 SN [id number] was advanced under fluoroscopic guidance and the tip was positioned in the right ventricular apex. F ollowing this, a Biotronik bipolar active fixation right atrial lead model Solia S 45, SN [id number] wa s placed in the right atrial appendage under fluoroscopy guidance. The leads were secured into place and were attached to a Biotronik dual-chamber permanent pacemaker generator model Eluna 8 DR-T Pro M RI, SN [id number]. This was placed in the pocket that was subsequently closed in 3 layers. Hemostasis was secured. At the end of procedure, the right ventricular lead showed sensing amplitude of 18.1 mV, impedance of 746 ohms and a threshold of 0.5volts at 0.4 ms. The right atrial lead showed a sensing amplitude of 2.7 millivolts, impedance of 513 ohms and a threshold of 0.7volts at 0.4 ms. Patient tolerated the p rocedure well. There were no immediate complications. This was a complex case due to significant pat ient obesity making access and implantation difficult. CONCLUSION 1. Successful insertion of a Biotronik dual chamber pacemaker for tachybrady syndrome. Signed by : Clif Núñez, Electronically Approved : 08/26/2018 16:50:22
[2018-08-26] MEDS ORDERED: FLUoxetine HCL 20 MG CAPSULE PO SCH (21:00)
[2018-08-26] MEDS ORDERED: MELOXICAM 7.5 MG TABLET PO SCH (21:00)
[2018-08-26] MEDS ORDERED: PANTOPRAZOLE 40 MG TABLET.DR. PO SCH (21:00)
[2018-08-26] MEDS ORDERED: LISINOPRIL 20 MG TABLET PO SCH (21:00)
[2018-08-26] MEDS ORDERED: ATORVASTATIN CALCIUM 40 MG TABLET. PO SCH (21:00)
[2018-08-27] MEDS: oxyCODONE/APAP 5/325 1 TAB TABLET PO PRN ×3 (03:03→15:17)
[2018-08-27 03:10] VITALS: BP 148/84
[2018-08-27 07:31] VITALS: BP 171/80
[2018-08-27] MEDS ORDERED: ASPIRIN ENTERIC COATED 81 MG TABLET.DR. PO SCH (08:00)
[2018-08-27] MEDS ORDERED: CLOPIDOGREL BISULFATE 75 MG TABLET PO SCH (09:00)
[2018-08-27] MEDS ORDERED: buPROPion XL 150 MG TAB.ER.24H. PO SCH (09:00)
--- NOTE | 2018-08-27 09:47 | RAD ---
Two-view chest dated 08/27/2018. Comparison made to 08/26/2018. CLINICAL INDICATION: Post pacemaker placement. FINDINGS: PA and lateral views the chest were obtained. Heart and mediastinal contours are stable. There is a dual lead right subclavian pacer with leads projected to the right ventricle and right atrium, unchanged. Lungs are somewhat hyperinflated but otherwise clear. No consolidation or pleural effusion. No pneumothorax. IMPRESSION: Right subclavian pacer with no evidence of pneumothorax. Electronically signed by: Elian Boothe MD (08/27/2018 9:44 AM) [facility]
[2018-08-27 10:47] VITALS: BP 140/82
[2018-08-27] MEDS ORDERED: METO25TA4 PO (11:29)
--- NOTE | 2018-08-27 11:30 | DISCH ---
DISCHARGE INSTRUCTIONS Condition on Discharge Condition on Discharge: Stable Activity After Discharge Activity Instructions for Disc: Activity as tolerated, Other, see below Bathing Instructions: No Tub Bath until see (keep wound clean and dry. Allow steri strips to come of at will) Lifting Instructions after Dis: No heavy lifting, No pulling or pushing, Do not lift >10 pounds Driving Instructions after Dis: Do not drive Weight Bearing Status after Di: As tolerated Diet after Discharge Diet after Discharge: Cardiac Checks after Discharge Checks after discharge: Check blood press - daily Contacting the DRVeronica after DC Call your doctor for: Concerns you may have Treatment/Equipment after DC Adaptive Equipment Issued: None ROBERT SCHAFER APRN August 27, 2018 11:30
[2018-08-27 14:13] VITALS: BP 128/74
--- NOTE | 2018-08-27 15:56 | PDOC3 ---
Discharge Summary Visit Information Date of Admission: August 26, 2018 Date of Discharge: August 27, 2018 Admitting Diagnosis Comment: SSS High-grade AV block CAD Hypertension Hyperlipidemia Final Diagnosis SSS High-grade AV block CAD Hypertension Hyperlipidemia Brief Hospital Course Allergies Allergies Coded Allergies Type Severity Reaction Last Updated Verified naproxen Allergy Intermediate 04/04/17 Yes Vital Signs Vital Signs Date Time Temp Pulse Resp B/P (MAP) Pulse Ox O2 Delivery O2 Flow Rate FiO2 08/27/18 15:17 95 Room Air 08/27/18 14:13 97.9 66 18 128/74 (92) 97.9 08/26/18 12:00 2.0 Lab Results Laboratory Tests Test 08/26/18 10:05 White Blood Count 9.1 x10^3/uL (4.0-11.0) Red Blood Count 4.99 x10^6/uL (4.30-5.70) Hemoglobin 15.1 g/dL (13.0-17.5) Hematocrit 46.2 % (39.0-53.0) Mean Corpuscular Volume 93 fL (79-100) Mean Corpuscular Hemoglobin 30 pg (25-35) Mean Corpuscular Hemoglobin Concent 33 g/dL (31-37) Red Cell Distribution Width 14.5 % (11.5-14.5) Platelet Count 238 x10^3/uL (140-400) Neutrophils (%) (Auto) 70 % (31-73) Lymphocytes (%) (Auto) 19 % (24-48) Monocytes (%) (Auto) 6 % (0-9) Eosinophils (%) (Auto) 4 % (0-3) Basophils (%) (Auto) 1 % (0-3) Neutrophils # (Auto) 6.4 x10^3uL (1.8-7.7) Lymphocytes # (Auto) 1.7 x10^3/uL (1.0-4.8) Monocytes # (Auto) 0.5 x10^3/uL (0.0-1.1) Eosinophils # (Auto) 0.4 x10^3/uL (0.0-0.7) Basophils # (Auto) 0.1 x10^3/uL (0.0-0.2) Prothrombin Time 11.5 SEC (11.7-14.0) Prothromb Time International Ratio 0.9 (0.8-1.1) Sodium Level 140 mmol/L (136-145) Potassium Level 4.6 mmol/L (3.5-5.1) Chloride Level 102 mmol/L (98-107) Carbon Dioxide Level 28 mmol/L (21-32) Anion Gap 10 (6-14) Blood Urea Nitrogen 17 mg/dL (8-26) Creatinine 1.0 mg/dL (0.7-1.3) Estimated GFR (Cockcroft-Gault) 77.0 Glucose Level 114 mg/dL (70-99) Calcium Level 9.4 mg/dL (8.5-10.1) Brief Hospital Course Mr. Schneider is a 58 old male, with a history of CAD s/p PCI/stents to RCA in 2 011 and PCI/KYLIE to the distal RCA extending into the proximal PDA, who presented secondary to high-grade block. Event monitor 07/24/18 - 08/07/18 notable for first degree AV block with a minimum heart rate of 21 and a maximum heart rate of 174 bmp. Predominant underlying rhythm was sinus rhythm. 6 pauses occurred, the longest lasting 3.4 seconds. Pauses occurred due to second degree AV block. Eight episode of 3rd degree heart block was noted. Due to event monitor findings, pacemaker implantation was recommended. Patient underwent successful insertion of a Biotronik dual chamber pacemaker for sick sinus syndrome. Patient tolerated well and was monitored overnight. Post-operative CXR WNL and device check with normal function. Lungs CTA. Right pectoral insertion site well- approximated and steri-strips intact. No hematoma present. Neurovascular status intact. Discharge instruction reviewed and patient verbalized an understanding. Metoprolol tartrate will be resumed. Discharge Information Follow Up: Weeks (2 weeks for wound check (09/09/18 at 10:00)) Disposition/Orders: D/C to Home Scheduled Aspirin (Aspirin Ec) 81 Mg Tablet., 81 MG PO DAILYWBKFT for 30 Days, #30 Prescribed by: CAITY HERNÁNDEZ MD on 01/03/17 1100 Last Taken: Unknown Dose on 08/26/18 Last Action: Continued on 08/26/18 1658 by WILBER ARCINIEGA, RN Atorvastatin Calcium (Atorvastatin Calcium) 40 Mg Tablet, 80 MG PO QHS for 30 Days, #60 Prescribed by: CAITY HERNÁNDEZ MD on 01/03/17 1100 Last Taken: Unknown Dose on 08/25/18 Last Action: Continued on 08/26/181658 by WILBER ARCINIEGA RN Bupropion Hcl (Wellbutrin Xl) 150 Mg Tab.er.24h, 1 TAB PO DAILY for depression, #30 (Reported) Entered as Reported by: ANJEL JO on 08/26/18 1008 Last Taken: Unknown Dose on 08/26/18 Last Action: Continued on 08/26/181658 by WILBER ARCINIEGA RN Clopidogrel Bisulfate (Clopidogrel) 75 Mg Tablet, 1 TAB PO DAILY, #90 Ref 1 (Reported) Entered as Reported by: LORAINE HERNANDEZ on 04/02/171717 Last Taken: Unknown Dose on 08/25/18 Last Action: Continued on 08/26/181658 by WILBER ARCINIEGA RN Fluoxetine Hcl (Fluoxetine Hcl) 40 Mg Capsule, 40 MG PO HS, (Reported) Entered as Reported by: Lexie Zamarripa on 12/30/162035 Last Taken: Unknown Dose on 08/26/18 Last Action: Converted on 08/26/181657 by WILBER ARCINIEGA RN Lisinopril (Lisinopril) 40 Mg Tablet, 40 MG PO HS, (Reported) Entered as Reported by: Lexie Zamarripa on 12/30/162035 Last Taken: Unknown Dose on 08/25/18 Last Action: Continued on 08/26/181657 by WILBER ARCINIEGA RN Meloxicam (Meloxicam) 15 Mg Tablet, 1 TAB PO HS, (Reported) Entered as Reported by: Leixe Zamarripa on 12/30/162035 Last Taken: Unknown Dose on 08/25/18 Last Action: Converted on 08/26/181657 by WILBER ARCINIEGA RN Metoprolol Tartrate (Metoprolol Tartrate) 25 Mg Tablet, 1 TAB PO BID for heart for 30 Days, #60 Ref 2 Prescribed by: ROBERT SCHAFER APRN on 08/27/18 1129 Omeprazole Magnesium (Prilosec Otc) 20 Mg Tablet.dr, 1 TAB PO HS, #30 Ref 3 (Reported) Entered as Reported by: Lexie Zamarripa on 12/30/162035 Last Taken: Unknown Dose on 08/25/18 Last Action: Converted on 08/26/188 by WILBER ARCINIEGA RN Patient Instructions Patient Instructions Must know & what to expect after device implant: 1. Your surgical dressing should be removed prior to discharge from the hospital, but allow the steri- strips to fall off naturally. 2. Activity restrictions: DO NOT raise arm above shoulder level, lift anythi ng heavier than a gallon of milk, and no push or pull motions such as vacuuming/lawn mowing, no swinging motions (golf), etc for 4 weeks. 3. It is OK to use a cell phone or other electronic devices just be sure you do not store it in a breast pocket on the side where the device was placed. 4. Device will be interrogated prior to your discharge from the hospital and then every 3 months for defibrillators and every 6 months for pacemakers. You may be asked to have your device checked remotely from home as well, but this will depend on your particular physicians preference. 5. You may remove the arm immobilizer the day after device placement. Wear the arm immobilizer/splint at night (during sleep times) for 2 week to prevent unintended arm movement that can cause lead dislodgement. 6. Do not drive for one week as the task of driving may lead to unintended arm motion that may cause lead dislodgement. The seatbelt will also rub against the incision site & cause irritation. 7. It is our recommendation that you utilize Tylenol at home for pain control. You need to call our office if you are having uncontrollable pain at the incision site. 8. Keep your incision clean and dry. It is OK to shower. DO NOT submerge in bath, pool, or hot tub, until cleared by your doctor, as this could lead to increase risk of infection.. It is OK to use regular soap just do not scrub the incision site. Water spray from shower should not directly hit the incision. Be sure to blot dry not rub. 9. Inspect your incision daily. If you notice any increased redness, swelling, or drainage, or if you start running a fever, call the office immediately. The number is [phone]. 10. For women, if you need to protect against irritation from the bra straps, you can place a piece of gauze over the incision site for cushion. Please be sure to tape it loosely to allow air to the site & remove the gauze when you remove the bra. 11. Be sure to carry your device identification information card in your wal let/purse at all times. 12. It is OK to go through security at the airport with your device, but be sure to let the TSA know prior to proceeding as the security settings change depending on varying factors. Please do whatever is requested by security at that time. 13. Some of the newer devices may be MRI compatible but, currently, the use of these devices is not widespread, so you likely will not be able to have an MRI. Please clarify this with your physician. Special instructions for defibrillator patients: If your device recognizes a rhythm that requires treatment with a shock, you will most likely feel the shock. This is usually not a subtle feeling and it is uncomfortable. Please follow these steps if you receive a shock: Call the office if you receive one shock. Go to the emergency room if you receive two consecutive shocks- please have some one drive you & call 911 if nobody is available- DO NOT drive yourself. Call 911 if you receive more than 2 consecutive shocks. If at any time, you feel lightheaded or dizzy/faint, stop what you are doing & lie down immediately. If you are driving, get to the side of the road quickly, turn your car off & call 911 on your cell phone. DO NOT continue to drive as this may cause an accident that seriously injures yourself &/or others. Call the office at [phone] for any questions or concerns. ROBERT SCHAFER APRN August 27, 2018 15:56
--- NOTE | 2018-09-02 22:39 | PDOC1 ---
History and Physical Visit Information Date of Admission: August 26, 2018 at 12:28 Source: Patient History of Present Illness History of Present Illness 58-year-old male with morbid obesity presenting to the hospital for elective pacemaker implantation for high-grade AV block noted on routine event monitoring. Patient denies any syncope. He does have some dizziness. Cardiac Risk Factors Comments Coronary artery disease status post PCI Hypertension Dyslipidemia Morbid obesity Cardiac Risk Factors: Hypertension Past Surgical History Comments Left shoulder surgery Current Medications Current Medications See MRAD. Allergies Allergies Allergies Coded Allergies Type Severity Reaction Last Updated Verified naproxen Allergy Intermediate 04/04/17 Yes Social History Smoke: No ALCOHOL: rare Drugs: None Lives: with Family ROS Review of System Positive for dizziness and lightheadedness. Physical Exam Comments The patient appeared well nourished and normally developed. Head exam is unremarkable. No scleral icterus or corneal arcus noted. Neck is without jugular venous distension, thyromegaly, or carotid bruits. Carotid upstrokes are brisk bilaterally. Lungs are clear to auscultation and percussion. Cardiac exam reveals the PMI to be normally sized and situated. Rhythm is regular. First and second heart sounds normal. No murmurs, rubs or gallops. Abdominal exam reveals normal bowel sounds, no masses, no organomegaly and no aortic enlargement. Extremities are nonedematous and both femoral and pedal pulses are normal. Msk: No traumua Neuro: No focal deficits Labs Labs CBC, BMP within normal limits ECG EKG: Sinus bradycardia VTE Prophylaxis Ordered VTE Prophylaxis Devices: No VTE Pharmacological Prophylaxi: No Assessment/Plan Assessment/Plan 1. 58-year-old man with high-grade AV block on monitoring with symptoms including lightheadedness and dizziness plan for dual-chamber pacemaker implantation via the right-sided approach due to left-sided shoulder surgery history and pain. Risks, benefits and alternatives discussed extensively with the patient in the office and prior to implantation today. Late entry for 08/26/2018. CLIF NÚÑEZ MD September 02, 2018 22:39
[2018-09-09] MEDS ORDERED: HYDR-2765 PO (13:11)
[2018-09-09] MEDS ORDERED: DOCU-109 PO (13:11)
== END 2018-08-27 15:05 | disposition home or self-care (01) ==
LOC: CCL 09:44 → 2 SOUTH 12:28
PROVIDERS: ADMIT Internal Medicine Cardiovascular Disease; ATTEND Internal Medicine Cardiovascular Disease
DX: I44.2 Atrioventricular block, complete (principal); I25.10 Atherosclerotic heart disease of native coronary artery without angina pectoris; E66.01 Morbid (severe) obesity due to excess calories; I10 Essential (primary) hypertension; R42 Dizziness and giddiness; E78.5 Hyperlipidemia, unspecified; Z98.61 Coronary angioplasty status; I49.5 Sick sinus syndrome; R00.1 Bradycardia, unspecified
CPT/HCPCS: 33208; 36415; 71045; 71046; 80048; 85025; 85610; 93005; 96365; 96375; C1785; C1898; G0378; G0379; J0690; J1200; J2250; J3010; J3490; J7050; 99152; 99153; J7030

== ENCOUNTER 2018-09-11 15:53 | Inpatient (IN) | payer BC ==
[~2018-09-11] VITALS: Ht 180.3 cm; Wt 152.9 kg
[~2018-09-11 15:53] MED LIST changes: +BUPR150T15 PO; +DOCU-109 PO; +HYDR-2765 PO; +METO25TA4 PO
[2018-09-11] MEDS: MORPHINE SULFATE 4 MG/ML VIAL. IV/SQ PRN ×2 (16:38→19:00)
[2018-09-11 16:58] LABS: BASO # 0.1 x10^3/uL (0.0-0.2); BASO % 1 % (0-3); EOS # 0.5 x10^3/uL (0.0-0.7); EOS % 4 % (0-3); HEMATOCRIT 39.9 % (39.0-53.0); HEMOGLOBIN 13.5 g/dL (13.0-17.5); LYMPH # 1.8 x10^3/uL (1.0-4.8); LYMPH % 16 % (24-48); MEAN CORPUSCULAR HEMOGLOBIN 31 pg (25-35); MEAN CORPUSCULAR HGB CONC 34 g/dL (31-37); MEAN CORPUSCULAR VOLUME 92 fL (79-100); MONO # 0.7 x10^3/uL (0.0-1.1); MONO % 6 % (0-9); NEUT # 8.2 x10^3uL (1.8-7.7); NEUT % 73 % (31-73); PLATELET COUNT 259 x10^3/uL (140-400); RED BLOOD COUNT 4.35 x10^6/uL (4.30-5.70); RED CELL DISTRIBUTION WIDTH 14.2 % (11.5-14.5); WHITE BLOOD COUNT 11.2 x10^3/uL (4.0-11.0)
[2018-09-11] MEDS ORDERED: ONDANSETRON PF 4 MG/2 ML VIAL. IV ONE (17:00)
[2018-09-11 17:22] LABS: BILIRUBIN,URINE SMALL (NEG); CLARITY,URINE CLEAR; COLOR,URINE AMBER; NITRITE,URINE NEGATIVE (NEG); PROTEIN,URINE NEGATIVE (NEG-TRACE)
[2018-09-11 17:22] LABS: CREATININE 0.7 mg/dL (0.7-1.3); GFR 116.2; POTASSIUM 4.1 mmol/L (3.5-5.1)
[2018-09-11] MEDS ORDERED: CONTRAST GIVEN. MC PRN (17:30)
[2018-09-11 17:31] LABS: BACTERIA,URINE FEW /HPF (0-FEW); RBC,URINE OCC /HPF (0-2); SQUAMOUS EPITHELIAL CELL,UR FEW /LPF; WBC,URINE OCC /HPF (0-4)
[2018-09-11 17:35] LABS: CREATINE KINASE 40 U/L (39-308)
[2018-09-11 17:36] LABS: BARBITURATES NEG (NEG); BENZODIAZEPINES NEG (NEG); CANNABINOIDS POS (NEG); COCAINE NEG (NEG); METHADONE NEG (NEG); OPIATES POS (NEG); PHENCYCLIDINE NEG (NEG)
[2018-09-11 17:37] LABS: AMPHETAMINE/METHAMPHETAMINE NEG (NEG)
[2018-09-11 17:40] LABS: ALBUMIN/GLOBULIN RATIO 0.9 (1.0-1.7); MAGNESIUM 1.7 mg/dL (1.8-2.4); TOTAL BILIRUBIN 0.6 mg/dL (0.2-1.0); TOTAL PROTEIN 6.3 g/dL (6.4-8.2)
[2018-09-11] MEDS ORDERED: IOHEXOL 300 MG/ML 100ML VIAL. IV ONE (17:45)
--- NOTE | 2018-09-11 18:00 | RAD ---
CT scan of the abdomen and pelvis with contrast 09/11/2018 CLINICAL HISTORY: Right upper quadrant abdominal pain. Recent cholecystectomy. TECHNIQUE: After the intravenous administration of 75 cc of Omnipaque 300, contiguous, 5 mm axial sections were obtained through the abdomen and pelvis. One or more of the following individualized dose reduction techniques were utilized for this study: 1. Automated exposure control. 2. Adjustment of the mA and/or kV according to patient size. 3. Use of iterative reconstruction technique. FINDINGS: Comparison study is dated 01/11/2017. Images through the lung bases demonstrate minimal dependent subsegmental atelectasis bilaterally. The liver parenchyma has a decreased attenuation consistent with fatty infiltration. The spleen, pancreas, adrenal glands and left kidney are within normal limits. Rounded low-attenuation lesions are seen involving the right kidney which likely represents stenosis. These are unchanged. They measure 2.5 and 3.6 cm in size. Atherosclerotic calcification abdominal aorta is seen. The abdominal aorta tapers normally. Free fluid or free air is within the abdomen. There is no evidence of bowel obstruction. Air and stool seen throughout the colon. The appendix is well-visualized and is within normal limits. Surgical clips are seen within the gallbladder fossa consistent with a cholecystectomy. No abnormal fluid collection is seen within the gallbladder fossa. There is no CT evidence of intra or extrahepatic biliary ductal dilatation. Images through the pelvis demonstrate the urinary bladder to be contracted. Calcifications are seen within the pelvis consistent with phleboliths. No free fluid is seen. Moderate amount stool seen within the sigmoid colon and rectum. Very mild S-shaped curvature of the thoracolumbar spine is seen. Increased soft tissue density is seen within the inferior right inguinal region/anterior superior right thigh which is incompletely evaluated on this study but measures at least 7 cm in greatest diameter. This likely reflects a hematoma presumably related to a recent catheterization procedure. Degenerative changes are seen involving the lower thoracic and throughout the lumbar spine and both hips. IMPRESSION: No acute abnormality is seen. Electronically signed by: David Calvillo MD (09/11/2018 5:57 PM) [facility]
--- NOTE | 2018-09-11 19:14 | RAD ---
AP portable chest radiograph 09/11/2018 Clinical History: EKG changes. An AP erect portable digital radiograph of the chest was obtained. Comparison study is dated 09/04/2018. A pacemaker is unchanged in position. The cardiac silhouette is mildly enlarged. The thoracic aorta is mildly tortuous. No acute pulmonary infiltrate is seen. No pleural effusion or pneumothorax is noted. Degenerative changes are seen involving the thoracic spine and right shoulder. IMPRESSION: No acute abnormality is seen. Electronically signed by: David Calvillo MD (09/11/2018 7:11 PM) [facility]
--- NOTE | 2018-09-11 19:35 | PHYS DOC ---
Past Medical History Past Medical History: CAD, Depression, High Cholesterol, Hypertension, Other Additional Past Medical Histor: morbid obesity (VIKASH GOYAL APRN) Past Surgical History: Cholecystectomy, Pacemaker, Other Additional Past Surgical Histo: STENTS, LEFT SHOUDLER, Lt knee, Lt ankle (VIKASH GOYAL APRN) Alcohol Use: Occasionally Drug Use: Marijuana (VIKASH GOYAL APRN) Adult General Chief Complaint Chief Complaint: POST-OP PROBLEM HPI HPI Patient is a 58 year old morbidly obese male with history of hypertension, CAD, pacemaker, cholecystectomy on Saturday which is 5 days ago who presents to the ED today complaining of moderate right upper quadrant abdominal pain that began today. Patient states the pain is worse when he is up and moving. Patient denies any nausea vomiting. He states has not had a good bowel movement for one week. Denies any fever. Denies any loose stools. Denies any chest pain or shortness of breath. He states he had a pacemaker placed 2 weeks ago. (VIKASH GOYAL APRN) Review of Systems Review of Systems Constitutional: Denies fever or chills [] Eyes: Denies change in visual acuity, redness, or eye pain [] HENT: Denies nasal congestion or sore throat [] Respiratory: Denies cough or shortness of breath [] Cardiovascular: No additional information not addressed in HPI [] GI: Reports right upper quadrant abdominal pain, denies nausea, vomiting, bloody stools or diarrhea [] : Denies dysuria or hematuria [] Musculoskeletal: Denies back pain or joint pain [] Integument: Denies rash or skin lesions [] Neurologic: Denies headache, focal weakness or sensory changes [] All other systems were reviewed and found to be within normal limits, except as documented in this note. (VIKASH GOYAL APRN) Current Medications Current Medications Current Medications Medications (Trade) Dose Ordered Sig/Allie Start Time Stop Time Status Last Admin Dose Admin Info (CONTRAST GIVEN -- Rx MONITORING) 1 each PRN DAILY PRN 09/11/18 17:30 09/13/18 17:29 DC Iohexol (Omnipaque 300 Mg/ml) 75 ml 1X ONCE 09/11/18 17:45 09/11/18 17:46 DC 09/11/18 17:38 75 ML Morphine Sulfate (Morphine Sulfate) 4 mg PRN Q15MIN PRN 09/11/18 16:30 09/12/18 11:34 DC 09/11/18 19:00 4 MG Ondansetron HCl (Zofran) 4 mg 1X ONCE 09/11/18 17:00 09/11/18 17:01 DC 09/11/18 16:37 4 MG (URI BRIGGS DO) Allergies Allergies Allergies Coded Allergies Type Severity Reaction Last Updated Verified naproxen Allergy Intermediate 04/04/17 Yes (URI BRIGGS DO) Physical Exam Physical Exam Constitutional: Well developed, well nourished, no acute distress, non-toxic appearance. [] HENT: Normocephalic, atraumatic, bilateral external ears normal, oropharynx moist, no oral exudates, nose normal. [] Eyes: PERRLA, EOMI, conjunctiva normal, no discharge. [] Neck: Normal range of motion, no tenderness, supple, no stridor. [] Cardiovascular:Right upper chest with pacemaker, incision site is clean and dry. Heart rate regular rhythm, no murmur [] Lungs & Thorax: Bilateral breath sounds clear to auscultation [] Abdomen: Obese abdomen. Laparoscopic surgical incisions noted on the abdomen. Bruising noted over the incision site. Slight tenderness on the right upper quadrant (incisional). Bowel sounds normal, soft, no masses, no pulsatile masses. [] Skin: Warm, dry, no erythema, no rash. [] Back: No tenderness, no CVA tenderness. [] Extremities: No tenderness, no cyanosis, no clubbing, ROM intact, no edema. [] Neurologic: Alert and oriented X 3, normal motor function, normal sensory function, no focal deficits noted. [] Psychologic: Affect normal, judgement normal, mood normal. [] (VIKASH GOYAL APRN) Current Patient Data Vital Signs Vital Signs Date Time Temp Pulse Resp B/P (MAP) Pulse Ox O2 Delivery O2 Flow Rate FiO2 09/11/18 19:00 70 16 133/63 (86) 95 Room Air 09/11/18 16:12 98.6 98.6 (URI BRIGGS DO) Lab Values Laboratory Tests Test 09/11/18 16:45 09/11/18 17:13 White Blood Count 11.2 x10^3/uL (4.0-11.0) H Red Blood Count 4.35 x10^6/uL (4.30-5.70) Hemoglobin 13.5 g/dL (13.0-17.5) Hematocrit 39.9 % (39.0-53.0) Mean Corpuscular Volume 92 fL (79-100) Mean Corpuscular Hemoglobin 31 pg (25-35) Mean Corpuscular Hemoglobin Concent 34 g/dL (31-37) Red Cell Distribution Width 14.2 % (11.5-14.5) Platelet Count 259 x10^3/uL (140-400) Neutrophils (%) (Auto) 73 % (31-73) Lymphocytes (%) (Auto) 16 % (24-48) L Monocytes (%) (Auto) 6 % (0-9) Eosinophils (%) (Auto) 4 % (0-3) H Basophils (%) (Auto) 1 % (0-3) Neutrophils # (Auto) 8.2 x10^3uL (1.8-7.7) H Lymphocytes # (Auto) 1.8 x10^3/uL (1.0-4.8) Monocytes # (Auto) 0.7 x10^3/uL (0.0-1.1) Eosinophils # (Auto) 0.5 x10^3/uL (0.0-0.7) Basophils # (Auto) 0.1 x10^3/uL (0.0-0.2) Prothrombin Time 14.0 SEC (11.7-14.0) Prothrombin Time INR 1.1 (0.8-1.1) Sodium Level 142 mmol/L (136-145) Potassium Level 4.1 mmol/L (3.5-5.1) Chloride Level 102 mmol/L (98-107) Carbon Dioxide Level 30 mmol/L (21-32) Anion Gap 10 (6-14) Blood Urea Nitrogen 16 mg/dL (8-26) Creatinine 0.7 mg/dL (0.7-1.3) Estimated GFR (Cockcroft-Gault) 116.2 BUN/Creatinine Ratio 23 (6-20) H Glucose Level 116 mg/dL (70-99) H Lactic Acid Level 1.2 mmol/L (0.4-2.0) Calcium Level 9.0 mg/dL (8.5-10.1) Magnesium Level 1.7 mg/dL (1.8-2.4) L Total Bilirubin 0.6 mg/dL (0.2-1.0) Aspartate Amino Transferase (AST) 17 U/L (15-37) Alanine Aminotransferase (ALT) 32 U/L (16-63) Alkaline Phosphatase 109 U/L (46-116) Creatine Kinase 40 U/L (39-308) Creatine Kinase MB (Mass) 0.5 ng/mL (0.0-3.6) Creatine Kinase MB Relative Index % (0-4) Troponin I Quantitative < 0.017 ng/mL (0.000-0.055) XU-Ecd-P-Type Natriuretic Peptide 175 pg/mL (0-124) H Total Protein 6.3 g/dL (6.4-8.2) L Albumin 3.0 g/dL (3.4-5.0) L Albumin/Globulin Ratio 0.9 (1.0-1.7) L Lipase 98 U/L (73-393) Thyroid Stimulating Hormone (TSH) 4.728 uIU/mL (0.358-3.74) H Urine Collection Type Unknown Urine Color [place] Urine Clarity Clear Urine pH 6.0 Urine Specific [place] >=1.030 Urine Protein Negative mg/dL (NEG-TRACE) Urine Glucose (UA) Negative mg/dL (NEG) Urine Ketones (Stick) Negative mg/dL (NEG) Urine Blood Negative (NEG) Urine Nitrite Negative (NEG) Urine Bilirubin Small (NEG) Urine Urobilinogen Dipstick 1.0 mg/dL (0.2 mg/dL) Urine Leukocyte Esterase Negative (NEG) Urine RBC Occ /HPF (0-2) Urine WBC Occ /HPF (0-4) Urine Squamous Epithelial Cells Few /LPF Urine Bacteria Few /HPF (0-FEW) Urine Mucus Marked /LPF Urine Opiates Screen Pos (NEG) Urine Methadone Screen Neg (NEG) Urine Barbiturates Neg (NEG) Urine Phencyclidine Screen Neg (NEG) Urine Amphetamine/Methamphetamine Neg (NEG) Urine Benzodiazepines Screen Neg (NEG) Urine Cocaine Screen Neg (NEG) Urine Cannabinoids Screen Pos (NEG) Urine Ethyl Alcohol Neg (NEG) Laboratory Tests 09/11/18 16:45 Laboratory Tests 09/11/18 16:45 Microbiology 09/11/18 Blood Culture - Preliminary, Resulted NO GROWTH AFTER 4 DAYS (URI BRIGGS DO) EKG EKG 16:[address] Fried and sinus rhyth them heart rates 80 inverted T waves noted on V 4, V5, V3, V6 and III, this is new from EKG done on 09/04/2018 (VIKASH GOYAL APRN) Radiology/Procedures Radiology/Procedures []PROCEDURE: CT ABD PELV W/ IV CONTRST ONLY CT scan of the abdomen and pelvis with contrast 09/11/2018 CLINICAL HISTORY: Right upper quadrant abdominal pain. Recent cholecystectomy. TECHNIQUE: After the intravenous administration of 75 cc of Omnipaque 300, contiguous, 5 mm axial sections were obtained through the abdomen and pelvis. One or more of the following individualized dose reduction techniques were utilized for this study: 1. Automated exposure control. 2. Adjustment of the mA and/or kV according to patient size. 3. Use of iterative reconstruction technique. FINDINGS: Comparison study is dated 01/11/2017. Images through the lung bases demonstrate minimal dependent subsegmental atelectasis bilaterally. The liver parenchyma has a decreased attenuation consistent with fatty infiltration. The spleen, pancreas, adrenal glands and left kidney are within normal limits. Rounded low-attenuation lesions are seen involving the right kidney which likely represents stenosis. These are unchanged. They measure 2.5 and 3.6 cm in size. Atherosclerotic calcification abdominal aorta is seen. The abdominal aorta tapers normally. Free fluid or free air is within the abdomen. There is no evidence of bowel obstruction. Air and stool seen throughout the colon. The appendix is well-visualized and is within normal limits. Surgical clips are seen within the gallbladder fossa consistent with a cholecystectomy. No abnormal fluid collection is seen within the gallbladder fossa. There is no CT evidence of intra or extrahepatic biliary ductal dilatation. Images through the pelvis demonstrate the urinary bladder to be contracted. Calcifications are seen within the pelvis consistent with phleboliths. No free fluid is seen. Moderate amount stool seen within the sigmoid colon and rectum. Very mild S-shaped curvature of the thoracolumbar spine is seen. Increased soft tissue density is seen within the inferior right inguinal region/anterior superior right thigh which is incompletely evaluated on this study but measures at least 7 cm in greatest diameter. This likely reflects a hematoma presumably related to a recent catheterization procedure. Degenerative changes are seen involving the lower thoracic and throughout the lumbar spine and both hips. IMPRESSION: No acute abnormality is seen. Electronically signed by: David Calvillo MD (09/11/2018 5:57 PM) [facility] DICTATED and SIGNED BY: DAVID CALVILLO MD DATE: 09/11/181756 PROCEDURE: PORTABLE CHEST 1V AP portable chest radiograph 09/11/2018 Clinical History: EKG changes. An AP erect portable digital radiograph of the chest was obtained. Comparison study is dated 09/04/2018. A pacemaker is unchanged in position. The cardiac silhouette is mildly enlarged. The thoracic aorta is mildly tortuous. No acute pulmonary infiltrate is seen. No pleural effusion or pneumothorax is noted. Degenerative changes are seen involving the thoracic spine and right shoulder. IMPRESSION: No acute abnormality is seen. Electronically signed by: David Calvillo MD (09/11/2018 7:11 PM) [facility] DICTATED and SIGNED BY: DAVID CALVILLO MD DATE: 09/11/181910 (VIKASH GOYAL APRN) Course & Med Decision Making Course & Med Decision Making Pertinent Labs and Imaging studies reviewed. (See chart for details) This is a 58-year-old male patient presenting to the ED today complaining of right upper quadrant abdominal pain, patient had cholecystectomy on Saturday this week, he also had a pacemaker placed 2 weeks ago. Patient's lab work is negative for any acute findings, chest x-ray and CT of the abdomen and pelvic are negative. EKG was noted for new inverted T waves. Spoke with baseball club manager. They recommended we admit patient. Consulted with Dr. Rosales who accepted patient for admission. Routine consult placed for surgery. (VIKASH GOYAL APRN) Dragon Disclaimer Dragon Disclaimer This electronic medical record was generated, in whole or in part, using a voice recognition dictation system. (VIKASH GOYAL APRN) Departure Departure Impression: Primary Impression: Acute electrocardiography changes Additional Impression: Right upper quadrant pain Disposition: ADMITTED INPATIENT Condition: STABLE Referrals: DOROTA AGUIAR (PCP) Scripts Tramadol Hcl (TRAMADOL HCL) 50 Mg Tablet 50 MG PO PRN Q6HRS PRN for PAIN for 6 Days, #24 TAB Prov: NICHOLAS STEVEN MD 09/14/18 Hydrocortisone Acetate (ANTI-ITCH) 28 Gm Oint...g. 1 KAYLEEN TP PRN BID PRN for ITCHING for 30 Days, #1 MISC Prov: NICHOLAS STEVEN MD 09/14/18 Lubiprostone (AMITIZA) 8 Mcg Capsule 8 MCG PO PRN BID PRN for CONSTIPATION for 30 Days, #60 CAP Prov: NICHOLAS STEVEN MD 09/14/18 Polyethylene Glycol 3350 (POLYETHYLENE GLYCOL 3350) 17 Gm Powd.pack 17 GM PO BID for Constipation for 30 Days, #60 PKT Prov: NICHOLAS STEVEN MD 09/14/18 Attending Signature Attending Signature I have reviewed the PA/PRINCIPAL RESEARCH ECONOMIST's note and plan of care. I was available for consultation as needed during the patient's visit in the emergency department. I agree with the clinical impression, plan, and disposition. (URI BRIGGS DO) Problem Qualifiers VIKASH GOYAL HOUSE PAINTER HELPER September 11, 2018 19:35 URI BRIGGS DO Sep 16, 2018 06:37
[2018-09-11] MEDS ORDERED: ACETAMINOPHEN 325 MG TABLET. PO PRN (19:45)
[2018-09-11] MEDS ORDERED: MORPHINE SULFATE 4 MG/ML VIAL. IV PRN (19:45)
[2018-09-11] MEDS ORDERED: NITROGLYCERIN SUBLINGUAL 0.4 MG BOTTLE OF 25. SL PRN (19:45)
[2018-09-11] MEDS ORDERED: ONDANSETRON PF 4 MG/2 ML VIAL. IV PRN (19:45)
--- NOTE | 2018-09-11 20:36 | HP ---
ADMIT DATE: 09/11/2018 CHIEF COMPLAINT: Right upper quadrant pain, chest pain. HISTORY OF PRESENT ILLNESS: The patient is a pleasant 58-year-old male who had a cholecystectomy within the past couple of weeks. He presents with right upper quadrant pain. He also had a cardiac catheterization a week ago, apparently was clean. He rates his symptoms at 10/10. He has associated weakness and nausea. He states he really has to grab onto his abdomen just to use the restroom and he still has not had a bowel movement. He tried taking some home medications, but that was not working. I discussed the case with the ER physician. We are going to admit the patient and consult Cardiology and his surgeon. PAST MEDICAL HISTORY: Obesity, CAD, hypertension, depression, cholecystectomy, pacemaker, left shoulder surgery, left knee surgery, left ankle surgery, cardiac stents. ALLERGIES: NAPROXEN. FAMILY HISTORY: Coronary artery disease. SOCIAL HISTORY: I think he quit smoking. No drinking or drugs. He uses marijuana. MEDICATIONS: Reviewed, please refer to the MRAD. REVIEW OF SYSTEMS: GENERAL: No history of weight change, weakness or fevers. SKIN: No bruising, hair changes or rashes. EYES: No blurred, double or loss of vision. NOSE AND THROAT: No history of nosebleeds, hoarseness or sore throat. HEART: He complains of chest pain. LUNGS: Denies cough, hemoptysis, wheezing or shortness of breath. GASTROINTESTINAL: He complains of abdominal pain. GENITOURINARY: No history of frequency, urgency, hesitancy or nocturia. NEUROLOGIC: Denies history of numbness, tingling, tremor or weakness. PSYCHIATRIC: No history of panic, anxiety or depression. ENDOCRINE: No history of heat or cold intolerance, polyuria or polydipsia. EXTREMITIES: Denies muscle weakness, joint pain, pain on walking or stiffness. PHYSICAL EXAMINATION: VITAL SIGNS: Temperature afebrile, pulse 98, respirations 18, blood pressure 149/92 and O2 sat 98%. GENERAL: He is alert, cooperative. HEART: Normal S1, S2. LUNGS: Clear to auscultation. ABDOMEN: Soft, tender in the right upper quadrant. His incision is healing well. His abdomen is obese. EXTREMITIES: Trace edema. SKIN: No rash. ENDOCRINE: No thyromegaly. LYMPHATICS: No cervical nodes. HEMATOPOIETIC: No bruising. PSYCHIATRIC: He is depressed. LABORATORY DATA: White count is 11. Electrolytes are normal. Glucose is 116, magnesium is 1.7. BNP 175. Troponin is 0. Chest x-ray, results are pending. ASSESSMENT AND PLAN: Right upper quadrant pain and chest pain. The patient has been admitted. We will consult Cardiology, Gastroenterology and General Surgery. Continue his home medications. Deep venous thrombosis prophylaxis. Full code. Cardiac monitoring, serial enzymes, serial EKGs. Wound care. BRINA SUAREZ DO DR: NELIA/missy JOB#: [id number] / [id number]
[2018-09-11 20:52] VITALS: BP 142/85
[2018-09-11] MEDS ORDERED: PANTOPRAZOLE 40 MG TABLET.DR. PO SCH (22:30)
[2018-09-11] MEDS: METOPROLOL TART IMMED RELEASE 25 MG TABLET. PO SCH (22:37)
[2018-09-11] MEDS: ATORVASTATIN CALCIUM 40 MG TABLET. PO SCH (22:37)
[2018-09-11] MEDS: FLUoxetine HCL 20 MG CAPSULE PO SCH (22:38)
[2018-09-11] MEDS: TEMAZEPAM 15 MG CAPSULE PO PRN (22:38)
[2018-09-11] MEDS: LISINOPRIL 20 MG TABLET PO SCH (22:38)
[2018-09-11 22:45] VITALS: BP 137/76
[2018-09-11] MEDS: MORPHINE SULFATE 10 MG/ML VIAL. IV PRN (22:54)
--- NOTE | 2018-09-12 00:53 | NUR ---
Patient arrived to unit at 2049 on 09/11/18 accompanied by ER nurse and . VS stable, assessment complete. Resting on room air and reports 10/10 RUQ pain. patient oriented to unit. bed in low locked position, call light with in reach. will continue to monitor.
[2018-09-12] MEDS: MORPHINE SULFATE 10 MG/ML VIAL. IV PRN ×4 (03:00→20:09)
[2018-09-12 03:07] VITALS: BP 125/78
[2018-09-12 03:49] LABS: BASO # 0.1 x10^3/uL (0.0-0.2); BASO % 1 % (0-3); EOS # 0.6 x10^3/uL (0.0-0.7); EOS % 5 % (0-3); HEMATOCRIT 38.7 % (39.0-53.0); HEMOGLOBIN 12.6 g/dL (13.0-17.5); LYMPH # 1.8 x10^3/uL (1.0-4.8); LYMPH % 17 % (24-48); MEAN CORPUSCULAR HEMOGLOBIN 30 pg (25-35); MEAN CORPUSCULAR HGB CONC 33 g/dL (31-37); MEAN CORPUSCULAR VOLUME 92 fL (79-100); MONO # 0.7 x10^3/uL (0.0-1.1); MONO % 7 % (0-9); NEUT # 7.7 x10^3uL (1.8-7.7); NEUT % 71 % (31-73); PLATELET COUNT 259 x10^3/uL (140-400); WHITE BLOOD COUNT 10.8 x10^3/uL (4.0-11.0)
[2018-09-12 04:05] LABS: CREATININE 0.8 mg/dL (0.7-1.3); GFR 99.6
--- NOTE | 2018-09-12 06:11 | EKG ---
[facility] [address] [place] [address] Test Date: 2018-09-11 Test Time: 16:08:59 Pat Name: NADIA BARBER Department: Room: Gender: M Central Supply Nurse: : 1960 Requested By: VIKASH GOYAL Order Number: [id number] Reading MD: Measurements Intervals [place] Rate: 80 P: -132 NH: 262 QRS: 6 QRSD: 76 T: -172 QT: 410 QTc: 476 Interpretive Statements SINUS RHYTHM PROLONGED NH INTERVAL ST & T ABNORMALITY, CONSIDER ANTERIOR ISCHEMIA OR LEFT VENTRICULAR STRAIN LATERAL ISCHEMIA OR LEFT VENTRICULAR STRAIN T ABNORMALITY IN INFEROLATERAL LEADS ABNORMAL ECG No previous ECG available for comparison
[2018-09-12 07:00] VITALS: BP 115/76
--- NOTE | 2018-09-12 08:04 | PDOC ---
PROGRESS NOTES Chief Complaint Chief Complaint RUQ pain EKG changes RUQ pain w/ movement, constipation - miralax, check HIDA, can try relistor as well Recent cholecystectomy GERD - on PPI CAD - recent cath w/ patent stents +cannabinoids History of Present Illness History of Present Illness Mr Schneider is a 58 yo M w/ PMHx CAD s/p stenting, HTN, Hyperlipidemia, Tachy lazaro syndrome s/p PPM placement, LOPEZ not on CPAP, GERD, Depression who presents with RUQ pain and EKG changes. He is literally spilling tears out of both eyes crying during examination today. Relates to me he cannot bend or sit up without RUQ pain, was requesting morphine 4mg every hour overnight, was given it every 2 hours. He is upset he was given hydrocodone for pain this morning, asking for more morphine. He has not had a BM since this past 09/04/18. Will increase his morphine if ok with surgery. Needs relistor MADI if ok with GI and surgery Vitals Vitals Vital Signs Date Time Temp Pulse Resp B/P (MAP) Pulse Ox O2 Delivery O2 Flow Rate FiO2 09/12/18 03:30 16 98 Room Air 09/12/18 03:07 97.9 64 125/78 (94) 97.9 Physical Exam General: Alert, Oriented X3, Cooperative, mild distress Heart: Regular rate, Normal S1, Normal S2 Lungs: Clear Abdomen: Other (Slow bowel sounds, tender abdomen) Extremities: No clubbing, No cyanosis Skin: No rashes, No breakdown Labs LABS Laboratory Tests Test 09/11/18 16:45 09/11/18 17:13 09/11/18 20:35 09/11/18 22:05 White Blood Count 11.2 x10^3/uL (4.0-11.0) Red Blood Count 4.35 x10^6/uL (4.30-5.70) Hemoglobin 13.5 g/dL (13.0-17.5) Hematocrit 39.9 % (39.0-53.0) Mean Corpuscular Volume 92 fL (79-100) Mean Corpuscular Hemoglobin 31 pg (25-35) Mean Corpuscular Hemoglobin Concent 34 g/dL (31-37) Red Cell Distribution Width 14.2 % (11.5-14.5) Platelet Count 259 x10^3/uL (140-400) Neutrophils (%) (Auto) 73 % (31-73) Lymphocytes (%) (Auto) 16 % (24-48) Monocytes (%) (Auto) 6 % (0-9) Eosinophils (%) (Auto) 4 % (0-3) Basophils (%) (Auto) 1 % (0-3) Neutrophils # (Auto) 8.2 x10^3uL (1.8-7.7) Lymphocytes # (Auto) 1.8 x10^3/uL (1.0-4.8) Monocytes # (Auto) 0.7 x10^3/uL (0.0-1.1) Eosinophils # (Auto) 0.5 x10^3/uL (0.0-0.7) Basophils # (Auto) 0.1 x10^3/uL (0.0-0.2) Prothrombin Time 14.0 SEC (11.7-14.0) Prothromb Time International Ratio 1.1 (0.8-1.1) Sodium Level 142 mmol/L (136-145) Potassium Level 4.1 mmol/L (3.5-5.1) Chloride Level 102 mmol/L (98-107) Carbon Dioxide Level 30 mmol/L (21-32) Anion Gap 10 (6-14) Blood Urea Nitrogen 16 mg/dL (8-26) Creatinine 0.7 mg/dL (0.7-1.3) Estimated GFR (Cockcroft-Gault) 116.2 BUN/Creatinine Ratio 23 (6-20) Glucose Level 116 mg/dL (70-99) Lactic Acid Level 1.2 mmol/L (0.4-2.0) 1.4 mmol/L (0.4-2.0) Calcium Level 9.0 mg/dL (8.5-10.1) Magnesium Level 1.7 mg/dL (1.8-2.4) Total Bilirubin 0.6 mg/dL (0.2-1.0) Aspartate Amino Transf (AST/SGOT) 17 U/L (15-37) Alanine Aminotransferase (ALT/SGPT) 32 U/L (16-63) Alkaline Phosphatase 109 U/L (46-116) Creatine Kinase 40 U/L (39-308) Creatine Kinase MB (Mass) 0.5 ng/mL (0.0-3.6) Creatine Kinase MB Relative Index % (0-4) Troponin I Quantitative < 0.017 ng/mL (0.000-0.055) < 0.017 ng/mL (0.000-0.055) TS-Big-S-Type Natriuretic Peptide 175 pg/mL (0-124) Total Protein 6.3 g/dL (6.4-8.2) Albumin 3.0 g/dL (3.4-5.0) Albumin/Globulin Ratio 0.9 (1.0-1.7) Lipase 98 U/L (73-393) Thyroid Stimulating Hormone (TSH) 4.728 uIU/mL (0.358-3.74) Urine Collection Type Unknown Urine Color Kasandra Urine Clarity Clear Urine pH 6.0 Urine Specific [place] >=1.030 Urine Protein Negative mg/dL (NEG-TRACE) Urine Glucose (UA) Negative mg/dL (NEG) Urine Ketones (Stick) Negative mg/dL (NEG) Urine Blood Negative (NEG) Urine Nitrite Negative (NEG) Urine Bilirubin Small (NEG) Urine Urobilinogen Dipstick 1.0 mg/dL (0.2 mg/dL) Urine Leukocyte Esterase Negative (NEG) Urine RBC Occ /HPF (0-2) Urine WBC Occ /HPF (0-4) Urine Squamous Epithelial Cells Few /LPF Urine Bacteria Few /HPF (0-FEW) Urine Mucus Marked /LPF Urine Opiates Screen Pos (NEG) Urine Methadone Screen Neg (NEG) Urine Barbiturates Neg (NEG) Urine Phencyclidine Screen Neg (NEG) Urine Amphetamine/Methamphetamine Neg (NEG) Urine Benzodiazepines Screen Neg (NEG) Urine Cocaine Screen Neg (NEG) Urine Cannabinoids Screen Pos (NEG) Urine Ethyl Alcohol Neg (NEG) Test 09/12/18 02:55 White Blood Count 10.8 x10^3/uL (4.0-11.0) Red Blood Count 4.20 x10^6/uL (4.30-5.70) Hemoglobin 12.6 g/dL (13.0-17.5) Hematocrit 38.7 % (39.0-53.0) Mean Corpuscular Volume 92 fL (79-100) Mean Corpuscular Hemoglobin 30 pg (25-35) Mean Corpuscular Hemoglobin Concent 33 g/dL (31-37) Red Cell Distribution Width 14.0 % (11.5-14.5) Platelet Count 259 x10^3/uL (140-400) Neutrophils (%) (Auto) 71 % (31-73) Lymphocytes (%) (Auto) 17 % (24-48) Monocytes (%) (Auto) 7 % (0-9) Eosinophils (%) (Auto) 5 % (0-3) Basophils (%) (Auto) 1 % (0-3) Neutrophils # (Auto) 7.7 x10^3uL (1.8-7.7) Lymphocytes # (Auto) 1.8 x10^3/uL (1.0-4.8) Monocytes # (Auto) 0.7 x10^3/uL (0.0-1.1) Eosinophils # (Auto) 0.6 x10^3/uL (0.0-0.7) Basophils # (Auto) 0.1 x10^3/uL (0.0-0.2) Sodium Level 142 mmol/L (136-145) Potassium Level 4.0 mmol/L (3.5-5.1) Chloride Level 105 mmol/L (98-107) Carbon Dioxide Level 30 mmol/L (21-32) Anion Gap 7 (6-14) Blood Urea Nitrogen 16 mg/dL (8-26) Creatinine 0.8 mg/dL (0.7-1.3) Estimated GFR (Cockcroft-Gault) 99.6 Glucose Level 106 mg/dL (70-99) Calcium Level 9.0 mg/dL (8.5-10.1) Assessment and Plan Assessmemt and Plan Problems Medical Problems: (1) Acute electrocardiography changes Status: Acute (2) Right upper quadrant pain Status: Acute Comment Review of Relevant I have reviewed the following items josé (where applicable) has been applied. Labs Laboratory Tests Test 09/11/18 16:45 09/11/18 17:13 09/11/18 20:35 09/11/18 22:05 White Blood Count 11.2 x10^3/uL (4.0-11.0) Red Blood Count 4.35 x10^6/uL (4.30-5.70) Hemoglobin 13.5 g/dL (13.0-17.5) Hematocrit 39.9 % (39.0-53.0) Mean Corpuscular Volume 92 fL (79-100) Mean Corpuscular Hemoglobin 31 pg (25-35) Mean Corpuscular Hemoglobin Concent 34 g/dL (31-37) Red Cell Distribution Width 14.2 % (11.5-14.5) Platelet Count 259 x10^3/uL (140-400) Neutrophils (%) (Auto) 73 % (31-73) Lymphocytes (%) (Auto) 16 % (24-48) Monocytes (%) (Auto) 6 % (0-9) Eosinophils (%) (Auto) 4 % (0-3) Basophils (%) (Auto) 1 % (0-3) Neutrophils # (Auto) 8.2 x10^3uL (1.8-7.7) Lymphocytes # (Auto) 1.8 x10^3/uL (1.0-4.8) Monocytes # (Auto) 0.7 x10^3/uL (0.0-1.1) Eosinophils # (Auto) 0.5 x10^3/uL (0.0-0.7) Basophils # (Auto) 0.1 x10^3/uL (0.0-0.2) Prothrombin Time 14.0 SEC (11.7-14.0) Prothromb Time International Ratio 1.1 (0.8-1.1) Sodium Level 142 mmol/L (136-145) Potassium Level 4.1 mmol/L (3.5-5.1) Chloride Level 102 mmol/L (98-107) Carbon Dioxide Level 30 mmol/L (21-32) Anion Gap 10 (6-14) Blood Urea Nitrogen 16 mg/dL (8-26) Creatinine 0.7 mg/dL (0.7-1.3) Estimated GFR (Cockcroft-Gault) 116.2 BUN/Creatinine Ratio 23 (6-20) Glucose Level 116 mg/dL (70-99) Lactic Acid Level 1.2 mmol/L (0.4-2.0) 1.4 mmol/L (0.4-2.0) Calcium Level 9.0 mg/dL (8.5-10.1) Magnesium Level 1.7 mg/dL (1.8-2.4) Total Bilirubin 0.6 mg/dL (0.2-1.0) Aspartate Amino Transf (AST/SGOT) 17 U/L (15-37) Alanine Aminotransferase (ALT/SGPT) 32 U/L (16-63) Alkaline Phosphatase 109 U/L (46-116) Creatine Kinase 40 U/L (39-308) Creatine Kinase MB (Mass) 0.5 ng/mL (0.0-3.6) Creatine Kinase MB Relative Index % (0-4) Troponin I Quantitative < 0.017 ng/mL (0.000-0.055) < 0.017 ng/mL (0.000-0.055) QS-Jds-D-Type Natriuretic Peptide 175 pg/mL (0-124) Total Protein 6.3 g/dL (6.4-8.2) Albumin 3.0 g/dL (3.4-5.0) Albumin/Globulin Ratio 0.9 (1.0-1.7) Lipase 98 U/L (73-393) Thyroid Stimulating Hormone (TSH) 4.728 uIU/mL (0.358-3.74) Urine Collection Type Unknown Urine Color Kasandra Urine Clarity Clear Urine pH 6.0 Urine Specific [place] >=1.030 Urine Protein Negative mg/dL (NEG-TRACE) Urine Glucose (UA) Negative mg/dL (NEG) Urine Ketones (Stick) Negative mg/dL (NEG) Urine Blood Negative (NEG) Urine Nitrite Negative (NEG) Urine Bilirubin Small (NEG) Urine Urobilinogen Dipstick 1.0 mg/dL (0.2 mg/dL) Urine Leukocyte Esterase Negative (NEG) Urine RBC Occ /HPF (0-2) Urine WBC Occ /HPF (0-4) Urine Squamous Epithelial Cells Few /LPF Urine Bacteria Few /HPF (0-FEW) Urine Mucus Marked /LPF Urine Opiates Screen Pos (NEG) Urine Methadone Screen Neg (NEG) Urine Barbiturates Neg (NEG) Urine Phencyclidine Screen Neg (NEG) Urine Amphetamine/Methamphetamine Neg (NEG) Urine Benzodiazepines Screen Neg (NEG) Urine Cocaine Screen Neg (NEG) Urine Cannabinoids Screen Pos (NEG) Urine Ethyl Alcohol Neg (NEG) Test 09/12/18 02:55 White Blood Count 10.8 x10^3/uL (4.0-11.0) Red Blood Count 4.20 x10^6/uL (4.30-5.70) Hemoglobin 12.6 g/dL (13.0-17.5) Hematocrit 38.7 % (39.0-53.0) Mean Corpuscular Volume 92 fL (79-100) Mean Corpuscular Hemoglobin 30 pg (25-35) Mean Corpuscular Hemoglobin Concent 33 g/dL (31-37) Red Cell Distribution Width 14.0 % (11.5-14.5) Platelet Count 259 x10^3/uL (140-400) Neutrophils (%) (Auto) 71 % (31-73) Lymphocytes (%) (Auto) 17 % (24-48) Monocytes (%) (Auto) 7 % (0-9) Eosinophils (%) (Auto) 5 % (0-3) Basophils (%) (Auto) 1 % (0-3) Neutrophils # (Auto) 7.7 x10^3uL (1.8-7.7) Lymphocytes # (Auto) 1.8 x10^3/uL (1.0-4.8) Monocytes # (Auto) 0.7 x10^3/uL (0.0-1.1) Eosinophils # (Auto) 0.6 x10^3/uL (0.0-0.7) Basophils # (Auto) 0.1 x10^3/uL (0.0-0.2) Sodium Level 142 mmol/L (136-145) Potassium Level 4.0 mmol/L (3.5-5.1) Chloride Level 105 mmol/L (98-107) Carbon Dioxide Level 30 mmol/L (21-32) Anion Gap 7 (6-14) Blood Urea Nitrogen 16 mg/dL (8-26) Creatinine 0.8 mg/dL (0.7-1.3) Estimated GFR (Cockcroft-Gault) 99.6 Glucose Level 106 mg/dL (70-99) Calcium Level 9.0 mg/dL (8.5-10.1) Laboratory Tests Test 09/11/18 16:45 09/11/18 17:13 09/11/18 20:35 09/11/18 22:05 White Blood Count 11.2 x10^3/uL (4.0-11.0) Red Blood Count 4.35 x10^6/uL (4.30-5.70) Hemoglobin 13.5 g/dL (13.0-17.5) Hematocrit 39.9 % (39.0-53.0) Mean Corpuscular Volume 92 fL (79-100) Mean Corpuscular Hemoglobin 31 pg (25-35) Mean Corpuscular Hemoglobin Concent 34 g/dL (31-37) Red Cell Distribution Width 14.2 % (11.5-14.5) Platelet Count 259 x10^3/uL (140-400) Neutrophils (%) (Auto) 73 % (31-73) Lymphocytes (%) (Auto) 16 % (24-48) Monocytes (%) (Auto) 6 % (0-9) Eosinophils (%) (Auto) 4 % (0-3) Basophils (%) (Auto) 1 % (0-3) Neutrophils # (Auto) 8.2 x10^3uL (1.8-7.7) Lymphocytes # (Auto) 1.8 x10^3/uL (1.0-4.8) Monocytes # (Auto) 0.7 x10^3/uL (0.0-1.1) Eosinophils # (Auto) 0.5 x10^3/uL (0.0-0.7) Basophils # (Auto) 0.1 x10^3/uL (0.0-0.2) Prothrombin Time 14.0 SEC (11.7-14.0) Prothromb Time International Ratio 1.1 (0.8-1.1) Sodium Level 142 mmol/L (136-145) Potassium Level 4.1 mmol/L (3.5-5.1) Chloride Level 102 mmol/L (98-107) Carbon Dioxide Level 30 mmol/L (21-32) Anion Gap 10 (6-14) Blood Urea Nitrogen 16 mg/dL (8-26) Creatinine 0.7 mg/dL (0.7-1.3) Estimated GFR (Cockcroft-Gault) 116.2 BUN/Creatinine Ratio 23 (6-20) Glucose Level 116 mg/dL (70-99) Lactic Acid Level 1.2 mmol/L (0.4-2.0) 1.4 mmol/L (0.4-2.0) Calcium Level 9.0 mg/dL (8.5-10.1) Magnesium Level 1.7 mg/dL (1.8-2.4) Total Bilirubin 0.6 mg/dL (0.2-1.0) Aspartate Amino Transf (AST/SGOT) 17 U/L (15-37) Alanine Aminotransferase (ALT/SGPT) 32 U/L (16-63) Alkaline Phosphatase 109 U/L (46-116) Creatine Kinase 40 U/L (39-308) Creatine Kinase MB (Mass) 0.5 ng/mL (0.0-3.6) Creatine Kinase MB Relative Index % (0-4) Troponin I Quantitative < 0.017 ng/mL (0.000-0.055) < 0.017 ng/mL (0.000-0.055) HY-Hig-P-Type Natriuretic Peptide 175 pg/mL (0-124) Total Protein 6.3 g/dL (6.4-8.2) Albumin 3.0 g/dL (3.4-5.0) Albumin/Globulin Ratio 0.9 (1.0-1.7) Lipase 98 U/L (73-393) Thyroid Stimulating Hormone (TSH) 4.728 uIU/mL (0.358-3.74) Urine Collection Type Unknown Urine Color Kasandra Urine Clarity Clear Urine pH 6.0 Urine Specific [place] >=1.030 Urine Protein Negative mg/dL (NEG-TRACE) Urine Glucose (UA) Negative mg/dL (NEG) Urine Ketones (Stick) Negative mg/dL (NEG) Urine Blood Negative (NEG) Urine Nitrite Negative (NEG) Urine Bilirubin Small (NEG) Urine Urobilinogen Dipstick 1.0 mg/dL (0.2 mg/dL) Urine Leukocyte Esterase Negative (NEG) Urine RBC Occ /HPF (0-2) Urine WBC Occ /HPF (0-4) Urine Squamous Epithelial Cells Few /LPF Urine Bacteria Few /HPF (0-FEW) Urine Mucus Marked /LPF Urine Opiates Screen Pos (NEG) Urine Methadone Screen Neg (NEG) Urine Barbiturates Neg (NEG) Urine Phencyclidine Screen Neg (NEG) Urine Amphetamine/Methamphetamine Neg (NEG) Urine Benzodiazepines Screen Neg (NEG) Urine Cocaine Screen Neg (NEG) Urine Cannabinoids Screen Pos (NEG) Urine Ethyl Alcohol Neg (NEG) Test 09/12/18 02:55 White Blood Count 10.8 x10^3/uL (4.0-11.0) Red Blood Count 4.20 x10^6/uL (4.30-5.70) Hemoglobin 12.6 g/dL (13.0-17.5) Hematocrit 38.7 % (39.0-53.0) Mean Corpuscular Volume 92 fL (79-100) Mean Corpuscular Hemoglobin 30 pg (25-35) Mean Corpuscular Hemoglobin Concent 33 g/dL (31-37) Red Cell Distribution Width 14.0 % (11.5-14.5) Platelet Count 259 x10^3/uL (140-400) Neutrophils (%) (Auto) 71 % (31-73) Lymphocytes (%) (Auto) 17 % (24-48) Monocytes (%) (Auto) 7 % (0-9) Eosinophils (%) (Auto) 5 % (0-3) Basophils (%) (Auto) 1 % (0-3) Neutrophils # (Auto) 7.7 x10^3uL (1.8-7.7) Lymphocytes # (Auto) 1.8 x10^3/uL (1.0-4.8) Monocytes # (Auto) 0.7 x10^3/uL (0.0-1.1) Eosinophils # (Auto) 0.6 x10^3/uL (0.0-0.7) Basophils # (Auto) 0.1 x10^3/uL (0.0-0.2) Sodium Level 142 mmol/L (136-145) Potassium Level 4.0 mmol/L (3.5-5.1) Chloride Level 105 mmol/L (98-107) Carbon Dioxide Level 30 mmol/L (21-32) Anion Gap 7 (6-14) Blood Urea Nitrogen 16 mg/dL (8-26) Creatinine 0.8 mg/dL (0.7-1.3) Estimated GFR (Cockcroft-Gault) 99.6 Glucose Level 106 mg/dL (70-99) Calcium Level 9.0 mg/dL (8.5-10.1) Medications Current Medications Morphine Sulfate (Morphine Sulfate) 4 mg PRN Q15MIN PRN IV/SQ PAIN GREATER THAN 3/10 Last administered on 09/11/18at 19:00; Start 09/11/18 at 16:30; Stop 09/12/18 at 16:29 Ondansetron HCl (Zofran) 4 mg 1X ONCE IV Last administered on 09/11/18at 16:37; Start 09/11/18 at 17:00; Stop 09/11/18 at 17:01; Status DC Iohexol (Omnipaque 300 Mg/ml) 75 ml 1X ONCE IV Last administered on 09/11/18at 17:38; Start 09/11/18 at 17:45; Stop 09/11/18 at 17:46; Status DC Info (CONTRAST GIVEN -- Rx MONITORING) 1 each PRN DAILY PRN MC SEE COMMENTS; Start 09/11/18 at 17:30; Stop 09/13/18 at 17:29 Ondansetron HCl (Zofran) 4 mg PRN Q8HRS PRN IV NAUSEA/VOMITING; Start 09/11/18 at 19:45; Stop 09/12/18 at 19:44 Morphine Sulfate (Morphine Sulfate) 4 mg PRN Q2HR PRN IV PAIN Last administered on 09/11/18at 21:15; Start 09/11/18 at 19:45; Stop 09/11/18 at 22:10; Status DC Acetaminophen (Tylenol) 650 mg PRN Q4HRS PRN PO FEVER; Start 09/11/18 at 19:45; Stop 09/12/18 at 19:44 Nitroglycerin (Nitrostat) 0.4 mg PRN Q5MIN PRN SL CHEST PAIN; Start 09/11/18 at 19:45; Stop 09/12/18 at 19:44 Temazepam (Restoril) 15 mg PRN QHS PRN PO INSOMNIA Last administered on 09/11/18at 22:38; Start 09/11/18 at 21:45 Morphine Sulfate (Morphine Sulfate) 6 mg PRN Q1HR PRN IV PAIN Last administered on 09/12/18at 03:00; Start 09/11/18 at 22:00 Aspirin (Ecotrin) 81 mg DAILYWBKFT PO ; Start 09/12/18 at 08:00 Atorvastatin Calcium (Lipitor) 80 mg QHS PO Last administered on 09/11/18at 22:37; Start 09/11/18 at 22:30 Bupropion HCl (Wellbutrin Xl) 150 mg DAILY PO ; Start 09/12/18 at 09:00 Clopidogrel Bisulfate (Plavix) 75 mg DAILY PO ; Start 09/12/18 at 09:00 Docusate Sodium (Colace) 100 mg DAILY PO ; Start 09/12/18 at 09:00 Acetaminophen/ Hydrocodone Bitart (Lortab 7.5/325) 1 tab PRN Q6HRS PRN PO PAIN; Start 09/11/18 at 22:00 Lisinopril (Prinivil) 40 mg HS PO Last administered on 09/11/18at 22:38; Start 09/11/18 at 22:30 Metoprolol Tartrate (Lopressor) 25 mg BID PO Last administered on 09/11/18at 22:37; Start 09/11/18 at 22:30 Fluoxetine HCl (PROzac) 40 mg HS PO Last administered on 09/11/18at 22:38; Start 09/11/18 at 22:30 Meloxicam (Mobic) 15 mg DAILY PO ; Start 09/12/18 at 09:00 Pantoprazole Sodium (Protonix) 40 mg HS PO Last administered on 09/11/18at 22:35; Start 09/11/18 at 22:30 Active Scripts Active Colace (Docusate Sodium) 100 Mg Capsule 100 Mg PO DAILY Hydrocodone-Apap 7.5-325 (Hydrocodone Bit/Acetaminophen) 1 Tab Tablet 1 Tab PO PRN Q6HRS PRN Metoprolol Tartrate 25 Mg Tablet 1 Tab PO BID 30 Days Atorvastatin Calcium 40 Mg Tablet 80 Mg PO QHS 30 Days Aspirin Ec (Aspirin) 81 Mg Tablet. 81 Mg PO DAILYWBKFT 30 Days Reported Wellbutrin Xl (Bupropion Hcl) 150 Mg Tab.er.24h 1 Tab PO DAILY Clopidogrel (Clopidogrel Bisulfate) 75 Mg Tablet 1 Tab PO DAILY Prilosec Otc (Omeprazole Magnesium) 20 Mg Tablet. 1 Tab PO HS Lisinopril 40 Mg Tablet 40 Mg PO HS Fluoxetine Hcl 40 Mg Capsule 40 Mg PO HS Meloxicam 15 Mg Tablet 1 Tab PO HS Vitals/I & O Vital Sign - Last 24 Hours 09/11/18 09/11/18 09/11/18 09/11/18 16:12 16:38 17:00 18:00 Temp 98.6 98.6 Pulse 78 72 76 Resp 16 18 16 15 B/P (MAP) 149/92 (111) 136/67 (90) 143/67 (92) Pulse Ox 97 95 94 97 O2 Delivery Room Air Room Air Room Air Room Air 09/11/18 09/11/18 09/11/18 09/11/18 19:00 19:00 20:00 20:50 Pulse 70 74 Resp 16 16 14 B/P (MAP) 133/63 (86) 139/73 (95) Pulse Ox 98 95 94 O2 Delivery Room Air Room Air Room Air Room Air 09/11/18 09/11/18 09/11/18 09/11/18 20:52 21:15 22:37 22:38 Temp 98.6 98.6 Pulse 81 88 88 Resp 22 16 B/P (MAP) 142/85 (104) 137/76 137/76 Pulse Ox 95 95 O2 Delivery Room Air Room Air 09/11/18 09/11/18 09/12/18 09/12/18 22:45 22:54 03:00 03:07 Temp 98.6 97.9 98.6 97.9 Pulse 88 64 Resp 18 16 16 16 B/P (MAP) 137/76 (96) 125/78 (94) Pulse Ox 93 98 98 93 O2 Delivery Room Air Room Air Room Air Room Air 09/12/18 03:30 Resp 16 Pulse Ox 98 O2 Delivery Room Air Intake and Output 09/11/18 09/11/18 09/12/18 14:59 22:59 06:59 Intake Total 320 ml Output Total 125 ml Balance 195 ml NICHOLAS STEVEN MD September 12, 2018 08:04
[2018-09-12] MEDS ORDERED: BISACODYL 10 MG SUPP.RECT. PR PRN (08:30)
--- NOTE | 2018-09-12 08:31 | PDOC2 ---
REINA MATTA PHYTOPATHOLOGIST 09/12/18 0831: CONSULT Date of Consult Date of Consult DATE: 09/12/18 TIME: 08:27 Reason for Consult Reason for Consult: s/p jalen Referring Physician Referring Physician: ER Identification/Chief Complaint Chief Complaint abdominal pain Source Source: Chart review, Patient History of Present Illness Reason for Visit: Lap jalen with Dr Miner 09/07. Discharged home, now with pain at port site, has to hold when gets up, bulges out. Also no stool since prior to surgery. Eating, however low appetite Past Medical History Cardiovascular: CAD, HTN, Hyperlipidemia Pulmonary: Other GI: GERD Heme/Onc: No pertinent hx Hepatobiliary: No pertinent hx Psych: Depression Musculoskeletal: Osteoarthritis, Other Rheumatologic: No pertinent hx Infectious disease: No pertinent hx Renal/: No pertinent hx Endocrine: No pertinent hx Past Surgical History Past Surgical History: Cholecystectomy Family History Family History: Coronary Artery Disease Social History ALCOHOL: rare Drugs: None Lives: with Family Domestic Violence: Neg Current Problem List Problem List Problems Medical Problems: (1) Acute electrocardiography changes Status: Acute (2) Right upper quadrant pain Status: Acute Current Medications Current Medications Current Medications Morphine Sulfate (Morphine Sulfate) 4 mg PRN Q15MIN PRN IV/SQ PAIN GREATER THAN 3/10 Last administered on 09/11/18at 19:00; Start 09/11/18 at 16:30; Stop 09/12/18 at 16:29 Ondansetron HCl (Zofran) 4 mg 1X ONCE IV Last administered on 09/11/18at 16:37; Start 09/11/18 at 17:00; Stop 09/11/18 at 17:01; Status DC Iohexol (Omnipaque 300 Mg/ml) 75 ml 1X ONCE IV Last administered on 09/11/18at 17:38; Start 09/11/18 at 17:45; Stop 09/11/18 at 17:46; Status DC Info (CONTRAST GIVEN -- Rx MONITORING) 1 each PRN DAILY PRN MC SEE COMMENTS; Start 09/11/18 at 17:30; Stop 09/13/18 at 17:29 Ondansetron HCl (Zofran) 4 mg PRN Q8HRS PRN IV NAUSEA/VOMITING; Start 09/11/18 at 19:45; Stop 09/12/18 at 19:44 Morphine Sulfate (Morphine Sulfate) 4 mg PRN Q2HR PRN IV PAIN Last administered on 09/11/18 21:15; Start 09/11/18 at 19:45; Stop 09/11/18 at 22:10; Status DC Acetaminophen (Tylenol) 650 mg PRN Q4HRS PRN PO FEVER; Start 09/11/18 at 19:45; Stop 09/12/18 at 19:44 Nitroglycerin (Nitrostat) 0.4 mg PRN Q5MIN PRN SL CHEST PAIN; Start 09/11/18 at 19:45; Stop 09/12/18 at 19:44 Temazepam (Restoril) 15 mg PRN QHS PRN PO INSOMNIA Last administered on 09/11/18at 22:38; Start 09/11/18 at 21:45 Morphine Sulfate (Morphine Sulfate) 6 mg PRN Q1HR PRN IV PAIN Last administered on 09/12/18at 03:00; Start 09/11/18 at 22:00 Aspirin (Ecotrin) 81 mg DAILYWBKFT PO ; Start 09/12/18 at 08:00 Atorvastatin Calcium (Lipitor) 80 mg QHS PO Last administered on 09/11/18at 22:37; Start 09/11/18 at 22:30 Bupropion HCl (Wellbutrin Xl) 150 mg DAILY PO ; Start 09/12/18 at 09:00 Clopidogrel Bisulfate (Plavix) 75 mg DAILY PO ; Start 09/12/18 at 09:00 Docusate Sodium (Colace) 100 mg DAILY PO ; Start 09/12/18 at 09:00 Acetaminophen/ Hydrocodone Bitart (Lortab 7.5/325) 1 tab PRN Q6HRS PRN PO PAIN; Start 09/11/18 at 22:00 Lisinopril (Prinivil) 40 mg HS PO Last administered on 09/11/18at 22:38; Start 09/11/18 at 22:30 Metoprolol Tartrate (Lopressor) 25 mg BID PO Last administered on 09/11/18at 22:37; Start 09/11/18 at 22:30 Fluoxetine HCl (PROzac) 40 mg HS PO Last administered on 09/11/18at 22:38; Start 09/11/18 at 22:30 Meloxicam (Mobic) 15 mg DAILY PO ; Start 09/12/18 at 09:00 Pantoprazole Sodium (Protonix) 40 mg HS PO Last administered on 09/11/18at 22:35; Start 09/11/18 at 22:30 Active Scripts Active Colace (Docusate Sodium) 100 Mg Capsule 100 Mg PO DAILY Hydrocodone-Apap 7.5-325 (Hydrocodone Bit/Acetaminophen) 1 Tab Tablet 1 Tab PO PRN Q6HRS PRN Metoprolol Tartrate 25 Mg Tablet 1 Tab PO BID 30 Days Atorvastatin Calcium 40 Mg Tablet 80 Mg PO QHS 30 Days Aspirin Ec (Aspirin) 81 Mg Tablet.dr 81 Mg PO DAILYWBKFT 30 Days Reported Wellbutrin Xl (Bupropion Hcl) 150 Mg Tab.er.24h 1 Tab PO DAILY Clopidogrel (Clopidogrel Bisulfate) 75 Mg Tablet 1 Tab PO DAILY Prilosec Otc (Omeprazole Magnesium) 20 Mg Tablet.dr 1 Tab PO HS Lisinopril 40 Mg Tablet 40 Mg PO HS Fluoxetine Hcl 40 Mg Capsule 40 Mg PO HS Meloxicam 15 Mg Tablet 1 Tab PO HS Allergies Allergies: Coded Allergies: naproxen (Verified Allergy, Intermediate, 04/04/17) ASA OK ROS General: No: Chills, Other (fevers ) PSYCHOLOGICAL ROS: No: Anxiety, Depression Eyes: No Blurry vision, No Double vision HEENT: No: Heacaches, Sore Throat Hematological and Lymphatic: No: Bleeding Problems, Blood Clots Respiratory: No: Cough, Shortness of breath Cardiovascular: No Chest Pain, No Palpitations Gastrointestinal: Yes Other (see hpi) Genitourinary: No Dysuria, No Retention Musculoskeletal: No Joint Pain, No Muscle Pain Neurological: No Confusion, No Impaired Coord/balance Skin: No Pruritus, No Rash Physical Exam General: Alert, Oriented X3, Cooperative, No acute distress HEENT: PERRLA, Mucous membr. moist/pink Lungs: Clear to auscultation, Normal air movement Heart: Regular rate, Normal S1, Normal S2 Abdomen: Soft, Other (noted bulge to port site, tender when examined ) Extremities: No clubbing, No cyanosis Skin: No rashes, No breakdown Neuro: Normal gait, Normal speech Psych/Mental Status: Mental status NL, Mood NL MUSCULOSKELETAL: No deformity, No swelling Vitals VITALS Vital Signs Date Time Temp Pulse Resp B/P (MAP) Pulse Ox O2 Delivery O2 Flow Rate FiO2 09/12/18 07:00 97.5 60 18 115/76 (89) 97 Room Air 97.5 Labs Labs Laboratory Tests Test 09/11/18 16:45 09/11/18 17:13 09/11/18 20:35 09/11/18 22:05 White Blood Count 11.2 x10^3/uL (4.0-11.0) Red Blood Count 4.35 x10^6/uL (4.30-5.70) Hemoglobin 13.5 g/dL (13.0-17.5) Hematocrit 39.9 % (39.0-53.0) Mean Corpuscular Volume 92 fL (79-100) Mean Corpuscular Hemoglobin 31 pg (25-35) Mean Corpuscular Hemoglobin Concent 34 g/dL (31-37) Red Cell Distribution Width 14.2 % (11.5-14.5) Platelet Count 259 x10^3/uL (140-400) Neutrophils (%) (Auto) 73 % (31-73) Lymphocytes (%) (Auto) 16 % (24-48) Monocytes (%) (Auto) 6 % (0-9) Eosinophils (%) (Auto) 4 % (0-3) Basophils (%) (Auto) 1 % (0-3) Neutrophils # (Auto) 8.2 x10^3uL (1.8-7.7) Lymphocytes # (Auto) 1.8 x10^3/uL (1.0-4.8) Monocytes # (Auto) 0.7 x10^3/uL (0.0-1.1) Eosinophils # (Auto) 0.5 x10^3/uL (0.0-0.7) Basophils # (Auto) 0.1 x10^3/uL (0.0-0.2) Prothrombin Time 14.0 SEC (11.7-14.0) Prothromb Time International Ratio 1.1 (0.8-1.1) Sodium Level 142 mmol/L (136-145) Potassium Level 4.1 mmol/L (3.5-5.1) Chloride Level 102 mmol/L (98-107) Carbon Dioxide Level 30 mmol/L (21-32) Anion Gap 10 (6-14) Blood Urea Nitrogen 16 mg/dL (8-26) Creatinine 0.7 mg/dL (0.7-1.3) Estimated GFR (Cockcroft-Gault) 116.2 BUN/Creatinine Ratio 23 (6-20) Glucose Level 116 mg/dL (70-99) Lactic Acid Level 1.2 mmol/L (0.4-2.0) 1.4 mmol/L (0.4-2.0) Calcium Level 9.0 mg/dL (8.5-10.1) Magnesium Level 1.7 mg/dL (1.8-2.4) Total Bilirubin 0.6 mg/dL (0.2-1.0) Aspartate Amino Transf (AST/SGOT) 17 U/L (15-37) Alanine Aminotransferase (ALT/SGPT) 32 U/L (16-63) Alkaline Phosphatase 109 U/L (46-116) Creatine Kinase 40 U/L (39-308) Creatine Kinase MB (Mass) 0.5 ng/mL (0.0-3.6) Creatine Kinase MB Relative Index % (0-4) Troponin I Quantitative < 0.017 ng/mL (0.000-0.055) < 0.017 ng/mL (0.000-0.055) NL-Gqv-Y-Type Natriuretic Peptide 175 pg/mL (0-124) Total Protein 6.3 g/dL (6.4-8.2) Albumin 3.0 g/dL (3.4-5.0) Albumin/Globulin Ratio 0.9 (1.0-1.7) Lipase 98 U/L (73-393) Thyroid Stimulating Hormone (TSH) 4.728 uIU/mL (0.358-3.74) Urine Collection Type Unknown Urine Color [place] Urine Clarity Clear Urine pH 6.0 Urine Specific [place] >=1.030 Urine Protein Negative mg/dL (NEG-TRACE) Urine Glucose (UA) Negative mg/dL (NEG) Urine Ketones (Stick) Negative mg/dL (NEG) Urine Blood Negative (NEG) Urine Nitrite Negative (NEG) Urine Bilirubin Small (NEG) Urine Urobilinogen Dipstick 1.0 mg/dL (0.2 mg/dL) Urine Leukocyte Esterase Negative (NEG) Urine RBC Occ /HPF (0-2) Urine WBC Occ /HPF (0-4) Urine Squamous Epithelial Cells Few /LPF Urine Bacteria Few /HPF (0-FEW) Urine Mucus Marked /LPF Urine Opiates Screen Pos (NEG) Urine Methadone Screen Neg (NEG) Urine Barbiturates Neg (NEG) Urine Phencyclidine Screen Neg (NEG) Urine Amphetamine/Methamphetamine Neg (NEG) Urine Benzodiazepines Screen Neg (NEG) Urine Cocaine Screen Neg (NEG) Urine Cannabinoids Screen Pos (NEG) Urine Ethyl Alcohol Neg (NEG) Test 09/12/18 02:55 White Blood Count 10.8 x10^3/uL (4.0-11.0) Red Blood Count 4.20 x10^6/uL (4.30-5.70) Hemoglobin 12.6 g/dL (13.0-17.5) Hematocrit 38.7 % (39.0-53.0) Mean Corpuscular Volume 92 fL (79-100) Mean Corpuscular Hemoglobin 30 pg (25-35) Mean Corpuscular Hemoglobin Concent 33 g/dL (31-37) Red Cell Distribution Width 14.0 % (11.5-14.5) Platelet Count 259 x10^3/uL (140-400) Neutrophils (%) (Auto) 71 % (31-73) Lymphocytes (%) (Auto) 17 % (24-48) Monocytes (%) (Auto) 7 % (0-9) Eosinophils (%) (Auto) 5 % (0-3) Basophils (%) (Auto) 1 % (0-3) Neutrophils # (Auto) 7.7 x10^3uL (1.8-7.7) Lymphocytes # (Auto) 1.8 x10^3/uL (1.0-4.8) Monocytes # (Auto) 0.7 x10^3/uL (0.0-1.1) Eosinophils # (Auto) 0.6 x10^3/uL (0.0-0.7) Basophils # (Auto) 0.1 x10^3/uL (0.0-0.2) Sodium Level 142 mmol/L (136-145) Potassium Level 4.0 mmol/L (3.5-5.1) Chloride Level 105 mmol/L (98-107) Carbon Dioxide Level 30 mmol/L (21-32) Anion Gap 7 (6-14) Blood Urea Nitrogen 16 mg/dL (8-26) Creatinine 0.8 mg/dL (0.7-1.3) Estimated GFR (Cockcroft-Gault) 99.6 Glucose Level 106 mg/dL (70-99) Calcium Level 9.0 mg/dL (8.5-10.1) Laboratory Tests Test 09/11/18 16:45 09/11/18 17:13 09/11/18 20:35 09/11/18 22:05 White Blood Count 11.2 x10^3/uL (4.0-11.0) Red Blood Count 4.35 x10^6/uL (4.30-5.70) Hemoglobin 13.5 g/dL (13.0-17.5) Hematocrit 39.9 % (39.0-53.0) Mean Corpuscular Volume 92 fL (79-100) Mean Corpuscular Hemoglobin 31 pg (25-35) Mean Corpuscular Hemoglobin Concent 34 g/dL (31-37) Red Cell Distribution Width 14.2 % (11.5-14.5) Platelet Count 259 x10^3/uL (140-400) Neutrophils (%) (Auto) 73 % (31-73) Lymphocytes (%) (Auto) 16 % (24-48) Monocytes (%) (Auto) 6 % (0-9) Eosinophils (%) (Auto) 4 % (0-3) Basophils (%) (Auto) 1 % (0-3) Neutrophils # (Auto) 8.2 x10^3uL (1.8-7.7) Lymphocytes # (Auto) 1.8 x10^3/uL (1.0-4.8) Monocytes # (Auto) 0.7 x10^3/uL (0.0-1.1) Eosinophils # (Auto) 0.5 x10^3/uL (0.0-0.7) Basophils # (Auto) 0.1 x10^3/uL (0.0-0.2) Prothrombin Time 14.0 SEC (11.7-14.0) Prothromb Time International Ratio 1.1 (0.8-1.1) Sodium Level 142 mmol/L (136-145) Potassium Level 4.1 mmol/L (3.5-5.1) Chloride Level 102 mmol/L (98-107) Carbon Dioxide Level 30 mmol/L (21-32) Anion Gap 10 (6-14) Blood Urea Nitrogen 16 mg/dL (8-26) Creatinine 0.7 mg/dL (0.7-1.3) Estimated GFR (Cockcroft-Gault) 116.2 BUN/Creatinine Ratio 23 (6-20) Glucose Level 116 mg/dL (70-99) Lactic Acid Level 1.2 mmol/L (0.4-2.0) 1.4 mmol/L (0.4-2.0) Calcium Level 9.0 mg/dL (8.5-10.1) Magnesium Level 1.7 mg/dL (1.8-2.4) Total Bilirubin 0.6 mg/dL (0.2-1.0) Aspartate Amino Transf (AST/SGOT) 17 U/L (15-37) Alanine Aminotransferase (ALT/SGPT) 32 U/L (16-63) Alkaline Phosphatase 109 U/L (46-116) Creatine Kinase 40 U/L (39-308) Creatine Kinase MB (Mass) 0.5 ng/mL (0.0-3.6) Creatine Kinase MB Relative Index % (0-4) Troponin I Quantitative < 0.017 ng/mL (0.000-0.055) < 0.017 ng/mL (0.000-0.055) OJ-Hxs-E-Type Natriuretic Peptide 175 pg/mL (0-124) Total Protein 6.3 g/dL (6.4-8.2) Albumin 3.0 g/dL (3.4-5.0) Albumin/Globulin Ratio 0.9 (1.0-1.7) Lipase 98 U/L (73-393) Thyroid Stimulating Hormone (TSH) 4.728 uIU/mL (0.358-3.74) Urine Collection Type Unknown Urine Color Kasandra Urine Clarity Clear Urine pH 6.0 Urine Specific [place] >=1.030 Urine Protein Negative mg/dL (NEG-TRACE) Urine Glucose (UA) Negative mg/dL (NEG) Urine Ketones (Stick) Negative mg/dL (NEG) Urine Blood Negative (NEG) Urine Nitrite Negative (NEG) Urine Bilirubin Small (NEG) Urine Urobilinogen Dipstick 1.0 mg/dL (0.2 mg/dL) Urine Leukocyte Esterase Negative (NEG) Urine RBC Occ /HPF (0-2) Urine WBC Occ /HPF (0-4) Urine Squamous Epithelial Cells Few /LPF Urine Bacteria Few /HPF (0-FEW) Urine Mucus Marked /LPF Urine Opiates Screen Pos (NEG) Urine Methadone Screen Neg (NEG) Urine Barbiturates Neg (NEG) Urine Phencyclidine Screen Neg (NEG) Urine Amphetamine/Methamphetamine Neg (NEG) Urine Benzodiazepines Screen Neg (NEG) Urine Cocaine Screen Neg (NEG) Urine Cannabinoids Screen Pos (NEG) Urine Ethyl Alcohol Neg (NEG) Test 09/12/18 02:55 White Blood Count 10.8 x10^3/uL (4.0-11.0) Red Blood Count 4.20 x10^6/uL (4.30-5.70) Hemoglobin 12.6 g/dL (13.0-17.5) Hematocrit 38.7 % (39.0-53.0) Mean Corpuscular Volume 92 fL (79-100) Mean Corpuscular Hemoglobin 30 pg (25-35) Mean Corpuscular Hemoglobin Concent 33 g/dL (31-37) Red Cell Distribution Width 14.0 % (11.5-14.5) Platelet Count 259 x10^3/uL (140-400) Neutrophils (%) (Auto) 71 % (31-73) Lymphocytes (%) (Auto) 17 % (24-48) Monocytes (%) (Auto) 7 % (0-9) Eosinophils (%) (Auto) 5 % (0-3) Basophils (%) (Auto) 1 % (0-3) Neutrophils # (Auto) 7.7 x10^3uL (1.8-7.7) Lymphocytes # (Auto) 1.8 x10^3/uL (1.0-4.8) Monocytes # (Auto) 0.7 x10^3/uL (0.0-1.1) Eosinophils # (Auto) 0.6 x10^3/uL (0.0-0.7) Basophils # (Auto) 0.1 x10^3/uL (0.0-0.2) Sodium Level 142 mmol/L (136-145) Potassium Level 4.0 mmol/L (3.5-5.1) Chloride Level 105 mmol/L (98-107) Carbon Dioxide Level 30 mmol/L (21-32) Anion Gap 7 (6-14) Blood Urea Nitrogen 16 mg/dL (8-26) Creatinine 0.8 mg/dL (0.7-1.3) Estimated GFR (Cockcroft-Gault) 99.6 Glucose Level 106 mg/dL (70-99) Calcium Level 9.0 mg/dL (8.5-10.1) Assessment/Plan Assessment/Plan ct reviewed, fascia intact, will order binder to help support port sites miralax, supp ordered ERNESTO MINER MD 09/12/18 1339: CONSULT Assessment/Plan Assessment/Plan Pt seen and examined. Agree with Ms. Matta's note Pt with c/o epigastric incisional pain, improved now TTP at site, surrounding induration agree with w/u cont pain control Thanks for consult! REINA MATTA APRN September 12, 2018 08:31 ERNESTO MINER MD September 12, 2018 13:39
[2018-09-12] MEDS: ASPIRIN ENTERIC COATED 81 MG TABLET.DR. PO SCH (08:58)
[2018-09-12] MEDS: DOCUSATE SODIUM 100 MG CAPSULE. PO SCH (08:59)
[2018-09-12] MEDS: METOPROLOL TART IMMED RELEASE 25 MG TABLET. PO SCH ×2 (08:59→21:29)
[2018-09-12] MEDS: CLOPIDOGREL BISULFATE 75 MG TABLET PO SCH (08:59)
[2018-09-12] MEDS: MELOXICAM 7.5 MG TABLET PO SCH (08:59)
[2018-09-12] MEDS ORDERED: POLYETHYLENE GLYCOL 3350 17 GM PACKET. PO SCH (09:00)
[2018-09-12] MEDS: HYDROcodone/APAP 7.5/325MG 1 TAB TABLET PO PRN ×2 (09:08→17:32)
--- NOTE | 2018-09-12 09:14 | PDOC2 ---
GI CONSULT Reason For Consult: RUQ pain, jalen on Saturday HPI: HPI: 58 y/o male w/ recent admission - underwent heart cath (patent stents) and cholecystectomy (cholelithiasis, normal IOC). Back to ER yesterday w/ RUQ pain w/ movement - says he has to hold that area of his abdomen when he sits up. Pain resolves when he lays down. No issues eating, no n/v. Hasn't stooled since last - doesn't think he normally has constipation but isn't sure. Didn't try anything OTC. Has been taking a pain medication at home (?hydrocodone). No dysphagia, bleeding, or weight loss. Reviewed surgery note - plans for abd binder and Miralax. H/o GERD on omeprazole QHS. Previously told me had an EGD years ago for "bleeding esophagus." Colonoscopy by Dr. Helm for screening in 07/2016 showed sigmoid polyp (biopsy w/ benign colonic mucosa) and sigmoid diverticulosis. Fatty liver on imaging. Denies pancreas history. On Plavix, ASA, and Mobic here. "I don't know what I take - ask the girl." PMH: PMH: CAD w/ stents, HTN, HLD, LOPEZ, GERD, fatty liver, diverticulosis, OA, depression, obesity, chronic pain left rotator cuff repair, cholecystectomy (normal IOC) FH: Family History: Cancer (breast - twin sister) Social History: Smoke: Quit ALCOHOL: social Drugs: None ROS: GEN: Denies fevers, chills, sweats HEENT: Denies blurred vision, sore throat CV: Denies chest pain RESP: Denies shortness of air, cough GI: Per HPI : Denies hematuria, dysuria ENDO: Denies weight changes NEURO: Denies confusion, dizziness MSK: +weakness SKIN: Denies jaundice, pruritus Vitals: Vitals: Vital Signs Date Time Temp Pulse Resp B/P (MAP) Pulse Ox O2 Delivery O2 Flow Rate FiO2 09/12/18 07:00 97.5 60 18 115/76 (89) 97 Room Air 97.5 Labs: Labs: Laboratory Tests Test 09/11/18 16:45 09/11/18 17:13 09/11/18 20:35 09/11/18 22:05 White Blood Count 11.2 x10^3/uL (4.0-11.0) Red Blood Count 4.35 x10^6/uL (4.30-5.70) Hemoglobin 13.5 g/dL (13.0-17.5) Hematocrit 39.9 % (39.0-53.0) Mean Corpuscular Volume 92 fL (79-100) Mean Corpuscular Hemoglobin 31 pg (25-35) Mean Corpuscular Hemoglobin Concent 34 g/dL (31-37) Red Cell Distribution Width 14.2 % (11.5-14.5) Platelet Count 259 x10^3/uL (140-400) Neutrophils (%) (Auto) 73 % (31-73) Lymphocytes (%) (Auto) 16 % (24-48) Monocytes (%) (Auto) 6 % (0-9) Eosinophils (%) (Auto) 4 % (0-3) Basophils (%) (Auto) 1 % (0-3) Neutrophils # (Auto) 8.2 x10^3uL (1.8-7.7) Lymphocytes # (Auto) 1.8 x10^3/uL (1.0-4.8) Monocytes # (Auto) 0.7 x10^3/uL (0.0-1.1) Eosinophils # (Auto) 0.5 x10^3/uL (0.0-0.7) Basophils # (Auto) 0.1 x10^3/uL (0.0-0.2) Prothrombin Time 14.0 SEC (11.7-14.0) Prothromb Time International Ratio 1.1 (0.8-1.1) Sodium Level 142 mmol/L (136-145) Potassium Level 4.1 mmol/L (3.5-5.1) Chloride Level 102 mmol/L (98-107) Carbon Dioxide Level 30 mmol/L (21-32) Anion Gap 10 (6-14) Blood Urea Nitrogen 16 mg/dL (8-26) Creatinine 0.7 mg/dL (0.7-1.3) Estimated GFR (Cockcroft-Gault) 116.2 BUN/Creatinine Ratio 23 (6-20) Glucose Level 116 mg/dL (70-99) Lactic Acid Level 1.2 mmol/L (0.4-2.0) 1.4 mmol/L (0.4-2.0) Calcium Level 9.0 mg/dL (8.5-10.1) Magnesium Level 1.7 mg/dL (1.8-2.4) Total Bilirubin 0.6 mg/dL (0.2-1.0) Aspartate Amino Transf (AST/SGOT) 17 U/L (15-37) Alanine Aminotransferase (ALT/SGPT) 32 U/L (16-63) Alkaline Phosphatase 109 U/L (46-116) Creatine Kinase 40 U/L (39-308) Creatine Kinase MB (Mass) 0.5 ng/mL (0.0-3.6) Creatine Kinase MB Relative Index % (0-4) Troponin I Quantitative < 0.017 ng/mL (0.000-0.055) < 0.017 ng/mL (0.000-0.055) WU-Uxq-A-Type Natriuretic Peptide 175 pg/mL (0-124) Total Protein 6.3 g/dL (6.4-8.2) Albumin 3.0 g/dL (3.4-5.0) Albumin/Globulin Ratio 0.9 (1.0-1.7) Lipase 98 U/L (73-393) Thyroid Stimulating Hormone (TSH) 4.728 uIU/mL (0.358-3.74) Urine Collection Type Unknown Urine Color Kasandra Urine Clarity Clear Urine pH 6.0 Urine Specific [place] >=1.030 Urine Protein Negative mg/dL (NEG-TRACE) Urine Glucose (UA) Negative mg/dL (NEG) Urine Ketones (Stick) Negative mg/dL (NEG) Urine Blood Negative (NEG) Urine Nitrite Negative (NEG) Urine Bilirubin Small (NEG) Urine Urobilinogen Dipstick 1.0 mg/dL (0.2 mg/dL) Urine Leukocyte Esterase Negative (NEG) Urine RBC Occ /HPF (0-2) Urine WBC Occ /HPF (0-4) Urine Squamous Epithelial Cells Few /LPF Urine Bacteria Few /HPF (0-FEW) Urine Mucus Marked /LPF Urine Opiates Screen Pos (NEG) Urine Methadone Screen Neg (NEG) Urine Barbiturates Neg (NEG) Urine Phencyclidine Screen Neg (NEG) Urine Amphetamine/Methamphetamine Neg (NEG) Urine Benzodiazepines Screen Neg (NEG) Urine Cocaine Screen Neg (NEG) Urine Cannabinoids Screen Pos (NEG) Urine Ethyl Alcohol Neg (NEG) Test 09/12/18 02:55 White Blood Count 10.8 x10^3/uL (4.0-11.0) Red Blood Count 4.20 x10^6/uL (4.30-5.70) Hemoglobin 12.6 g/dL (13.0-17.5) Hematocrit 38.7 % (39.0-53.0) Mean Corpuscular Volume 92 fL (79-100) Mean Corpuscular Hemoglobin 30 pg (25-35) Mean Corpuscular Hemoglobin Concent 33 g/dL (31-37) Red Cell Distribution Width 14.0 % (11.5-14.5) Platelet Count 259 x10^3/uL (140-400) Neutrophils (%) (Auto) 71 % (31-73) Lymphocytes (%) (Auto) 17 % (24-48) Monocytes (%) (Auto) 7 % (0-9) Eosinophils (%) (Auto) 5 % (0-3) Basophils (%) (Auto) 1 % (0-3) Neutrophils # (Auto) 7.7 x10^3uL (1.8-7.7) Lymphocytes # (Auto) 1.8 x10^3/uL (1.0-4.8) Monocytes # (Auto) 0.7 x10^3/uL (0.0-1.1) Eosinophils # (Auto) 0.6 x10^3/uL (0.0-0.7) Basophils # (Auto) 0.1 x10^3/uL (0.0-0.2) Sodium Level 142 mmol/L (136-145) Potassium Level 4.0 mmol/L (3.5-5.1) Chloride Level 105 mmol/L (98-107) Carbon Dioxide Level 30 mmol/L (21-32) Anion Gap 7 (6-14) Blood Urea Nitrogen 16 mg/dL (8-26) Creatinine 0.8 mg/dL (0.7-1.3) Estimated GFR (Cockcroft-Gault) 99.6 Glucose Level 106 mg/dL (70-99) Calcium Level 9.0 mg/dL (8.5-10.1) Allergies: Coded Allergies: naproxen (Verified Allergy, Intermediate, 12/21/17) ASA OK Medications: Current Medications Medications (Trade) Dose Ordered Sig/Allie Route PRN Reason Start Time Stop Time Status Last Admin Dose Admin Morphine Sulfate (Morphine Sulfate) 4 mg PRN Q15MIN PRN IV/SQ PAIN GREATER THAN 3/10 09/11/18 16:30 09/12/18 16:29 09/11/18 19:00 Ondansetron HCl (Zofran) 4 mg 1X ONCE IV 09/11/18 17:00 09/11/18 17:01 DC 09/11/18 16:37 Iohexol (Omnipaque 300 Mg/ml) 75 ml 1X ONCE IV 09/11/18 17:45 09/11/18 17:46 DC 09/11/18 17:38 Morphine Sulfate (Morphine Sulfate) 4 mg PRN Q2HR PRN IV PAIN 09/11/18 19:45 09/11/18 22:10 DC 09/11/18 21:15 Temazepam (Restoril) 15 mg PRN QHS PRN PO INSOMNIA 09/11/18 21:45 09/11/18 22:38 Morphine Sulfate (Morphine Sulfate) 6 mg PRN Q1HR PRN IV PAIN 09/11/18 22:00 09/12/18 03:00 Atorvastatin Calcium (Lipitor) 80 mg QHS PO 09/11/18 22:30 09/11/18 22:37 Lisinopril (Prinivil) 40 mg HS PO 09/11/18 22:30 09/11/18 22:38 Metoprolol Tartrate (Lopressor) 25 mg BID PO 09/11/18 22:30 09/11/18 22:37 Fluoxetine HCl (PROzac) 40 mg HS PO 09/11/18 22:30 09/11/18 22:38 Pantoprazole Sodium (Protonix) 40 mg HS PO 09/11/18 22:30 09/11/18 22:35 Imaging: Imaging: CXR IMPRESSION: No acute abnormality is seen. CT A/P Images through the lung bases demonstrate minimal dependent subsegmental atelectasis bilaterally. The liver parenchyma has a decreased attenuation consistent with fatty infiltration. The spleen, pancreas, adrenal glands and left kidney are within normal limits. Rounded low-attenuation lesions are seen involving the right kidney which likely represents stenosis. These are unchanged. They measure 2.5 and 3.6 cm in size. Atherosclerotic calcification abdominal aorta is seen. The abdominal aorta tapers normally. Free fluid or free air is within the abdomen. There is no evidence of bowel obstruction. Air and stool seen throughout the colon. The appendix is well-visualized and is within normal limits. Surgical clips are seen within the gallbladder fossa consistent with a cholecystectomy. No abnormal fluid collection is seen within the gallbladder fossa. There is no CT evidence of intra or extrahepatic biliary ductal dilatation. Images through the pelvis demonstrate the urinary bladder to be contracted. Calcifications are seen within the pelvis consistent with phleboliths. No free fluid is seen. Moderate amount stool seen within the sigmoid colon and rectum. Very mild S-shaped curvature of the thoracolumbar spine is seen. Increased soft tissue density is seen within the inferior right inguinal region/anterior superior right thigh which is incompletely evaluated on this study but measures at least 7 cm in greatest diameter. This likely reflects a hematoma presumably related to a recent catheterization procedure. Degenerative changes are seen involving the lower thoracic and throughout the lumbar spine and both hips. IMPRESSION: No acute abnormality is seen. PE: GEN: NAD HEENT: Atraumatic, PERRL LUNGS: CTAB HEART: RRR ABD: NBS+, obese, RUQ incision tender to light touch - seems very superficial EXTREMITY: No edema SKIN: No rashes, no jaundice NEURO/PSYCH: A & O 3 A/P: A/P: RUQ pain w/ movement, constipation Recent cholecystectomy GERD - on PPI CRC screen - UTD (2017) CAD - recent cath w/ patent stents +cannabinoids -- Reviewed w/ Dr. Mancilla - check HIDA r/o bile leak. Agree w/ Miralax, will also give a dose of Relistor for constipation (after HIDA). AGATHA ALCANTAR September 12, 2018 09:14
[2018-09-12] MEDS: buPROPion XL 150 MG TAB.ER.24H. PO SCH (09:15)
[2018-09-12] MEDS ORDERED: METHYLNALTREXONE 12 MG/0.6 ML VIAL. SQ ONE (10:30)
[2018-09-12] MEDS: POLYETHYLENE GLYCOL 3350 17 GM PACKET. PO SCH ×2 (10:30→21:29)
--- NOTE | 2018-09-12 11:05 | PDOC2 ---
CARDIAC CONSULT DATE OF CONSULT Date of Consult DATE: 09/12/18 TIME: 11:02 REASON FOR CONSULT Reason for Consult: Abnormal EKG REFERRING PHYSICIAN Referring Physician: Elis Allen APRN SOURCE Source: Chart review, Patient HISTORY OF PRESENT ILLNESS HISTORY OF PRESENT ILLNESS This is a 58 yo male s/p lap jalen last week, who presented secondary to incisional pain. Was discharged on Saturday this week. Reports pain has been intense and unbearable. Is presently tearful due to pain. Denies any chest pain, dizziness, diaphoresis, palpitations, or nausea/vomiting. PAST MEDICAL HISTORY Past Medical History Cardiovascular: CAD, HTN, Hyperlipidemia, Tachy lazaro syndrome Pulmonary: Other (LOPEZ, intolerant to CPAP) GI: GERD Heme/Onc: No pertinent hx Hepatobiliary: No pertinent hx Psych: Depression Musculoskeletal: Osteoarthritis, Other (morbid obesity) Rheumatologic: No pertinent hx Infectious disease: No pertinent hx ENT: No pertinent hx Renal/: No pertinent hx Endocrine: No pertinent hx Dermatology: No pertinent hx PAST SURGICAL HISTORY Past Surgical History Cardiac cath with PCI/stents, recent LRTC repair, PPM Biotronik FAMILY HISTORY Family History: Coronary Artery Disease SOCIAL HISTORY Social History Smoke: <1 pack per day ALCOHOL: occasional Drugs: Marijuana Lives: with Family Domestic Violence: Neg CURRENT MEDICATIONS CURRENT MEDICATIONS Current Medications Medications (Trade) Dose Ordered Sig/Allie Route PRN Reason Start Time Stop Time Status Last Admin Dose Admin Morphine Sulfate (Morphine Sulfate) 4 mg PRN Q15MIN PRN IV/SQ PAIN GREATER THAN 3/10 09/11/18 16:30 09/12/18 16:29 09/11/18 19:00 Ondansetron HCl (Zofran) 4 mg 1X ONCE IV 09/11/18 17:00 09/11/18 17:01 DC 09/11/18 16:37 Iohexol (Omnipaque 300 Mg/ml) 75 ml 1X ONCE IV 09/11/18 17:45 09/11/18 17:46 DC 09/11/18 17:38 Morphine Sulfate (Morphine Sulfate) 4 mg PRN Q2HR PRN IV PAIN 09/11/18 19:45 09/11/18 22:10 DC 09/11/18 21:15 Temazepam (Restoril) 15 mg PRN QHS PRN PO INSOMNIA 09/11/18 21:45 09/11/18 22:38 Morphine Sulfate (Morphine Sulfate) 6 mg PRN Q1HR PRN IV PAIN 09/11/18 22:00 09/12/18 03:00 Aspirin (Ecotrin) 81 mg DAILYWBKFT PO 09/12/18 08:00 09/12/18 08:58 Atorvastatin Calcium (Lipitor) 80 mg QHS PO 09/11/18 22:30 09/11/18 22:37 Bupropion HCl (Wellbutrin Xl) 150 mg DAILY PO 09/12/18 09:00 09/12/18 09:15 Clopidogrel Bisulfate (Plavix) 75 mg DAILY PO 09/12/18 09:00 09/12/18 08:59 Docusate Sodium (Colace) 100 mg DAILY PO 09/12/18 09:00 09/12/18 08:59 Acetaminophen/ Hydrocodone Bitart (Lortab 7.5/325) 1 tab PRN Q6HRS PRN PO PAIN 09/11/18 22:00 09/12/18 09:08 Lisinopril (Prinivil) 40 mg HS PO 09/11/18 22:30 09/11/18 22:38 Metoprolol Tartrate (Lopressor) 25 mg BID PO 09/11/18 22:30 09/12/18 08:59 Fluoxetine HCl (PROzac) 40 mg HS PO 09/11/18 22:30 09/11/18 22:38 Meloxicam (Mobic) 15 mg DAILY PO 09/12/18 09:00 09/12/18 08:59 Pantoprazole Sodium (Protonix) 40 mg HS PO 09/11/18 22:30 09/12/18 10:13 DC 09/11/18 22:35 Polyethylene Glycol (miraLAX PACKET) 17 gm DAILY PO 09/12/18 09:00 09/12/18 10:13 DC 09/12/18 08:57 ALLERGIES ALLERGIES: Coded Allergies: naproxen (Verified Allergy, Intermediate, 04/04/17) ASA OK ROS Review of System 14 point ROS conducted with pertinent positives noted above in HPI. PHYSICAL EXAM PHYSICAL EXAM General: Alert, Oriented X3, Cooperative, No acute distress HEENT: Atraumatic, Mucous membr. moist/pink Lungs: Clear to auscultation, Normal air movement Heart: Regular rate (V paced), Normal S1, Normal S2, No murmurs Abdomen: Soft, RUQ pain/tenderness, Other (obese) Extremities: No cyanosis, No edema Skin: No breakdown, No significant lesion, Other (right chest surgical incision is healed and scabbed over) Neuro: Normal speech, Sensation intact Psych/Mental Status: tearful, anxious MUSCULOSKELETAL: Osteoarthritic changes both hands VITALS VITALS Vital Signs Date Time Temp Pulse Resp B/P (MAP) Pulse Ox O2 Delivery O2 Flow Rate FiO2 09/12/18 10:08 Room Air 09/12/18 08:59 70 09/12/18 07:00 97.5 18 115/76 (89) 97 97.5 LABS Lab: Laboratory Tests Test 09/11/18 16:45 09/11/18 17:13 09/11/18 20:35 09/11/18 22:05 White Blood Count 11.2 x10^3/uL (4.0-11.0) Red Blood Count 4.35 x10^6/uL (4.30-5.70) Hemoglobin 13.5 g/dL (13.0-17.5) Hematocrit 39.9 % (39.0-53.0) Mean Corpuscular Volume 92 fL (79-100) Mean Corpuscular Hemoglobin 31 pg (25-35) Mean Corpuscular Hemoglobin Concent 34 g/dL (31-37) Red Cell Distribution Width 14.2 % (11.5-14.5) Platelet Count 259 x10^3/uL (140-400) Neutrophils (%) (Auto) 73 % (31-73) Lymphocytes (%) (Auto) 16 % (24-48) Monocytes (%) (Auto) 6 % (0-9) Eosinophils (%) (Auto) 4 % (0-3) Basophils (%) (Auto) 1 % (0-3) Neutrophils # (Auto) 8.2 x10^3uL (1.8-7.7) Lymphocytes # (Auto) 1.8 x10^3/uL (1.0-4.8) Monocytes # (Auto) 0.7 x10^3/uL (0.0-1.1) Eosinophils # (Auto) 0.5 x10^3/uL (0.0-0.7) Basophils # (Auto) 0.1 x10^3/uL (0.0-0.2) Prothrombin Time 14.0 SEC (11.7-14.0) Prothromb Time International Ratio 1.1 (0.8-1.1) Sodium Level 142 mmol/L (136-145) Potassium Level 4.1 mmol/L (3.5-5.1) Chloride Level 102 mmol/L (98-107) Carbon Dioxide Level 30 mmol/L (21-32) Anion Gap 10 (6-14) Blood Urea Nitrogen 16 mg/dL (8-26) Creatinine 0.7 mg/dL (0.7-1.3) Estimated GFR (Cockcroft-Gault) 116.2 BUN/Creatinine Ratio 23 (6-20) Glucose Level 116 mg/dL (70-99) Lactic Acid Level 1.2 mmol/L (0.4-2.0) 1.4 mmol/L (0.4-2.0) Calcium Level 9.0 mg/dL (8.5-10.1) Magnesium Level 1.7 mg/dL (1.8-2.4) Total Bilirubin 0.6 mg/dL (0.2-1.0) Aspartate Amino Transf (AST/SGOT) 17 U/L (15-37) Alanine Aminotransferase (ALT/SGPT) 32 U/L (16-63) Alkaline Phosphatase 109 U/L (46-116) Creatine Kinase 40 U/L (39-308) Creatine Kinase MB (Mass) 0.5 ng/mL (0.0-3.6) Creatine Kinase MB Relative Index % (0-4) Troponin I Quantitative < 0.017 ng/mL (0.000-0.055) < 0.017 ng/mL (0.000-0.055) LB-Bmh-S-Type Natriuretic Peptide 175 pg/mL (0-124) Total Protein 6.3 g/dL (6.4-8.2) Albumin 3.0 g/dL (3.4-5.0) Albumin/Globulin Ratio 0.9 (1.0-1.7) Lipase 98 U/L (73-393) Thyroid Stimulating Hormone (TSH) 4.728 uIU/mL (0.358-3.74) Urine Collection Type Unknown Urine Color Kasandra Urine Clarity Clear Urine pH 6.0 Urine Specific [place] >=1.030 Urine Protein Negative mg/dL (NEG-TRACE) Urine Glucose (UA) Negative mg/dL (NEG) Urine Ketones (Stick) Negative mg/dL (NEG) Urine Blood Negative (NEG) Urine Nitrite Negative (NEG) Urine Bilirubin Small (NEG) Urine Urobilinogen Dipstick 1.0 mg/dL (0.2 mg/dL) Urine Leukocyte Esterase Negative (NEG) Urine RBC Occ /HPF (0-2) Urine WBC Occ /HPF (0-4) Urine Squamous Epithelial Cells Few /LPF Urine Bacteria Few /HPF (0-FEW) Urine Mucus Marked /LPF Urine Opiates Screen Pos (NEG) Urine Methadone Screen Neg (NEG) Urine Barbiturates Neg (NEG) Urine Phencyclidine Screen Neg (NEG) Urine Amphetamine/Methamphetamine Neg (NEG) Urine Benzodiazepines Screen Neg (NEG) Urine Cocaine Screen Neg (NEG) Urine Cannabinoids Screen Pos (NEG) Urine Ethyl Alcohol Neg (NEG) Test 09/12/18 02:55 White Blood Count 10.8 x10^3/uL (4.0-11.0) Red Blood Count 4.20 x10^6/uL (4.30-5.70) Hemoglobin 12.6 g/dL (13.0-17.5) Hematocrit 38.7 % (39.0-53.0) Mean Corpuscular Volume 92 fL (79-100) Mean Corpuscular Hemoglobin 30 pg (25-35) Mean Corpuscular Hemoglobin Concent 33 g/dL (31-37) Red Cell Distribution Width 14.0 % (11.5-14.5) Platelet Count 259 x10^3/uL (140-400) Neutrophils (%) (Auto) 71 % (31-73) Lymphocytes (%) (Auto) 17 % (24-48) Monocytes (%) (Auto) 7 % (0-9) Eosinophils (%) (Auto) 5 % (0-3) Basophils (%) (Auto) 1 % (0-3) Neutrophils # (Auto) 7.7 x10^3uL (1.8-7.7) Lymphocytes # (Auto) 1.8 x10^3/uL (1.0-4.8) Monocytes # (Auto) 0.7 x10^3/uL (0.0-1.1) Eosinophils # (Auto) 0.6 x10^3/uL (0.0-0.7) Basophils # (Auto) 0.1 x10^3/uL (0.0-0.2) Sodium Level 142 mmol/L (136-145) Potassium Level 4.0 mmol/L (3.5-5.1) Chloride Level 105 mmol/L (98-107) Carbon Dioxide Level 30 mmol/L (21-32) Anion Gap 7 (6-14) Blood Urea Nitrogen 16 mg/dL (8-26) Creatinine 0.8 mg/dL (0.7-1.3) Estimated GFR (Cockcroft-Gault) 99.6 Glucose Level 106 mg/dL (70-99) Calcium Level 9.0 mg/dL (8.5-10.1) ECHOCARDIOGRAM ECHOCARDIOGRAM <Conclusion> The left ventricular systolic function is normal and the ejection fraction is within normal range. Apical motion consistent with pacemaker activation. There is a pacemaker lead in the right ventricle. DATE: 09/05/18 1225 STRESS TEST STRESS TEST Conclusion 1. Regadenoson cardioisotope stress test showed [id number] amount of inferior wall ischemia. 2. Normal left ventricular systolic function with ejection fraction calculated at 83%. 3. Intermediate risk for cardiac events. DATE: 01/01/17 1143 HEART CATH HEART CATH Conclusion 1. One vessel CAD involving the distal RCA 2. Successful PCI of the distal RCA extending into the proximal PDA with implantation of overlapping Xience 3.0/12 and 2.5/12 KYLIE. Recommendations ASA 81mg daily indefinitely Plavix 75mg daily indefinitely if tolerated Cardiac rehab referral Risk factor modification. DATE: 04/04/17 1642 Findings. Hemodynamics. LV 156/6, 18. Aortic root 154/104. Coronaries. Left main. The left main was a moderate size vessel. It had a distal 20% lesion. Left anterior descending. The LAD was a moderate size vessel. It had a mid 40- 50% lesion. It had diffusely small distal vessels. Left circumflex. The left circumflex was a relatively small vessel. In its midportion there was a 50% lesion. The proximal portion of an obtuse marginal branch was also a 50% lesion. There was diffuse small vessel distal disease. Right coronary artery. The right coronary was a moderate size vessel. Its midportion had mild disease in the 20-30% range. Previously placed stents in the mid and distal vessel were widely patent. Left ventriculogram. The left ventricle showed low normal LV systolic function with an ejection fraction of 50%. <Conclusion> Patent stents in the right coronary artery. Diffuse moderate disease in the left system. Distal small vessel disease. Low normal LV systolic function with an ejection fraction of 50%. DATE: 09/05/18 1636 ASSESSMENT/PLAN ASSESSMENT/PLAN 1. Cholelithiasis s/p lap jalen 09/07/18. C/o severe incisional pain 2. CAD past stents 03/2017 as noted above. Cath last week without intervention as noted above. 4. SSS/tachy-lazaro syndrome s/p PPM (Biotronik) 5. HTN; controlled 6. HLP; statin therapy 7. Morbid obesity Recommendations Continue with secondary prevention measures including plavix and ASA. Supportive care No further cardiac workup warranted at this time Please call with questions ROBERT SCHAFER APRN September 12, 2018 11:05
[2018-09-12 11:23] VITALS: BP 137/83
--- NOTE | 2018-09-12 12:45 | NUR ---
SS following for discharge planning. SS reviewed pt chart. Pt is from home and is currently on room air. No discharge needs noted at this time. SS will continue to follow for discharge planning.
--- NOTE | 2018-09-12 14:34 | RAD ---
Radionuclide hepatobiliary scan, 09/12/2018: HISTORY: Possible bile leak. Following IV injection of 5.5 mCi of technetium 99m Choletec there was prompt uptake of the radionuclide from the blood stream by the liver. Activity is present in the common bile duct and small bowel at 10 minutes. The gallbladder is surgically absent. No extravasated radionuclide is seen to suggest a bile leak. IMPRESSION: No significant abnormality is detected. Electronically signed by: Marco A Bullock MD (09/12/2018 2:31 PM) [facility]
[2018-09-12 15:00] VITALS: BP 104/70
[2018-09-12] MEDS: PANTOPRAZOLE 40 MG TABLET.DR. PO SCH (15:13)
[2018-09-12 19:25] VITALS: BP 118/76
[2018-09-12] MEDS: TEMAZEPAM 15 MG CAPSULE PO PRN (21:26)
[2018-09-12] MEDS: FLUoxetine HCL 20 MG CAPSULE PO SCH (21:26)
[2018-09-12] MEDS: ATORVASTATIN CALCIUM 40 MG TABLET. PO SCH (21:28)
[2018-09-12] MEDS: LISINOPRIL 20 MG TABLET PO SCH (21:28)
[2018-09-12 23:36] VITALS: BP 149/86
[2018-09-13] MEDS: MORPHINE SULFATE 10 MG/ML VIAL. IV PRN ×4 (00:56→20:10)
[2018-09-13 03:31] VITALS: BP 147/74
[2018-09-13] MEDS: PANTOPRAZOLE 40 MG TABLET.DR. PO SCH (06:20)
[2018-09-13 07:55] VITALS: BP 160/90
[2018-09-13] MEDS: METOPROLOL TART IMMED RELEASE 25 MG TABLET. PO SCH ×2 (08:31→20:09)
[2018-09-13] MEDS: ASPIRIN ENTERIC COATED 81 MG TABLET.DR. PO SCH (08:31)
[2018-09-13] MEDS: buPROPion XL 150 MG TAB.ER.24H. PO SCH (08:31)
[2018-09-13] MEDS: MELOXICAM 7.5 MG TABLET PO SCH (08:31)
[2018-09-13] MEDS: CLOPIDOGREL BISULFATE 75 MG TABLET PO SCH (08:31)
[2018-09-13] MEDS: DOCUSATE SODIUM 100 MG CAPSULE. PO SCH (08:31)
[2018-09-13] MEDS: POLYETHYLENE GLYCOL 3350 17 GM PACKET. PO SCH ×2 (08:32→20:08)
--- NOTE | 2018-09-13 09:01 | PDOC ---
SURGICAL PROGRESS NOTE Subjective Patient complains of pain at the right upper quadrant port site denies any nausea vomiting fevers or chills Vital Signs Vital Signs Date Time Temp Pulse Resp B/P (MAP) Pulse Ox O2 Delivery O2 Flow Rate FiO2 09/13/18 08:31 72 160/90 09/13/18 08:00 Room Air 09/13/18 07:55 97.6 18 95 3.0 97.6 I&O Intake and Output 09/13/18 07:00 Intake Total 740 ml Output Total 250 ml Balance 490 ml Intake Oral 740 ml Output Urine Total 250 ml # Voids 1 PATIENT HAS A GRANT: No General: Alert, Oriented X3, Cooperative, mild distress Abdomen: Normal bowel sounds, Soft, Other (tender to palpation over right upper quadrant port site with some ecchymosis) Labs Laboratory Tests Test 09/11/18 16:45 09/11/18 17:13 09/11/18 20:35 09/11/18 22:05 White Blood Count 11.2 x10^3/uL (4.0-11.0) Red Blood Count 4.35 x10^6/uL (4.30-5.70) Hemoglobin 13.5 g/dL (13.0-17.5) Hematocrit 39.9 % (39.0-53.0) Mean Corpuscular Volume 92 fL (79-100) Mean Corpuscular Hemoglobin 31 pg (25-35) Mean Corpuscular Hemoglobin Concent 34 g/dL (31-37) Red Cell Distribution Width 14.2 % (11.5-14.5) Platelet Count 259 x10^3/uL (140-400) Neutrophils (%) (Auto) 73 % (31-73) Lymphocytes (%) (Auto) 16 % (24-48) Monocytes (%) (Auto) 6 % (0-9) Eosinophils (%) (Auto) 4 % (0-3) Basophils (%) (Auto) 1 % (0-3) Neutrophils # (Auto) 8.2 x10^3uL (1.8-7.7) Lymphocytes # (Auto) 1.8 x10^3/uL (1.0-4.8) Monocytes # (Auto) 0.7 x10^3/uL (0.0-1.1) Eosinophils # (Auto) 0.5 x10^3/uL (0.0-0.7) Basophils # (Auto) 0.1 x10^3/uL (0.0-0.2) Prothrombin Time 14.0 SEC (11.7-14.0) Prothromb Time International Ratio 1.1 (0.8-1.1) Sodium Level 142 mmol/L (136-145) Potassium Level 4.1 mmol/L (3.5-5.1) Chloride Level 102 mmol/L (98-107) Carbon Dioxide Level 30 mmol/L (21-32) Anion Gap 10 (6-14) Blood Urea Nitrogen 16 mg/dL (8-26) Creatinine 0.7 mg/dL (0.7-1.3) Estimated GFR (Cockcroft-Gault) 116.2 BUN/Creatinine Ratio 23 (6-20) Glucose Level 116 mg/dL (70-99) Lactic Acid Level 1.2 mmol/L (0.4-2.0) 1.4 mmol/L (0.4-2.0) Calcium Level 9.0 mg/dL (8.5-10.1) Magnesium Level 1.7 mg/dL (1.8-2.4) Total Bilirubin 0.6 mg/dL (0.2-1.0) Aspartate Amino Transf (AST/SGOT) 17 U/L (15-37) Alanine Aminotransferase (ALT/SGPT) 32 U/L (16-63) Alkaline Phosphatase 109 U/L (46-116) Creatine Kinase 40 U/L (39-308) Creatine Kinase MB (Mass) 0.5 ng/mL (0.0-3.6) Creatine Kinase MB Relative Index % (0-4) Troponin I Quantitative < 0.017 ng/mL (0.000-0.055) < 0.017 ng/mL (0.000-0.055) PJ-Paq-E-Type Natriuretic Peptide 175 pg/mL (0-124) Total Protein 6.3 g/dL (6.4-8.2) Albumin 3.0 g/dL (3.4-5.0) Albumin/Globulin Ratio 0.9 (1.0-1.7) Lipase 98 U/L (73-393) Thyroid Stimulating Hormone (TSH) 4.728 uIU/mL (0.358-3.74) Urine Collection Type Unknown Urine Color [place] Urine Clarity Clear Urine pH 6.0 Urine Specific [place] >=1.030 Urine Protein Negative mg/dL (NEG-TRACE) Urine Glucose (UA) Negative mg/dL (NEG) Urine Ketones (Stick) Negative mg/dL (NEG) Urine Blood Negative (NEG) Urine Nitrite Negative (NEG) Urine Bilirubin Small (NEG) Urine Urobilinogen Dipstick 1.0 mg/dL (0.2 mg/dL) Urine Leukocyte Esterase Negative (NEG) Urine RBC Occ /HPF (0-2) Urine WBC Occ /HPF (0-4) Urine Squamous Epithelial Cells Few /LPF Urine Bacteria Few /HPF (0-FEW) Urine Mucus Marked /LPF Urine Opiates Screen Pos (NEG) Urine Methadone Screen Neg (NEG) Urine Barbiturates Neg (NEG) Urine Phencyclidine Screen Neg (NEG) Urine Amphetamine/Methamphetamine Neg (NEG) Urine Benzodiazepines Screen Neg (NEG) Urine Cocaine Screen Neg (NEG) Urine Cannabinoids Screen Pos (NEG) Urine Ethyl Alcohol Neg (NEG) Test 09/12/18 02:55 09/12/18 22:15 White Blood Count 10.8 x10^3/uL (4.0-11.0) Red Blood Count 4.20 x10^6/uL (4.30-5.70) Hemoglobin 12.6 g/dL (13.0-17.5) Hematocrit 38.7 % (39.0-53.0) Mean Corpuscular Volume 92 fL (79-100) Mean Corpuscular Hemoglobin 30 pg (25-35) Mean Corpuscular Hemoglobin Concent 33 g/dL (31-37) Red Cell Distribution Width 14.0 % (11.5-14.5) Platelet Count 259 x10^3/uL (140-400) Neutrophils (%) (Auto) 71 % (31-73) Lymphocytes (%) (Auto) 17 % (24-48) Monocytes (%) (Auto) 7 % (0-9) Eosinophils (%) (Auto) 5 % (0-3) Basophils (%) (Auto) 1 % (0-3) Neutrophils # (Auto) 7.7 x10^3uL (1.8-7.7) Lymphocytes # (Auto) 1.8 x10^3/uL (1.0-4.8) Monocytes # (Auto) 0.7 x10^3/uL (0.0-1.1) Eosinophils # (Auto) 0.6 x10^3/uL (0.0-0.7) Basophils # (Auto) 0.1 x10^3/uL (0.0-0.2) Sodium Level 142 mmol/L (136-145) Potassium Level 4.0 mmol/L (3.5-5.1) Chloride Level 105 mmol/L (98-107) Carbon Dioxide Level 30 mmol/L (21-32) Anion Gap 7 (6-14) Blood Urea Nitrogen 16 mg/dL (8-26) Creatinine 0.8 mg/dL (0.7-1.3) Estimated GFR (Cockcroft-Gault) 99.6 Glucose Level 106 mg/dL (70-99) Calcium Level 9.0 mg/dL (8.5-10.1) Troponin I Quantitative < 0.017 ng/mL (0.000-0.055) Laboratory Tests Test 09/12/18 22:15 Troponin I Quantitative < 0.017 ng/mL (0.000-0.055) Problem List Problems Medical Problems: (1) Acute electrocardiography changes Status: Acute (2) Right upper quadrant pain Status: Acute Assessment/Plan Status post laparoscopic cholecystectomy with right upper quadrant abdominal pain appears to be musculoskeletal port site Lab its would recommend discharge to home when okay with cardiology and IM PATRICE ORTIZ MD Sep 13, 2018 09:01
[2018-09-13 11:06] VITALS: BP 116/67
--- NOTE | 2018-09-13 13:05 | PDOC ---
PROGRESS NOTES Chief Complaint Chief Complaint RUQ pain EKG changes RUQ pain w/ movement, constipation - miralax, check HIDA, can try relistor as well Recent cholecystectomy GERD - on PPI CAD - recent cath w/ patent stents +cannabinoids History of Present Illness History of Present Illness Mr Schneider is a 58 yo M w/ PMHx CAD s/p stenting, HTN, Hyperlipidemia, Tachy lazaro syndrome s/p PPM placement, LOPEZ not on CPAP, GERD, Depression who presents with RUQ pain and EKG changes. 09/12: He is literally spilling tears out of both eyes crying during examination today. Relates to me he cannot bend or sit up without RUQ pain, was requesting morphine 4mg every hour overnight, was given it every 2 hours. He is upset he was given hydrocodone for pain this morning, asking for more morphine. This morning was still requiring IV pain medications regularly, morphine 6mg. He had not had a BM since this past 09/04/18, but this morning had a very large, painful BM. States he feels very relieved now. Advised he needs to continue bowel regimen and quickly de-escalate his opioid pain meds. Will add amitiza to keep his bowels moving. I would be ok with discharge later today or tomorrow morning. Vitals Vitals Vital Signs Date Time Temp Pulse Resp B/P (MAP) Pulse Ox O2 Delivery O2 Flow Rate FiO2 09/13/18 12:29 96 Room Air 09/13/18 11:06 97.9 77 16 116/67 (83) 97.9 09/13/18 07:55 3.0 Physical Exam General: Alert, Oriented X3, Cooperative, mild distress Heart: Regular rate, Normal S1, Normal S2 Lungs: Clear Abdomen: Normal bowel sounds, Soft, Other (tender to palpation over right upper quadrant port site with some ecchymosis) Extremities: No clubbing, No cyanosis Skin: No rashes, No breakdown Labs LABS Laboratory Tests Test 09/12/18 22:15 Troponin I Quantitative < 0.017 ng/mL (0.000-0.055) Assessment and Plan Assessmemt and Plan Problems Medical Problems: (1) Acute electrocardiography changes Status: Acute (2) Right upper quadrant pain Status: Acute Comment Review of Relevant I have reviewed the following items josé (where applicable) has been applied. Labs Laboratory Tests Test 09/11/18 16:45 09/11/18 17:13 09/11/18 20:35 09/11/18 22:05 White Blood Count 11.2 x10^3/uL (4.0-11.0) Red Blood Count 4.35 x10^6/uL (4.30-5.70) Hemoglobin 13.5 g/dL (13.0-17.5) Hematocrit 39.9 % (39.0-53.0) Mean Corpuscular Volume 92 fL (79-100) Mean Corpuscular Hemoglobin 31 pg (25-35) Mean Corpuscular Hemoglobin Concent 34 g/dL (31-37) Red Cell Distribution Width 14.2 % (11.5-14.5) Platelet Count 259 x10^3/uL (140-400) Neutrophils (%) (Auto) 73 % (31-73) Lymphocytes (%) (Auto) 16 % (24-48) Monocytes (%) (Auto) 6 % (0-9) Eosinophils (%) (Auto) 4 % (0-3) Basophils (%) (Auto) 1 % (0-3) Neutrophils # (Auto) 8.2 x10^3uL (1.8-7.7) Lymphocytes # (Auto) 1.8 x10^3/uL (1.0-4.8) Monocytes # (Auto) 0.7 x10^3/uL (0.0-1.1) Eosinophils # (Auto) 0.5 x10^3/uL (0.0-0.7) Basophils # (Auto) 0.1 x10^3/uL (0.0-0.2) Prothrombin Time 14.0 SEC (11.7-14.0) Prothromb Time International Ratio 1.1 (0.8-1.1) Sodium Level 142 mmol/L (136-145) Potassium Level 4.1 mmol/L (3.5-5.1) Chloride Level 102 mmol/L (98-107) Carbon Dioxide Level 30 mmol/L (21-32) Anion Gap 10 (6-14) Blood Urea Nitrogen 16 mg/dL (8-26) Creatinine 0.7 mg/dL (0.7-1.3) Estimated GFR (Cockcroft-Gault) 116.2 BUN/Creatinine Ratio 23 (6-20) Glucose Level 116 mg/dL (70-99) Lactic Acid Level 1.2 mmol/L (0.4-2.0) 1.4 mmol/L (0.4-2.0) Calcium Level 9.0 mg/dL (8.5-10.1) Magnesium Level 1.7 mg/dL (1.8-2.4) Total Bilirubin 0.6 mg/dL (0.2-1.0) Aspartate Amino Transf (AST/SGOT) 17 U/L (15-37) Alanine Aminotransferase (ALT/SGPT) 32 U/L (16-63) Alkaline Phosphatase 109 U/L (46-116) Creatine Kinase 40 U/L (39-308) Creatine Kinase MB (Mass) 0.5 ng/mL (0.0-3.6) Creatine Kinase MB Relative Index % (0-4) Troponin I Quantitative < 0.017 ng/mL (0.000-0.055) < 0.017 ng/mL (0.000-0.055) YN-Hpw-L-Type Natriuretic Peptide 175 pg/mL (0-124) Total Protein 6.3 g/dL (6.4-8.2) Albumin 3.0 g/dL (3.4-5.0) Albumin/Globulin Ratio 0.9 (1.0-1.7) Lipase 98 U/L (73-393) Thyroid Stimulating Hormone (TSH) 4.728 uIU/mL (0.358-3.74) Urine Collection Type Unknown Urine Color Kasandra Urine Clarity Clear Urine pH 6.0 Urine Specific Thompson >=1.030 Urine Protein Negative mg/dL (NEG-TRACE) Urine Glucose (UA) Negative mg/dL (NEG) Urine Ketones (Stick) Negative mg/dL (NEG) Urine Blood Negative (NEG) Urine Nitrite Negative (NEG) Urine Bilirubin Small (NEG) Urine Urobilinogen Dipstick 1.0 mg/dL (0.2 mg/dL) Urine Leukocyte Esterase Negative (NEG) Urine RBC Occ /HPF (0-2) Urine WBC Occ /HPF (0-4) Urine Squamous Epithelial Cells Few /LPF Urine Bacteria Few /HPF (0-FEW) Urine Mucus Marked /LPF Urine Opiates Screen Pos (NEG) Urine Methadone Screen Neg (NEG) Urine Barbiturates Neg (NEG) Urine Phencyclidine Screen Neg (NEG) Urine Amphetamine/Methamphetamine Neg (NEG) Urine Benzodiazepines Screen Neg (NEG) Urine Cocaine Screen Neg (NEG) Urine Cannabinoids Screen Pos (NEG) Urine Ethyl Alcohol Neg (NEG) Test 09/12/18 02:55 09/12/18 22:15 White Blood Count 10.8 x10^3/uL (4.0-11.0) Red Blood Count 4.20 x10^6/uL (4.30-5.70) Hemoglobin 12.6 g/dL (13.0-17.5) Hematocrit 38.7 % (39.0-53.0) Mean Corpuscular Volume 92 fL (79-100) Mean Corpuscular Hemoglobin 30 pg (25-35) Mean Corpuscular Hemoglobin Concent 33 g/dL (31-37) Red Cell Distribution Width 14.0 % (11.5-14.5) Platelet Count 259 x10^3/uL (140-400) Neutrophils (%) (Auto) 71 % (31-73) Lymphocytes (%) (Auto) 17 % (24-48) Monocytes (%) (Auto) 7 % (0-9) Eosinophils (%) (Auto) 5 % (0-3) Basophils (%) (Auto) 1 % (0-3) Neutrophils # (Auto) 7.7 x10^3uL (1.8-7.7) Lymphocytes # (Auto) 1.8 x10^3/uL (1.0-4.8) Monocytes # (Auto) 0.7 x10^3/uL (0.0-1.1) Eosinophils # (Auto) 0.6 x10^3/uL (0.0-0.7) Basophils # (Auto) 0.1 x10^3/uL (0.0-0.2) Sodium Level 142 mmol/L (136-145) Potassium Level 4.0 mmol/L (3.5-5.1) Chloride Level 105 mmol/L (98-107) Carbon Dioxide Level 30 mmol/L (21-32) Anion Gap 7 (6-14) Blood Urea Nitrogen 16 mg/dL (8-26) Creatinine 0.8 mg/dL (0.7-1.3) Estimated GFR (Cockcroft-Gault) 99.6 Glucose Level 106 mg/dL (70-99) Calcium Level 9.0 mg/dL (8.5-10.1) Troponin I Quantitative < 0.017 ng/mL (0.000-0.055) Laboratory Tests Test 09/12/18 22:15 Troponin I Quantitative < 0.017 ng/mL (0.000-0.055) Microbiology 09/11/18 Blood Culture - Preliminary, Resulted NO GROWTH AFTER 1 DAY Medications Current Medications Morphine Sulfate (Morphine Sulfate) 4 mg PRN Q15MIN PRN IV/SQ PAIN GREATER THAN 3/10 Last administered on 09/11/18at 19:00; Start 09/11/18 at 16:30; Stop 09/12/18 at 11:34; Status DC Ondansetron HCl (Zofran) 4 mg 1X ONCE IV Last administered on 09/11/18at 16:37; Start 09/11/18 at 17:00; Stop 09/11/18 at 17:01; Status DC Iohexol (Omnipaque 300 Mg/ml) 75 ml 1X ONCE IV Last administered on 09/11/18at 17:38; Start 09/11/18 at 17:45; Stop 09/11/18 at 17:46; Status DC Info (CONTRAST GIVEN -- Rx MONITORING) 1 each PRN DAILY PRN MC SEE COMMENTS; Start 09/11/18 at 17:30; Stop 09/13/18 at 17:29 Ondansetron HCl (Zofran) 4 mg PRN Q8HRS PRN IV NAUSEA/VOMITING; Start 09/11/18 at 19:45; Stop 09/12/18 at 19:44; Status DC Morphine Sulfate (Morphine Sulfate) 4 mg PRN Q2HR PRN IV PAIN Last administered on 09/11/18at 21:15; Start 09/11/18 at 19:45; Stop 09/11/18 at 22:10; Status DC Acetaminophen (Tylenol) 650 mg PRN Q4HRS PRN PO FEVER; Start 09/11/18 at 19:45; Stop 09/12/18 at 19:44; Status DC Nitroglycerin (Nitrostat) 0.4 mg PRN Q5MIN PRN SL CHEST PAIN; Start 09/11/18 at 19:45; Stop 09/12/18 at 19:44; Status DC Temazepam (Restoril) 15 mg PRN QHS PRN PO INSOMNIA Last administered on 09/12/18 21:26; Start 09/11/18 at 21:45 Morphine Sulfate (Morphine Sulfate) 6 mg PRN Q1HR PRN IV PAIN Last administered on 09/13/18 12:29; Start 09/11/18 at 22:00 Aspirin (Ecotrin) 81 mg DAILYWBKFT PO Last administered on 09/13/18 08:31; Start 09/12/18 at 08:00 Atorvastatin Calcium (Lipitor) 80 mg QHS PO Last administered on 09/12/18 21:28; Start 09/11/18 at 22:30 Bupropion HCl (Wellbutrin Xl) 150 mg DAILY PO Last administered on 09/13/18 08:31; Start 09/12/18 at 09:00 Clopidogrel Bisulfate (Plavix) 75 mg DAILY PO Last administered on 09/13/18 08:31; Start 09/12/18 at 09:00 Docusate Sodium (Colace) 100 mg DAILY PO Last administered on 09/13/18 08:31; Start 09/12/18 at 09:00 Acetaminophen/ Hydrocodone Bitart (Lortab 7.5/325) 1 tab PRN Q6HRS PRN PO PAIN Last administered on 09/12/18 17:32; Start 09/11/18 at 22:00 Lisinopril (Prinivil) 40 mg HS PO Last administered on 09/12/18 21:28; Start 09/11/18 at 22:30 Metoprolol Tartrate (Lopressor) 25 mg BID PO Last administered on 09/13/18 08:31; Start 09/11/18 at 22:30 Fluoxetine HCl (PROzac) 40 mg HS PO Last administered on 09/12/18 21:26; Start 09/11/18 at 22:30 Meloxicam (Mobic) 15 mg DAILY PO Last administered on 09/13/18 08:31; Start 09/12/18 at 09:00 Pantoprazole Sodium (Protonix) 40 mg HS PO Last administered on 09/11/18 22:35; Start 09/11/18 at 22:30; Stop 09/12/18 at 10:13; Status DC Polyethylene Glycol (miraLAX PACKET) 17 gm DAILY PO Last administered on 09/12/18at 08:57; Start 09/12/18 at 09:00; Stop 09/12/18 at 10:13; Status DC Bisacodyl (Dulcolax Supp) 10 mg PRN DAILY PRN [place] CONSTIPATION; Start 09/12/18 at 08:30 Pantoprazole Sodium (Protonix) 40 mg DAILYAC PO Last administered on 09/13/18at 06:20; Start 09/12/18 at 10:30 Polyethylene Glycol (miraLAX PACKET) 17 gm BID PO Last administered on 09/13/18at 08:32; Start 09/12/18 at 10:30 Methylnaltrexone [place] (Relistor) 12 mg 1X ONCE SQ Last administered on 09/12at 15:14; Start 09/12/18 at 10:30; Stop 09/12/18 at 10:31; Status DC Active Scripts Active Colace (Docusate Sodium) 100 Mg Capsule 100 Mg PO DAILY Hydrocodone-Apap 7.5-325 (Hydrocodone Bit/Acetaminophen) 1 Tab Tablet 1 Tab PO PRN Q6HRS PRN Metoprolol Tartrate 25 Mg Tablet 1 Tab PO BID 30 Days Atorvastatin Calcium 40 Mg Tablet 80 Mg PO QHS 30 Days Aspirin Ec (Aspirin) 81 Mg Tablet. 81 Mg PO DAILYWBKFT 30 Days Reported Wellbutrin Xl (Bupropion Hcl) 150 Mg Tab.er.24h 1 Tab PO DAILY Clopidogrel (Clopidogrel Bisulfate) 75 Mg Tablet 1 Tab PO DAILY Prilosec Otc (Omeprazole Magnesium) 20 Mg Tablet. 1 Tab PO HS Lisinopril 40 Mg Tablet 40 Mg PO HS Fluoxetine Hcl 40 Mg Capsule 40 Mg PO HS Meloxicam 15 Mg Tablet 1 Tab PO HS Vitals/I & O Vital Sign - Last 24 Hours 09/12/18 09/12/18 09/12/18 09/12/18 15:00 15:27 17:32 18:32 Temp 97.8 97.8 Pulse 65 Resp 18 B/P (MAP) 104/70 (81) Pulse Ox 95 O2 Delivery Room Air Room Air Room Air Room Air 09/12/18 09/12/18 09/12/18 09/12/18 19:20 19:25 20:09 21:28 Temp 98.4 98.4 Pulse 66 76 Resp 17 16 B/P (MAP) 118/76 (90) 137/76 Pulse Ox 95 98 O2 Delivery Room Air Room Air Room Air 09/12/18 09/12/18 09/13/18 09/13/18 21:29 23:36 00:56 01:26 Temp 97.9 97.9 Pulse 68 66 Resp 18 16 16 B/P (MAP) 137/76 149/86 (107) Pulse Ox 100 98 98 O2 Delivery Nasal Cannula Room Air Room Air O2 Flow Rate 2.0 3.0 3.0 09/13/18 09/13/18 09/13/18 09/13/18 03:31 07:55 08:00 08:31 Temp 97.9 97.6 97.9 97.6 Pulse 42 72 72 Resp 17 18 B/P (MAP) 147/74 (98) 160/90 (113) 160/90 Pulse Ox 100 95 O2 Delivery Nasal Cannula Nasal Cannula Room Air O2 Flow Rate 2.0 3.0 09/13/18 09/13/18 11:06 12:29 Temp 97.9 97.9 Pulse 77 Resp 16 B/P (MAP) 116/67 (83) Pulse Ox 96 96 O2 Delivery Room Air Room Air Intake and Output 09/12/18 09/12/18 09/13/18 15:00 23:00 07:00 Intake Total 240 ml 500 ml Output Total 250 ml Balance -10 ml 500 ml NICHOLAS STEVEN MD Sep 13, 2018 13:05
[2018-09-13] MEDS: LUBIPROSTONE 8 MCG CAPSULE PO SCH ×2 (13:47→17:18)
[2018-09-13 15:02] VITALS: BP 125/53
[2018-09-13] MEDS: HYDROcodone/APAP 7.5/325MG 1 TAB TABLET PO PRN (15:18)
[2018-09-13] MEDS ORDERED: HYDROCORTISONE 1% TOPICAL OINTMENT 30GM TUBE. TP PRN (15:30)
[2018-09-13 18:47] VITALS: BP 134/69
[2018-09-13] MEDS: LISINOPRIL 20 MG TABLET PO SCH (20:08)
[2018-09-13] MEDS: FLUoxetine HCL 20 MG CAPSULE PO SCH (20:08)
[2018-09-13] MEDS: ATORVASTATIN CALCIUM 40 MG TABLET. PO SCH (20:09)
[2018-09-13] MEDS: TEMAZEPAM 15 MG CAPSULE PO PRN (21:48)
[2018-09-13 22:55] VITALS: BP 136/84
[2018-09-14 02:52] VITALS: BP 132/74
[2018-09-14] MEDS: MORPHINE SULFATE 10 MG/ML VIAL. IV PRN (05:45)
[2018-09-14] MEDS: PANTOPRAZOLE 40 MG TABLET.DR. PO SCH (06:33)
[2018-09-14 07:00] VITALS: BP 163/93
--- NOTE | 2018-09-14 08:01 | PDOC ---
PROGRESS NOTES Chief Complaint Chief Complaint RUQ pain EKG changes RUQ pain w/ movement, constipation - miralax, check HIDA, can try relistor as well Recent cholecystectomy GERD - on PPI CAD - recent cath w/ patent stents +cannabinoids History of Present Illness History of Present Illness Mr Schneider is a 58 yo M w/ PMHx CAD s/p stenting, HTN, Hyperlipidemia, Tachy lazaro syndrome s/p PPM placement, LOPEZ not on CPAP, GERD, Depression who presents with RUQ pain and EKG changes. 09/12: He is literally spilling tears out of both eyes crying during examination today. Relates to me he cannot bend or sit up without RUQ pain, was requesting morphine 4mg every hour overnight, was given it every 2 hours. He is upset he was given hydrocodone for pain this morning, asking for more morphine. This morning was not requiring IV pain medications regularly, morphine 6mg. He had a BM after constipation since this past 09/04/18. States he feels very relieved now. Advised he needs to continue bowel regimen and quickly de- escalate his opioid pain meds. Added amitiza to keep his bowels moving. I would be ok with discharge later today Vitals Vitals Vital Signs Date Time Temp Pulse Resp B/P (MAP) Pulse Ox O2 Delivery O2 Flow Rate FiO2 09/14/18 06:15 16 97 Room Air 3.0 09/14/18 02:52 97.9 76 132/74 (93) 97.9 Physical Exam General: Alert, Oriented X3, Cooperative, mild distress Heart: Regular rate, Normal S1, Normal S2 Lungs: Clear Abdomen: Normal bowel sounds, Soft, Other (tender to palpation over right upper quadrant port site with some ecchymosis) Extremities: No clubbing, No cyanosis Skin: No rashes, No breakdown Assessment and Plan Assessmemt and Plan Problems Medical Problems: (1) Acute electrocardiography changes Status: Acute (2) Right upper quadrant pain Status: Acute Comment Review of Relevant I have reviewed the following items josé (where applicable) has been applied. Labs Laboratory Tests Test 09/12/18 22:15 Troponin I Quantitative < 0.017 ng/mL (0.000-0.055) Microbiology 09/11/18 Blood Culture - Preliminary, Resulted NO GROWTH AFTER 2 DAYS Medications Current Medications Morphine Sulfate (Morphine Sulfate) 4 mg PRN Q15MIN PRN IV/SQ PAIN GREATER THAN 3/10 Last administered on 09/11/18at 19:00; Start 09/11/18 at 16:30; Stop 09/12/18 at 11:34; Status DC Ondansetron HCl (Zofran) 4 mg 1X ONCE IV Last administered on 09/11/18at 16:37; Start 09/11/18 at 17:00; Stop 09/11/18 at 17:01; Status DC Iohexol (Omnipaque 300 Mg/ml) 75 ml 1X ONCE IV Last administered on 09/11/18at 17:38; Start 09/11/18 at 17:45; Stop 09/11/18 at 17:46; Status DC Info (CONTRAST GIVEN -- Rx MONITORING) 1 each PRN DAILY PRN MC SEE COMMENTS; Start 09/11/18 at 17:30; Stop 09/13/18 at 17:29; Status DC Ondansetron HCl (Zofran) 4 mg PRN Q8HRS PRN IV NAUSEA/VOMITING; Start 09/11/18 at 19:45; Stop 09/12/18 at 19:44; Status DC Morphine Sulfate (Morphine Sulfate) 4 mg PRN Q2HR PRN IV PAIN Last administered on 09/11/18at 21:15; Start 09/11/18 at 19:45; Stop 09/11/18 at 22:10; Status DC Acetaminophen (Tylenol) 650 mg PRN Q4HRS PRN PO FEVER; Start 09/11/18 at 19:45; Stop 09/12/18 at 19:44; Status DC Nitroglycerin (Nitrostat) 0.4 mg PRN Q5MIN PRN SL CHEST PAIN; Start 09/11/18 at 19:45; Stop 09/12/18 at 19:44; Status DC Temazepam (Restoril) 15 mg PRN QHS PRN PO INSOMNIA Last administered on 09/13/18at 21:48; Start 09/11/18 at 21:45 Morphine Sulfate (Morphine Sulfate) 6 mg PRN Q1HR PRN IV PAIN Last administered on 09/14/18at 05:45; Start 09/11/18 at 22:00 Aspirin (Ecotrin) 81 mg DAILYWBKFT PO Last administered on 09/13/18at 08:31; Start 09/12/18 at 08:00 Atorvastatin Calcium (Lipitor) 80 mg QHS PO Last administered on 09/13/18 20:0 9; Start 09/11/18 at 22:30 Bupropion HCl (Wellbutrin Xl) 150 mg DAILY PO Last administered on 09/13/18 08:31; Start 09/12/18 at 09:00 Clopidogrel Bisulfate (Plavix) 75 mg DAILY PO Last administered on 09/13/18 08:31; Start 09/12/18 at 09:00 Docusate Sodium (Colace) 100 mg DAILY PO Last administered on 09/13/18 08:31; Start 09/12/18 at 09:00 Acetaminophen/ Hydrocodone Bitart (Lortab 7.5/325) 1 tab PRN Q6HRS PRN PO PAIN Last administered on 09/13/18 15:18; Start 09/11/18 at 22:00 Lisinopril (Prinivil) 40 mg HS PO Last administered on 09/13/18 20:08; Start 09/11/18 at 22:30 Metoprolol Tartrate (Lopressor) 25 mg BID PO Last administered on 09/13/18 20:09; Start 09/11/18 at 22:30 Fluoxetine HCl (PROzac) 40 mg HS PO Last administered on 09/13/18 20:08; Start 09/11/18 at 22:30 Meloxicam (Mobic) 15 mg DAILY PO Last administered on 09/13/18 08:31; Start 09/12/18 at 09:00 Pantoprazole Sodium (Protonix) 40 mg HS PO Last administered on 09/11/18 22:35; Start 09/11/18 at 22:30; Stop 09/12/18 at 10:13; Status DC Polyethylene Glycol (miraLAX PACKET) 17 gm DAILY PO Last administered on 09/12/18 08:57; Start 09/12/18 at 09:00; Stop 09/12/18 at 10:13; Status DC Bisacodyl (Dulcolax Supp) 10 mg PRN DAILY PRN [place] CONSTIPATION; Start 09/12/18 at 08:30 Pantoprazole Sodium (Protonix) 40 mg DAILYAC PO Last administered on 09/14/18 06:33; Start 09/12/18 at 10:30 Polyethylene Glycol (miraLAX PACKET) 17 gm BID PO Last administered on 09/13/18at 20:08; Start 09/12/18 at 10:30 Methylnaltrexone [place] (Relistor) 12 mg 1X ONCE SQ Last administered on 09/12/18at 15:14; Start 09/12/18 at 10:30; Stop 09/12/18 at 10:31; Status DC Lubiprostone (Amitiza) 8 mcg BIDWMEALS PO Last administered on 09/13/18at 17:18; Start 09/13/18 at 13:15 Hydrocortisone (Cortaid) 1 el PRN BID PRN TP ITCHING Last administered on 09/13/18at 17:20; Start 09/13/18 at 15:30 Active Scripts Active Colace (Docusate Sodium) 100 Mg Capsule 100 Mg PO DAILY Hydrocodone-Apap 7.5-325 (Hydrocodone Bit/Acetaminophen) 1 Tab Tablet 1 Tab PO PRN Q6HRS PRN Metoprolol Tartrate 25 Mg Tablet 1 Tab PO BID 30 Days Atorvastatin Calcium 40 Mg Tablet 80 Mg PO QHS 30 Days Aspirin Ec (Aspirin) 81 Mg Tablet. 81 Mg PO DAILYWBKFT 30 Days Reported Wellbutrin Xl (Bupropion Hcl) 150 Mg Tab.er.24h 1 Tab PO DAILY Clopidogrel (Clopidogrel Bisulfate) 75 Mg Tablet 1 Tab PO DAILY Prilosec Otc (Omeprazole Magnesium) 20 Mg Tablet. 1 Tab PO HS Lisinopril 40 Mg Tablet 40 Mg PO HS Fluoxetine Hcl 40 Mg Capsule 40 Mg PO HS Meloxicam 15 Mg Tablet 1 Tab PO HS Vitals/I & O Vital Sign - Last 24 Hours 09/13/18 09/13/18 09/13/18 09/13/18 08:31 11:06 12:29 15:02 Temp 97.9 98.3 97.9 98.3 Pulse 72 77 79 Resp 16 B/P (MAP) 160/90 116/67 (83) 125/53 (77) Pulse Ox 96 96 96 O2 Delivery Room Air Room Air Room Air 09/13/18 09/13/18 09/13/18 09/13/18 15:18 16:17 17:42 18:47 Temp 98.1 98.1 Pulse 68 Resp 16 B/P (MAP) 134/69 (90) Pulse Ox 96 96 96 97 O2 Delivery Room Air Room Air Room Air Room Air 09/13/18 09/13/18 09/13/18 09/13/18 19:39 20:08 20:09 20:10 Pulse 81 98 Resp 18 B/P (MAP) 150/70 150/70 Pulse Ox 98 O2 Delivery Room Air Room Air 09/13/18 09/14/18 09/14/18 09/14/18 22:55 02:52 05:45 06:15 Temp 98.1 97.9 98.1 97.9 Pulse 81 76 Resp 19 22 18 16 B/P (MAP) 136/84 (101) 132/74 (93) Pulse Ox 99 97 100 97 O2 Delivery Room Air Room Air Nasal Cannula Room Air O2 Flow Rate 3.0 3.0 Intake and Output 09/13/18 09/13/18 09/14/18 14:59 22:59 06:59 Intake Total 660 ml 360 ml 100 ml Output Total 300 ml 850 ml Balance 660 ml 60 ml -750 ml NICHOLAS STEVEN MD Sep 14, 2018 08:01
[2018-09-14] MEDS: buPROPion XL 150 MG TAB.ER.24H. PO SCH (08:34)
[2018-09-14] MEDS: CLOPIDOGREL BISULFATE 75 MG TABLET PO SCH (08:34)
[2018-09-14] MEDS: ASPIRIN ENTERIC COATED 81 MG TABLET.DR. PO SCH (08:34)
[2018-09-14] MEDS: MELOXICAM 7.5 MG TABLET PO SCH (08:34)
[2018-09-14] MEDS: LUBIPROSTONE 8 MCG CAPSULE PO SCH (08:35)
[2018-09-14] MEDS: METOPROLOL TART IMMED RELEASE 25 MG TABLET. PO SCH (08:35)
[2018-09-14] MEDS: DOCUSATE SODIUM 100 MG CAPSULE. PO SCH (08:35)
[2018-09-14] MEDS: POLYETHYLENE GLYCOL 3350 17 GM PACKET. PO SCH (08:35)
--- NOTE | 2018-09-14 08:45 | NUR ---
PATIENT WITH EMESIS AT THIS TIME REPORTED TO THIS NURSE FROM CHARGE NURSE ON THE UNIT (CLEAR LIQUID), WILL PLACE A CALL TO THE MD FOR NAUSEA MEDICATION. AM MEDICATIONS HELD AT THIS TIME.
[2018-09-14] MEDS ORDERED: LUBI8CAP4 PO (10:59)
[2018-09-14] MEDS ORDERED: POLY17PO28 PO (10:59)
[2018-09-14] MEDS ORDERED: TRAM50TA PO (10:59)
[2018-09-14] MEDS ORDERED: HYDR28OI6 TP (10:59)
[2018-09-14 11:00] VITALS: BP 161/83
[2018-09-14] MEDS: HYDROcodone/APAP 7.5/325MG 1 TAB TABLET PO PRN (11:03)
--- NOTE | 2018-09-14 11:15 | PDOC3 ---
Discharge Summary Visit Information Date of Admission: September 11, 2018 Date of Discharge: Sep 14, 2018 Admitting Diagnosis: EKG changes, intractable abdominal pain Final Diagnosis Problems Medical Problems: (1) Acute electrocardiography changes Status: Acute (2) Right upper quadrant pain Status: Acute Brief Hospital Course Allergies Allergies Coded Allergies Type Severity Reaction Last Updated Verified naproxen Allergy Intermediate 04/04/17 Yes Vital Signs Vital Signs Date Time Temp Pulse Resp B/P (MAP) Pulse Ox O2 Delivery O2 Flow Rate FiO2 09/14/18 11:03 20 94 Room Air 09/14/18 08:35 68 163/93 09/14/18 07:00 98.1 98.1 09/14/18 06:15 3.0 Lab Results Laboratory Tests Test 09/12/18 22:15 Troponin I Quantitative < 0.017 ng/mL (0.000-0.055) Brief Hospital Course Mr Schneider is a 58 yo M w/ PMHx CAD s/p stenting, HTN, Hyperlipidemia, Tachy lazaro syndrome s/p PPM placement, LOPEZ not on CPAP, GERD, Depression who presents with RUQ pain and EKG changes. Seen by general surgery and cardiology for medication modification. Was spilling tears out of both eyes crying during examination for 2 days. Initially unable to bend or sit up without RUQ pain, was requesting morphine 4mg every hour overnight, was given it every 2 hours. He was upset he was given hydrocodone, but morning of was not requiring IV pain medications regularly, morphine 6mg. He had a BM after constipation since this past 09/04/18. States he feels very relieved now. Advised he needs to continue bowel regimen and quickly de-escalate his opioid pain meds. Added amitiza to keep his bowels moving. I would be ok with discharge later today RUQ pain EKG changes RUQ pain w/ movement, constipation - miralax, check HIDA, can try relistor as well Recent cholecystectomy GERD - on PPI CAD - recent cath w/ patent stents +cannabinoids Greater than 30 minutes spent on d/c Discharge Information Condition at Discharge: Improved Follow Up: Weeks (2) Disposition/Orders: D/C to Home Scheduled Aspirin (Aspirin Ec) 81 Mg Tablet., 81 MG PO DAILYWBKFT for 30 Days, #30 Prescribed by: CAITY HERNÁNDEZ MD on 01/03/17 1100 Last Action: Continued on 09/11/182151 by SETH VELASCO RN Atorvastatin Calcium (Atorvastatin Calcium) 40 Mg Tablet, 80 MG PO QHS for 30 Days, #60 Prescribed by: CAITY HERNÁNDEZ MD on 01/03/17 1100 Last Taken: Unknown Dose on 09/10/18 Last Action: Continued on 09/11/182151 by SETH VELASCO RN Bupropion Hcl (Wellbutrin Xl) 150 Mg Tab.er.24h, 1 TAB PO DAILY for depression, #30 (Reported) Entered as Reported by: ANJEL JO on 08/26/18 1008 Last Action: Continued on 09/11/182151 by SETH VELASCO RN Clopidogrel Bisulfate (Clopidogrel) 75 Mg Tablet, 1 TAB PO DAILY, #90 Ref 1 (Rep orted) Entered as Reported by: LORAINE HERNANDEZ on 04/02/17 1718 Last Action: Continued on 09/11/182151 by SETH VELASCO RN Docusate Sodium (Colace) 100 Mg Capsule, 100 MG PO DAILY for stool softener, #30 Prescribed by: JORGE HARDIN on 09/09/18 1311 Last Action: Continued on 09/11/182151 by SETH VELASCO RN Fluoxetine Hcl (Fluoxetine Hcl) 40 Mg Capsule, 40 MG PO HS, (Reported) Entered as Reported by: Lexie Zamarripa on 12/30/162035 Last Taken: Unknown Dose on 09/10/18 Last Action: Converted on 09/11/182151 by SETH VELASCO RN Lisinopril (Lisinopril) 40 Mg Tablet, 40 MG PO HS, (Reported) Entered as Reported by: Lexie Zamarripa on 12/30/162035 Last Taken: Unknown Dose on 09/10/18 Last Action: Continued on 09/11/182151 by SETH VELASCO RN Meloxicam (Meloxicam) 15 Mg Tablet, 1 TAB PO HS, (Reported) Entered as Reported by: Lexie Zamarripa on 12/30/162035 Last Taken: Unknown Dose on 09/10/18 Last Action: Converted on 09/11/182151 by SETH VELASCO RN Metoprolol Tartrate (Metoprolol Tartrate) 25 Mg Tablet, 1 TAB PO BID for heart for 30 Days, #60 Ref 2 Prescribed by: ROBERT SCHAFER APRN on 08/27/18 1129 Last Action: Continued on 09/11/182151 by SETH VELASCO RN Omeprazole Magnesium (Prilosec Otc) 20 Mg Tablet.dr, 1 TAB PO HS, #30 Ref 3 (Reported) Entered as Reported by: Lexie Zamarripa on 12/30/162035 Last Taken: Unknown Dose on 09/10/18 Last Action: Converted on 09/11/182151 by SETH VELASCO RN Polyethylene Glycol 3350 (Polyethylene Glycol 3350) 17 Gm Powd.pack, 17 GM PO BID for Constipation for 30 Days, #60 Prescribed by: NICHOLAS STEVEN MD on 09/14/18 1059 Scheduled PRN Hydrocodone Bit/Acetaminophen (Hydrocodone-Apap 7.5-325 ) 1 Tab Tablet, 1 TAB PO PRN Q6HRS PRN for PAIN, #28 Ref 0 Prescribed by: JORGE HARIDN on 09/09/18 1311 Last Action: Continued on 09/11/182151 by SETH VELASCO RN Hydrocortisone Acetate (Anti-Itch) 28 Gm Oint...g., 1 KAYLEEN TP PRN BID PRN for ITCHING for 30 Days, #1 Prescribed by: NICHOLAS STEVEN MD on 09/14/18 1059 Lubiprostone (Amitiza) 8 Mcg Capsule, 8 MCG PO PRN BID PRN for CONSTIPATION for 30 Days, #60 Prescribed by: NICHOLAS STEVEN MD on 09/14/18 1059 Tramadol Hcl (Tramadol Hcl) 50 Mg Tablet, 50 MG PO PRN Q6HRS PRN for PAIN for 6 Days, #24 Prescribed by: NICHOLAS STEVEN MD on 09/14/18 1059 NICHOLAS STEVEN MD Sep 14, 2018 11:15
--- NOTE | 2018-09-14 11:15 | NUR ---
DISCHARGE INSTRUCTIONS GIVEN, QUESTIONS AND CONCERNS ANSWERED, PATIENT VERBALIZED UNDERSTANDING OF DISCHARGE INFORMATION INCLUDING TAKING ALL MEDICATIONS INSTRUCTED AND FOLLOWING UP WITH HIS PRIMARY PROVIDER IN 1-2 WEEKS. ALL PERSONAL BELONGINGS GATHERED BY THE PATIENT/ AND PLACED IN BAGS FOR DISCHARGE, SALINE LOCK REMOVED PRIOR TO DISCHARGE.
--- NOTE | 2018-09-14 12:00 | NUR ---
PATIENT LEAVES THE UNIT PER W/C ACCOMPANIED BY THIS SUPERVISOR COLOR PASTE MIXING, HIS AND GRANDSON, EMOTIONAL SUPPORT GIVEN, FOLLOW UP APPOINTMENTS ENCOURAGED, ABDOMINAL BINDER IN PLACE.
== END 2018-09-14 12:00 | disposition home or self-care (01) | DRG 392 ==
LOC: ER 15:53 → 2 NORTH 19:40
PROVIDERS: ADMIT Internal Medicine; ATTEND Internal Medicine
DX: K59.00 Constipation, unspecified (principal); Z68.42 Body mass index [BMI] 45.0-49.9, adult; I10 Essential (primary) hypertension; E78.00 Pure hypercholesterolemia, unspecified; I25.10 Atherosclerotic heart disease of native coronary artery without angina pectoris; E66.01 Morbid (severe) obesity due to excess calories; F12.90 Cannabis use, unspecified, uncomplicated; E78.5 Hyperlipidemia, unspecified; K21.9 Gastro-esophageal reflux disease without esophagitis; F32.9 Major depressive disorder, single episode, unspecified; M19.90 Unspecified osteoarthritis, unspecified site; K57.30 Diverticulosis of large intestine without perforation or abscess without bleeding; K76.0 Fatty (change of) liver, not elsewhere classified; G47.33 Obstructive sleep apnea (adult) (pediatric); G89.29 Other chronic pain; I49.5 Sick sinus syndrome; F17.210 Nicotine dependence, cigarettes, uncomplicated; K80.20 Calculus of gallbladder without cholecystitis without obstruction; Z90.49 Acquired absence of other specified parts of digestive tract; Z88.6 Allergy status to analgesic agent; Z95.5 Presence of coronary angioplasty implant and graft; Z82.49 Family history of ischemic heart disease and other diseases of the circulatory system; Z80.3 Family history of malignant neoplasm of breast
CPT/HCPCS: 36415; 71045; 74177; 78226; 80048; 80053; 80307; 81001; 82553; 83605; 83690; 83735; 83880; 84443; 84484; 85025; 85610; 87040; 93005; 96374; 96375; 96376; A9537; J2212; J2270; J2405; Q9967; 99285-25

== ENCOUNTER → 2019-03-09 | Outpatient (CLI) | payer BC ==
[~2019-03-09] MED LIST changes: +HYDR28OI6 TP; +LUBI8CAP4 PO; +POLY17PO28 PO; +SIMV40TA18 PO; -SIMV40TA3 PO; +TRAM50TA PO
--- NOTE | 2019-03-09 13:55 | KCIC ---
Bilateral renal ultrasound for renal mass seen on CT scan. Technique an findings: Real-time grayscale and color Doppler evaluation of the kidneys and urinary bladder is performed. The right kidney measures 12.3 x 6.0 x 5.8 cm in the left measures 12.4 x 6.0 x 6.9 cm. There is no hydronephrosis or perinephric fluid around either kidney. On the right, at the upper mid pole there is a 4.6 x 3.5 x 3.6 cm simple cyst corresponding to the abnormality seen at the midpole on the recent CT scan. The other cysts seen near the superior pole on the prior CT scan is not evident by ultrasound, but has been stable for years and is likely simple as well. No suspicious renal masses involving the right kidney. On the left, there is a 1.0 x 1.2 x 1.1 cm simple cyst at the inferior pole, once again with no suspicious renal masses. The urinary bladder is decompressed. IMPRESSION: 1. Simple bilateral renal cysts with no suspicious renal masses. Electronically signed by: Meek Arteaga MD (03/09/2019 1:52 PM) [id number]
== END | disposition home or self-care (01) ==
LOC: KCIC US 07:51
PROVIDERS: ATTEND Urology
DX: N28.1 Cyst of kidney, acquired (principal)
CPT/HCPCS: 76770

== ENCOUNTER → 2019-09-08 | Outpatient (CLI) | payer BC ==
--- NOTE | 2019-09-08 16:41 | RAD ---
Examination: RENAL COMPLETE BILATERAL History: Bilateral renal cysts. Renal mass. Comparison/Correlation: 03/09/2019 renal ultrasound exam Findings: Right kidney measures 12.5 cm x 5.2 cm x 6.8 cm. Left kidney measures 11.7 cm x 4.8 cm x 5.1 cm. No hydronephrosis. Right renal superior pole cyst measures 3 cm diameter. Interpolar region cyst measures 2.5 cm diameter. Left renal lower pole cyst measures 1.2 cm diameter. Renal cortical echotexture and contours are unremarkable. The urinary bladder is mostly decompressed but unremarkable. Impression:. Simple bilateral renal cysts. No suspicious renal lesions. No further follow-up required Electronically signed by: Pedro Block MD (09/08/2019 4:38 PM) [id number]
== END | disposition home or self-care (01) ==
LOC: US 15:49
PROVIDERS: ATTEND Urology
DX: N28.1 Cyst of kidney, acquired (principal)
CPT/HCPCS: 76770

== ENCOUNTER → 2021-06-12 | Outpatient (CLI) | payer BC, OTHER ==
[~2021-06-12] MED LIST changes: +AMLO-187 PO; -AMLO10TA8 PO; -ASPI-612 PO; +ASPI-886 PO; +CYCL10TA19 PO; -CYCL10TA2 PO; -ISOS30TA4 PO; +ISOS30TA68 PO; -LISI-334 PO; +LISI20TA18 PO; -POLY17PO28 PO; +POLY17PO52 PO
--- NOTE | 2021-06-12 09:46 | RAD ---
XR CHEST 2V History: Sleep apnea Comparison: 09/11/2018 Technique: PA and lateral chest radiographs. Findings: There is a right chest dual-chamber pacemaker. The lungs are adequately and symmectrically inflated. No airspace consolidation, pleural effusion or pneumothorax. The cardiomediastinal silhoutte and pulmonary vasculature are within normal limits. Herbert wing osteophytes in the lower thoracic spine. Soft tissues are unremarkable. Impression: 1. No acute cardiopulmonary process. Electronically signed by: Jose Hwang MD (06/12/2021 9:43 AM) [id number]
== END ==
LOC: RAD 08:02
PROVIDERS: ATTEND Internal Medicine Critical Care Medicine
DX: G47.33 Obstructive sleep apnea (adult) (pediatric) (principal); Z95.0 Presence of cardiac pacemaker
CPT/HCPCS: 71046